=== PATIENT | male | born 1965 | race Two or more races ===

== ENCOUNTER 2016-04-28 15:52 | Emergency (ER) | payer MEDICARE, MEDICAID ==
[~2016-04-28 15:52] MED LIST: BUTA1CAP29 PO; CRESTOR40 MG PO; DOCU-27 PO; HYDR12.53 PO; HYDR12.58 PO; MORP4SYR IV; OMEP20CA9 PO; OMEP20TA PO; OXYC-250 PO
[2016-04-28] MEDS ORDERED: ACETAMINOPHEN 500 MG TABLET PO ONE (18:00)
[2016-04-28] MEDS ORDERED: IV NORMAL SALINE 1000ML BAG 1,000 ML IV ONE (18:00)
[2016-04-28] MEDS ORDERED: IV NORMAL SALINE 1000ML BAG 1,000 ML IV SCH (18:10)
[2016-04-28] MEDS ORDERED: ACETAMINOPHEN 325 MG TABLET. PO ONE (18:15)
[2016-04-28 18:36] LABS: OBC FLU VALID
[2016-04-28 19:07] LABS: BASO # 0.1 x10^3/uL (0.0-0.2); BASO % 1 % (0-3); EOS % 5 % (0-3); HEMOGLOBIN 14.9 g/dL (13.0-17.5); LYMPH # 1.3 x10^3/uL (1.0-4.8); LYMPH % 9 % (24-48); MEAN CORPUSCULAR HEMOGLOBIN 29 pg (25-35); MEAN CORPUSCULAR HGB CONC 32 g/dL (31-37); MEAN CORPUSCULAR VOLUME 91 fL (79-100); MONO % 13 % (0-9); NEUT % 72 % (31-73); PLATELET COUNT 355 x10^3/uL (140-400); RED BLOOD COUNT 5.08 x10^6/uL (4.30-5.70); RED CELL DISTRIBUTION WIDTH 15.7 % (11.5-14.5); WHITE BLOOD COUNT 14.1 x10^3/uL (4.0-11.0)
[2016-04-28 19:16] LABS: GFR 79.1; POTASSIUM 3.8 mmol/L (3.5-5.1)
[2016-04-28 19:22] LABS: ALBUMIN 3.5 g/dL (3.4-5.0); ALBUMIN/GLOBULIN RATIO 0.9 (1.0-1.7); TOTAL BILIRUBIN 0.3 mg/dL (0.2-1.0); TOTAL PROTEIN 7.6 g/dL (6.4-8.2)
[2016-04-28] MEDS ORDERED: MORPHINE SULFATE 4 MG/ML DISP.SYRIN. IV ONE (19:45)
[2016-04-28] MEDS ORDERED: CEFTRIAXONE 1GM IVPB FOR OMNI 50 ML IV ONE (22:00)
[2016-04-28] MEDS ORDERED: HYDR-971 PO (22:01)
[2016-04-28] MEDS ORDERED: AMOX1TAB61 PO (22:01)
--- NOTE | 2016-04-28 22:01 | PHYS DOC ---
Past Medical History Past Medical History: Asthma, High Cholesterol, Hypertension Additional Past Medical Histor: head injury at work 2003, CARPEL TUNNEL Past Surgical History: Cholecystectomy, Splenectomy Additional Past Surgical Histo: spleenectomy, C 4-5 sX 2008 Alcohol Use: Occasionally Drug Use: None Adult General Chief Complaint Chief Complaint: FLU SYMPTOM HPI HPI Patient is a 50 year old male who has been sick since about Friday or Friday, April 23 or . He has had a fever to 102. He's had a cough and chest pain. He's had some nausea, vomited once or twice. He's had a sore throat and headache. He has body aches. Patient is in good general health. 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 PCP Dr. Parker Review of Systems Review of Systems Constitutional: As in history of present illness Eyes: Denies change in visual acuity, redness, or eye pain [] HENT: Positive sore throat Respiratory: As in history of present illness Cardiovascular: He does have chest tightness and pain with the cough GI: Denies abdominal pain, positive for nausea, a couple episodes of vomiting but not a major amount : Denies dysuria or hematuria [] Musculoskeletal: Generalized aches and pains Integument: Denies rash or skin lesions [] Neurologic: Denies focal weakness or sensory changes [] Current Medications Current Medications Current Medications Medications (Trade) Dose Ordered Sig/Santino Start Time Stop Time Status Last Admin Dose Admin Acetaminophen (Tylenol) 1,000 mg 1X ONCE 04/28/16 18:00 04/28/16 18:01 DC Acetaminophen 1000 mg 1,000 mg 1X ONCE 04/28/16 18:15 04/28/16 18:20 DC Ceftriaxone Sodium (Rocephin 1gm Ivpb For Omni) 50 ml @ 100 mls/hr 1X ONCE 04/28/16 22:00 04/28/16 22:29 Morphine Sulfate 4 mg 4 mg 1X ONCE 04/28/16 19:45 04/28/16 19:46 DC 04/28/16 19:56 4 MG Sodium Chloride (Iv Sodium Chloride 0.9% 1000ml Bag) 1,000 ml @ 1,000 mls/hr Q1H 04/28/16 18:10 04/28/16 18:20 DC Allergies Allergies Allergies Coded Allergies Type Severity Reaction Last Updated Verified cyclobenzaprine Allergy Intermediate incontinence 03/25/14 No naproxen Allergy Intermediate itching 03/25/14 No nortriptyline Allergy Intermediate itching 03/25/14 No Physical Exam Physical Exam Constitutional: Well developed, well nourished, febrile, flushed, appears to not feel well, alert and mentating normally. Swallowing without difficulty and handling his secretions well. HENT: Normocephalic, atraumatic, bilateral external ears normal, oropharynx moist, no oral exudates, nose normal. Posterior pharynx is generally red with some swelling of tonsils and of posterior pharynx, no exudates. Eyes: conjunctiva normal, no discharge. [] Neck: Normal range of motion, no stridor. [] Cardiovascular:Heart rate regular rhythm, no murmur , tachycardic in the 130s Lungs & Thorax: Bilateral breath sounds clear to auscultation [] Abdomen: Bowel sounds normal, soft, no tenderness, no masses, no pulsatile masses. [] Skin: Warm, dry, no erythema, no rash. [] Extremities: No tenderness, no cyanosis, no clubbing, ROM intact, no edema. [] Neurologic: Alert and oriented X 3, normal motor function, normal sensory function, no focal deficits noted. [] Current Patient Data Vital Signs Vital Signs Date Time Temp Pulse Resp B/P Pulse Ox O2 Delivery O2 Flow Rate FiO2 04/28/16 19:56 16 Room Air 04/28/16 18:20 134 143/85 96 04/28/16 17:20 100.8 100.8 Lab Values Laboratory Tests Test 04/28/16 17:31 04/28/16 18:30 04/28/16 18:50 Influenza Type A Antigen Negative (NEGATIVE) Influenza Type B Antigen Negative (NEGATIVE) Lactic Acid Level 1.3mmol/L (0.4-2.0) White Blood Count 14.1x10^3/uL (4.0-11.0) H Red Blood Count 5.08x10^6/uL (4.30-5.70) Hemoglobin 14.9g/dL (13.0-17.5) Hematocrit 46.0% (39.0-53.0) Mean Corpuscular Volume 91fL (79-100) Mean Corpuscular Hemoglobin 29pg (25-35) Mean Corpuscular Hemoglobin Concent 32g/dL (31-37) Red Cell Distribution Width 15.7% (11.5-14.5) H Platelet Count 355x10^3/uL (140-400) Neutrophils (%) (Auto) 72% (31-73) Lymphocytes (%) (Auto) 9% (24-48) L Monocytes (%) (Auto) 13% (0-9) H Eosinophils (%) (Auto) 5% (0-3) H Basophils (%) (Auto) 1% (0-3) Neutrophils # (Auto) 10.2x10^3uL (1.8-7.7) H Lymphocytes # (Auto) 1.3x10^3/uL (1.0-4.8) Monocytes # (Auto) 1.8x10^3/uL (0.0-1.1) H Eosinophils # (Auto) 0.8x10^3/uL (0.0-0.7) H Basophils # (Auto) 0.1x10^3/uL (0.0-0.2) Sodium Level 137mmol/L (136-145) Potassium Level 3.8mmol/L (3.5-5.1) Chloride Level 101mmol/L (98-107) Carbon Dioxide Level 26mmol/L (21-32) Anion Gap 10 (6-14) Blood Urea Nitrogen 11mg/dL (8-26) Creatinine 1.0mg/dL (0.7-1.3) Estimated GFR (Cockcroft-Gault) 79.1 BUN/Creatinine Ratio 11 (6-20) Glucose Level 100mg/dL (70-99) H Calcium Level 9.0mg/dL (8.5-10.1) Total Bilirubin 0.3mg/dL (0.2-1.0) Aspartate Amino Transferase (AST) 33U/L (15-37) Alanine Aminotransferase (ALT) 50U/L (16-63) Alkaline Phosphatase 65U/L (46-116) Total Protein 7.6g/dL (6.4-8.2) Albumin 3.5g/dL (3.4-5.0) Albumin/Globulin Ratio 0.9 (1.0-1.7) L Laboratory Tests 04/28/16 18:50 Laboratory Tests 2/12/17 18:50 EKG EKG [] Radiology/Procedures Radiology/Procedures One view portable chest x-ray read by me. No acute cardiopulmonary findings. [] Course & Med Decision Making Course & Med Decision Making Pertinent Labs and Imaging studies reviewed. (See chart for details) 50-year-old male in good general health presents with several days of a febrile illness with a cough and sore throat. The patient is status post splenectomy. Influenza negative. White blood cell count elevated consistent with infection. He is tachycardic which I attribute to fever and dehydration. He was given acetaminophen for fever and 1 L IV fluids for hydration. He remained tachycardic in the 120s so a second liter of IV fluids was given. Apparently at some point his IV blew and he had to have a second IV started but he did get his second liter. Patient's rapid strep was negative. I considered treating the patient just for a viral syndrome with negative influenza but the patient is asplenic and has had a fever for several days, tachycardic, although nontoxic he does appear ill, and I believe with this situation I feel more comfortable starting him on an antibiotic. He was given a dose of IV Rocephin in the ED and discharged on Augmentin. A prescription for [place] for aches and pains, he states he is allergic to naproxen so NSAID is not an option. [] Dragon Disclaimer Dragon Disclaimer This electronic medical record was generated, in whole or in part, using a voice recognition dictation system. Departure Departure Impression: Primary Impression: Febrile illness, acute Additional Impression: Dehydration Disposition: 01 HOME, SELF-CARE Condition: IMPROVED Referrals: ANA PARKER MD (PCP) Patient Instructions: Dehydration, Adult, [id number] Additional Instructions: Your influenza test and strep test was negative in the emergency department. I don't know what is causing your fever and illness. It may just be a virus, but because you have been sick for several days, and your spleen has been removed, we will treat with an antibiotic. Rest at home until better, drink plenty of fluids. If not better in 2-3 days, see your doctor or return for recheck. If worse, if weak, short of breath, or other new symptoms, return to ED. Scripts Hydrocodone/Apap 5-325 ([place] 5-325 Tablet)1 Each Tablet1-2 Tab PO Q4-6HRS #20 TAB As needed for pain Prov:CINTHIA WATSON MD 04/28/16 Amoxicillin/Potassium Clav (Augmentin 875-125 Tablet)1 Each Tablet1 Tab PO BID # 20 TAB Prov:CINTHIA WATSON MD 04/28/16 Problem Qualifiers CINTHIA WATSON MD Apr 28, 2016 22:02
[2016-04-28 22:20] VITALS: BP 127/69
[2016-04-29 08:00] LABS: NEGATIVE OBC STREP NEG; POSITIVE OBC STREP POS
--- NOTE | 2016-04-29 09:05 | RAD ---
Portable chest, 04/28/2016: History: Fever and cough Comparison is made to a study from 05/10/2015. The heart size and pulmonary vascularity are normal. No pulmonary infiltrates are seen. There is no evidence of pleural fluid. Moderate spurring is present in the spine. A surgical plate and screws is evident in the lower cervical region. IMPRESSION: No acute cardiopulmonary abnormality is detected.
== END 2016-04-28 22:40 | disposition home or self-care (01) ==
LOC: ER 15:52
DX: R50.9 Fever, unspecified (principal); E86.0 Dehydration; J45.909 Unspecified asthma, uncomplicated; I10 Essential (primary) hypertension; E78.00 Pure hypercholesterolemia, unspecified; Z88.6 Allergy status to analgesic agent; Z88.8 Allergy status to other drugs, medicaments and biological substances
CPT/HCPCS: 36415; 71010; 80053; 83605; 85027; 87070; 87804; 87880; 96361; 96365; 96374; 99285; J0690; J2270; J7030; 96375

== ENCOUNTER 2016-06-25 23:09 | Emergency (ER) | payer MEDICARE, MEDICAID ==
[~2016-06-25] VITALS: Ht 167.6 cm; Wt 81.6 kg
[~2016-06-25 23:09] MED LIST changes: +AMOX1TAB61 PO; +HYDR-971 PO
[2016-06-25 23:12] VITALS: BP 171/85
--- NOTE | 2016-06-25 23:24 | PHYS DOC ---
Past Medical History Past Medical History: Asthma, High Cholesterol, Hypertension Additional Past Medical Histor: head injury at work 2003, CARPEL TUNNEL Past Surgical History: Cholecystectomy, Splenectomy Additional Past Surgical Histo: spleenectomy Alcohol Use: Occasionally Drug Use: None Adult General Chief Complaint Chief Complaint: ANKLE PROBLEM [facility] HPI Patient is a 50 year old male presents emergency Department today with complaint of right ankle pain after falling yesterday as as well as today. Patient denies any previous broken bones to his ankle. He states he also has a scratch and bruising to the inside of his left thigh. However, he states his primary concern is his right ankle here today. Review of Systems Review of Systems Constitutional: Denies fever or chills [] Eyes: Denies change in visual acuity, redness, or eye pain [] HENT: Denies nasal congestion or sore throat [] Respiratory: Denies cough or shortness of breath [] Cardiovascular: No additional information not addressed in HPI [] GI: Denies abdominal pain, nausea, vomiting, bloody stools or diarrhea [] : Denies dysuria or hematuria [] Musculoskeletal: Denies back pain or joint pain [] Integument: Denies rash or skin lesions [] Neurologic: Denies headache, focal weakness or sensory changes [] Endocrine: Denies polyuria or polydipsia [] Allergies Allergies Allergies Coded Allergies Type Severity Reaction Last Updated Verified cyclobenzaprine Allergy Intermediate incontinence 03/25/14 No naproxen Allergy Intermediate itching 03/25/14 No nortriptyline Allergy Intermediate itching 03/25/14 No Physical Exam Physical Exam Constitutional: Well developed, well nourished, no acute distress, non-toxic appearance. [] HENT: Normocephalic, atraumatic, bilateral external ears normal, oropharynx moist, no oral exudates, nose normal. [] Eyes: PERRLA, EOMI, conjunctiva normal, no discharge. [] Neck: Normal range of motion, no tenderness, supple, no stridor. [] Cardiovascular:Heart rate regular rhythm, no murmur [] Lungs & Thorax: Bilateral breath sounds clear to auscultation [] Abdomen: Bowel sounds normal, soft, no tenderness, no masses, no pulsatile masses. [] Skin: Warm, dry, no erythema, no rash. [] Back: No tenderness, no CVA tenderness. [] Extremities: Right knee is normal in appearance and nontender palpation. Patient has no complaints of pain over the fibular head and neck. Right ankle with bruising and tenderness to palpation around the lateral malleolus. There is no palpable instability or crepitus. Right foot is normal in appearance. Patient has no complaints of pain to his foot. He is able to plantar and dorsiflex. Foot is warm and dry with strong dorsalis pedis pulse. Neurologic: Alert and oriented X 3, normal motor function, normal sensory function, no focal deficits noted. [] Psychologic: Affect normal, judgement normal, mood normal. [] Current Patient Data Vital Signs Vital Signs Date Time Temp Pulse Resp B/P Pulse Ox O2 Delivery O2 Flow Rate FiO2 06/25/16 23:12 97.5 107 20 97 Room Air 97.5 EKG EKG [] Radiology/Procedures Radiology/Procedures 3 views of patient's right ankle were performed with adequate technique. There is several loose bodies/exostoses. There is no evidence of any acute process. Course & Med Decision Making Course & Med Decision Making Patient's right ankle was wrapped with an Russ wrap and he was placed in an ankle air splint. There is no evidence of neurovascular compromise post- application. Dragon Disclaimer Dragon Disclaimer This electronic medical record was generated, in whole or in part, using a voice recognition dictation system. Departure Departure Impression: Primary Impression: Ankle sprain Disposition: 01 HOME, SELF-CARE Condition: GOOD Referrals: ANA PARKER MD (PCP) Patient Instructions: Ankle Sprain, [id number] Additional Instructions: 1. The x-rays today show no evidence of broken bone following your two injuries. 2. Wear the Russ wrap and splint during periods of activity. Keep your foot up and elevated as much as possible to help minimize swelling. Apply ice packs every 2 hours for 20-30 minutes at a time. 3. Take the medication as prescribed. 4. Follow-up with your primary care doctor within the next 5-7 days for reexamination. Scripts Ibuprofen 600 Mg [id number] Mg PO PRN Q6HRS PRN INFLAMMATION #30 TAB Prov:DELROY SHORT 06/25/16 Hydrocodone/Apap 5-325 ([place] 5-325 Tablet)1 Each Tablet1 Tab PO PRN Q6HRS PRN PAIN #10 TAB Prov:DELROY SHORT 06/25/16 Problem Qualifiers Primary Impression: Ankle sprain Encounter type: initial encounter Involved ligament of ankle: unspecified ligament Laterality: right Qualified Code: S93.401A - Sprain of unspecified ligament of right ankle, initial encounter DELROY SHORT Jun 25, 2016 23:24
[2016-06-25] MEDS ORDERED: IBUP-1007 PO (23:52)
[2016-06-25] MEDS ORDERED: HYDR-971 PO (23:52)
--- NOTE | 2016-06-26 08:09 | RAD ---
Portable right ankle, 3 views, 06/25/2016: History: Fall, pain There is a well-defined calcific density at the tip of the medial malleolus compatible with old trauma. There is mild spurring at the tip of the lateral malleolus. No acute fracture or dislocation is identified. There are tendinous calcifications at the Achilles tendon insertion site on the posterior aspect of the calcaneus. Mild subcutaneous edema is present about the ankle. IMPRESSION: No acute bony abnormality is detected.
== END 2016-06-26 00:02 | disposition home or self-care (01) ==
LOC: ER 23:09
DX: S93.401A Sprain of unspecified ligament of right ankle, initial encounter (principal); J45.909 Unspecified asthma, uncomplicated; E78.00 Pure hypercholesterolemia, unspecified; I10 Essential (primary) hypertension; Z88.6 Allergy status to analgesic agent; Z88.8 Allergy status to other drugs, medicaments and biological substances; W19.XXXA Unspecified fall, initial encounter; Y93.89 Activity, other specified; Y92.89 Other specified places as the place of occurrence of the external cause; Y99.8 Other external cause status
CPT/HCPCS: 73610; 99284

== ENCOUNTER 2017-02-17 22:10 | Emergency (ER) | payer MEDICARE, MEDICAID ==
[~2017-02-17 22:10] MED LIST changes: +AMIT25TA PO; +CITA20TA5 PO; +DICY10CA3 PO; +DOCU-109 PO; -DOCU-27 PO; +GABA-586 PO; +IBUP-1007 PO; +LIPITOR80 MG PO; +LORA10TA3 PO; +LOSA1TAB19 PO; +METO50TA6 PO; +METR500T PO; -OMEP20TA PO; +OMEP20TA8 PO; -OXYC-250 PO; +OXYC-328 PO
--- NOTE | 2017-02-17 22:53 | PHYS DOC ---
Past Medical History Past Medical History: Asthma, High Cholesterol, Hypertension Additional Past Medical Histor: head injury at work 2003, CARPEL TUNNEL Past Surgical History: Cholecystectomy, Splenectomy Additional Past Surgical Histo: spleenectomy, c4-5 sx Alcohol Use: Occasionally Drug Use: None Adult General Chief Complaint Chief Complaint: MULTIPLE COMPLAINTS HPI HPI Patient is a 51 year old male who presents with. He states that he has chronic neck pain and a little worse today. He also complains of right upper quadrant pain of which she's been seen and evaluated before he states his been flaring up again over the last month. He states he's felt nausea and vomiting and his last time he vomited was a week ago. He denies any blood in it. He states he's having normal bowel movements. He denies any fevers or chills. He follows with Dr. Waldrop and has an appointment later in the month with her. Review of Systems Review of Systems Constitutional: Denies fever or chills [] Eyes: Denies change in visual acuity, redness, or eye pain [] HENT: Denies nasal congestion or sore throat [] Respiratory: Denies cough or shortness of breath [] Cardiovascular: No additional information not addressed in HPI [] GI: Positive for abdominal pain, nausea, vomiting, Denies bloody stools or diarrhea [] : Denies dysuria or hematuria [] Musculoskeletal: Denies back pain or joint pain [] Integument: Denies rash or skin lesions [] Neurologic: Denies headache, focal weakness or sensory changes [] Endocrine: Denies polyuria or polydipsia [] All other systems were reviewed and found to be within normal limits, except as documented in this note. Current Medications Current Medications Current Medications Medications (Trade) Dose Ordered Sig/Santino Start Time Stop Time Status Last Admin Dose Admin Info (Do NOT chart on this entry -- for MONITORING) 1 each PRN DAILY PRN 02/18/17 00:45 02/20/17 00:44 Iohexol (Omnipaque 300 Mg/ml) 75 ml 1X ONCE 02/18/17 00:45 02/18/17 00:46 DC 02/18/17 00:54 75 ML Morphine Sulfate 2 mg PRN Q15MIN PRN 02/17/17 23:00 02/18/17 22:59 02/17/17 23:34 2 MG Ondansetron HCl (Zofran) 4 mg 1X ONCE 02/17/17 23:15 02/17/17 23:19 DC 02/17/17 23:34 4 MG Sodium Chloride 1,000 ml @ 1,000 mls/hr Q1H 02/17/17 22:54 02/17/17 23:53 DC 02/17/17 23:33 1,000 MLS/HR Allergies Allergies Allergies Coded Allergies Type Severity Reaction Last Updated Verified cyclobenzaprine Allergy Intermediate incontinence 11/08/16 Yes naproxen Allergy Intermediate itching 11/08/16 Yes nortriptyline Allergy Intermediate itching 11/08/16 Yes Physical Exam Physical Exam Constitutional: Well developed, well nourished, no acute distress, non-toxic appearance. [] HENT: Normocephalic, atraumatic, bilateral external ears normal, oropharynx moist, no oral exudates, nose normal. [] Eyes: PERRLA, EOMI, conjunctiva normal, no discharge. [] Neck: Normal range of motion, no tenderness, supple, no stridor. [] Cardiovascular:Heart rate regular rhythm, no murmur [] Lungs & Thorax: Bilateral breath sounds clear to auscultation [] Abdomen: Bowel sounds normal, soft, mild right upper quadrant tender to palpation, no rebound or guarding, no masses, no pulsatile masses. [] Skin: Warm, dry, no erythema, no rash. [] Back: No tenderness, no CVA tenderness. [] Extremities: No tenderness, no cyanosis, no clubbing, ROM intact, no edema. [] Neurologic: Alert and oriented X 3, normal motor function, normal sensory function, no focal deficits noted. [] Psychologic: Affect normal, judgement normal, mood normal. [] Current Patient Data Vital Signs Vital Signs Date Time Temp Pulse Resp B/P (MAP) Pulse Ox O2 Delivery O2 Flow Rate FiO2 02/17/17 23:41 98.1 1 140/92 (108) 98 98.1 02/17/17 23:34 20 Room Air Lab Values Laboratory Tests Test 02/17/17 22:54 02/17/17 23:29 02/18/17 01:09 Troponin I Quantitative < 0.017 ng/mL (0.000-0.055) White Blood Count 9.6 x10^3/uL (4.0-11.0) Red Blood Count 5.20 x10^6/uL (4.30-5.70) Hemoglobin 15.2 g/dL (13.0-17.5) Hematocrit 46.1 % (39.0-53.0) Mean Corpuscular Volume 89 fL (79-100) Mean Corpuscular Hemoglobin 29 pg (25-35) Mean Corpuscular Hemoglobin Concent 33 g/dL (31-37) Red Cell Distribution Width 14.2 % (11.5-14.5) Platelet Count 419 x10^3/uL (140-400) H Neutrophils (%) (Auto) 54 % (31-73) Lymphocytes (%) (Auto) 29 % (24-48) Monocytes (%) (Auto) 15 % (0-9) H Eosinophils (%) (Auto) 2 % (0-3) Basophils (%) (Auto) 0 % (0-3) Neutrophils # (Auto) 5.2 x10^3uL (1.8-7.7) Lymphocytes # (Auto) 2.8 x10^3/uL (1.0-4.8) Monocytes # (Auto) 1.4 x10^3/uL (0.0-1.1) H Eosinophils # (Auto) 0.2 x10^3/uL (0.0-0.7) Basophils # (Auto) 0.0 x10^3/uL (0.0-0.2) Prothrombin Time 12.0 SEC (11.7-14.0) Prothrombin Time INR 0.9 (0.8-1.1) PTT 27 SEC (24-38) Sodium Level 142 mmol/L (136-145) Potassium Level 4.3 mmol/L (3.5-5.1) Chloride Level 105 mmol/L (98-107) Carbon Dioxide Level 28 mmol/L (21-32) Anion Gap 9 (6-14) Blood Urea Nitrogen 12 mg/dL (8-26) Creatinine 0.8 mg/dL (0.7-1.3) Estimated GFR (Cockcroft-Gault) 101.9 Glucose Level 99 mg/dL (70-99) Calcium Level 9.2 mg/dL (8.5-10.1) Total Bilirubin 0.3 mg/dL (0.2-1.0) Direct Bilirubin 0.1 mg/dL (0.0-0.2) Aspartate Amino Transferase (AST) 20 U/L (15-37) Alanine Aminotransferase (ALT) 34 U/L (16-63) Alkaline Phosphatase 77 U/L (46-116) Creatine Kinase 68 U/L (39-308) Creatine Kinase MB (Mass) < 0.5 ng/mL (0.0-3.6) Creatine Kinase MB Relative Index 0.7 % (0-4) Total Protein 7.3 g/dL (6.4-8.2) Albumin 3.7 g/dL (3.4-5.0) Lipase 97 U/L (73-393) Urine Collection Type Unknown Urine Color Yellow Urine Clarity Clear Urine pH 7.0 Urine Specific [place] 1.015 Urine Protein Negative mg/dL (NEG-TRACE) Urine Glucose (UA) Negative mg/dL (NEG) Urine Ketones (Stick) Negative mg/dL (NEG) Urine Blood Negative (NEG) Urine Nitrite Negative (NEG) Urine Bilirubin Negative (NEG) Urine Urobilinogen Dipstick 0.2 mg/dL (0.2 mg/dL) Urine Leukocyte Esterase Negative (NEG) Urine RBC 0 /HPF (0-2) Urine WBC 0 /HPF (0-4) Urine Squamous Epithelial Cells None /LPF Urine Bacteria 0 /HPF (0-FEW) Urine Opiates Screen Pos (NEG) Urine Methadone Screen Neg (NEG) Urine Barbiturates Neg (NEG) Urine Phencyclidine Screen Neg (NEG) Urine Amphetamine/Methamphetamine Neg (NEG) Urine Benzodiazepines Screen Neg (NEG) Urine Cocaine Screen Neg (NEG) Urine Cannabinoids Screen Neg (NEG) Urine Ethyl Alcohol Neg (NEG) Laboratory Tests 02/17/17 23:29 Laboratory Tests 02/17/17 23:29 EKG EKG [] Radiology/Procedures Radiology/Procedures [facility] [address] [place], [place] [id number] IMAGING REPORT Signed PATIENT: SELINA LAW V ACCOUNT: [id number] : 1965 LOCATION: ER AGE: 51 SEX: M EXAM STATUS: REG ER ORD. PHYSICIAN: MOHAN BEJARANO MD REASON: ruq pain PROCEDURE: CT ABD PELV W/ IV CONTRST ONLY INDICATION: RUQ PAIN; OMNI 300, 75ML COMPARISON: November 06, 2016 TECHNIQUE: Axial CT images were obtained through the abdomen and pelvis with intravenous contrast. One or more of the following individualized dose reduction techniques were utilized for this examination: 1. Automated exposure control; 2. Adjustment of the mA and/or kV according to patient size; 3. Use of iterative reconstruction technique. FINDINGS: Suspected partially visualized 4 mm nodule again seen right lung base. Mild/moderate calcific atherosclerosis. Cholecystectomy changes. Suspected cystic lesion of liver measuring approximately 2 cm. There is some edema within the mesenteric fat with mild nodularity. No definite pancreatic edema. There are some splenule is in the left upper quadrant suspected. Exophytic cystic lesion of the left kidney. No left-sided hydronephrosis. No right-sided hydronephrosis. Urinary bladder is partially distended at time of exam. Colonic diverticulosis. No definite periappendiceal inflammation. Small fat-containing umbilical hernia. Degenerative changes of spine. At the L1 vertebral body there is a lucent lesion measuring approximately 18 mm. Could be from causes such as vertebral body hemangioma IMPRESSION: No evidence of bowel obstruction or appendicitis. There is some mild edema seen in a portion of the mesentery with some scattered small lymph nodes in the area. This was also present on prior examination. Nonspecific appearance but can be seen with causes such as mesenteric adenitis or infarct of fat. Given proximity to the duodenum some degree of duodenal inflammation is not excluded on this exam. Electronically signed by: Christiano Valdes MD (02/18/2017 1:15 AM) [facility] DICTATED and SIGNED BY: CHRISTIANO VALDES MD DATE: 02/18/1799 CC: MOHAN BEJARANO MD; OKSANA WALDROP MD ~ Impressions: Adenitis Course & Med Decision Making Course & Med Decision Making Pertinent Labs and Imaging studies reviewed. (See chart for details) He scan shows likely adenitis. He is to use 4 mg Advil every 8 hours for next few days. He is to follow-up with GI and surgery. Return precautions given. He is agreeable to the plan and being discharged in stable condition. Dragon Disclaimer Dragon Disclaimer This electronic medical record was generated, in whole or in part, using a voice recognition dictation system. Departure Departure Impression: Primary Impression: Abdominal pain Disposition: HOME, SELF-CARE Condition: STABLE Referrals: OKSANA WALDROP MD (PCP) RAJ TEJADA MD, SCOTT S MD Patient Instructions: Abdominal Pain (Nonspecific) Additional Instructions: The CAT scan of your abdomen pelvis showed that you had adenitis which is an inflammation of some lymph nodes in your stomach and abdominal area. Your labs do not show any acute abnormalities in your vitals do not indicate a you have fever or other concerns. You should follow-up with Dr. Tejada with surgery. You 'll also follow-up with Dr. Steiner with GI. He can take 400 mg of Advil every 8 hours for the next few days to help control your pain. If you develop high fevers, worsening abdominal pain other concerns please return back to emergency department. MOHAN BEJARANO MD Feb 17, 2017 22:53
[2017-02-17] MEDS ORDERED: IV NORMAL SALINE 1000ML BAG 1,000 ML IV SCH (22:54)
[2017-02-17] MEDS ORDERED: MORPHINE SULFATE 2 MG/ML DISP.SYRIN. IV/SQ PRN (23:00)
[2017-02-17] MEDS ORDERED: ONDANSETRON PF 4 MG/2 ML VIAL. IV ONE (23:15)
[2017-02-17 23:49] LABS: BASO % 0 % (0-3); EOS % 2 % (0-3); HEMATOCRIT 46.1 % (39.0-53.0); HEMOGLOBIN 15.2 g/dL (13.0-17.5); LYMPH # 2.8 x10^3/uL (1.0-4.8); LYMPH % 29 % (24-48); MEAN CORPUSCULAR HEMOGLOBIN 29 pg (25-35); MEAN CORPUSCULAR HGB CONC 33 g/dL (31-37); MEAN CORPUSCULAR VOLUME 89 fL (79-100); MONO % 15 % (0-9); NEUT % 54 % (31-73); PLATELET COUNT 419 x10^3/uL (140-400); RED CELL DISTRIBUTION WIDTH 14.2 % (11.5-14.5); WHITE BLOOD COUNT 9.6 x10^3/uL (4.0-11.0)
[2017-02-17 23:55] LABS: INR 0.9 (0.8-1.1)
[2017-02-18] LABS: CALCIUM 9.2 mg/dL (8.5-10.1); CREATININE 0.8 mg/dL (0.7-1.3); GFR 101.9; POTASSIUM 4.3 mmol/L (3.5-5.1)
[2017-02-18 00:10] LABS: ALBUMIN 3.7 g/dL (3.4-5.0); DIRECT BILIRUBIN 0.1 mg/dL (0.0-0.2); TOTAL BILIRUBIN 0.3 mg/dL (0.2-1.0); TOTAL PROTEIN 7.3 g/dL (6.4-8.2)
[2017-02-18 00:13] LABS: CREATINE KINASE 68 U/L (39-308)
[2017-02-18 00:15] LABS: CKMB MASS < 0.5 ng/mL (0.0-3.6)
[2017-02-18] MEDS ORDERED: CONTRAST GIVEN MC PRN (00:45)
[2017-02-18] MEDS ORDERED: IOHEXOL 300 MG/ML 100ML VIAL. IV ONE (00:45)
--- NOTE | 2017-02-18 01:18 | RAD ---
INDICATION: RUQ PAIN; OMNI 300, 75ML COMPARISON: November 06, 2016 TECHNIQUE: Axial CT images were obtained through the abdomen and pelvis with intravenous contrast. One or more of the following individualized dose reduction techniques were utilized for this examination: 1. Automated exposure control; 2. Adjustment of the mA and/or kV according to patient size; 3. Use of iterative reconstruction technique. FINDINGS: Suspected partially visualized 4 mm nodule again seen right lung base. Mild/moderate calcific atherosclerosis. Cholecystectomy changes. Suspected cystic lesion of liver measuring approximately 2 cm. There is some edema within the mesenteric fat with mild nodularity. No definite pancreatic edema. There are some splenule is in the left upper quadrant suspected. Exophytic cystic lesion of the left kidney. No left-sided hydronephrosis. No right-sided hydronephrosis. Urinary bladder is partially distended at time of exam. Colonic diverticulosis. No definite periappendiceal inflammation. Small fat-containing umbilical hernia. Degenerative changes of spine. At the L1 vertebral body there is a lucent lesion measuring approximately 18 mm. Could be from causes such as vertebral body hemangioma IMPRESSION: No evidence of bowel obstruction or appendicitis. There is some mild edema seen in a portion of the mesentery with some scattered small lymph nodes in the area. This was also present on prior examination. Nonspecific appearance but can be seen with causes such as mesenteric adenitis or infarct of fat. Given proximity to the duodenum some degree of duodenal inflammation is not excluded on this exam. Electronically signed by: Murali Garcia MD (02/18/2017 1:15 AM) [facility]
[2017-02-18 01:19] LABS: BILIRUBIN,URINE NEGATIVE (NEG); GLUCOSE,URINE NEGATIVE (NEG); NITRITE,URINE NEGATIVE (NEG); PROTEIN,URINE NEGATIVE (NEG-TRACE); UROBILINOGEN,URINE 0.2 mg/dL (0.2 mg/dL)
[2017-02-18 01:24] LABS: BARBITURATES NEG (NEG); BENZODIAZEPINES NEG (NEG); CANNABINOIDS NEG (NEG); COCAINE NEG (NEG); METHADONE NEG (NEG); OPIATES POS (NEG); PHENCYCLIDINE NEG (NEG)
[2017-02-18 01:26] LABS: BACTERIA,URINE 0 /HPF (0-FEW); RBC,URINE 0 /HPF (0-2); WBC,URINE 0 /HPF (0-4)
[2017-02-18 02:33] VITALS: BP 125/82
--- NOTE | 2017-02-18 06:31 | EKG ---
[facility] [address] [place] [address] Test Date: 2017-02-17 Test Time: 23:27:49 Pat Name: SELINA LAW Department: Room: Gender: M Admission Discharge Rn: : 1965 Requested By: MOHAN BEJARANO Order Number: [id number] Reading MD: Measurements Intervals [place] Rate: 73 P: 56 SD: 166 QRS: -13 QRSD: 102 T: 22 QT: 358 QTc: 398 Interpretive Statements SINUS RHYTHM LEFTWARD AXIS OTHERWISE NORMAL ECG RI6.01 No previous ECG available for comparison
[2017-02-18 07:44] LABS: NEGATIVE OBC STREP NEG; POSITIVE OBC STREP POS
[2017-02-23] MEDS ORDERED: HYDR-971 PO (13:08)
== END 2017-02-18 02:42 | disposition home or self-care (01) ==
LOC: ER 22:10
DX: R10.11 Right upper quadrant pain (principal); R11.2 Nausea with vomiting, unspecified; M54.2 Cervicalgia; G89.29 Other chronic pain; J45.909 Unspecified asthma, uncomplicated; E78.00 Pure hypercholesterolemia, unspecified; I10 Essential (primary) hypertension; Z90.81 Acquired absence of spleen; Z90.49 Acquired absence of other specified parts of digestive tract; Z88.8 Allergy status to other drugs, medicaments and biological substances; Z88.6 Allergy status to analgesic agent
CPT/HCPCS: 99285; J2270; J2405; J7030; Q9967; 36415; 74177; 80048; 80076; 80307; 81001; 82553; 83690; 84484; 85025; 85610; 85730; 87070; 87880; 93005; 96361; 96374; 96375; G0479

== ENCOUNTER 2017-04-14 12:47 | Inpatient (IN) | payer MEDICARE, MEDICAID ==
[2017-04-14 14:11] LABS: INFLUENZA A PATIENT NEGATIVE (NEGATIVE)
[2017-04-14 14:12] LABS: INFLUENZA B PATIENT POSITIVE (NEGATIVE); OBC FLU VALID
[2017-04-14] MEDS: OSELTAMIVIR 75 MG CAPSULE PO ×2 (15:02)
[2017-04-14 15:11] LABS: BASO # 0.1 x10^3/uL (0.0-0.2); BASO % 1 % (0-3); EOS # 0.2 x10^3/uL (0.0-0.7); EOS % 2 % (0-3); HEMATOCRIT 43.4 % (39.0-53.0); HEMOGLOBIN 14.5 g/dL (13.0-17.5); LYMPH % 11 % (24-48); MEAN CORPUSCULAR HEMOGLOBIN 29 pg (25-35); MEAN CORPUSCULAR HGB CONC 33 g/dL (31-37); MEAN CORPUSCULAR VOLUME 87 fL (79-100); MONO # 1.7 x10^3/uL (0.0-1.1); MONO % 18 % (0-9); NEUT # 6.3 x10^3uL (1.8-7.7); NEUT % 67 % (31-73); PLATELET COUNT 418 x10^3/uL (140-400); RED BLOOD COUNT 4.98 x10^6/uL (4.30-5.70); RED CELL DISTRIBUTION WIDTH 14.6 % (11.5-14.5); WHITE BLOOD COUNT 9.4 x10^3/uL (4.0-11.0)
[2017-04-14 15:14] LABS: ADD MAN DIFF? YES
[2017-04-14 15:19] LABS: ANION GAP 6 (6-14); BLOOD UREA NITROGEN 8 mg/dL (8-26); BUN/CREATININE RATIO 10 (6-20); CALCIUM 8.5 mg/dL (8.5-10.1); CARBON DIOXIDE 27 mmol/L (21-32); CHLORIDE 98 mmol/L (98-107); CREATININE 0.8 mg/dL (0.7-1.3); GFR 101.9; GLUCOSE 112 mg/dL (70-99); POTASSIUM 4.3 mmol/L (3.5-5.1); SODIUM 131 mmol/L (136-145)
[2017-04-14 15:25] LABS: ALBUMIN 3.5 g/dL (3.4-5.0); ALBUMIN/GLOBULIN RATIO 0.9 (1.0-1.7); ALK PHOS 82 U/L (46-116); ALT (SGPT) 37 U/L (16-63); AST (SGOT) 24 U/L (15-37); LIPASE 85 U/L (73-393); TOTAL BILIRUBIN 0.1 mg/dL (0.2-1.0); TOTAL PROTEIN 7.6 g/dL (6.4-8.2)
[2017-04-14 15:36] LABS: LACTIC ACID 1.9 mmol/L (0.4-2.0)
[2017-04-14] MEDS: MORPHINE SULFATE 4 MG/ML DISP.SYRIN. IV ×4 (15:39→18:42)
[2017-04-14] MEDS ORDERED: ONDANSETRON PF 4 MG/2 ML VIAL. IV ×2 (15:45)
[2017-04-14] MEDS: IV NORMAL SALINE 1000ML BAG 1,000 ML IV ×2 (16:14)
[2017-04-14] MEDS: ACETAMINOPHEN 500 MG TABLET PO ×2 (16:14)
[2017-04-14 18:26] LABS: % BANDS 1 % (0-9); % EOS 1 % (0-5); % LYMPHS 12 % (24-48); % MONOS 18 % (0-10); % SEGS 68 % (35-66); ANISOCYTOSIS SLIGHT; NUCLEATED RBC 1; PLT ESTIMATE ADEQUATE (ADEQUATE); POLYCHROMASIA SLIGHT
[2017-04-14 18:39] LABS: LACTIC ACID 1.6 mmol/L (0.4-2.0)
[2017-04-14] MEDS ORDERED: INFLUENZA VAX SCREEN BY RX. MC ×2 (20:00)
[2017-04-14] MEDS ORDERED: PNEUMOCOCCAL VAX SCREEN BY RX. MC ×2 (20:00)
[2017-04-14] MEDS: AMITRIPTYLINE HCL 25 MG TABLET. PO ×2 (22:00)
[2017-04-14] MEDS: METOPROLOL TART IMMED RELEASE 50 MG TABLET. PO ×2 (22:00)
[2017-04-15] MEDS: ACETAMINOPHEN 325 MG TABLET. PO ×4 (03:59→08:27)
[2017-04-15] MEDS: MORPHINE SULFATE 4 MG/ML DISP.SYRIN. IV ×6 (04:04→09:36)
[2017-04-15] MEDS: LOSARTAN POTASSIUM 50 MG TABLET. PO ×2 (08:27)
[2017-04-15] MEDS: FLU VACC QS2017-18 (36MOS+)/PF 0.5 ML SYRINGE. VAX IM ×2 (09:43)
[2017-04-15] MEDS ORDERED: DICYCLOMINE HCL 10 MG CAPSULE PO ×2 (09:45)
[2017-04-15] MEDS: PNEUMOC CONJ VACC 23-VALENT 0.5 ML VIAL. VAX IM ×2 (09:47)
[2017-04-15] MEDS ORDERED: IBUPROFEN 200 MG TABLET. PO ×2 (10:45)
[2017-04-15] MEDS: CITALOPRAM 20 MG TABLET. PO ×2 (11:12)
[2017-04-15] MEDS: PANTOPRAZOLE 40 MG TABLET.DR. PO ×2 (11:13)
[2017-04-15] MEDS: GABAPENTIN 300 MG CAPSULE. PO ×6 (11:13→20:25)
[2017-04-15] MEDS: AZITHROMYCIN 250 MG TABLET. PO ×2 (11:14)
[2017-04-15] MEDS: OSELTAMIVIR 75 MG CAPSULE PO ×4 (11:14→20:26)
[2017-04-15] MEDS: HYDROcodone/APAP 5/325MG 1 TAB TABLET PO ×4 (11:16→16:32)
[2017-04-15] MEDS: METOPROLOL TART IMMED RELEASE 50 MG TABLET. PO ×2 (11:16)
[2017-04-15] MEDS: LACTOBACILLUS RHAMNOSUS GG 1 CAPSULE. PO ×2 (20:25)
[2017-04-15] MEDS: ATORVASTATIN CALCIUM 40 MG TABLET. PO ×2 (20:26)
[2017-04-15] MEDS: IBUPROFEN 200 MG TABLET. PO ×4 (20:27→23:20)
[2017-04-15] MEDS: AMITRIPTYLINE HCL 25 MG TABLET. PO ×2 (20:27)
[2017-04-16] MEDS: IBUPROFEN 200 MG TABLET. PO ×10 (03:52→21:23)
[2017-04-16] MEDS: HYDROcodone/APAP 5/325MG 1 TAB TABLET PO ×4 (03:56→08:42)
[2017-04-16] MEDS: GABAPENTIN 300 MG CAPSULE. PO ×6 (08:41→21:22)
[2017-04-16] MEDS: LACTOBACILLUS RHAMNOSUS GG 1 CAPSULE. PO ×4 (08:41→21:22)
[2017-04-16] MEDS: LOSARTAN POTASSIUM 50 MG TABLET. PO ×2 (08:42)
[2017-04-16] MEDS: OSELTAMIVIR 75 MG CAPSULE PO ×4 (08:42→21:23)
[2017-04-16] MEDS: AZITHROMYCIN 250 MG TABLET. PO ×2 (08:42)
[2017-04-16] MEDS: CITALOPRAM 20 MG TABLET. PO ×2 (08:42)
[2017-04-16] MEDS: PANTOPRAZOLE 40 MG TABLET.DR. PO ×2 (08:42)
[2017-04-16] MEDS ORDERED: CETIRIZINE HCL 10 MG TABLET. PO ×2 (09:00)
[2017-04-16] MEDS: ACETAMINOPHEN 325 MG TABLET. PO ×2 (11:12)
[2017-04-16] MEDS: METOPROLOL TART IMMED RELEASE 50 MG TABLET. PO ×2 (12:09)
[2017-04-16] MEDS: ATORVASTATIN CALCIUM 40 MG TABLET. PO ×2 (21:22)
[2017-04-16] MEDS: AMITRIPTYLINE HCL 25 MG TABLET. PO ×2 (21:22)
[2017-04-17] MEDS: IBUPROFEN 200 MG TABLET. PO ×6 (00:20→08:57)
[2017-04-17] MEDS: HYDROcodone/APAP 5/325MG 1 TAB TABLET PO ×2 (04:14)
[2017-04-17] MEDS: PANTOPRAZOLE 40 MG TABLET.DR. PO ×2 (06:37)
[2017-04-17] MEDS: OSELTAMIVIR 75 MG CAPSULE PO ×2 (08:57)
[2017-04-17] MEDS: LACTOBACILLUS RHAMNOSUS GG 1 CAPSULE. PO ×2 (08:57)
[2017-04-17] MEDS: CITALOPRAM 20 MG TABLET. PO ×2 (08:57)
[2017-04-17] MEDS: LOSARTAN POTASSIUM 50 MG TABLET. PO ×2 (08:57)
[2017-04-17] MEDS: GABAPENTIN 300 MG CAPSULE. PO ×2 (08:58)
[2017-04-17] MEDS: AZITHROMYCIN 250 MG TABLET. PO ×2 (08:58)
== END 2017-04-17 10:46 | disposition home or self-care (01) | DRG 153 ==
LOC: ER 12:47 → 5 NORTH 15:38
DX: J11.1 Influenza due to unidentified influenza virus with other respiratory manifestations (principal); R65.10 Systemic inflammatory response syndrome (SIRS) of non-infectious origin without acute organ dysfunction; E78.5 Hyperlipidemia, unspecified; I10 Essential (primary) hypertension; J45.909 Unspecified asthma, uncomplicated; K21.9 Gastro-esophageal reflux disease without esophagitis; F32.9 Major depressive disorder, single episode, unspecified; Z82.49 Family history of ischemic heart disease and other diseases of the circulatory system; Z87.11 Personal history of peptic ulcer disease; Z90.81 Acquired absence of spleen; Z90.49 Acquired absence of other specified parts of digestive tract
CPT/HCPCS: 36415; 71046; 80053; 83605; 83690; 85007; 85025; 87040; 87804; 87804-59; 90686; 90732; 93005; 96361; 96365; 96375; 99285; 99285-25; J1956; J2270; J7030; Q0144

== ENCOUNTER 2017-07-07 00:46 | Emergency (ER) | payer MEDICARE, MEDICAID ==
[2017-07-07 01:19] LABS: ADD MAN DIFF? NO; BASO % 0 % (0-3); EOS # 0.3 x10^3/uL (0.0-0.7); EOS % 4 % (0-3); HEMATOCRIT 43.5 % (39.0-53.0); HEMOGLOBIN 14.8 g/dL (13.0-17.5); LYMPH # 3.1 x10^3/uL (1.0-4.8); LYMPH % 42 % (24-48); MEAN CORPUSCULAR HEMOGLOBIN 30 pg (25-35); MEAN CORPUSCULAR HGB CONC 34 g/dL (31-37); MEAN CORPUSCULAR VOLUME 87 fL (79-100); MONO # 1.2 x10^3/uL (0.0-1.1); MONO % 17 % (0-9); NEUT # 2.7 x10^3uL (1.8-7.7); NEUT % 37 % (31-73); PLATELET COUNT 437 x10^3/uL (140-400); RED BLOOD COUNT 4.99 x10^6/uL (4.30-5.70); RED CELL DISTRIBUTION WIDTH 14.7 % (11.5-14.5); WHITE BLOOD COUNT 7.3 x10^3/uL (4.0-11.0)
[2017-07-07] MEDS: IV NORMAL SALINE 1000ML BAG 1,000 ML IV (01:22)
[2017-07-07 01:33] LABS: ANION GAP 9 (6-14); BLOOD UREA NITROGEN 14 mg/dL (8-26); BUN/CREATININE RATIO 16 (6-20); CALCIUM 8.7 mg/dL (8.5-10.1); CARBON DIOXIDE 27 mmol/L (21-32); CHLORIDE 104 mmol/L (98-107); CREATININE 0.9 mg/dL (0.7-1.3); GLUCOSE 113 mg/dL (70-99); POTASSIUM 3.9 mmol/L (3.5-5.1); SODIUM 140 mmol/L (136-145)
[2017-07-07 01:38] LABS: ALBUMIN 3.5 g/dL (3.4-5.0); ALBUMIN/GLOBULIN RATIO 0.8 (1.0-1.7); ALK PHOS 89 U/L (46-116); ALT (SGPT) 37 U/L (16-63); AST (SGOT) 22 U/L (15-37); TOTAL BILIRUBIN 0.3 mg/dL (0.2-1.0)
[2017-07-07 01:41] LABS: TROPONINI < 0.017 ng/mL (0.000-0.055)
[2017-07-07] MEDS ORDERED: CONTRAST GIVEN MC (02:00)
[2017-07-07] MEDS: IOHEXOL 300 MG/ML 100ML VIAL. IV (02:17)
[2017-07-07 05:00] LABS: TROPONINI < 0.017 ng/mL (0.000-0.055)
== END 2017-07-07 05:40 | disposition home or self-care (01) ==
LOC: ER 00:46
DX: R07.9 Chest pain, unspecified (principal); E78.00 Pure hypercholesterolemia, unspecified; I10 Essential (primary) hypertension; Z88.6 Allergy status to analgesic agent; Z88.8 Allergy status to other drugs, medicaments and biological substances
CPT/HCPCS: 36415; 71045; 71275; 80053; 84484; 85025; 93005; 96360; 99285-25; J7030; Q9967

== ENCOUNTER 2017-09-11 00:11 | Emergency (ER) | payer MEDICARE, MEDICAID ==
[2017-09-11 00:56] LABS: ADD MAN DIFF? NO
[2017-09-11 01:00] LABS: BASO # 0.1 x10^3/uL (0.0-0.2); BASO % 1 % (0-3); EOS # 0.3 x10^3/uL (0.0-0.7); EOS % 3 % (0-3); HEMATOCRIT 47.2 % (39.0-53.0); HEMOGLOBIN 15.8 g/dL (13.0-17.5); LYMPH # 2.6 x10^3/uL (1.0-4.8); LYMPH % 25 % (24-48); MEAN CORPUSCULAR HEMOGLOBIN 29 pg (25-35); MEAN CORPUSCULAR HGB CONC 34 g/dL (31-37); MEAN CORPUSCULAR VOLUME 87 fL (79-100); MONO # 1.1 x10^3/uL (0.0-1.1); MONO % 10 % (0-9); NEUT # 6.6 x10^3uL (1.8-7.7); NEUT % 62 % (31-73); PLATELET COUNT 452 x10^3/uL (140-400); RED BLOOD COUNT 5.43 x10^6/uL (4.30-5.70); RED CELL DISTRIBUTION WIDTH 15.1 % (11.5-14.5); WHITE BLOOD COUNT 10.7 x10^3/uL (4.0-11.0)
[2017-09-11] MEDS ORDERED: CONTRAST GIVEN. MC (01:00)
[2017-09-11] MEDS: IV NORMAL SALINE 1000ML BAG 1,000 ML IV (01:03)
[2017-09-11] MEDS: fentaNYL PF VIAL 100 MCG/2 ML VIAL IV (01:03)
[2017-09-11 01:28] LABS: ANION GAP 6 (6-14); BLOOD UREA NITROGEN 11 mg/dL (8-26); BUN/CREATININE RATIO 8 (6-20); CALCIUM 8.6 mg/dL (8.5-10.1); CARBON DIOXIDE 29 mmol/L (21-32); CHLORIDE 107 mmol/L (98-107); CREATININE 1.3 mg/dL (0.7-1.3); GFR 58.2; GLUCOSE 181 mg/dL (70-99); POTASSIUM 3.9 mmol/L (3.5-5.1); SODIUM 142 mmol/L (136-145)
[2017-09-11 01:35] LABS: ALBUMIN 3.2 g/dL (3.4-5.0); ALBUMIN/GLOBULIN RATIO 0.7 (1.0-1.7); ALK PHOS 92 U/L (46-116); ALT (SGPT) 41 U/L (16-63); AST (SGOT) 25 U/L (15-37); LIPASE 113 U/L (73-393); TOTAL BILIRUBIN 0.2 mg/dL (0.2-1.0); TOTAL PROTEIN 7.5 g/dL (6.4-8.2)
[2017-09-11 01:36] LABS: TROPONINI < 0.017 ng/mL (0.000-0.055)
[2017-09-11] MEDS: IOHEXOL 300 MG/ML 100ML VIAL. IV (02:00)
[2017-09-11] MEDS: IOHEXOL 240 MG/ML 50ML VIAL. PO (02:00)
[2017-09-11 03:00] LABS: BILIRUBIN,URINE NEGATIVE (NEG); CLARITY,URINE CLEAR; COLOR,URINE YELLOW; GLUCOSE,URINE NEGATIVE (NEG); NITRITE,URINE NEGATIVE (NEG); PH,URINE 6.5; PROTEIN,URINE NEGATIVE (NEG-TRACE); UROBILINOGEN,URINE 0.2 mg/dL (0.2 mg/dL)
[2017-09-11 03:07] LABS: BACTERIA,URINE 0 /HPF (0-FEW); RBC,URINE 0 /HPF (0-2); SQUAMOUS EPITHELIAL CELL,UR OCC /LPF; WBC,URINE 0 /HPF (0-4)
== END 2017-09-11 04:13 | disposition home or self-care (01) ==
LOC: ER 00:11
DX: R10.11 Right upper quadrant pain (principal); R10.31 Right lower quadrant pain; R11.0 Nausea; E78.00 Pure hypercholesterolemia, unspecified; I10 Essential (primary) hypertension; Z88.8 Allergy status to other drugs, medicaments and biological substances; Z90.49 Acquired absence of other specified parts of digestive tract
CPT/HCPCS: 36415; 74177; 80053; 81001; 83690; 84484; 85025; 93005; 96374; 99285-25; J3010; J7030; Q9966; Q9967

== ENCOUNTER 2018-06-06 16:52 | Emergency (ER) | payer MEDICARE, MEDICAID ==
[~2018-06-06] VITALS: Ht 167.6 cm; Wt 86.2 kg
[~2018-06-06 16:52] MED LIST changes: -CITA20TA5 PO; +CITA20TA6 PO; -GABA-586 PO; +GABA300C18 PO; +HYDR-3164 PO; -HYDR-971 PO; -HYDR12.53 PO; +HYDR12.575 PO; +OMEP20CA10 PO; -OMEP20CA9 PO; +OSEL75CA PO; -OXYC-328 PO; +OXYC1TAB22 PO; +RANI300T3 PO; +SUCR1TAB35 PO
[2018-06-06 18:24] VITALS: BP 158/98
[2018-06-06] MEDS ORDERED: FAMOTIDINE 20 MG/2 ML VIAL IVP ONE (18:30)
[2018-06-06] MEDS ORDERED: LIDO:MAALOX 1:1 20 ML SINGLE DOSE. SWSW ONE (18:30)
[2018-06-06 18:37] LABS: BASO # 0.1 x10^3/uL (0.0-0.2); BASO % 1 % (0-3); BILIRUBIN,URINE NEGATIVE (NEG); CLARITY,URINE CLEAR; COLOR,URINE YELLOW; EOS # 0.5 x10^3/uL (0.0-0.7); EOS % 4 % (0-3); HEMATOCRIT 51.8 % (39.0-53.0); HEMOGLOBIN 16.9 g/dL (13.0-17.5); LYMPH # 3.5 x10^3/uL (1.0-4.8); LYMPH % 27 % (24-48); MEAN CORPUSCULAR HEMOGLOBIN 28 pg (25-35); MEAN CORPUSCULAR HGB CONC 33 g/dL (31-37); MEAN CORPUSCULAR VOLUME 87 fL (79-100); MONO # 1.2 x10^3/uL (0.0-1.1); MONO % 9 % (0-9); NEUT # 7.6 x10^3uL (1.8-7.7); NEUT % 59 % (31-73); NITRITE,URINE NEGATIVE (NEG); PH,URINE 6.5; PLATELET COUNT 449 x10^3/uL (140-400); PROTEIN,URINE NEGATIVE (NEG-TRACE); RED BLOOD COUNT 5.96 x10^6/uL (4.30-5.70); UROBILINOGEN,URINE 0.2 mg/dL (0.2 mg/dL); WHITE BLOOD COUNT 12.9 x10^3/uL (4.0-11.0)
--- NOTE | 2018-06-06 18:39 | PHYS DOC ---
Past Medical History Past Medical History: High Cholesterol, Hypertension Additional Past Medical Histor: head injury at work 2004, CARPEL TUNNEL; colon ulcer Past Surgical History: Cholecystectomy, Splenectomy, Other Additional Past Surgical Histo: c4-5 sx Alcohol Use: Occasionally Drug Use: None Adult General Chief Complaint Chief Complaint: ABDOMINAL PAIN HPI HPI Patient is a 52 year old m with abdo pain, underneath right rib area. has had presentations for this sevearl times before with negative workup sto includ stress test, ct chest and abdomen adn ultrasound. pt has sharp pain also feelsl oni pressure, worse with eating but not really worse wtih exertion. it is pretty constant in nature throughout the day. feels simlar to when he was diagnosed with an ulcer. symptoms modeerate nonradiating worsening with time. mild nausea, no vomiting, mild sob. Review of Systems Review of Systems Constitutional: Denies fever or chills [] Eyes: Denies change in visual acuity, redness, or eye pain [] HENT: Denies nasal congestion or sore throat [] Respiratory: Denies cough Cardiovascular: No additional information not addressed in HPI [] GI: Neurologic: Denies headache, focal weakness or sensory changes [] Endocrine: Denies polyuria or polydipsia [] All other systems were reviewed and found to be within normal limits, except as documented in this note. Current Medications Current Medications Current Medications Medications (Trade) Dose Ordered Sig/Santino Start Time Stop Time Status Last Admin Dose Admin Famotidine (Pepcid Vial) 20 mg 1X ONCE 06/06/18 18:30 06/06/18 18:31 DC 06/06/18 18:30 20 MG Info (CONTRAST GIVEN -- Rx MONITORING) 1 each PRN DAILY PRN 06/06/18 20:45 06/06/18 21:39 DC Iohexol (Omnipaque 300 Mg/ml) 75 ml 1X ONCE 06/06/18 20:45 06/06/18 20:46 DC 06/06/18 20:54 75 ML Multi-Ingredient Mouthwash/Gargle (Gi Cocktail) 20 ml 1X ONCE 06/06/18 18:30 06/06/18 18:31 DC 06/06/18 18:30 20 ML Allergies Allergies Allergies Coded Allergies Type Severity Reaction Last Updated Verified cyclobenzaprine Allergy Intermediate incontinence 02/20/17 Yes naproxen Allergy Intermediate itching 02/20/17 Yes nortriptyline Allergy Intermediate itching 02/20/17 Yes Physical Exam Physical Exam Constitutional: Well developed, well nourished, no acute distress, non-toxic appearance. [] HENT: Normocephalic, atraumatic, bilateral external ears normal, oropharynx moist, no oral exudates, nose normal. [] Eyes: PERRLA, EOMI, conjunctiva normal, no discharge. [] Neck: Normal range of motion, no tenderness, supple, no stridor. [] Cardiovascular:Heart rate regular rhythm, no murmur [] Lungs & Thorax: Bilateral breath sounds clear to auscultation [] Abdomen: Bowel sounds normal, soft, MIL RUQ tenderness WITH DEEP PALPATION, no masses, no pulsatile masses. [] Skin: Warm, dry, no erythema, no rash. [] Back: No tenderness, no CVA tenderness. [] Extremities: No tenderness, no cyanosis, no clubbing, ROM intact, no edema. [] Neurologic: Alert and oriented X 3, normal motor function, normal sensory function, no focal deficits noted. [] Psychologic: Affect normal, judgement normal, mood normal. [] Current Patient Data Vital Signs Vital Signs Date Time Temp Pulse Resp B/P (MAP) Pulse Ox O2 Delivery O2 Flow Rate FiO2 06/06/18 18:24 97.6 101 16 158/98 (118) 97 Room Air 97.6 Lab Values Laboratory Tests Test 06/06/18 18:20 06/06/18 19:42 White Blood Count 12.9 x10^3/uL (4.0-11.0) H Red Blood Count 5.96 x10^6/uL (4.30-5.70) H Hemoglobin 16.9 g/dL (13.0-17.5) Hematocrit 51.8 % (39.0-53.0) Mean Corpuscular Volume 87 fL (79-100) Mean Corpuscular Hemoglobin 28 pg (25-35) Mean Corpuscular Hemoglobin Concent 33 g/dL (31-37) Red Cell Distribution Width 15.0 % (11.5-14.5) H Platelet Count 449 x10^3/uL (140-400) H Neutrophils (%) (Auto) 59 % (31-73) Lymphocytes (%) (Auto) 27 % (24-48) Monocytes (%) (Auto) 9 % (0-9) Eosinophils (%) (Auto) 4 % (0-3) H Basophils (%) (Auto) 1 % (0-3) Neutrophils # (Auto) 7.6 x10^3uL (1.8-7.7) Lymphocytes # (Auto) 3.5 x10^3/uL (1.0-4.8) Monocytes # (Auto) 1.2 x10^3/uL (0.0-1.1) H Eosinophils # (Auto) 0.5 x10^3/uL (0.0-0.7) Basophils # (Auto) 0.1 x10^3/uL (0.0-0.2) Urine Collection Type Unknown Urine Color Yellow Urine Clarity Clear Urine pH 6.5 Urine Specific [place] 1.010 Urine Protein Negative mg/dL (NEG-TRACE) Urine Glucose (UA) Negative mg/dL (NEG) Urine Ketones (Stick) Negative mg/dL (NEG) Urine Blood Negative (NEG) Urine Nitrite Negative (NEG) Urine Bilirubin Negative (NEG) Urine Urobilinogen Dipstick 0.2 mg/dL (0.2 mg/dL) Urine Leukocyte Esterase Negative (NEG) Urine RBC Occ /HPF (0-2) Urine WBC 0 /HPF (0-4) Urine Bacteria 0 /HPF (0-FEW) Sodium Level 141 mmol/L (136-145) Potassium Level 4.0 mmol/L (3.5-5.1) Chloride Level 102 mmol/L (98-107) Carbon Dioxide Level 31 mmol/L (21-32) Anion Gap 8 (6-14) Blood Urea Nitrogen 11 mg/dL (8-26) Creatinine 0.8 mg/dL (0.7-1.3) Estimated GFR (Cockcroft-Gault) 101.5 BUN/Creatinine Ratio 14 (6-20) Glucose Level 103 mg/dL (70-99) H Calcium Level 9.6 mg/dL (8.5-10.1) Total Bilirubin 0.2 mg/dL (0.2-1.0) Aspartate Amino Transferase (AST) 21 U/L (15-37) Alanine Aminotransferase (ALT) 48 U/L (16-63) Alkaline Phosphatase 88 U/L (46-116) Troponin I Quantitative < 0.017 ng/mL (0.000-0.055) Total Protein 8.4 g/dL (6.4-8.2) H Albumin 3.7 g/dL (3.4-5.0) Albumin/Globulin Ratio 0.8 (1.0-1.7) L Lipase 69 U/L (73-393) L Prothrombin Time 12.3 SEC (11.7-14.0) Prothrombin Time INR 0.9 (0.8-1.1) D-Dimer (Sally) < 0.27 ug/mlFEU Laboratory Tests 06/06/18 18:20 Laboratory Tests 06/06/18 18:20 EKG EKG [] Interpretation Time: nsr rate 92 no ischemic changes no stemi. Radiology/Procedures Radiology/Procedures [] Impressions: cxr negative acute, no ptx no pna. IMPRESSION: 1. No significant acute abnormality is identified. There is no evidence of acute appendicitis. There is similar nonspecific mild hazy density of the mesenteric fat. 3. There is some coronary calcification. Electronically signed by: Vidya Hernandez MD (06/06/2018 9:16 PM) [facility] Findings: AP portable view of the chest is submitted. There is no new infiltrate, pleural fluid, pneumothorax. There is cervical fusion hardware. Cardiac silhouette is stable. There is likely left epicardial fat. Impression: 1. No acute radiographic abnormality is identified. Electronically signed by: Vidya Hernandez MD (06/06/2018 7:00 PM) [facility] DICTATED and SIGNED BY: VIDYA HERNANDEZ MD DATE: 06/06/181899 Course & Med Decision Making Course & Med Decision Making Pertinent Labs and Imaging studies reviewed. (See chart for details) []52 YO M WITH THE ABOVE MEDICAL PROBLEMS P/W UPPER ABDOMINAL PAIN. THIS IS a frequent complaint for him. He has had an issue with hepatic flexure ulcer on colonoscopy he has had some mild mesenteric adenitis in the past. He had right lower rib right upper quadrant area pain for the last few days we did a d-dimer that was negative we did basic cardiac workup in the emergency room that was negative white count was mildly elevated so given his previous GI history we did do a CT scan that also looked good patient was given prescription for antacids and was discharged to follow up with his primary care doctor. [place] Disclaimer [place] Disclaimer This electronic medical record was generated, in whole or in part, using a voice recognition dictation system. Departure Departure Impression: Primary Impression: Abdominal pain Disposition: HOME, SELF-CARE Condition: STABLE Referrals: NO PCP (PCP) Scripts Omeprazole (OMEPRAZOLE) 40 Mg Capsule.dr 1 CAP PO DAILY, #30 CAP 0 Refills Prov: JAMEEL MACEDO MD 06/06/18 JAMEEL MACEDO MD Jun 06, 2018 18:39
[2018-06-06] MEDS ORDERED: OMEP40CA5 PO (18:42)
[2018-06-06 18:46] LABS: BACTERIA,URINE 0 /HPF (0-FEW); RBC,URINE OCC /HPF (0-2); WBC,URINE 0 /HPF (0-4)
[2018-06-06 18:47] LABS: CALCIUM 9.6 mg/dL (8.5-10.1); CREATININE 0.8 mg/dL (0.7-1.3); GFR 101.5
[2018-06-06 18:52] LABS: ALBUMIN 3.7 g/dL (3.4-5.0); ALBUMIN/GLOBULIN RATIO 0.8 (1.0-1.7); TOTAL BILIRUBIN 0.2 mg/dL (0.2-1.0); TOTAL PROTEIN 8.4 g/dL (6.4-8.2)
--- NOTE | 2018-06-06 19:03 | RAD ---
PORTABLE CHEST 1V History: CHEST PAIN Comparison: July 07, 2017 Findings: AP portable view of the chest is submitted. There is no new infiltrate, pleural fluid, pneumothorax. There is cervical fusion hardware. Cardiac silhouette is stable. There is likely left epicardial fat. Impression: 1. No acute radiographic abnormality is identified. Electronically signed by: Donta Julien MD (06/06/2018 7:00 PM) [facility]
[2018-06-06 19:59] LABS: PROTHROMBIN TIME PATIENT 12.3 SEC (11.7-14.0)
[2018-06-06 20:03] LABS: D-DIMER < 0.27 ug/mlFEU (0.00-0.50)
[2018-06-06] MEDS ORDERED: IOHEXOL 300 MG/ML 100ML VIAL. IV ONE (20:45)
[2018-06-06] MEDS ORDERED: CONTRAST GIVEN. MC PRN (20:45)
--- NOTE | 2018-06-06 21:19 | RAD ---
CT ABD PELV W/ IV CONTRST ONLY Indication: Right upper quadrant pain, known hepatic flexure ulcer on colonoscopy Technique: Postcontrast CT imaging was performed of the abdomen and pelvis, multiplanar reconstruction images submitted. One or more of the following individualized dose reduction techniques were utilized for this examination: 1. Automated exposure control 2. Adjustment of the mA and/or kV according to patient size 3. Use of iterative reconstruction technique. Comparison: September 11, 2017 Findings: There is coronary calcification. Spleen is absent, splenule is present as seen previously. There is a 2 cm hepatic cyst as previously. There has been cholecystectomy. There is no adrenal nodularity. Both kidneys enhance, no hydronephrosis. There is 1 cm mid left renal cyst. Nonspecific mild hazy density of the more central and left mesenteric fat is unchanged. Evaluation of bowel is limited without oral contrast. There is no significant bowel dilatation, free fluid, free air. Normal appendix is visualized. IMPRESSION: 1. No significant acute abnormality is identified. There is no evidence of acute appendicitis. There is similar nonspecific mild hazy density of the mesenteric fat. 3. There is some coronary calcification. Electronically signed by: Donta Julien MD (06/06/2018 9:16 PM) [facility]
--- NOTE | 2018-06-08 08:58 | EKG ---
[facility] [address] [place] [address] Test Date: 2018-06-06 Test Time: 18:20:53 Pat Name: SELINA LAW Department: Room: Gender: M [employer]: : 1965 Requested By: JAMEEL MACEDO Order Number: [id number] Reading MD: Roger Bowers MD Measurements Intervals [place] Rate: 92 P: 41 CA: 148 QRS: -13 QRSD: 96 T: 36 QT: 338 QTc: 423 Interpretive Statements SINUS RHYTHM Electronically Signed On 06-08-2018 10:23:47 CDT by Roger Bowers MD
== END 2018-06-06 21:39 | disposition home or self-care (01) ==
LOC: ER 16:52
DX: R10.11 Right upper quadrant pain (principal); E78.00 Pure hypercholesterolemia, unspecified; I10 Essential (primary) hypertension; Z90.49 Acquired absence of other specified parts of digestive tract; Z90.81 Acquired absence of spleen; Z88.5 Allergy status to narcotic agent; Z88.8 Allergy status to other drugs, medicaments and biological substances
CPT/HCPCS: 36415; 71045; 74177; 80053; 81001; 83690; 84484; 85025; 85379; 85610; 93005; 96374; 99284; J3490; Q9967

== ENCOUNTER 2018-06-12 21:57 | Emergency (ER) | payer MEDICAID, MEDICARE, OTHER ==
[~2018-06-12] VITALS: Ht 167.6 cm; Wt 86.2 kg
[~2018-06-12 21:57] MED LIST changes: +OMEP40CA5 PO
[2018-06-12] MEDS ORDERED: DEXAMETHASONE SOD PHOS 20 MG/5 ML VIAL. IV ONE (23:00)
[2018-06-12] MEDS ORDERED: KETOROLAC 15 MG/ML VIAL. IV ONE (23:00)
[2018-06-12] MEDS ORDERED: METOCLOPRAMIDE HCL 10 MG/2 ML VIAL. IV ONE (23:00)
[2018-06-12] MEDS ORDERED: IV NORMAL SALINE 1000ML BAG 1,000 ML IV ONE (23:00)
[2018-06-12] MEDS ORDERED: diphenhydrAMINE 50 MG/ML VIAL IVP ONE (23:00)
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
[2018-06-13] MEDS ORDERED: ONDA4TAB12 PO (00:11)
[2018-06-13] MEDS ORDERED: BUTA1TAB23 PO (00:11)
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
[2018-06-13 00:26] VITALS: BP 162/84
== END 2018-06-13 00:30 | disposition home or self-care (01) ==
LOC: ER 21:57
DX: F07.81 Postconcussional syndrome (principal); R42 Dizziness and giddiness; E78.00 Pure hypercholesterolemia, unspecified; I10 Essential (primary) hypertension; Z90.49 Acquired absence of other specified parts of digestive tract; Z90.81 Acquired absence of spleen; Z88.8 Allergy status to other drugs, medicaments and biological substances
CPT/HCPCS: 70450; 96361; 96374; 96375; 99284; J1100; J1200; J1885; J2765; J7030

== ENCOUNTER 2018-09-22 18:24 | Emergency (ER) | payer MEDICARE, MEDICAID ==
[~2018-09-22] VITALS: Ht 167.6 cm; Wt 96.2 kg
[~2018-09-22 18:24] MED LIST changes: +BUTA1TAB23 PO; +ONDA4TAB12 PO
[2018-09-22] MEDS ORDERED: IV NORMAL SALINE 1000ML BAG 1,000 ML IV ONE (20:00)
[2018-09-22 20:06] LABS: BASO # 0.1 x10^3/uL (0.0-0.2); BASO % 1 % (0-3); EOS # 0.2 x10^3/uL (0.0-0.7); EOS % 2 % (0-3); HEMATOCRIT 48.4 % (39.0-53.0); HEMOGLOBIN 16.6 g/dL (13.0-17.5); LYMPH # 2.8 x10^3/uL (1.0-4.8); LYMPH % 25 % (24-48); MEAN CORPUSCULAR HEMOGLOBIN 30 pg (25-35); MEAN CORPUSCULAR HGB CONC 34 g/dL (31-37); MEAN CORPUSCULAR VOLUME 88 fL (79-100); MONO # 1.6 x10^3/uL (0.0-1.1); MONO % 14 % (0-9); NEUT # 6.6 x10^3uL (1.8-7.7); NEUT % 59 % (31-73); PLATELET COUNT 418 x10^3/uL (140-400); RED BLOOD COUNT 5.52 x10^6/uL (4.30-5.70); RED CELL DISTRIBUTION WIDTH 14.5 % (11.5-14.5); WHITE BLOOD COUNT 11.3 x10^3/uL (4.0-11.0)
[2018-09-22] MEDS ORDERED: CONTRAST GIVEN. MC PRN (20:15)
[2018-09-22] MEDS ORDERED: ONDANSETRON PF 4 MG/2 ML VIAL. IV ONE (20:15)
[2018-09-22] MEDS ORDERED: KETOROLAC 30 MG/ML VIAL. IV ONE (20:15)
[2018-09-22 20:16] LABS: CALCIUM 9.3 mg/dL (8.5-10.1); CREATININE 0.9 mg/dL (0.7-1.3); GFR 88.3; POTASSIUM 3.4 mmol/L (3.5-5.1)
[2018-09-22 20:22] LABS: ALBUMIN 3.9 g/dL (3.4-5.0); ALBUMIN/GLOBULIN RATIO 0.8 (1.0-1.7); TOTAL BILIRUBIN 0.3 mg/dL (0.2-1.0); TOTAL PROTEIN 8.7 g/dL (6.4-8.2)
[2018-09-22] MEDS ORDERED: IOHEXOL 300 MG/ML 100ML VIAL. IV ONE (20:30)
--- NOTE | 2018-09-22 21:53 | RAD ---
PQRS Compliance Statement: One or more of the following individualized dose reduction techniques were utilized for this examination: 1. Automated exposure control 2. Adjustment of the mA and/or kV according to patient size 3. Use of iterative reconstruction technique CT ABD PELV W/ IV CONTRST ONLY Clinical Indication: Right lower quadrant abdominal pain. Comparison: CT abdomen and pelvis with contrast June 06, 2018. Technique: Helical CT imaging of the abdomen and pelvis is performed after 75 cc of Omnipaque 300 IV contrast. Oral contrast not given. Findings: There is minimal atelectasis in the inferior lingula. Stable 3 mm nodule in the right middle lobe. The cardiac size is normal. Cholecystectomy. Stable small hepatic cyst. Soft tissue nodule posterior to the gastric fundus may be splenic remnant. 2 additional nodules are seen near the pancreas tail that also may be splenic remnants. These findings are stable. The pancreas, adrenal glands, and abdominal aorta caliber are normal. Small left renal cyst. Kidneys enhance symmetrically, no hydronephrosis. Redemonstrated haziness of the central mesentery with suggestion of a pseudocapsule. Stomach unremarkable. No dilated small bowel. No colon wall thickening. The appendix is normal. Urinary bladder is decompressed, limiting evaluation. Prostate and seminal vesicles are normal. No pelvic free fluid. No acute bone abnormality. IMPRESSION: 1. Unchanged haziness of the central mesentery with suggestion of a pseudocapsule. Mesenteric panniculitis a consideration. Finding can also be incidental. 2. Otherwise no acute abdominal or pelvic abnormality. The appendix is normal. Electronically signed by: Vincent Asher MD (09/22/2018 9:50 PM) [facility]
--- NOTE | 2018-09-22 22:12 | PHYS DOC ---
Past Medical History Past Medical History: High Cholesterol, Hypertension Additional Past Medical Histor: head injury at work 2004, CARPEL TUNNEL; colon ulcer Past Surgical History: Cholecystectomy, Splenectomy, Other Additional Past Surgical Histo: c4-5 sx Alcohol Use: Occasionally Drug Use: None Adult General Chief Complaint Chief Complaint: ABDOMINAL PAIN [facility] HPI 53-year-old male presents with a 3 day history of abdominal discomfort. He states the pain is primarily in the lower quadrant. He denies a fever chills or sweats. He has had some nausea but no vomiting. He denies any melena or hematochezia. He states he's never had this problem before. He denies any dysuria or gross hematuria. He states the pain does not radiate to his back.[] Review of Systems Review of Systems Constitutional: Denies fever or chills [] Eyes: Denies change in visual acuity, redness, or eye pain [] HENT: Denies nasal congestion or sore throat [] Respiratory: Denies cough or shortness of breath [] Cardiovascular: No additional information not addressed in HPI [] GI: Denies abdominal pain, nausea, vomiting, bloody stools or diarrhea [] : Denies dysuria or hematuria [] Musculoskeletal: Denies back pain or joint pain [] Integument: Denies rash or skin lesions [] Neurologic: Denies headache, focal weakness or sensory changes [] Endocrine: Denies polyuria or polydipsia [] All other systems were reviewed and found to be within normal limits, except as documented in this note. Current Medications Current Medications Current Medications Medications (Trade) Dose Ordered Sig/Santino Start Time Stop Time Status Last Admin Dose Admin Info (CONTRAST GIVEN -- Rx MONITORING) 1 each PRN DAILY PRN 09/22/18 20:15 09/24/18 20:14 Iohexol (Omnipaque 300 Mg/ml) 75 ml 1X ONCE 09/22/18 20:30 09/22/18 20:31 DC 09/22/18 20:30 75 ML Ketorolac Tromethamine (Toradol 30mg Vial) 30 mg 1X ONCE 09/22/18 20:15 09/22/18 20:16 DC 09/22/18 20:15 30 MG Ondansetron HCl (Zofran) 4 mg 1X ONCE 09/22/18 20:15 09/22/18 20:16 DC 09/22/18 20:14 4 MG Sodium Chloride 1,000 ml @ 1,000 mls/hr 1X ONCE 09/22/18 20:00 09/22/18 20:59 DC 09/22/18 20:14 1,000 MLS/HR Allergies Allergies Allergies Coded Allergies Type Severity Reaction Last Updated Verified cyclobenzaprine Allergy Intermediate incontinence 02/20/17 Yes naproxen Allergy Intermediate itching 02/20/17 Yes nortriptyline Allergy Intermediate itching 02/20/17 Yes Physical Exam Physical Exam Constitutional: Well developed, well nourished, no acute distress, non-toxic appearance. [] HENT: Normocephalic, atraumatic, bilateral external ears normal, oropharynx moist, no oral exudates, nose normal. [] Eyes: PERRLA, EOMI, conjunctiva normal, no discharge. [] Neck: Normal range of motion, no tenderness, supple, no stridor. [] Cardiovascular:Heart rate regular rhythm, no murmur [] Lungs & Thorax: Bilateral breath sounds clear to auscultation [] Abdomen: Bowel sounds normal, soft, very mild lower abdominal tenderness no rebound or guarding. [] Skin: Warm, dry, no erythema, no rash. [] Back: No tenderness, no CVA tenderness. [] Extremities: No tenderness, no cyanosis, no clubbing, ROM intact, no edema. [] Neurologic: Alert and oriented X 3, normal motor function, normal sensory function, no focal deficits noted. [] Psychologic: Affect normal, judgement normal, mood normal. [] Current Patient Data Vital Signs Vital Signs Date Time Temp Pulse Resp B/P (MAP) Pulse Ox O2 Delivery O2 Flow Rate FiO2 09/22/18 19:42 98.2 82 20 153/84 (107) 95 Room Air 98.2 Lab Values Laboratory Tests Test 09/22/18 19:52 White Blood Count 11.3 x10^3/uL (4.0-11.0) H Red Blood Count 5.52 x10^6/uL (4.30-5.70) Hemoglobin 16.6 g/dL (13.0-17.5) Hematocrit 48.4 % (39.0-53.0) Mean Corpuscular Volume 88 fL (79-100) Mean Corpuscular Hemoglobin 30 pg (25-35) Mean Corpuscular Hemoglobin Concent 34 g/dL (31-37) Red Cell Distribution Width 14.5 % (11.5-14.5) Platelet Count 418 x10^3/uL (140-400) H Neutrophils (%) (Auto) 59 % (31-73) Lymphocytes (%) (Auto) 25 % (24-48) Monocytes (%) (Auto) 14 % (0-9) H Eosinophils (%) (Auto) 2 % (0-3) Basophils (%) (Auto) 1 % (0-3) Neutrophils # (Auto) 6.6 x10^3uL (1.8-7.7) Lymphocytes # (Auto) 2.8 x10^3/uL (1.0-4.8) Monocytes # (Auto) 1.6 x10^3/uL (0.0-1.1) H Eosinophils # (Auto) 0.2 x10^3/uL (0.0-0.7) Basophils # (Auto) 0.1 x10^3/uL (0.0-0.2) Sodium Level 137 mmol/L (136-145) Potassium Level 3.4 mmol/L (3.5-5.1) L Chloride Level 100 mmol/L (98-107) Carbon Dioxide Level 27 mmol/L (21-32) Anion Gap 10 (6-14) Blood Urea Nitrogen 15 mg/dL (8-26) Creatinine 0.9 mg/dL (0.7-1.3) Estimated GFR (Cockcroft-Gault) 88.3 BUN/Creatinine Ratio 17 (6-20) Glucose Level 103 mg/dL (70-99) H Calcium Level 9.3 mg/dL (8.5-10.1) Total Bilirubin 0.3 mg/dL (0.2-1.0) Aspartate Amino Transferase (AST) 19 U/L (15-37) Alanine Aminotransferase (ALT) 43 U/L (16-63) Alkaline Phosphatase 82 U/L (46-116) Total Protein 8.7 g/dL (6.4-8.2) H Albumin 3.9 g/dL (3.4-5.0) Albumin/Globulin Ratio 0.8 (1.0-1.7) L Lipase 81 U/L (73-393) Laboratory Tests 7/9/19 19:52 Laboratory Tests 09/22/18 19:52 EKG EKG [] Radiology/Procedures Radiology/Procedures [] Impressions: PROCEDURE: CT ABD PELV W/ IV CONTRST ONLY PQRS Compliance Statement: One or more of the following individualized dose reduction techniques were utilized for this examination: 1. Automated exposure control 2. Adjustment of the mA and/or kV according to patient size 3. Use of iterative reconstruction technique CT ABD PELV W/ IV CONTRST ONLY Clinical Indication: Right lower quadrant abdominal pain. Comparison: CT abdomen and pelvis with contrast June 06, 2018. Technique: Helical CT imaging of the abdomen and pelvis is performed after 75 cc of Omnipaque 300 IV contrast. Oral contrast not given. Findings: There is minimal atelectasis in the inferior lingula. Stable 3 mm nodule in the right middle lobe. The cardiac size is normal. Cholecystectomy. Stable small hepatic cyst. Soft tissue nodule posterior to the gastric fundus may be splenic remnant. 2 additional nodules are seen near the pancreas tail that also may be splenic remnants. These findings are stable. The pancreas, adrenal glands, and abdominal aorta caliber are normal. Small left renal cyst. Kidneys enhance symmetrically, no hydronephrosis. Redemonstrated haziness of the central mesentery with suggestion of a pseudocapsule. Stomach unremarkable. No dilated small bowel. No colon wall thickening. The appendix is normal. Urinary bladder is decompressed, limiting evaluation. Prostate and seminal vesicles are normal. No pelvic free fluid. No acute bone abnormality. IMPRESSION: 1. Unchanged haziness of the central mesentery with suggestion of a pseudocapsule. Mesenteric panniculitis a consideration. Finding can also be incidental. 2. Otherwise no acute abdominal or pelvic abnormality. Course & Med Decision Making Course & Med Decision Making Pertinent Labs and Imaging studies reviewed. (See chart for details) ED course: A very which reveals a 53-year-old male with abdominal discomfort. His laboratory studies were unrevealing. His urinalysis was negative. A CT scan showed some incidental findings but nothing I can really pinpoint causes abdominal discomfort. Dragon Disclaimer Dragon Disclaimer This electronic medical record was generated, in whole or in part, using a voice recognition dictation system. Departure Departure Impression: Primary Impression: Abdominal pain Disposition: HOME, SELF-CARE Condition: STABLE Referrals: MORA ARAGON MD (PCP) Patient Instructions: Abdominal Pain Additional Instructions: Return to emergency department with any new or concerning symptoms Scripts Naproxen (NAPROXEN) 500 Mg Tablet 1 TAB PO BID PRN for PAIN, #30 TAB 1 Refill Prov: RENEE JOHNSON DO 09/22/18 Problem Qualifiers Primary Impression: Abdominal pain Abdominal location: lower abdomen, unspecified Qualified Codes: R10.30 - Lower abdominal pain, unspecified RENEE JOHNSON DO Sep 22, 2018 22:11
[2018-09-22] MEDS ORDERED: NAPR-514 PO (22:36)
[2018-09-22 22:46] VITALS: BP 125/80
== END 2018-09-22 22:44 | disposition home or self-care (01) ==
LOC: ER 18:24
DX: R10.31 Right lower quadrant pain (principal); I10 Essential (primary) hypertension; E78.00 Pure hypercholesterolemia, unspecified; Z90.49 Acquired absence of other specified parts of digestive tract; Z90.81 Acquired absence of spleen; Z88.5 Allergy status to narcotic agent; Z88.8 Allergy status to other drugs, medicaments and biological substances
CPT/HCPCS: 36415; 74177; 80053; 83690; 85025; 96374; 96375; 99285; J1885; J2405; J7030; Q9967

== ENCOUNTER → 2018-09-25 | Outpatient (CLI) | payer MEDICARE, MEDICAID ==
[2018-09-22 22:46] VITALS: BP 125/80
[~2018-09-25] MED LIST changes: +NAPR-514 PO
--- NOTE | 2018-09-25 16:36 | KCIC ---
6 view cervical spine HISTORY: Cervicalgia COMPARISON: None available: Anterior cervical fusion of C4-5 is present. Hardware appears intact without disruption. There is near complete fusion of the disc space present. No acute fracture or dislocation. Lateral masses are aligned. The odontoid is intact. Neural foramen are patent. Bridging osteophytosis of C3-4 and C5-6 are present. IMPRESSION: No acute findings Anterior cervical fusion C4-5 Bridging osteophytosis of C3-4 and C5-6. No suggestion of central or foraminal stenosis. Electronically signed by: Saturnino Shaver MD (09/25/2018 4:33 PM) [place]
== END | disposition home or self-care (01) ==
LOC: KCIC 11:15
PROVIDERS: ATTEND Family Medicine
DX: M25.78 Osteophyte, vertebrae (principal); M48.8X2 Other specified spondylopathies, cervical region; Z98.1 Arthrodesis status
CPT/HCPCS: 72050

== ENCOUNTER 2018-11-02 12:55 | Emergency (ER) | payer MEDICARE, MEDICAID ==
[~2018-11-02] VITALS: Ht 167.6 cm; Wt 100.7 kg
[2018-11-02 13:30] VITALS: BP 142/77
[2018-11-02] MEDS ORDERED: PROPARACAINE 0.5% OPHTH SOLUTION 15ML BOTTLE. OS ONE (13:45)
[2018-11-02] MEDS ORDERED: FLUORESCEIN OPHTH TEST STRIP. OS ONE (13:45)
--- NOTE | 2018-11-02 13:50 | PHYS DOC ---
Past Medical History Past Medical History: High Cholesterol, Hypertension Additional Past Medical Histor: head injury at work 2004, CARPEL TUNNEL; colon ulcer Past Surgical History: Cholecystectomy, Splenectomy, Other Additional Past Surgical Histo: c4-5 sx Alcohol Use: Occasionally Drug Use: None Adult General Chief Complaint Chief Complaint: EYE PROBLEMS HPI HPI Patient is a 53 year old male presents to the ED complaining of left eye foreign body sensation since waking up this morning. Patient states that he wears reading glasses but does not wear glasses all the time and does not wear contacts. States he woke up and felt like there is something in his left eye. Describes the pain as uncomfortable. Rates the pain as 3 out of 10. States he can still see fine. No injury. Denies vision changes, diplopia, headache, nausea/vomiting, fever, dizziness, weakness. Review of Systems Review of Systems Constitutional: Denies fever or chills [] Eyes: Complains of left eye FB sensation. Denies change in visual acuity, redness, or eye pain [] HENT: Denies nasal congestion or sore throat [] Respiratory: Denies cough or shortness of breath [] Cardiovascular: No additional information not addressed in HPI [] GI: Denies abdominal pain, nausea, vomiting, bloody stools or diarrhea [] : Denies dysuria or hematuria [] Musculoskeletal: Denies back pain or joint pain [] Integument: Denies rash or skin lesions [] Neurologic: Denies headache, focal weakness or sensory changes [] All other systems were reviewed and found to be within normal limits, except as documented in this note. Current Medications Current Medications Current Medications Medications (Trade) Dose Ordered Sig/Santino Start Time Stop Time Status Last Admin Dose Admin Fluorescein Sodium (Ful-Ailin) 1 strip 1X ONCE 11/02/18 13:45 11/02/18 13:46 DC 11/02/18 14:04 1 STRIP Proparacaine HCl (Alcaine) 1 drop 1X ONCE 11/02/18 13:45 11/02/18 13:46 DC 11/02/18 14:04 1 DROP Allergies Allergies Allergies Coded Allergies Type Severity Reaction Last Updated Verified cyclobenzaprine Allergy Intermediate incontinence 02/20/17 Yes naproxen Allergy Intermediate itching 02/20/17 Yes nortriptyline Allergy Intermediate itching 02/20/17 Yes Physical Exam Physical Exam Constitutional: Well developed, well nourished, no acute distress, non-toxic appearance. [] HENT: Normocephalic, atraumatic, bilateral external ears normal, oropharynx moist, no oral exudates, nose normal. [] Eyes: PERRLA, EOMI, conjunctiva normal, no discharge. Left corneal abrasion. No FB. No hyphema. Visual acuity: WNL (see nurse report) Normal IOP. Neck: Normal range of motion, no tenderness, supple, no stridor. [] Cardiovascular:Heart rate regular rhythm, no murmur [] Lungs & Thorax: Bilateral breath sounds clear to auscultation [] Abdomen: Bowel sounds normal, soft, no tenderness, no masses, no pulsatile masses. [] Skin: Warm, dry, no erythema, no rash. [] Back: No tenderness, no CVA tenderness. [] Extremities: No tenderness, no cyanosis, no clubbing, ROM intact, no edema. [] Neurologic: Alert and oriented X 3, normal motor function, normal sensory function, no focal deficits noted. [] Psychologic: Affect normal, judgement normal, mood normal. [] Current Patient Data Vital Signs Vital Signs Date Time Temp Pulse Resp B/P (MAP) Pulse Ox O2 Delivery O2 Flow Rate FiO2 11/02/18 13:30 97.7 85 18 142/77 (98) 98 Room Air 97.7 EKG EKG [] Radiology/Procedures Radiology/Procedures [] Course & Med Decision Making Course & Med Decision Making Pertinent Labs and Imaging studies reviewed. (See chart for details) []Patient's pain resolved with Alcaine drops used for fluorescein dye stain exam. Corneal abrasion seen. Normal IOP. Visual acuity WNL. No FB seen. Tetanus to update. Discussed symptomatic treatment and follow-up for reevaluation with self pay collector this week. Provided contact information/education. Discussed reasons to return to the ED. Patient understands and agrees with plan. Dragon Disclaimer Dragon Disclaimer This electronic medical record was generated, in whole or in part, using a voice recognition dictation system. Departure Departure Impression: Primary Impression: Corneal abrasion Disposition: 01 HOME, SELF-CARE Condition: IMPROVED Referrals: MORA ARAGON MD (PCP) Patient Instructions: Eye - Corneal Abrasion Scripts Sulfacetamide Sodium (BLEPH-10) 5 Ml Drops 2 DROP OS QID for 7 Days, #5 ML Prov: JERARDO JOHNSON 11/02/18 JERARDO JOHNSON Nov 02, 2018 13:50
[2018-11-02] MEDS ORDERED: SULF5DRO OS (14:16)
== END 2018-11-02 14:18 | disposition home or self-care (01) ==
LOC: ER 12:55
DX: S05.02XA Injury of conjunctiva and corneal abrasion without foreign body, left eye, initial encounter (principal); E78.00 Pure hypercholesterolemia, unspecified; I10 Essential (primary) hypertension; Z90.49 Acquired absence of other specified parts of digestive tract; Z90.81 Acquired absence of spleen; Z88.8 Allergy status to other drugs, medicaments and biological substances; X58.XXXA Exposure to other specified factors, initial encounter; Y93.89 Activity, other specified; Y92.89 Other specified places as the place of occurrence of the external cause; Y99.8 Other external cause status
CPT/HCPCS: 99283

== ENCOUNTER 2018-11-02 23:18 | Emergency (ER) | payer MEDICARE, MEDICAID ==
[~2018-11-02] VITALS: Ht 167.6 cm; Wt 100.7 kg
[~2018-11-02 23:18] MED LIST changes: +SULF5DRO OS
[2018-11-02 23:30] VITALS: BP 181/90
[2018-11-03] MEDS ORDERED: TETRACAINE 0.5% OPHTH SOLUTION 4ML BOTTLE. OS ONE (00:30)
[2018-11-03] MEDS ORDERED: FLUORESCEIN OPHTH TEST STRIP. OS ONE (00:30)
--- NOTE | 2018-11-03 00:40 | PHYS DOC ---
Past Medical History Past Medical History: Hypertension Additional Past Medical Histor: head injury at work 2003, CARPEL TUNNEL; colon ulcer (LAKEISHA VILLANUEVA APRN) Past Surgical History: No Surgical History Additional Past Surgical Histo: c4-5 sx (LAKEISHA VILLANUEVA APRN) Alcohol Use: Rarely Drug Use: None (LAKEISHA VILLANUEVA APRN) Adult General Chief Complaint Chief Complaint: EYE PROBLEMS HPI HPI Patient is a 53 year old male with history of hypertension who presents to the ED today complaining of a foreign object sensation to the left eye that began this morning when he woke up. Patient was seen in the ED this afternoon was noted for coronary abrasion and discharged with antibiotic eyedrops. He has an appointment with his own PCP on this week. He states he continues to feel the sensation of a foreign object to the left eye. Denies any vision loss. Denies any headache, nausea, vomiting, double vision. Does not use glasses. (LAKEISHA VILLANUEVA APRN) Review of Systems Review of Systems Constitutional: Denies fever or chills [] Eyes: Reports sensation of a foreign object to the left eye. Denies change in visual acuity, redness, or eye pain [] Musculoskeletal: Denies back pain or joint pain [] Integument: Denies rash or skin lesions [] Neurologic: Denies headache, focal weakness or sensory changes [] Endocrine: Denies polyuria or polydipsia [] All other systems were reviewed and found to be within normal limits, except as documented in this note. (LAKEISHA VILLANUEVA APRN) Current Medications Current Medications Current Medications Medications (Trade) Dose Ordered Sig/Santino Start Time Stop Time Status Last Admin Dose Admin Fluorescein Sodium (Ful-Ailin) 1 strip 1X ONCE 11/03/18 00:30 11/03/18 00:31 DC 11/03/18 00:52 1 STRIP Tetracaine HCl (Tetracaine) 1 drop 1X ONCE 11/03/18 00:30 11/03/18 00:31 DC 11/03/18 00:52 1 DROP (JAMEEL MACEDO MD) Allergies Allergies Allergies Coded Allergies Type Severity Reaction Last Updated Verified cyclobenzaprine Allergy Intermediate incontinence 02/20/17 Yes naproxen Allergy Intermediate itching 02/20/17 Yes nortriptyline Allergy Intermediate itching 02/20/17 Yes (JAMEEL MACEDO MD) Physical Exam Physical Exam Constitutional: Well developed, well nourished, no acute distress, non-toxic appearance. [] Eyes: PERRLA, EOMI, left conjunctiva is mildly injected and has clear drainage Eye exam under winston lamp Numbing urgent was tetracaine, eye was stained with fluorescein noted for large corneal abrasion right in the middle of the cornea Skin: Warm, dry, no erythema, no rash. [] Back: No tenderness, no CVA tenderness. [] Extremities: No tenderness, no cyanosis, no clubbing, ROM intact, no edema. [] Neurologic: Alert and oriented X 3, normal motor function, normal sensory function, no focal deficits noted. [] Psychologic: Affect normal, judgement normal, mood normal. [] (LAKEISHA VILLANUEVA APRN) Current Patient Data Vital Signs Vital Signs Date Time Temp Pulse Resp B/P (MAP) Pulse Ox O2 Delivery O2 Flow Rate FiO2 11/02/18 23:30 98.2 75 18 181/90 (120) 97 Room Air 98.2 (JAMEEL MACEDO MD) EKG EKG [] (LAKEISHA VILLANUEVA APRN) Radiology/Procedures Radiology/Procedures [] (LAKEISHA VILLANUEVA APRN) Course & Med Decision Making Course & Med Decision Making Pertinent Labs and Imaging studies reviewed. (See chart for details) This is a 53-year-old male patient who presents to the ED today complaining of a sensation of foreign object to the left eye that began this morning, patient was seen this afternoon in the ED, diagnosed with a corneal abrasion and d/c with antibiotics eye drops, returns this evening complaining of the same. Eye exam was done again, corneal abrasion noted. Instructed to continue using the eyedrops he received from the ED prescription earlier today. He has an appointment with his own primary care doctor on this week. Also provided bar helper for follow-up. (LAKEISHA VILLANUEVA APRN) Course & Med Decision Making Staff Physician Addendum: I was working in the ER during the course of this patient's visit. I was available for consultation as needed, but I was not directly involved in the care of this patient. (JAMEEL MACEDO MD) Dragon Disclaimer Dragon Disclaimer This electronic medical record was generated, in whole or in part, using a voice recognition dictation system. (LAKEISHA VILLANUEVA APRN) Departure Departure Impression: Primary Impression: Corneal abrasion, left Disposition: 01 HOME, SELF-CARE Condition: STABLE Referrals: MORA ARAGON MD (PCP) follow up on RUTHIE LEACH MD follow up this week Patient Instructions: Eye - Corneal Abrasion, [id number] Additional Instructions: You were evaluated in the emergency room and noted to have a corneal abrasion. You can patch your left eye for comfort. Please use the antibiotics from the prescription you got this afternoon. Follow-up with your doctor on this week or the eye doctor provided. Problem Qualifiers Primary Impression: Corneal abrasion, left Encounter type: initial encounter Qualified Codes: S05.02XA - Injury of conjunctiva and corneal abrasion without foreign body, left eye, initial encounter LAKEISHA VILLANUEVA APRN Nov 03, 2018 00:40 JAMEEL MACEDO MD Nov 03, 2018 05:55
== END 2018-11-03 00:47 | disposition home or self-care (01) ==
LOC: ER 23:18
DX: S05.02XA Injury of conjunctiva and corneal abrasion without foreign body, left eye, initial encounter (principal); I10 Essential (primary) hypertension; Z88.5 Allergy status to narcotic agent; Z88.8 Allergy status to other drugs, medicaments and biological substances; X58.XXXA Exposure to other specified factors, initial encounter; Y93.89 Activity, other specified; Y92.89 Other specified places as the place of occurrence of the external cause; Y99.8 Other external cause status
CPT/HCPCS: 99283

== ENCOUNTER 2018-11-21 23:44 | Observation (INO) | payer MEDICARE, MEDICAID ==
[~2018-11-21] VITALS: Ht 167.6 cm; Wt 101.3 kg
[2018-11-22] MEDS ORDERED: ASPIRIN CHEWABLE 81 MG TABLET. PO ONE
[2018-11-22 00:24] LABS: BASO # 0.1 x10^3/uL (0.0-0.2); BASO % 1 % (0-3); EOS # 0.3 x10^3/uL (0.0-0.7); EOS % 2 % (0-3); HEMATOCRIT 43.5 % (39.0-53.0); HEMOGLOBIN 14.4 g/dL (13.0-17.5); LYMPH # 3.3 x10^3/uL (1.0-4.8); LYMPH % 26 % (24-48); MEAN CORPUSCULAR HEMOGLOBIN 29 pg (25-35); MEAN CORPUSCULAR HGB CONC 33 g/dL (31-37); MEAN CORPUSCULAR VOLUME 87 fL (79-100); MONO # 1.9 x10^3/uL (0.0-1.1); MONO % 15 % (0-9); NEUT % 55 % (31-73); PLATELET COUNT 430 x10^3/uL (140-400); RED BLOOD COUNT 5.03 x10^6/uL (4.30-5.70); RED CELL DISTRIBUTION WIDTH 14.3 % (11.5-14.5); WHITE BLOOD COUNT 12.7 x10^3/uL (4.0-11.0)
[2018-11-22] MEDS ORDERED: ONDANSETRON PF 4 MG/2 ML VIAL. IV ONE (00:30)
[2018-11-22] MEDS ORDERED: fentaNYL PF VIAL 100 MCG/2 ML VIAL IV ONE (00:30)
[2018-11-22 00:37] LABS: CALCIUM 8.7 mg/dL (8.5-10.1); CREATININE 0.8 mg/dL (0.7-1.3); GFR 101.1; POTASSIUM 4.4 mmol/L (3.5-5.1)
[2018-11-22 00:42] LABS: ALBUMIN 3.8 g/dL (3.4-5.0); ALBUMIN/GLOBULIN RATIO 1.1 (1.0-1.7); TOTAL BILIRUBIN 0.3 mg/dL (0.2-1.0); TOTAL PROTEIN 7.3 g/dL (6.4-8.2)
[2018-11-22 01:08] LABS: % BANDS 3 % (0-9); % EOS 4 % (0-5); % SEGS 64 % (35-66)
[2018-11-22 01:09] LABS: % LYMPHS 15 % (24-48); % MONOS 14 % (0-10)
[2018-11-22 01:10] LABS: PLT ESTIMATE INCREASED (ADEQUATE)
--- NOTE | 2018-11-22 01:13 | PHYS DOC ---
Past Medical History Past Medical History: Hypertension Additional Past Medical Histor: head injury at work 2004, CARPEL TUNNEL; colon ulcer Past Surgical History: No Surgical History Additional Past Surgical Histo: c4-5 sx Alcohol Use: Rarely Drug Use: None Adult General Chief Complaint Chief Complaint: CHEST PAIN [facility] HPI Patient is a 53-year-old male who presents with chest pain. Patient states he's had chest pain off and on since Friday. He states it's worse and unrelenting tonight. He describes the pain as a tightness. He denies any shortness of breath. He's not had any nausea or vomiting. He denies any diaphoresis. He is unable to articulate whether the pain is worse with exertion. The cough congestion or hemoptysis.[] Review of Systems Review of Systems Constitutional: Denies fever or chills [] Eyes: Denies change in visual acuity, redness, or eye pain [] HENT: Denies nasal congestion or sore throat [] Respiratory: Denies cough or shortness of breath [] Cardiovascular: No additional information not addressed in HPI [] GI: Denies abdominal pain, nausea, vomiting, bloody stools or diarrhea [] : Denies dysuria or hematuria [] Musculoskeletal: Denies back pain or joint pain [] Integument: Denies rash or skin lesions [] Neurologic: Denies headache, focal weakness or sensory changes [] Endocrine: Denies polyuria or polydipsia [] All other systems were reviewed and found to be within normal limits, except as documented in this note. Current Medications Current Medications Current Medications Medications (Trade) Dose Ordered Sig/[facility] Start Time Stop Time Status Last Admin Dose Admin Aspirin (Children'S Aspirin) 324 mg 1X ONCE 11/22/18 00:00 11/22/18 00:01 DC Fentanyl Citrate (Fentanyl 2ml Vial) 50 mcg 1X ONCE 11/22/18 00:30 11/22/18 00:31 DC 11/22/18 01:04 50 MCG Ondansetron HCl (Zofran) 4 mg 1X ONCE 11/22/18 00:30 11/22/18 00:31 DC 11/22/18 01:04 4 MG Allergies Allergies Allergies Coded Allergies Type Severity Reaction Last Updated Verified cyclobenzaprine Allergy Intermediate incontinence 02/20/17 Yes naproxen Allergy Intermediate itching 02/20/17 Yes nortriptyline Allergy Intermediate itching 02/20/17 Yes Physical Exam Physical Exam Constitutional: Well developed, well nourished, no acute distress, non-toxic appearance. [] HENT: Normocephalic, atraumatic, bilateral external ears normal, oropharynx moist, no oral exudates, nose normal. [] Eyes: PERRLA, EOMI, conjunctiva normal, no discharge. [] Neck: Normal range of motion, no tenderness, supple, no stridor. [] Cardiovascular:Heart rate regular rhythm, no murmur [] Lungs & Thorax: Bilateral breath sounds clear to auscultation [] Abdomen: Bowel sounds normal, soft, no tenderness, no masses, no pulsatile masses. [] Skin: Warm, dry, no erythema, no rash. [] Back: No tenderness, no CVA tenderness. [] Extremities: No tenderness, no cyanosis, no clubbing, ROM intact, no edema. [] Neurologic: Alert and oriented X 3, normal motor function, normal sensory function, no focal deficits noted. [] Psychologic: Affect normal, judgement normal, mood normal. [] Current Patient Data Vital Signs Vital Signs Date Time Temp Pulse Resp B/P (MAP) Pulse Ox O2 Delivery O2 Flow Rate FiO2 11/22/18 01:04 25 97 Room Air 11/22/18 00:00 98.1 89 151/78 (102) 98.1 Lab Values Laboratory Tests Test 11/22/18 00:10 White Blood Count 12.7 x10^3/uL (4.0-11.0) H Red Blood Count 5.03 x10^6/uL (4.30-5.70) Hemoglobin 14.4 g/dL (13.0-17.5) Hematocrit 43.5 % (39.0-53.0) Mean Corpuscular Volume 87 fL (79-100) Mean Corpuscular Hemoglobin 29 pg (25-35) Mean Corpuscular Hemoglobin Concent 33 g/dL (31-37) Red Cell Distribution Width 14.3 % (11.5-14.5) Platelet Count 430 x10^3/uL (140-400) H Neutrophils (%) (Auto) 55 % (31-73) Lymphocytes (%) (Auto) 26 % (24-48) Monocytes (%) (Auto) 15 % (0-9) H Eosinophils (%) (Auto) 2 % (0-3) Basophils (%) (Auto) 1 % (0-3) Neutrophils # (Auto) 7.0 x10^3/uL (1.8-7.7) Lymphocytes # (Auto) 3.3 x10^3/uL (1.0-4.8) Monocytes # (Auto) 1.9 x10^3/uL (0.0-1.1) H Eosinophils # (Auto) 0.3 x10^3/uL (0.0-0.7) Basophils # (Auto) 0.1 x10^3/uL (0.0-0.2) Platelet Estimate Pending Sodium Level 141 mmol/L (136-145) Potassium Level 4.4 mmol/L (3.5-5.1) Chloride Level 104 mmol/L (98-107) Carbon Dioxide Level 27 mmol/L (21-32) Anion Gap 10 (6-14) Blood Urea Nitrogen 15 mg/dL (8-26) Creatinine 0.8 mg/dL (0.7-1.3) Estimated GFR (Cockcroft-Gault) 101.1 BUN/Creatinine Ratio 19 (6-20) Glucose Level 84 mg/dL (70-99) Calcium Level 8.7 mg/dL (8.5-10.1) Total Bilirubin 0.3 mg/dL (0.2-1.0) Aspartate Amino Transferase (AST) 23 U/L (15-37) Alanine Aminotransferase (ALT) 29 U/L (16-63) Alkaline Phosphatase 67 U/L (46-116) Troponin I Quantitative < 0.017 ng/mL (0.000-0.055) Total Protein 7.3 g/dL (6.4-8.2) Albumin 3.8 g/dL (3.4-5.0) Albumin/Globulin Ratio 1.1 (1.0-1.7) Laboratory Tests 11/22/18 00:10 Laboratory Tests 11/22/18 00:10 EKG EKG [EKG: Normal sinus rhythm rate of [address]-T changes] Radiology/Procedures Radiology/Procedures [] Impressions: Chest x-ray: Negative exam as interpreted by me Course & Med Decision Making Course & Med Decision Making Pertinent Labs and Imaging studies reviewed. (See chart for details) [ED course: Evaluation reveals a 53-year-old male with a heart score of 5 who presents with chest discomfort for a few days. While his workup so far is negative I believe that he needs] Dragon Disclaimer Dragon Disclaimer This electronic medical record was generated, in whole or in part, using a voice recognition dictation system. Departure Departure Referrals: MROA ARAGON MD (PCP) The HEART Score for CP Pts HEART Score for Chest Pain: HEART Score for Chest Pain Response (Comments) Value History Highly Suspicious 2 ECG Nonspecific Repolarizatio 1 Age >45 - < 65 1 Risk Factors 1 or 2 Risk Factors 1 Troponin < Normal Limit 0 Total 5 Risk Factors: Risk Factors: DM, Current or recent (<one month) smoker, HTN, HLP, family history of CAD, obesity. Risk Scores: Score 0 - 3: 2.5% MACE over next 6 weeks - Discharge Home Score 4 - 6: 20.3% MACE over next 6 weeks - Admit for Clinical Observation Score 7 - 10: 72.7% MACE over next 6 weeks - Early Invasive Strategies RENEE JOHNSON DO Nov 22, 2018 01:13
[2018-11-22] MEDS ORDERED: ONDANSETRON PF 4 MG/2 ML VIAL. IV PRN (01:15)
[2018-11-22] MEDS ORDERED: NITROGLYCERIN SUBLINGUAL 0.4 MG BOTTLE OF 25. SL PRN (01:15)
[2018-11-22 02:10] VITALS: BP 132/76
[2018-11-22] MEDS ORDERED: OMEP20CA10 PO (03:37)
--- NOTE | 2018-11-22 03:38 | RAD ---
CHEST AP ONLY INDICATION: Chest pain. COMPARISON STUDY: 08/06/2018. FINDINGS: Lungs: Normal lung volume. No pulmonary mass or consolidation. The tracheobronchial tree and hilar structures are normal. Pleura: No pleural effusion or pneumothorax. Heart and Mediastinum: The cardiomediastinal silhouette is normal. The great vessels of the thorax are normal. Bones and Soft Tissues: The bones and soft tissues are within normal limits. IMPRESSION: No acute cardiopulmonary process. Electronically signed by: Donta Santos MD (11/22/2018 3:36 AM) [id number]
[2018-11-22 07:00] VITALS: BP 112/69
[2018-11-22] MEDS: fentaNYL PF VIAL 100 MCG/2 ML VIAL IV PRN ×2 (08:36→14:12)
--- NOTE | 2018-11-22 09:23 | PDOC1 ---
History and Physical Date of Admission Date of Admission DATE: 11/22/18 TIME: 09:23 Identification/Chief Complaint Chief Complaint seen in er , 53-year-old male who presents with chest pain.he's had chest pain off and on since Friday. He states it's worse and unrelenting . He describes the pain as a tightness. He denies any shortness of breath. He's not had any nausea or vomiting. He denies any diaphoresis. Past Medical History Past Medical History Past Medical History Past Medical History: Hypertension Additional Past Medical Histor: head injury at work 2003, CARPEL TUNNEL; colon ulcer Past Surgical History: Laparoscopic converted open splenectomy. 2013 Additional Past Surgical Histo: c4-5 sx Alcohol Use: Rarely Drug Use: None fhx obesity Cardiovascular: HTN, Hyperlipidemia Pulmonary: Asthma CENTRAL NERVOUS SYSTEM: Other GI: GERD Heme/Onc: No pertinent hx Hepatobiliary: No pertinent hx Psych: No pertinent hx Musculoskeletal: Osteoarthritis Rheumatologic: No pertinent hx Infectious disease: No pertinent hx Renal/: No pertinent hx Endocrine: No pertinent hx Past Surgical History Past Surgical History: Cholecystectomy, Other Family History Family History: High Cholestrol, Family History Unknown Social History Smoke: No ALCOHOL: none Drugs: None Current Medications Current Medications Current Medications Aspirin (Children'S Aspirin) 324 mg 1X ONCE PO Last administered on 11/22/18at 01:05; Start 11/22/18 at 00:00; Stop 11/22/18 at 00:01; Status DC Fentanyl Citrate (Fentanyl 2ml Vial) 50 mcg 1X ONCE IV Last administered on 11/22/18at 01:04; Start 11/22/18 at 00:30; Stop 11/22/18 at 00:31; Status DC Ondansetron HCl (Zofran) 4 mg 1X ONCE IV Last administered on 11/22/18at 01:04; Start 11/22/18 at 00:30; Stop 11/22/18 at 00:31; Status DC Ondansetron HCl (Zofran) 4 mg PRN Q8HRS PRN IV NAUSEA/VOMITING; Start 11/22/18 at 01:15; Stop 11/23/18 at 01:14 Fentanyl Citrate (Fentanyl 2ml Vial) 50 mcg PRN Q1HR PRN IV PAIN Last administered on 11/22/18at 08:36; Start 11/22/18 at 01:15; Stop 11/23/18 at 01:14 Nitroglycerin (Nitrostat) 0.4 mg PRN Q5MIN PRN SL CHEST PAIN; Start 11/22/18 at 01:15; Stop 11/23/18 at 01:14 Active Scripts Active Naproxen 500 Mg Tablet 1 Tab PO BID PRN Rmchar-Mlhsnrpo-Wujg 50-325-40 (Butalb/Acetaminophen/Caffeine) 1 Each Tablet 1 Each PO Q6HRS PRN Ondansetron Odt (Ondansetron) 4 Mg Tab.rapdis 1 Tab PO PRN Q6-8HRS PRN Omeprazole 40 Mg Capsule.dr 1 Cap PO DAILY Zantac (Ranitidine Hcl) 300 Mg Tablet 1 Tab PO QHS Reported Omeprazole 20 Mg Capsule.dr 20 Mg PO BID Citalopram Hbr (Citalopram Hydrobromide) 20 Mg Tablet 20 Mg PO DAILY for headache prevention Metoprolol Tartrate 50 Mg Tablet 50 Mg PO NOON Loratadine 10 Mg Tablet 10 Mg PO PRN DAILY PRN Amitriptyline Hcl 25 Mg Tablet 25 Mg PO QHS Gabapentin (Gabapentin) 300 Mg Capsule 300 Mg PO TID Lipitor (Atorvastatin Calcium) 80 Mg Tablet 80 Mg PO HS Losartan-Hctz 50-12.5 Mg Tab (Losartan/Hydrochlorothiazide) 1 Each Tablet 1 Tab PO DAILY Allergies Allergies: Coded Allergies: cyclobenzaprine (Verified Allergy, Intermediate, incontinence, 02/20/17) naproxen (Verified Allergy, Intermediate, itching, 02/20/17) nortriptyline (Verified Allergy, Intermediate, itching, 02/20/17) ROS Review of System Review of Systems Review of Systems Constitutional: Denies fever or chills [] Eyes: Denies change in visual acuity, redness, or eye pain [] HENT: Denies nasal congestion or sore throat [] Respiratory: Denies cough or shortness of breath [] Cardiovascular: No additional information not addressed in HPI [] GI: Denies abdominal pain, nausea, vomiting, bloody stools or diarrhea [] : Denies dysuria or hematuria [] Musculoskeletal: Denies back pain or joint pain [] Integument: Denies rash or skin lesions [] Neurologic: Denies headache, focal weakness or sensory changes [] Endocrine: Denies polyuria or polydipsia [] 14 PT systems were reviewed and found to be within normal limits, except as documented ALLERGY AND IMMUNOLOGY: No: Hives, Insect Bite Sensitivity, Itchy/Watery Eyes, Nasal Congestion, Post Nasal Drip, Seasonal Allergies, Other Gastrointestinal: No Nausea, No Vomiting, No Abdominal Pain, No Diarrhea, No Constipation, No Melena, No Hematochezia, No Other Skin: No Dry Skin, No Eczema, No Hair Changes, No Lumps, No Mole Changes, No Mottling, No Nail Changes, No Pruritus, No Rash, No Skin Lesion Changes, No Other, No Acne Physical Exam Physical Exam Physical Exam Physical Exam Constitutional: Well developed, well nourished, no acute distress, non-toxic mirlande earance. [] HENT: Normocephalic, atraumatic, bilateral external ears normal, oropharynx moist, no oral exudates, nose normal. [] Eyes: PERRLA, EOMI, conjunctiva normal, no discharge. [] Neck: Normal range of motion, no tenderness, supple, no stridor. [] Cardiovascular:Heart rate regular rhythm, no murmur [] Lungs & Thorax: Bilateral breath sounds clear to auscultation [] Abdomen: Bowel sounds normal, soft, no tenderness, no masses, no pulsatile masses. [] Skin: Warm, dry, no erythema, no rash. [] Back: No tenderness, no CVA tenderness. [] Extremities: No tenderness, no cyanosis, no clubbing, ROM intact, no edema. [] Neurologic: Alert and oriented X 3, normal motor function, normal sensory function, no focal deficits noted. [] Psychologic: Affect normal, judgement normal, mood normal. [] General: Alert, Oriented X3, Cooperative, No acute distress HEENT: Atraumatic, Mucous membr. moist/pink Lungs: Clear to auscultation Heart: RRR Breasts: Not examined Abdomen: Normal bowel sounds, Soft, No tenderness Rectal Exam: not examined PELVIC: Examination not indicated Extremities: No cyanosis, No edema Skin: No rashes Neuro: Normal speech, Cranial nerves 3-12 NL Psych/Mental Status: Mental status NL, Mood NL Vitals Vitals Vital Signs Date Time Temp Pulse Resp B/P (MAP) Pulse Ox O2 Delivery O2 Flow Rate FiO2 11/22/18 08:36 18 97 Room Air 11/22/18 07:00 98.3 77 112/69 (83) 98.3 Labs Labs Laboratory Tests Test 11/22/18 00:10 11/22/18 03:45 11/22/18 06:45 White Blood Count 12.7 x10^3/uL (4.0-11.0) Red Blood Count 5.03 x10^6/uL (4.30-5.70) Hemoglobin 14.4 g/dL (13.0-17.5) Hematocrit 43.5 % (39.0-53.0) Mean Corpuscular Volume 87 fL (79-100) Mean Corpuscular Hemoglobin 29 pg (25-35) Mean Corpuscular Hemoglobin Concent 33 g/dL (31-37) Red Cell Distribution Width 14.3 % (11.5-14.5) Platelet Count 430 x10^3/uL (140-400) Neutrophils (%) (Auto) 55 % (31-73) Lymphocytes (%) (Auto) 26 % (24-48) Monocytes (%) (Auto) 15 % (0-9) Eosinophils (%) (Auto) 2 % (0-3) Basophils (%) (Auto) 1 % (0-3) Neutrophils # (Auto) 7.0 x10^3/uL (1.8-7.7) Lymphocytes # (Auto) 3.3 x10^3/uL (1.0-4.8) Monocytes # (Auto) 1.9 x10^3/uL (0.0-1.1) Eosinophils # (Auto) 0.3 x10^3/uL (0.0-0.7) Basophils # (Auto) 0.1 x10^3/uL (0.0-0.2) Segmented Neutrophils % 64 % (35-66) Band Neutrophils % 3 % (0-9) Lymphocytes % 15 % (24-48) Monocytes % 14 % (0-10) Eosinophils % 4 % (0-5) Platelet Estimate Increased (ADEQUATE) Sodium Level 141 mmol/L (136-145) Potassium Level 4.4 mmol/L (3.5-5.1) Chloride Level 104 mmol/L (98-107) Carbon Dioxide Level 27 mmol/L (21-32) Anion Gap 10 (6-14) Blood Urea Nitrogen 15 mg/dL (8-26) Creatinine 0.8 mg/dL (0.7-1.3) Estimated GFR (Cockcroft-Gault) 101.1 BUN/Creatinine Ratio 19 (6-20) Glucose Level 84 mg/dL (70-99) Calcium Level 8.7 mg/dL (8.5-10.1) Total Bilirubin 0.3 mg/dL (0.2-1.0) Aspartate Amino Transf (AST/SGOT) 23 U/L (15-37) Alanine Aminotransferase (ALT/SGPT) 29 U/L (16-63) Alkaline Phosphatase 67 U/L (46-116) Troponin I Quantitative < 0.017 ng/mL (0.000-0.055) < 0.017 ng/mL (0.000-0.055) < 0.017 ng/mL (0.000-0.055) Total Protein 7.3 g/dL (6.4-8.2) Albumin 3.8 g/dL (3.4-5.0) Albumin/Globulin Ratio 1.1 (1.0-1.7) Laboratory Tests Test 11/22/18 00:10 11/22/18 03:45 11/22/18 06:45 White Blood Count 12.7 x10^3/uL (4.0-11.0) Red Blood Count 5.03 x10^6/uL (4.30-5.70) Hemoglobin 14.4 g/dL (13.0-17.5) Hematocrit 43.5 % (39.0-53.0) Mean Corpuscular Volume 87 fL (79-100) Mean Corpuscular Hemoglobin 29 pg (25-35) Mean Corpuscular Hemoglobin Concent 33 g/dL (31-37) Red Cell Distribution Width 14.3 % (11.5-14.5) Platelet Count 430 x10^3/uL (140-400) Neutrophils (%) (Auto) 55 % (31-73) Lymphocytes (%) (Auto) 26 % (24-48) Monocytes (%) (Auto) 15 % (0-9) Eosinophils (%) (Auto) 2 % (0-3) Basophils (%) (Auto) 1 % (0-3) Neutrophils # (Auto) 7.0 x10^3/uL (1.8-7.7) Lymphocytes # (Auto) 3.3 x10^3/uL (1.0-4.8) Monocytes # (Auto) 1.9 x10^3/uL (0.0-1.1) Eosinophils # (Auto) 0.3 x10^3/uL (0.0-0.7) Basophils # (Auto) 0.1 x10^3/uL (0.0-0.2) Segmented Neutrophils % 64 % (35-66) Band Neutrophils % 3 % (0-9) Lymphocytes % 15 % (24-48) Monocytes % 14 % (0-10) Eosinophils % 4 % (0-5) Platelet Estimate Increased (ADEQUATE) Sodium Level 141 mmol/L (136-145) Potassium Level 4.4 mmol/L (3.5-5.1) Chloride Level 104 mmol/L (98-107) Carbon Dioxide Level 27 mmol/L (21-32) Anion Gap 10 (6-14) Blood Urea Nitrogen 15 mg/dL (8-26) Creatinine 0.8 mg/dL (0.7-1.3) Estimated GFR (Cockcroft-Gault) 101.1 BUN/Creatinine Ratio 19 (6-20) Glucose Level 84 mg/dL (70-99) Calcium Level 8.7 mg/dL (8.5-10.1) Total Bilirubin 0.3 mg/dL (0.2-1.0) Aspartate Amino Transf (AST/SGOT) 23 U/L (15-37) Alanine Aminotransferase (ALT/SGPT) 29 U/L (16-63) Alkaline Phosphatase 67 U/L (46-116) Troponin I Quantitative < 0.017 ng/mL (0.000-0.055) < 0.017 ng/mL (0.000-0.055) < 0.017 ng/mL (0.000-0.055) Total Protein 7.3 g/dL (6.4-8.2) Albumin 3.8 g/dL (3.4-5.0) Albumin/Globulin Ratio 1.1 (1.0-1.7) Images Images CHEST AP ONLY INDICATION: Chest pain. COMPARISON STUDY: 08/06/2018. FINDINGS: Lungs: Normal lung volume. No pulmonary mass or consolidation. The tracheobronchial tree and hilar structures are normal. Pleura: No pleural effusion or pneumothorax. Heart and Mediastinum: The cardiomediastinal silhouette is normal. The great vessels of the thorax are normal. Bones and Soft Tissues: The bones and soft tissues are within normal limits. IMPRESSION: No acute cardiopulmonary process. Electronically signed by: Donta Santos MD (11/22/2018 3:36 AM) [facility] VTE Prophylaxis Ordered VTE Prophylaxis Devices: No VTE Pharmacological Prophylaxi: Yes Assessment/Plan Assessment/Plan IMPRESSION Chest pain with atypical features and most probably GI etiology./// Myocardial infarction has been ruled out. Plan for 2-D echo and stress test as an outpatient. Hypertension: //controlled MORBID OBESITY PLAN PROTONIX SEE PCP KRISSY URBAN MD Nov 22, 2018 09:23
--- NOTE | 2018-11-22 10:41 | PDOC2 ---
CONSULT Date of Consult Date of Consult DATE: 11/22/18 TIME: 10:41 Reason for Consult Reason for Consult: Chest pain Referring Physician Referring Physician: Dr. Cárdenas Identification/Chief Complaint Chief Complaint Chest pain Source Source: Chart review, Patient History of Present Illness Reason for Visit: 53-year-old male presented complaining of intermittent episodes of right-sided chest pain not related to exertion or food intake and occasionally associated with nausea and vomiting. He denied any orthopnea/PND, palpitations or syncope. He is a nonsmoker and denied any family history of premature coronary artery disease. Past Medical History Cardiovascular: HTN, Hyperlipidemia Pulmonary: Asthma CENTRAL NERVOUS SYSTEM: Other GI: GERD Heme/Onc: No pertinent hx Hepatobiliary: No pertinent hx Psych: No pertinent hx Musculoskeletal: Osteoarthritis Rheumatologic: No pertinent hx Infectious disease: No pertinent hx Renal/: No pertinent hx Endocrine: No pertinent hx Past Surgical History Past Surgical History: Cholecystectomy, Other Family History Family History: Family History Unknown Social History ALCOHOL: occassional Drugs: None Lives: with Family Current Medications Current Medications Current Medications Aspirin (Children'S Aspirin) 324 mg 1X ONCE PO Last administered on 11/22/18at 01:05; Start 11/22/18 at 00:00; Stop 11/22/18 at 00:01; Status DC Fentanyl Citrate (Fentanyl 2ml Vial) 50 mcg 1X ONCE IV Last administered on 11/22/18at 01:04; Start 11/22/18 at 00:30; Stop 11/22/18 at 00:31; Status DC Ondansetron HCl (Zofran) 4 mg 1X ONCE IV Last administered on 11/22/18at 01:04; Start 11/22/18 at 00:30; Stop 11/22/18 at 00:31; Status DC Ondansetron HCl (Zofran) 4 mg PRN Q8HRS PRN IV NAUSEA/VOMITING; Start 11/22/18 a t 01:15; Stop 11/23/18 at 01:14 Fentanyl Citrate (Fentanyl 2ml Vial) 50 mcg PRN Q1HR PRN IV PAIN Last administered on 11/22/18at 08:36; Start 11/22/18 at 01:15; Stop 11/23/18 at 01:14 Nitroglycerin (Nitrostat) 0.4 mg PRN Q5MIN PRN SL CHEST PAIN; Start 11/22/18 at 01:15; Stop 11/23/18 at 01:14 Active Scripts Active Naproxen 500 Mg Tablet 1 Tab PO BID PRN Eltpdg-Hpemijqs-Njth 50-325-40 (Butalb/Acetaminophen/Caffeine) 1 Each Tablet 1 Each PO Q6HRS PRN Ondansetron Odt (Ondansetron) 4 Mg Tab.rapdis 1 Tab PO PRN Q6-8HRS PRN Omeprazole 40 Mg Capsule.dr 1 Cap PO DAILY Zantac (Ranitidine Hcl) 300 Mg Tablet 1 Tab PO QHS Reported Omeprazole 20 Mg Capsule.dr 20 Mg PO BID Citalopram Hbr (Citalopram Hydrobromide) 20 Mg Tablet 20 Mg PO DAILY for headache prevention Metoprolol Tartrate 50 Mg Tablet 50 Mg PO NOON Loratadine 10 Mg Tablet 10 Mg PO PRN DAILY PRN Amitriptyline Hcl 25 Mg Tablet 25 Mg PO QHS Gabapentin (Gabapentin) 300 Mg Capsule 300 Mg PO TID Lipitor (Atorvastatin Calcium) 80 Mg Tablet 80 Mg PO HS Losartan-Hctz 50-12.5 Mg Tab (Losartan/Hydrochlorothiazide) 1 Each Tablet 1 Tab PO DAILY Allergies Allergies: Coded Allergies: cyclobenzaprine (Verified Allergy, Intermediate, incontinence, 02/20/17) naproxen (Verified Allergy, Intermediate, itching, 02/20/17) nortriptyline (Verified Allergy, Intermediate, itching, 02/20/17) ROS PSYCHOLOGICAL ROS: No: Hallucinations Eyes: No Loss of vision HEENT: No: Epistaxis Respiratory: No: Hemoptysis Cardiovascular: yes Chest Pain Gastrointestinal: Yes Nausea, Yes Vomiting; No Diarrhea Genitourinary: No Hematuria Neurological: No Seizures Skin: No Rash Physical Exam General: Alert, Oriented X3 HEENT: Atraumatic Lungs: Clear to auscultation Heart: Regular rate Abdomen: Soft Extremities: No edema Neuro: Normal speech Psych/Mental Status: Mood NL Vitals VITALS Vital Signs Date Time Temp Pulse Resp B/P (MAP) Pulse Ox O2 Delivery O2 Flow Rate FiO2 11/22/18 08:36 18 97 Room Air 11/22/18 07:00 98.3 77 112/69 (83) 98.3 Labs Labs Laboratory Tests Test 11/22/18 00:10 11/22/18 03:45 11/22/18 06:45 White Blood Count 12.7 x10^3/uL (4.0-11.0) Red Blood Count 5.03 x10^6/uL (4.30-5.70) Hemoglobin 14.4 g/dL (13.0-17.5) Hematocrit 43.5 % (39.0-53.0) Mean Corpuscular Volume 87 fL (79-100) Mean Corpuscular Hemoglobin 29 pg (25-35) Mean Corpuscular Hemoglobin Concent 33 g/dL (31-37) Red Cell Distribution Width 14.3 % (11.5-14.5) Platelet Count 430 x10^3/uL (140-400) Neutrophils (%) (Auto) 55 % (31-73) Lymphocytes (%) (Auto) 26 % (24-48) Monocytes (%) (Auto) 15 % (0-9) Eosinophils (%) (Auto) 2 % (0-3) Basophils (%) (Auto) 1 % (0-3) Neutrophils # (Auto) 7.0 x10^3/uL (1.8-7.7) Lymphocytes # (Auto) 3.3 x10^3/uL (1.0-4.8) Monocytes # (Auto) 1.9 x10^3/uL (0.0-1.1) Eosinophils # (Auto) 0.3 x10^3/uL (0.0-0.7) Basophils # (Auto) 0.1 x10^3/uL (0.0-0.2) Segmented Neutrophils % 64 % (35-66) Band Neutrophils % 3 % (0-9) Lymphocytes % 15 % (24-48) Monocytes % 14 % (0-10) Eosinophils % 4 % (0-5) Platelet Estimate Increased (ADEQUATE) Sodium Level 141 mmol/L (136-145) Potassium Level 4.4 mmol/L (3.5-5.1) Chloride Level 104 mmol/L (98-107) Carbon Dioxide Level 27 mmol/L (21-32) Anion Gap 10 (6-14) Blood Urea Nitrogen 15 mg/dL (8-26) Creatinine 0.8 mg/dL (0.7-1.3) Estimated GFR (Cockcroft-Gault) 101.1 BUN/Creatinine Ratio 19 (6-20) Glucose Level 84 mg/dL (70-99) Calcium Level 8.7 mg/dL (8.5-10.1) Total Bilirubin 0.3 mg/dL (0.2-1.0) Aspartate Amino Transf (AST/SGOT) 23 U/L (15-37) Alanine Aminotransferase (ALT/SGPT) 29 U/L (16-63) Alkaline Phosphatase 67 U/L (46-116) Troponin I Quantitative < 0.017 ng/mL (0.000-0.055) < 0.017 ng/mL (0.000-0.055) < 0.017 ng/mL (0.000-0.055) Total Protein 7.3 g/dL (6.4-8.2) Albumin 3.8 g/dL (3.4-5.0) Albumin/Globulin Ratio 1.1 (1.0-1.7) Laboratory Tests Test 11/22/18 00:10 11/22/18 03:45 11/22/18 06:45 White Blood Count 12.7 x10^3/uL (4.0-11.0) Red Blood Count 5.03 x10^6/uL (4.30-5.70) Hemoglobin 14.4 g/dL (13.0-17.5) Hematocrit 43.5 % (39.0-53.0) Mean Corpuscular Volume 87 fL (79-100) Mean Corpuscular Hemoglobin 29 pg (25-35) Mean Corpuscular Hemoglobin Concent 33 g/dL (31-37) Red Cell Distribution Width 14.3 % (11.5-14.5) Platelet Count 430 x10^3/uL (140-400) Neutrophils (%) (Auto) 55 % (31-73) Lymphocytes (%) (Auto) 26 % (24-48) Monocytes (%) (Auto) 15 % (0-9) Eosinophils (%) (Auto) 2 % (0-3) Basophils (%) (Auto) 1 % (0-3) Neutrophils # (Auto) 7.0 x10^3/uL (1.8-7.7) Lymphocytes # (Auto) 3.3 x10^3/uL (1.0-4.8) Monocytes # (Auto) 1.9 x10^3/uL (0.0-1.1) Eosinophils # (Auto) 0.3 x10^3/uL (0.0-0.7) Basophils # (Auto) 0.1 x10^3/uL (0.0-0.2) Segmented Neutrophils % 64 % (35-66) Band Neutrophils % 3 % (0-9) Lymphocytes % 15 % (24-48) Monocytes % 14 % (0-10) Eosinophils % 4 % (0-5) Platelet Estimate Increased (ADEQUATE) Sodium Level 141 mmol/L (136-145) Potassium Level 4.4 mmol/L (3.5-5.1) Chloride Level 104 mmol/L (98-107) Carbon Dioxide Level 27 mmol/L (21-32) Anion Gap 10 (6-14) Blood Urea Nitrogen 15 mg/dL (8-26) Creatinine 0.8 mg/dL (0.7-1.3) Estimated GFR (Cockcroft-Gault) 101.1 BUN/Creatinine Ratio 19 (6-20) Glucose Level 84 mg/dL (70-99) Calcium Level 8.7 mg/dL (8.5-10.1) Total Bilirubin 0.3 mg/dL (0.2-1.0) Aspartate Amino Transf (AST/SGOT) 23 U/L (15-37) Alanine Aminotransferase (ALT/SGPT) 29 U/L (16-63) Alkaline Phosphatase 67 U/L (46-116) Troponin I Quantitative < 0.017 ng/mL (0.000-0.055) < 0.017 ng/mL (0.000-0.055) < 0.017 ng/mL (0.000-0.055) Total Protein 7.3 g/dL (6.4-8.2) Albumin 3.8 g/dL (3.4-5.0) Albumin/Globulin Ratio 1.1 (1.0-1.7) Assessment/Plan Assessment/Plan 1. Chest pain with atypical features and most probably GI etiology. Myocardial infarction has been ruled out. Plan for 2-D echo and stress test as an outpatient. 2. Hypertension: Well-controlled Thank you for your consultation LINCOLN JEFFERS MD Nov 22, 2018 10:41
[2018-11-22 11:00] VITALS: BP 120/60
[2018-11-22] MEDS ORDERED: HYDROcodone/APAP 5/325MG 1 TAB TABLET PO PRN (12:00)
[2018-11-22 15:00] VITALS: BP 114/64
--- NOTE | 2018-11-22 16:21 | PDOC3 ---
Discharge Summary Date of Admission: Nov 22, 2018 Date of Discharge: Nov 22, 2018 Follow-Up: 3-5 days Admitting Diagnosis comment: VTE Prophylaxis Ordered VTE Prophylaxis Devices: No VTE Pharmacological Prophylaxi: Yes DISCHARGE DX Assessment/Plan IMPRESSION Chest pain with atypical features and most probably GI etiology./// Myocardial infarction has been ruled out. Plan for 2-D echo and stress test as an outpatient. Hypertension: //controlled MORBID OBESITY PLAN PROTONIX SEE PCP SOON Brief Hospital Course Mr. Smith is a 53 old [sex] who presented with [CHEST PAIN ] CONDITION AT DISCHARGE: Improved Discharge Medications Current Medications Aspirin (Children'S Aspirin) 324 mg 1X ONCE PO Last administered on 11/22/18at 01:05; Start 11/22/18 at 00:00; Stop 11/22/18 at 00:01; Status DC Fentanyl Citrate (Fentanyl 2ml Vial) 50 mcg 1X ONCE IV Last administered on 11/22/18at 01:04; Start 11/22/18 at 00:30; Stop 11/22/18 at 00:31; Status DC Ondansetron HCl (Zofran) 4 mg 1X ONCE IV Last administered on 11/22/18at 01:04; Start 11/22/18 at 00:30; Stop 11/22/18 at 00:31; Status DC Ondansetron HCl (Zofran) 4 mg PRN Q8HRS PRN IV NAUSEA/VOMITING; Start 11/22/18 at 01:15; Stop 11/23/18 at 01:14 Fentanyl Citrate (Fentanyl 2ml Vial) 50 mcg PRN Q1HR PRN IV PAIN Last administered on 11/22/18at 14:12; Start 11/22/18 at 01:15; Stop 11/23/18 at 01:14 Nitroglycerin (Nitrostat) 0.4 mg PRN Q5MIN PRN SL CHEST PAIN; Start 11/22/18 at 01:15; Stop 11/23/18 at 01:14 Acetaminophen/ Hydrocodone Bitart (Lortab 5/325) 1 tab PRN Q4HRS PRN PO MODERATE PAIN 4-6 Last administered on 11/22/18at 12:52; Start 11/22/18 at 12:00 Active Scripts Active Naproxen 500 Mg Tablet 1 Tab PO BID PRN Oyidqn-Fwhdxmve-Ywrn 50-325-40 (Butalb/Acetaminophen/Caffeine) 1 Each Tablet 1 Each PO Q6HRS PRN Ondansetron Odt (Ondansetron) 4 Mg Tab.rapdis 1 Tab PO PRN Q6-8HRS PRN Omeprazole 40 Mg Capsule. 1 Cap PO DAILY Zantac (Ranitidine Hcl) 300 Mg Tablet 1 Tab PO QHS Reported Omeprazole 20 Mg Capsule.dr 20 Mg PO BID Citalopram Hbr (Citalopram Hydrobromide) 20 Mg Tablet 20 Mg PO DAILY for headache prevention Metoprolol Tartrate 50 Mg Tablet 50 Mg PO NOON Loratadine 10 Mg Tablet 10 Mg PO PRN DAILY PRN Amitriptyline Hcl 25 Mg Tablet 25 Mg PO QHS Gabapentin (Gabapentin) 300 Mg Capsule 300 Mg PO TID Lipitor (Atorvastatin Calcium) 80 Mg Tablet 80 Mg PO HS Losartan-Hctz 50-12.5 Mg Tab (Losartan/Hydrochlorothiazide) 1 Each Tablet 1 Tab PO DAILY Vital Signs Vital Signs Date Time Temp Pulse Resp B/P (MAP) Pulse Ox O2 Delivery O2 Flow Rate FiO2 11/22/18 15:35 18 94 Room Air 11/22/18 15:00 97.9 74 114/64 (81) 97.9 Labs Laboratory Tests Test 11/22/18 00:10 11/22/18 03:45 11/22/18 06:45 White Blood Count 12.7 x10^3/uL (4.0-11.0) Red Blood Count 5.03 x10^6/uL (4.30-5.70) Hemoglobin 14.4 g/dL (13.0-17.5) Hematocrit 43.5 % (39.0-53.0) Mean Corpuscular Volume 87 fL (79-100) Mean Corpuscular Hemoglobin 29 pg (25-35) Mean Corpuscular Hemoglobin Concent 33 g/dL (31-37) Red Cell Distribution Width 14.3 % (11.5-14.5) Platelet Count 430 x10^3/uL (140-400) Neutrophils (%) (Auto) 55 % (31-73) Lymphocytes (%) (Auto) 26 % (24-48) Monocytes (%) (Auto) 15 % (0-9) Eosinophils (%) (Auto) 2 % (0-3) Basophils (%) (Auto) 1 % (0-3) Neutrophils # (Auto) 7.0 x10^3/uL (1.8-7.7) Lymphocytes # (Auto) 3.3 x10^3/uL (1.0-4.8) Monocytes # (Auto) 1.9 x10^3/uL (0.0-1.1) Eosinophils # (Auto) 0.3 x10^3/uL (0.0-0.7) Basophils # (Auto) 0.1 x10^3/uL (0.0-0.2) Segmented Neutrophils % 64 % (35-66) Band Neutrophils % 3 % (0-9) Lymphocytes % 15 % (24-48) Monocytes % 14 % (0-10) Eosinophils % 4 % (0-5) Platelet Estimate Increased (ADEQUATE) Sodium Level 141 mmol/L (136-145) Potassium Level 4.4 mmol/L (3.5-5.1) Chloride Level 104 mmol/L (98-107) Carbon Dioxide Level 27 mmol/L (21-32) Anion Gap 10 (6-14) Blood Urea Nitrogen 15 mg/dL (8-26) Creatinine 0.8 mg/dL (0.7-1.3) Estimated GFR (Cockcroft-Gault) 101.1 BUN/Creatinine Ratio 19 (6-20) Glucose Level 84 mg/dL (70-99) Calcium Level 8.7 mg/dL (8.5-10.1) Total Bilirubin 0.3 mg/dL (0.2-1.0) Aspartate Amino Transf (AST/SGOT) 23 U/L (15-37) Alanine Aminotransferase (ALT/SGPT) 29 U/L (16-63) Alkaline Phosphatase 67 U/L (46-116) Troponin I Quantitative < 0.017 ng/mL (0.000-0.055) < 0.017 ng/mL (0.000-0.055) < 0.017 ng/mL (0.000-0.055) Total Protein 7.3 g/dL (6.4-8.2) Albumin 3.8 g/dL (3.4-5.0) Albumin/Globulin Ratio 1.1 (1.0-1.7) Laboratory Tests Test 11/22/18 00:10 11/22/18 03:45 11/22/18 06:45 White Blood Count 12.7 x10^3/uL (4.0-11.0) Red Blood Count 5.03 x10^6/uL (4.30-5.70) Hemoglobin 14.4 g/dL (13.0-17.5) Hematocrit 43.5 % (39.0-53.0) Mean Corpuscular Volume 87 fL (79-100) Mean Corpuscular Hemoglobin 29 pg (25-35) Mean Corpuscular Hemoglobin Concent 33 g/dL (31-37) Red Cell Distribution Width 14.3 % (11.5-14.5) Platelet Count 430 x10^3/uL (140-400) Neutrophils (%) (Auto) 55 % (31-73) Lymphocytes (%) (Auto) 26 % (24-48) Monocytes (%) (Auto) 15 % (0-9) Eosinophils (%) (Auto) 2 % (0-3) Basophils (%) (Auto) 1 % (0-3) Neutrophils # (Auto) 7.0 x10^3/uL (1.8-7.7) Lymphocytes # (Auto) 3.3 x10^3/uL (1.0-4.8) Monocytes # (Auto) 1.9 x10^3/uL (0.0-1.1) Eosinophils # (Auto) 0.3 x10^3/uL (0.0-0.7) Basophils # (Auto) 0.1 x10^3/uL (0.0-0.2) Segmented Neutrophils % 64 % (35-66) Band Neutrophils % 3 % (0-9) Lymphocytes % 15 % (24-48) Monocytes % 14 % (0-10) Eosinophils % 4 % (0-5) Platelet Estimate Increased (ADEQUATE) Sodium Level 141 mmol/L (136-145) Potassium Level 4.4 mmol/L (3.5-5.1) Chloride Level 104 mmol/L (98-107) Carbon Dioxide Level 27 mmol/L (21-32) Anion Gap 10 (6-14) Blood Urea Nitrogen 15 mg/dL (8-26) Creatinine 0.8 mg/dL (0.7-1.3) Estimated GFR (Cockcroft-Gault) 101.1 BUN/Creatinine Ratio 19 (6-20) Glucose Level 84 mg/dL (70-99) Calcium Level 8.7 mg/dL (8.5-10.1) Total Bilirubin 0.3 mg/dL (0.2-1.0) Aspartate Amino Transf (AST/SGOT) 23 U/L (15-37) Alanine Aminotransferase (ALT/SGPT) 29 U/L (16-63) Alkaline Phosphatase 67 U/L (46-116) Troponin I Quantitative < 0.017 ng/mL (0.000-0.055) < 0.017 ng/mL (0.000-0.055) < 0.017 ng/mL (0.000-0.055) Total Protein 7.3 g/dL (6.4-8.2) Albumin 3.8 g/dL (3.4-5.0) Albumin/Globulin Ratio 1.1 (1.0-1.7) Allergies Allergies Coded Allergies Type Severity Reaction Last Updated Verified cyclobenzaprine Allergy Intermediate incontinence 02/20/17 Yes naproxen Allergy Intermediate itching 02/20/17 Yes nortriptyline Allergy Intermediate itching 02/20/17 Yes Disposition/Orders: D/C to Home Patient Instructions D/C PLANNING 58 MIN KRISSY REID MD Nov 22, 2018 16:21
--- NOTE | 2018-11-22 16:23 | DISCH ---
DISCHARGE INSTRUCTIONS Condition on Discharge Condition on Discharge: Stable Activity After Discharge Activity Instructions for Disc: Activity as tolerated Lifting Instructions after Dis: No heavy lifting Exercise Instruction after Dis: Walk 10 min, 3 x per day Weight Bearing Status after Di: No restrictions Diet after Discharge Diet after Discharge: Cardiac, Regular Diet Texture: Regular Liquid Texture: Thin Liquid Swallowing Supervision: None needed Wound Incision Care Wound Care Equipment: Dressings Checks after Discharge Checks after discharge: Check blood press - daily Contacting the DR. after DC Call your doctor for: Concerns you may have Treatment/Equipment after DC Adaptive Equipment Issued: None Warfarin Follow-Up Warfarin Follow UP: ECHO AND STRESS TEST THIS WEEK OUTPT KRISSY REID MD Nov 22, 2018 16:23
--- NOTE | 2018-11-22 17:42 | NUR ---
Discharge Note: SELINA LAW [address] Discharge instructions and discharge home medications reviewed with Patient and a copy given. All questions have been answered and understanding verbalized. Instructions and handouts were given. Discontinued lines and drains. Patient discharged to home self care.
--- NOTE | 2018-11-23 07:30 | CARD ---
MR#: [id number] Date of Study: 11/22/2018 Ordering Physician: LINCOLN AYALA, Referring Physician: LINCOLN AYALA, Tech: Myra Fonseca APPROVED REPORT EXAM: Two-dimensional and M-mode echocardiogram with Doppler and color Doppler. Other Information Quality : AverageHR: 80bpm Technically limited study due to body habitus. INDICATION Chest Pain RISK FACTORS Hypertension Hyperlipidemia 2D DIMENSIONS RVDd3.3 (2.9-3.5cm)Left Atrium(2D)3.5 (1.6-4.0cm) IVSd1.0 (0.7-1.1cm)Aortic Root(2D)3.3 (2.0-3.7cm) LVDd5.4 (3.9-5.9cm)LVOT Diameter2.1 (1.8-2.4cm) PWd1.2 (0.7-1.1cm)LVDs3.8 (2.5-4.0cm) FS (%) 30.4 %SV80.8 ml LVEF(%)57.4 (>50%) Aortic Valve AoV Peak Desmond.112.6cm/sAoV VTI23.8cm AO Peak GR.5.1mmHgLVOT VTI 18.68cm AO Mean GR.3mmHg Mitral Valve MV E Ubolwfmy88.1cm/sMV DECEL [id number] MV A Zqaknrcc71.0cm/sE/A Ratio1.0 TDI Lateral E' P. V9.27cm/sMedial E' P. V8.82cm/s E/Lateral E'7.2E/Medial E'7.6 Tricuspid Valve TR P. Aweszbtf908kx/sRAP HMEPSDPI3rqZh TR Peak Gr.41yqGePTDF74ijTg Pulmonary Vein S1 Fziayewz26.1cm/sS2 Bmdetsub27.75cm/s D2 Iexjvalx74.7cm/sPVa [id number] LEFT VENTRICLE The left ventricle is normal size. There is borderline concentric left ventricular hypertrophy. The l eft ventricular systolic function is normal. The Ejection Fraction is 55-60%. There is normal LV segm ental wall motion. RIGHT VENTRICLE The right ventricle is normal size. There is normal right ventricular wall thickness. The right ventr icular systolic function is normal. ATRIA The left atrium size is normal. The right atrium size is normal. The interatrial septum is intact wit h no evidence for an atrial septal defect or patent foramen ovale as noted on 2-D or Doppler imaging. AORTIC VALVE The aortic valve is normal in structure and function. Doppler and Color Flow revealed no significant aortic regurgitation. There is no significant aortic valvular stenosis. MITRAL VALVE The mitral valve is normal in structure and function. There is no evidence of mitral valve prolapse. There is no mitral valve stenosis. Doppler and Color Flow revealed no mitral valve regurgitation note d. TRICUSPID VALVE The tricuspid valve is normal in structure and function. Doppler and Color Flow revealed trace tricus pid regurgitation with an estimated PAP of 30 mmHg. There is no tricuspid valve stenosis. PULMONIC VALVE The pulmonary valve is normal in structure and function. Doppler and Color Flow revealed no pulmonic valvular regurgitation. GREAT VESSELS The aortic root is normal in size. The IVC was not visualized. PERICARDIAL EFFUSION There is no evidence of significant pericardial effusion. Critical Notification Critical Value: No <Conclusion> The left ventricular systolic function is normal. The Ejection Fraction is 55-60%. There is normal LV segmental wall motion. Trace tricuspid regurgitation with an estimated PAP of 30 mmHg. There is no evidence of significant pericardial effusion. Signed by : Lincoln Ayala, Electronically Approved : 11/23/2018 07:29:36
--- NOTE | 2018-11-23 07:32 | EKG ---
[facility] [address] [place] [address] Test Date: 2018-11-21 Test Time: 23:52:05 Pat Name: SELINA LAW Department: Room: Gender: M Quality Systems Engineer: : 1965 Requested By: RENEE JOHSNON Order Number: [id number] Reading MD: Measurements Intervals [place] Rate: 81 P: 50 PA: 156 QRS: -9 QRSD: 102 T: 36 QT: 356 QTc: 419 Interpretive Statements SINUS RHYTHM LEFTWARD AXIS INCOMPLETE RIGHT BUNDLE BRANCH BLOCK QRS(T) CONTOUR ABNORMALITY CONSIDER ANTEROSEPTAL MYOCARDIAL DAMAGE POSSIBLY ABNORMAL ECG RI6.01 Unconfirmed report No previous ECG available for comparison
== END 2018-11-22 17:46 | disposition home or self-care (01) ==
LOC: ER 23:44 → 2 NORTH 11-22 01:00
PROVIDERS: ADMIT Family Medicine; ATTEND Family Medicine
DX: R07.89 Other chest pain (principal); I10 Essential (primary) hypertension; E78.5 Hyperlipidemia, unspecified; J45.909 Unspecified asthma, uncomplicated; K21.9 Gastro-esophageal reflux disease without esophagitis; M19.90 Unspecified osteoarthritis, unspecified site; E66.01 Morbid (severe) obesity due to excess calories; Z90.81 Acquired absence of spleen; Z85.038 Personal history of other malignant neoplasm of large intestine
CPT/HCPCS: 36415; 71045; 80053; 84484; 85007; 85025; 93005; 93306; 96374; 96375; 96376; 99284; G0378; J2405; J3010; G0379

== ENCOUNTER 2019-01-19 23:13 | Emergency (ER) | payer MEDICARE, MEDICAID ==
[~2019-01-19] VITALS: Ht 167.6 cm; Wt 103.0 kg
[~2019-01-19 23:13] MED LIST changes: +OMEP40CA45 PO; -OMEP40CA5 PO
[2019-01-19 23:35] VITALS: BP 146/80
[2019-01-19] MEDS ORDERED: TETRACAINE 0.5% OPHTH SOLUTION 4ML BOTTLE. ONE (23:37)
[2019-01-19] MEDS ORDERED: FLUORESCEIN OPHTH TEST STRIP. ONE (23:37)
[2019-01-20] MEDS ORDERED: FLUORESCEIN OPHTH TEST STRIP. OS ONE
[2019-01-20] MEDS ORDERED: TETRACAINE 0.5% OPHTH SOLUTION 4ML BOTTLE. OS ONE
--- NOTE | 2019-01-20 00:09 | PHYS DOC ---
Past Medical History Past Medical History: Hypertension Additional Past Medical Histor: head injury at work 2003, CARPEL TUNNEL; colon ulcer (LAKEISHA VILLANUEVA APRN) Past Surgical History: No Surgical History Additional Past Surgical Histo: c4-5 sx (LAKEISHA VILLANUEVA APRN) Alcohol Use: Rarely Drug Use: None (LAKEISHA VILLANUEVA APRN) Attending Signature I have participated in the care of this patient and I have reviewed and agree with all pertinent clinical information above including history, exam, and recommendations. (YARI ROWE MD) Adult General Chief Complaint Chief Complaint: EYE PROBLEMS HPI HPI Patient is a 53 year old male who presents to the ED today complaining of chronic pain to the left eye from a corneal abrasion he sustained around October 2018. Patient states he has an appointment with an logging equipment operator on February 16, 2019 but today he could not sleep so his decided to bring him to the emergency room to get "pain pill". Patient denies any vision loss. Patient den ies any exacerbating or relieving factors to his pain. (LAKEISHA VILLANUEVA APRN) Review of Systems Review of Systems Constitutional: Denies fever or chills [] Eyes: Reports left eye corneal abrasion and chronic pain, denies any vision loss Musculoskeletal: Denies back pain or joint pain [] Integument: Denies rash or skin lesions [] Neurologic: Denies headache, focal weakness or sensory changes [] All other systems were reviewed and found to be within normal limits, except as documented in this note. (LAKEISHA VILLANUEVA APRN) Current Medications Current Medications Current Medications Medications (Trade) Dose Ordered Sig/Santino Start Time Stop Time Status Last Admin Dose Admin Acetaminophen/ Hydrocodone Bitart (Lortab 5/325) 1 tab 1X ONCE 01/20/19 00:15 01/20/19 00:16 DC 01/20/19 00:10 1 TAB Fluorescein Sodium (Ful-Ailin) 1 strip 1X ONCE 01/20/19 00:00 01/20/19 00:01 DC 01/20/19 00:10 1 STRIP Tetracaine HCl (Tetracaine) 1 drop 1X ONCE 01/20/19 00:00 01/20/19 00:01 DC 01/20/19 00:10 1 DROP (YARI ROEW MD) Allergies Allergies Allergies Coded Allergies Type Severity Reaction Last Updated Verified cyclobenzaprine Allergy Intermediate incontinence 02/20/17 Yes naproxen Allergy Intermediate itching 02/20/17 Yes nortriptyline Allergy Intermediate itching 02/20/17 Yes (YARI ROWE MD) Physical Exam Physical Exam Constitutional: Well developed, well nourished, no acute distress, non-toxic appearance. [] HENT: Normocephalic, atraumatic, bilateral external ears normal, oropharynx moist, no oral exudates, nose normal. [] Eyes: PERRLA, EOMI, left conjunctiva is slightly injected, there is an obvious corneal abrasion on the left cornea Tetracaine was used to the left eye, fluorescein was used, again cornea abrasion noted Back: No tenderness, no CVA tenderness. [] Extremities: No tenderness, no cyanosis, no clubbing, ROM intact, no edema. [] Neurologic: Alert and oriented X 3, normal motor function, normal sensory function, no focal deficits noted. [] Psychologic: Affect normal, judgement normal, mood normal. [] (LAKEISHA VILLANUEVA APRN) Current Patient Data Vital Signs Vital Signs Date Time Temp Pulse Resp B/P (MAP) Pulse Ox O2 Delivery O2 Flow Rate FiO2 01/19/19 23:35 97.7 87 18 146/80 (102) 98 Room Air 97.7 (YARI ROWE MD) EKG EKG [] (LAKEISHA VILLANUEVA APRN) Radiology/Procedures Radiology/Procedures [] (LAKEISHA VILLANUEVA APRN) Course & Med Decision Making Course & Med Decision Making Pertinent Labs and Imaging studies reviewed. (See chart for details) This is a 53-year-old male patient who presents to the ED today with a corneal abrasion his had since October 2018, he has an appointment with logging equipment operator on February 16, 2019. Present to the ED today asking for pain pills. K-tracs shows patient got a refill for gabapentin mid December. Informed patient he can take the gabapentin for pain and continue following up with logging equipment operator. Informed him he does not have any indication for need stronger pain medicine. Recommended Tylenol/Motrin for the pain as well. He states he cannot take ibuprofen because he has taken many of them they no longer work for him. Encouraged him to take gabapentin. (LAKEISHA VILLANUEVA APRN) Dragon Disclaimer Dragon Disclaimer This electronic medical record was generated, in whole or in part, using a voice recognition dictation system. 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 Please follow-up with the logging equipment operator. Continue taking gabapentin at home as needed for pain. You can also take Tylenol as needed for pain. Problem Qualifiers Primary Impression: Corneal abrasion, left Encounter type: sequela Qualified Codes: S05.02XS - Injury of conjunctiva and corneal abrasion without foreign body, left eye, sequela LAKEISHA VILLANUEVA APRN Jan 20, 2019 00:08 YARI ROWE MD Jan 20, 2019 00:38
[2019-01-20] MEDS ORDERED: HYDROcodone/APAP 5/325MG 1 TAB TABLET PO ONE (00:15)
== END 2019-01-20 00:45 | disposition home or self-care (01) ==
LOC: ER 23:13
DX: S05.02XA Injury of conjunctiva and corneal abrasion without foreign body, left eye, initial encounter (principal); G89.29 Other chronic pain; Z88.5 Allergy status to narcotic agent; I10 Essential (primary) hypertension; Z88.8 Allergy status to other drugs, medicaments and biological substances; X58.XXXA Exposure to other specified factors, initial encounter; Y93.89 Activity, other specified; Y92.89 Other specified places as the place of occurrence of the external cause; Y99.8 Other external cause status
CPT/HCPCS: 99283

== ENCOUNTER 2019-05-10 03:09 | Emergency (ER) | payer MEDICARE, MEDICAID ==
[~2019-05-10] VITALS: Ht 167.6 cm; Wt 102.2 kg
[~2019-05-10 03:09] MED LIST changes: +DICL75TA PO; +EZET10TA48 PO; -OMEP20CA10 PO; +OMEP20CA16 PO
--- NOTE | 2019-05-10 03:34 | PHYS DOC ---
Past Medical History Past Medical History: Hypertension Additional Past Medical Histor: head injury at work 2004, CARPEL TUNNEL; colon ulcer Past Surgical History: Splenectomy Additional Past Surgical Histo: c4-5 sx Smoking Status: Former Smoker Alcohol Use: Rarely Drug Use: None Adult General Chief Complaint Chief Complaint: CHEST PAIN HPI HPI Patient is a 53 year old male with history of hypertension and splenectomy who presents with complaint of chest pain. Patient complaining of constant left sided aching chest pain for the last 7 days and rated his pain 9/10. Patient complaining of shortness of breath, nausea, dizziness with chest pain. Patient denies change of pain with position or eating. Patient states he had the same chest pain previously. Patient does not have history of cardiac events. Patient has language barrier for giving history. Review of Systems Review of Systems Constitutional: Denies fever or chills [] Eyes: Denies change in visual acuity, redness, or eye pain [] HENT: Denies nasal congestion or sore throat [] Respiratory: Denies cough, reports shortness of breath [] Cardiovascular: No additional information not addressed in HPI [] GI: Denies abdominal pain, vomiting, bloody stools or diarrhea ,reports nausea[] : Denies dysuria or hematuria [] Musculoskeletal: Denies back pain or joint pain [] Integument: Denies rash or skin lesions [] Neurologic: Denies headache, focal weakness or sensory changes [] Endocrine: Denies polyuria or polydipsia [] All other systems were reviewed and found to be within normal limits, except as documented in this note. Current Medications Current Medications Current Medications Medications (Trade) Dose Ordered Sig/[facility] Start Time Stop Time Status Last Admin Dose Admin Aspirin (Children'S Aspirin) 324 mg 1X ONCE 05/10/19 03:45 05/10/19 03:46 DC 05/10/19 03:47 324 MG Nitroglycerin (Nitrostat) 0.4 mg PRN Q5MIN PRN 05/10/19 03:45 05/11/19 03:44 05/10/19 03:47 0.4 MG Allergies Allergies Allergies Coded Allergies Type Severity Reaction Last Updated Verified cyclobenzaprine Allergy Intermediate incontinence 02/20/17 Yes naproxen Allergy Intermediate itching 02/20/17 Yes nortriptyline Allergy Intermediate itching 02/20/17 Yes Physical Exam Physical Exam Constitutional: Well developed, well nourished, mild distress, non-toxic appearance, obese. [] HENT: Normocephalic, atraumatic, bilateral external ears normal, oropharynx moist, no oral exudates, nose normal. [] Eyes: PERRLA, EOMI, conjunctiva normal, no discharge. [] Neck: Normal range of motion, no tenderness, supple, no stridor. [] Cardiovascular:Heart rate regular rhythm, no murmur [] Lungs & Thorax: Bilateral breath sounds clear to auscultation [] Abdomen: Bowel sounds normal, soft, no tenderness, no masses, no pulsatile masses. [] Skin: Warm, dry, no erythema, no rash. [] Back: No tenderness, no CVA tenderness. [] Extremities: No tenderness, no cyanosis, no clubbing, ROM intact, no edema. [] Neurologic: Alert and oriented X 3, normal motor function, normal sensory function, no focal deficits noted. [] Psychologic: Affect normal, judgement normal, mood normal. [] Current Patient Data Vital Signs Vital Signs Date Time Temp Pulse Resp B/P (MAP) Pulse Ox O2 Delivery O2 Flow Rate FiO2 05/10/19 03:47 85 155/78 05/10/19 03:10 98.1 21 97 Room Air 98.1 Lab Values Laboratory Tests Test 05/10/19 03:45 White Blood Count 10.9 x10^3/uL (4.0-11.0) Red Blood Count 4.80 x10^6/uL (4.30-5.70) Hemoglobin 13.7 g/dL (13.0-17.5) Hematocrit 40.9 % (39.0-53.0) Mean Corpuscular Volume 85 fL (79-100) Mean Corpuscular Hemoglobin 29 pg (25-35) Mean Corpuscular Hemoglobin Concent 34 g/dL (31-37) Red Cell Distribution Width 14.9 % (11.5-14.5) H Platelet Count 337 x10^3/uL (140-400) Neutrophils (%) (Auto) 54 % (31-73) Lymphocytes (%) (Auto) 29 % (24-48) Monocytes (%) (Auto) 13 % (0-9) H Eosinophils (%) (Auto) 3 % (0-3) Basophils (%) (Auto) 1 % (0-3) Neutrophils # (Auto) 5.9 x10^3/uL (1.8-7.7) Lymphocytes # (Auto) 3.1 x10^3/uL (1.0-4.8) Monocytes # (Auto) 1.4 x10^3/uL (0.0-1.1) H Eosinophils # (Auto) 0.3 x10^3/uL (0.0-0.7) Basophils # (Auto) 0.1 x10^3/uL (0.0-0.2) Sodium Level 139 mmol/L (136-145) Potassium Level 4.0 mmol/L (3.5-5.1) Chloride Level 100 mmol/L (98-107) Carbon Dioxide Level 28 mmol/L (21-32) Anion Gap 11 (6-14) Blood Urea Nitrogen 10 mg/dL (8-26) Creatinine 0.9 mg/dL (0.7-1.3) Estimated GFR (Cockcroft-Gault) 88.3 BUN/Creatinine Ratio 11 (6-20) Glucose Level 215 mg/dL (70-99) H Calcium Level 8.6 mg/dL (8.5-10.1) Magnesium Level 1.9 mg/dL (1.8-2.4) Total Bilirubin 0.3 mg/dL (0.2-1.0) Aspartate Amino Transferase (AST) 26 U/L (15-37) Alanine Aminotransferase (ALT) 41 U/L (16-63) Alkaline Phosphatase 85 U/L (46-116) Creatine Kinase 224 U/L (39-308) Troponin I Quantitative < 0.017 ng/mL (0.000-0.055) HV-Jbv-M-Type Natriuretic Peptide 35 pg/mL (0-124) Total Protein 7.0 g/dL (6.4-8.2) Albumin 3.4 g/dL (3.4-5.0) Albumin/Globulin Ratio 0.9 (1.0-1.7) L Lipase 82 U/L (73-393) Laboratory Tests 05/10/19 03:45 Laboratory Tests 05/10/19 03:45 EKG EKG EKG interpreted by me. EKG at 0213 showed normal sinus rhythm at rate of 83, left kendrick axis, incomplete right bundle-branch block, no acute ST and T-wave elevation. Radiology/Procedures Radiology/Procedures [facility] [address] [place] [address] IMAGING REPORT Signed PATIENT: SELINA LAW V ACCOUNT: [id number] : 1965 LOCATION: ER AGE: 53 SEX: M EXAM STATUS: PRE ER ORD. PHYSICIAN: LOYDA TEE MD REASON: chest pain for 7 days PROCEDURE: PORTABLE CHEST 1V Single view chest dated 05/10/2019: Comparison made to 11/21/2018 Clinical Indication: Chest pain for 7 days. Findings: Single upright portable exam of the chest was performed. Heart size and mediastinal contours are within normal limits given technique. The lungs are clear without evidence of focal consolidation. Vascular interstitium is within normal limits. Impression:: No acute radiographic abnormality. Electronically signed by: Abdoul Douglas MD (05/10/2019 3:50 AM) [id number] DICTATED and SIGNED BY: ABDOUL DOUGLAS MD DATE: 05/10/19 0350 Course & Med Decision Making Course & Med Decision Making Pertinent Labs and Imaging studies reviewed. (See chart for details) discharge: I've spoken with the patient and/or caregivers. I've explained the patient's condition, diagnosis and treatment plan based on information available to me at this time. I've answered the patient's and/or caregivers questions and addressed any concerns. The patient and/or caregivers have a good understanding the patient's diagnosis, condition and treatment plan as can be expected at this point. Vital signs have been stabilized. The patient's condition is stable for discharge from the emergency department. The patient will pursue further outpatient evaluation with her primary care provider or other designated consulting physician as outlined in the discharge instructions. Patient and/or caregivers are agreeable to this plan of care and follow-up instructions have been explained in detail. The patient and/or caregivers have received these instructions in written format and expressed understanding of these discharge instructions. The patient and her caregivers are aware that if any significant change in condition or worsening of symptoms should prompt him to immediately return to this of the closest emergency department. If an emergent department is not readily available I would encourage him to call 911. Florence Disclaimer Florence Disclaimer This electronic medical record was generated, in whole or in part, using a voice recognition dictation system. Departure Departure Impression: Primary Impression: Non-cardiac chest pain Additional Impressions: Anxiety about health Uncontrolled diabetes mellitus Disposition: HOME, SELF-CARE (at 0 425) Condition: IMPROVED Referrals: MORA ARAGON MD (PCP) Patient Instructions: Chest Wall Pain Additional Instructions: Continue current medication Follow-up with your primary care physician in 3-5 days Return to ER if not getting better Thank you for visiting [facility]. We appreciate you trusting us with your care. If any additional problems come up don't hesitate to return to visit us. Please follow up with your primary care provider so they can plan additional care if needed and know about the problem that you had. If symptoms worsen come back to the Emergency Department. Any concerning symptoms that start such as chest pain, shortness of air, weakness or numbness on one side of the body, running high fevers or any other concerning symptoms return to the ER. The HEART Score for CP Pts HEART Score for Chest Pain: HEART Score for Chest Pain Response (Comments) Value History Slighlty/Non-Suspicious 0 ECG Nonspecific Repolarizatio 1 Age >45 - < 65 1 Risk Factors 1 or 2 Risk Factors 1 Troponin < Normal Limit 0 Total 3 Risk Factors: Risk Factors: DM, Current or recent (<one month) smoker, HTN, HLP, family history of CAD, obesity. Risk Scores: Score 0 - 3: 2.5% MACE over next 6 weeks - Discharge Home Score 4 - 6: 20.3% MACE over next 6 weeks - Admit for Clinical Observation Score 7 - 10: 72.7% MACE over next 6 weeks - Early Invasive Strategies Problem Qualifiers LOYDA TEE MD May 10, 2019 03:34
[2019-05-10] MEDS ORDERED: ASPIRIN CHEWABLE 81 MG TABLET. PO ONE (03:45)
[2019-05-10] MEDS ORDERED: NITROGLYCERIN SUBLINGUAL 0.4 MG BOTTLE OF 25. SL PRN (03:45)
--- NOTE | 2019-05-10 03:51 | EKG ---
[facility] [address] [place] [address] Test Date: 2019-05-10 Test Time: 03:13:26 Pat Name: SELINA LAW Department: Room: Gender: M Operations Executive: : 1965 Requested By: LOYDA TEE Order Number: [id number] Reading MD: Measurements Intervals Lilly Rate: 83 P: 37 TX: 160 QRS: -11 QRSD: 102 T: 31 QT: 364 QTc: 433 Interpretive Statements SINUS RHYTHM LEFTWARD AXIS INCOMPLETE RIGHT BUNDLE BRANCH BLOCK OTHERWISE NORMAL ECG RI6.01 No previous ECG available for comparison
--- NOTE | 2019-05-10 03:53 | RAD ---
Single view chest dated 05/10/2019: Comparison made to 11/21/2018 Clinical Indication: Chest pain for 7 days. Findings: Single upright portable exam of the chest was performed. Heart size and mediastinal contours are within normal limits given technique. The lungs are clear without evidence of focal consolidation. Vascular interstitium is within normal limits. Impression:: No acute radiographic abnormality. Electronically signed by: Abdoul Douglas MD (05/10/2019 3:50 AM) [id number]
[2019-05-10 03:58] LABS: BASO # 0.1 x10^3/uL (0.0-0.2); BASO % 1 % (0-3); EOS # 0.3 x10^3/uL (0.0-0.7); EOS % 3 % (0-3); HEMATOCRIT 40.9 % (39.0-53.0); HEMOGLOBIN 13.7 g/dL (13.0-17.5); LYMPH # 3.1 x10^3/uL (1.0-4.8); LYMPH % 29 % (24-48); MEAN CORPUSCULAR HEMOGLOBIN 29 pg (25-35); MEAN CORPUSCULAR HGB CONC 34 g/dL (31-37); MEAN CORPUSCULAR VOLUME 85 fL (79-100); MONO # 1.4 x10^3/uL (0.0-1.1); MONO % 13 % (0-9); NEUT # 5.9 x10^3/uL (1.8-7.7); NEUT % 54 % (31-73); PLATELET COUNT 337 x10^3/uL (140-400); RED CELL DISTRIBUTION WIDTH 14.9 % (11.5-14.5); WHITE BLOOD COUNT 10.9 x10^3/uL (4.0-11.0)
[2019-05-10 04:15] LABS: PROTHROMBIN TIME PATIENT 12.4 SEC (11.7-14.0)
[2019-05-10 04:18] VITALS: BP 138/69
[2019-05-10 04:19] LABS: CALCIUM 8.6 mg/dL (8.5-10.1); CREATININE 0.9 mg/dL (0.7-1.3); GFR 88.3
[2019-05-10 04:23] LABS: ALBUMIN 3.4 g/dL (3.4-5.0); ALBUMIN/GLOBULIN RATIO 0.9 (1.0-1.7); MAGNESIUM 1.9 mg/dL (1.8-2.4); TOTAL BILIRUBIN 0.3 mg/dL (0.2-1.0)
== END 2019-05-10 04:55 | disposition home or self-care (01) ==
LOC: ER 03:09
DX: R07.89 Other chest pain (principal); F41.9 Anxiety disorder, unspecified; E11.9 Type 2 diabetes mellitus without complications; I10 Essential (primary) hypertension; Z87.891 Personal history of nicotine dependence; Z88.5 Allergy status to narcotic agent; Z88.8 Allergy status to other drugs, medicaments and biological substances
CPT/HCPCS: 36415; 71045; 80053; 82550; 83690; 83735; 83880; 84484; 85025; 85610; 93005; 99285-25

== ENCOUNTER 2019-09-15 18:38 | Emergency (ER) | payer MEDICARE, MEDICAID ==
[~2019-09-15] VITALS: Ht 172.7 cm; Wt 105.5 kg
[2019-09-15] MEDS ORDERED: DIPH,PERTUSS(ACELL),TET VAC/PF 0.5 ML SYRINGE. VAX IM ONE (19:00)
[2019-09-15] MEDS ORDERED: RABIES VIRUS VACC PF 2.5 UNIT / 1 ML VIAL. VAX IM ONE (19:00)
[2019-09-15] MEDS ORDERED: RABIES IMMUNE GLOBULIN PF 300 UNIT/ML 5ML VIAL VAX IM ONE (19:00)
[2019-09-15] MEDS ORDERED: AMOX1TAB61 PO (19:33)
--- NOTE | 2019-09-15 19:33 | PHYS DOC ---
Past Medical History Past Medical History: Asthma, Hypertension Additional Past Medical Histor: head injury at work 2003; colon ulcer Past Surgical History: Splenectomy Additional Past Surgical Histo: c4-5 sx, carpal tunnel Smoking Status: Former Smoker Alcohol Use: Rarely Drug Use: None General Adult EDM: Chief Complaint: ANIMAL BITE HPI: HPI: Patient is a 54 year old male who presents with patient states 30 minutes prior to arrival his cat was in a fight with a squirrel outside and he tried to break it up. He states when he tried to break up the fight the squirrel jumped up on him and started scratching and biting him. Patient has a puncture wound to his right hand, his left hand and the back of the left leg with lots a very small superficial scratches on his hands bilaterally and on his left pascual. Patient is given a tetanus vaccine and rabies immunoglobulin and rabies vaccine. Review of Systems: Review of Systems: Constitutional: Denies fever or chills. [] Eyes: Denies change in visual acuity. [] HENT: Denies nasal congestion or sore throat. [] Respiratory: Denies cough or shortness of breath. [] Cardiovascular: Denies chest pain or edema. [] GI: Denies abdominal pain, nausea, vomiting, bloody stools or diarrhea. [] : Denies dysuria. [] Musculoskeletal: Denies back pain or joint pain. [] Integument: Denies rash. Squirrel bite to hands and leg. [] Neurologic: Denies headache, focal weakness or sensory changes. [] Endocrine: Denies polyuria or polydipsia. [] Lymphatic: Denies swollen glands. [] Psychiatric: Denies depression or anxiety. [] Heart Score: Risk Factors: Risk Factors: DM, Current or recent (<one month) smoker, HTN, HLP, family history of CAD, obesity. Risk Scores: Score 0 - 3: 2.5% MACE over next 6 weeks - Discharge Home Score 4 - 6: 20.3% MACE over next 6 weeks - Admit for Clinical Observation Score 7 - 10: 72.7% MACE over next 6 weeks - Early Invasive Strategies Current Medications: Current Medications Medications (Trade) Dose Ordered Sig/Santino Start Time Stop Time Status Last Admin Dose Admin Diphtheria/ Tetanus/Acell Pertussis (ADACEL TDap SYRINGE) 0.5 ml ONCE ONCE 09/15/19 19:00 09/15/19 19:07 DC Rabies Immune Globulin (HyperRAB 300 UNIT/ML 5ML VIAL) 7 ml ONCE ONCE 09/15/19 19:00 09/15/19 19:09 DC Rabies Vaccine Human Diploid Cell (Imovax Rabies 2.5 Unit / ml) 1 ml ONCE ONCE 09/15/19 19:00 09/15/19 19:10 DC Allergies: Allergies: Allergies Coded Allergies Type Severity Reaction Last Updated Verified cyclobenzaprine Allergy Intermediate incontinence 02/20/17 Yes naproxen Allergy Intermediate itching 02/20/17 Yes nortriptyline Allergy Intermediate itching 02/20/17 Yes Physical Exam: PE: Constitutional: Well developed, well nourished, no acute distress, non-toxic mirlande earance. [] HENT: Normocephalic, atraumatic, bilateral external ears normal, oropharynx moist, no oral exudates, nose normal. [] Eyes: PERRLA, EOMI, conjunctiva normal, no discharge. [] Neck: Normal range of motion, no tenderness, supple, no stridor. [] Cardiovascular:Heart rate regular rhythm, no murmur [] Lungs & Thorax: Bilateral breath sounds clear to auscultation [] Abdomen: Bowel sounds normal, soft, no tenderness, no masses, no pulsatile masses. [] Skin: Warm, dry, no erythema, no rash. Right hand puncture wound, left hand puncture wound, back of left leg puncture wound. Many small superficial scratch es to bilateral lower legs and hands. [] Back: No tenderness, no CVA tenderness. [] Extremities: No tenderness, no cyanosis, no clubbing, ROM intact, no edema. [] Neurologic: Alert and oriented X 3, normal motor function, normal sensory function, no focal deficits noted. [] Psychologic: Affect normal, judgement normal, mood normal. [] Current Patient Data: Vital Signs: Vital Signs Date Time Temp Pulse Resp B/P (MAP) Pulse Ox O2 Delivery O2 Flow Rate FiO2 09/15/19 18:40 98.1 98 20 184/92 (122) 18 Room Air 98.1 EKG: EKG: [] Radiology/Procedures: Radiology/Procedures: [] Course & Med Decision Making: Course & Med Decision Making Pertinent Labs and Imaging studies reviewed. (See chart for details) See HPI. Patient to follow-up on day 3, 7, 14 for another vaccine dose. I will give the patient antibiotic to go home. Patient states he takes high cholesterol medication, neuropathy pain gabapentin medication, high blood pressure medication. [] Florence Disclaimer: Florence Disclaimer: This electronic medical record was generated, in whole or in part, using a voice recognition dictation system. Departure Departure Impression: Primary Impression: Animal bite Disposition: HOME, SELF-CARE Condition: STABLE Referrals: MORA ARAGON MD (PCP) Patient Instructions: Animal Bite Additional Instructions: Follow up here for series of rabies vaccines on day 3, 7, and 14. Keep areas clean and covered. Take antibiotic as prescribed with food. Scripts Amoxicillin/Potassium Clav (AUGMENTIN 875-125 TABLET) 1 Each Tablet 1 TAB PO BID for 10 Days, #20 TAB 0 Refills Prov: ABBE PIZARRO APRN 09/15/19 Justicifation of Admission Dx: Justifications for Admission: Justification of Admission Dx: N/A ABBE PIZARRO APRN Sep 15, 2019 19:33
[2019-09-15 20:15] VITALS: BP 164/88
== END 2019-09-15 20:18 ==
LOC: ER 18:38
DX: S61.432A Puncture wound without foreign body of left hand, initial encounter (principal); S61.431A Puncture wound without foreign body of right hand, initial encounter; S81.832A Puncture wound without foreign body, left lower leg, initial encounter; J45.909 Unspecified asthma, uncomplicated; I10 Essential (primary) hypertension; Z98.890 Other specified postprocedural states; Z90.89 Acquired absence of other organs; Z87.891 Personal history of nicotine dependence; Z88.6 Allergy status to analgesic agent; Z88.8 Allergy status to other drugs, medicaments and biological substances; Z20.3 Contact with and (suspected) exposure to rabies; W53.21XA Bitten by squirrel, initial encounter; Y93.89 Activity, other specified; Y92.89 Other specified places as the place of occurrence of the external cause; Y99.8 Other external cause status
CPT/HCPCS: 90375; 90471; 90675; 90715; 99284

== ENCOUNTER 2020-04-29 08:38 | Emergency (ER) | payer OTHER, MEDICAID ==
[~2020-04-29] VITALS: Ht 167.6 cm; Wt 100.0 kg
[2020-04-29 09:05] VITALS: BP 100/64
--- NOTE | 2020-04-29 09:31 | PHYS DOC ---
Past Medical History Past Medical History: Asthma, Hypertension Additional Past Medical Histor: head injury at work 2003; colon ulcer Past Surgical History: Splenectomy Additional Past Surgical Histo: c4-5 sx, carpal tunnel Smoking Status: Former Smoker Alcohol Use: Rarely Drug Use: None General Adult EDM: Chief Complaint: ANKLE PROBLEM HPI: HPI: Patient is a 54 year old male who present to ER due to right ankle injury. Patient said he was walking outside and slipped on ice, rolled his right ankle. Patient denies any other injury, denies any head or neck injury, no pelvic pain, no hip pain, no low back pain. Review of Systems: Review of Systems: Constitutional: Denies fever or chills. [] Eyes: Denies change in visual acuity. [] HENT: Denies nasal congestion or sore throat. [] Respiratory: Denies cough or shortness of breath. [] Cardiovascular: Denies chest pain or edema. [] GI: Denies abdominal pain, nausea, vomiting, bloody stools or diarrhea. [] : Denies dysuria. [] Musculoskeletal: Positive for right ankle pain Integument: Denies rash. [] Neurologic: Denies headache, focal weakness or sensory changes. [] Endocrine: Denies polyuria or polydipsia. [] Lymphatic: Denies swollen glands. [] Psychiatric: Denies depression or anxiety. [] Heart Score: HEART Score for Chest Pain: HEART Score for Chest Pain Response (Comments) Value ECG Significant ST Depression 2 Total 2 Risk Factors: Risk Factors: DM, Current or recent (<one month) smoker, HTN, HLP, family history of CAD, obesity. Risk Scores: Score 0 - 3: 2.5% MACE over next 6 weeks - Discharge Home Score 4 - 6: 20.3% MACE over next 6 weeks - Admit for Clinical Observation Score 7 - 10: 72.7% MACE over next 6 weeks - Early Invasive Strategies Allergies: Allergies: Allergies Coded Allergies Type Severity Reaction Last Updated Verified cyclobenzaprine Allergy Intermediate incontinence 02/20/17 Yes naproxen Allergy Intermediate itching 02/20/17 Yes nortriptyline Allergy Intermediate itching 02/20/17 Yes Physical Exam: PE: Constitutional: Well developed, well nourished, no acute distress, non-toxic appearance. [] HENT: Normocephalic, atraumatic, bilateral external ears normal, oropharynx moist, no oral exudates, nose normal. [] Eyes: PERRLA, EOMI, conjunctiva normal, no discharge. [] Neck: Normal range of motion, no tenderness, supple, no stridor. [] Cardiovascular:Heart rate regular rhythm, no murmur [] Lungs & Thorax: Bilateral breath sounds clear to auscultation [] Abdomen: Bowel sounds normal, soft, no tenderness, no masses, no pulsatile masses. [] Skin: Warm, dry, no erythema, no rash. [] Back: No tenderness, no CVA tenderness. [] Extremities: Right ankle is swelling and tender to palpation on the right lateral malleolus area. Neurologic: Alert and oriented X 3, normal motor function, normal sensory function, no focal deficits noted. [] Psychologic: Affect normal, judgement normal, mood normal. [] EKG: EKG: [] Radiology/Procedures: Radiology/Procedures: [][facility] [address] [place] [address] IMAGING REPORT Signed PATIENT: SELINA LAW V ACCOUNT: [id number] : 1965 LOCATION: ER AGE: 54 SEX: M EXAM STATUS: REG ER ORD. PHYSICIAN: ZAINAB CUELLO DO REASON: right ankle pain after slipped on ice PROCEDURE: ANKLE RIGHT 3V EXAM: Right ankle 3 views. HISTORY: Right ankle pain after injury. COMPARISON: None. FINDINGS: Three views of the right ankle are obtained. No fractures are identified. There is mild soft tissue swelling laterally greater than medially. Joint spaces and alignment of the mortise are maintained. There are changes of chronic ligamentous injuries at the tips of the medial and lateral malleoli. A large posterior calcaneal spur measures 19 x 6 mm. There is a small plantar calcaneal spur. IMPRESSION: 1. Mild soft tissue swelling. No fracture. 2. Large posterior calcaneal spur. Electronically signed by: Mae Taylor MD (04/29/2020 9:34 AM) [facility] DICTATED and SIGNED BY: FAHAD TAYLOR MD DATE: 04/29/20 [id number] 0 Course & Med Decision Making: Course & Med Decision Making Pertinent Labs and Imaging studies reviewed. (See chart for details) A walking boot was applied to right ankle. Patient will be discharged home, follow up with PCP as needed. Florence Disclaimer: Florence Disclaimer: This electronic medical record was generated, in whole or in part, using a voice recognition dictation system. Departure Departure Impression: Primary Impression: Right ankle sprain Disposition: 01 DC HOME SELF CARE/HOMELESS Condition: STABLE Referrals: MORA ARAGON MD (PCP) Follow up with your doctor as needed Patient Instructions: Ankle Sprain, Acute, with Phase I Rehab-SportsMed Additional Instructions: Thank you for visiting our Emergency Department. We appreciate you trusting us with your care. If any additional problems come up don't hesitate to return to visit us. Please follow up with your primary care provider so they can plan additional care if needed and know about the problem that you had. If symptoms worsen come back to the Emergency Department. Any concerning symptoms that start such as chest pain, shortness of air, weakness or numbness on one side of the body, running high fevers or any other concerning symptoms return to the ER. Scripts Hydrocodone/Acetaminophen (Hydrocodone-Acetamin 5-325 mg) 1 Each Tablet 1 EACH PO Q6HRS PRN for PAIN, #15 TAB Prov: ZAINAB CUELLO DO 04/29/20 ZAINAB CUELLO DO Apr 29, 2020 09:31
--- NOTE | 2020-04-29 09:36 | RAD ---
EXAM: Right ankle 3 views. HISTORY: Right ankle pain after injury. COMPARISON: None. FINDINGS: Three views of the right ankle are obtained. No fractures are identified. There is mild soft tissue swelling laterally greater than medially. Joint spaces and alignment of the mortise are maintained. There are changes of chronic ligamentous in juries at the tips of the medial and lateral malleoli. A large posterior calcaneal spur measures 19 x 6 mm. There is a small plantar calcaneal spur. IMPRESSION: 1. Mild soft tissue swelling. No fracture. 2. Large posterior calcaneal spur. Electronically signed by: Mae Taylor MD (04/29/2020 9:34 AM) [facility]
[2020-04-29] MEDS ORDERED: HYDR-2759 PO (10:18)
[2020-04-29] MEDS ORDERED: HYDROcodone/APAP 5/325MG 1 TAB TABLET PO ONE (10:30)
== END 2020-04-29 11:24 | disposition home or self-care (01) ==
LOC: ER 08:38
DX: S93.401A Sprain of unspecified ligament of right ankle, initial encounter (principal); I10 Essential (primary) hypertension; J45.909 Unspecified asthma, uncomplicated; Z87.891 Personal history of nicotine dependence; Z88.5 Allergy status to narcotic agent; Z88.8 Allergy status to other drugs, medicaments and biological substances; W00.2XXA Other fall from one level to another due to ice and snow, initial encounter; Y93.01 Activity, walking, marching and hiking; Y92.89 Other specified places as the place of occurrence of the external cause; Y99.8 Other external cause status
CPT/HCPCS: 73610; 99284

== ENCOUNTER 2020-06-19 22:39 | Emergency (ER) | payer MEDICARE, MEDICAID ==
[~2020-06-19] VITALS: Ht 167.6 cm; Wt 113.6 kg
[~2020-06-19 22:39] MED LIST changes: +HYDR-2759 PO
[2020-06-19 22:59] LABS: BILIRUBIN,URINE NEGATIVE (NEG); CLARITY,URINE CLEAR; COLOR,URINE YELLOW; NITRITE,URINE NEGATIVE (NEG); PH,URINE 5.5 (<5.0-8.0); PROTEIN,URINE NEGATIVE (NEG-TRACE)
[2020-06-19 23:09] LABS: BACTERIA,URINE 0 /HPF (0-FEW); RBC,URINE 0 /HPF (0-2); WBC,URINE 0 /HPF (0-4)
[2020-06-19] MEDS ORDERED: fentaNYL PF VIAL 100 MCG/2 ML VIAL IVP ONE (23:45)
--- NOTE | 2020-06-19 23:50 | PHYS DOC ---
Past Medical History Past Medical History: Asthma, Diabetes-Type II, High Cholesterol, Hypertension Additional Past Medical Histor: head injury at work 2003; colon ulcer Past Surgical History: Splenectomy Additional Past Surgical Histo: c4-5 sx, carpal tunnel Smoking Status: Former Smoker Alcohol Use: Rarely Drug Use: None General Adult EDM: Chief Complaint: ABDOMINAL PAIN HPI: HPI: Patient is a 54 year old male who presents to the emergency department with abdominal pain. Patient states over the last month he has had intermittent right lower quadrant abdominal pain. Says the pain as a 10 out of 10 pain but cannot characterize. He says the pain comes and goes but is worse tonight and is not relieved with bowel movement. He is able to have bowel movements and urinate without any pain or difficulty. He has no nausea, vomiting, or diarrhea. He does not have a rash or any skin lesions over the area. Review of Systems: Review of Systems: Review of systems: Constitutional symptoms- No fever, no chills. Eyes- No Discharge, No Visual Loss Respiratory symptoms- No shortness of breath, No wheezing, No Dyspnea on Exertion Cardiovascular Systems; No chest pain, No Palpitations, No syncope Gastrointestinal symptoms: Positive abdominal pain, no nausea, no vomiting or diarrhea. Genitourinary symptoms: No dysuria. Musculoskeletal symptoms: No back pain No extremity pain. NEUROLOGICAL Symptoms: No headache, no generalized weakness; No focal Weakness Heart Score: C/O Chest Pain: N/A Risk Factors: Risk Factors: DM, Current or recent (<one month) smoker, HTN, HLP, family history of CAD, obesity. Risk Scores: Score 0 - 3: 2.5% MACE over next 6 weeks - Discharge Home Score 4 - 6: 20.3% MACE over next 6 weeks - Admit for Clinical Observation Score 7 - 10: 72.7% MACE over next 6 weeks - Early Invasive Strategies Allergies: Allergies: Allergies Coded Allergies Type Severity Reaction Last Updated Verified cyclobenzaprine Allergy Intermediate incontinence 02/20/17 Yes naproxen Allergy Intermediate itching 02/20/17 Yes nortriptyline Allergy Intermediate itching 02/20/17 Yes Physical Exam: PE: General: alert, no acute distress. Skin: warm, dry and intact. Head:: Normocephalic, atraumatic. Neck: Trachea midline. Eyes: EOMI, Normal conjunctiva, No drainage CARDIOVASCULAR: Regular rate and rhythm RESPIRATORY: No respiratory distress Back: Full range of motion. MUSCULOSKELETAL: Full range of motion of bilateral upper and lower extremities. GASTROINTESTINAL: Abdomen soft with rebound and right lower quadrant tenderness on palpation. NEUROLOGICAL: Alert and noted to person, place and time. No neurological deficits observed Psychiatric: Cooperative. Normal judgment Current Patient Data: Labs: Laboratory Tests Test 06/19/20 22:50 Urine Collection Type Unknown Urine Color Yellow Urine Clarity Clear Urine pH 5.5 (<5.0-8.0) Urine Specific Jasper 1.020 (1.000-1.030) Urine Protein Negative mg/dL (NEG-TRACE) Urine Glucose (UA) Negative mg/dL (NEG) Urine Ketones (Stick) 15 mg/dL (NEG) Urine Blood Negative (NEG) Urine Nitrite Negative (NEG) Urine Bilirubin Negative (NEG) Urine Urobilinogen Dipstick 1.0 mg/dL (0.2 mg/dL) Urine Leukocyte Esterase Negative (NEG) Urine RBC 0 /HPF (0-2) Urine WBC 0 /HPF (0-4) Urine Squamous Epithelial Cells Occ /LPF Urine Bacteria 0 /HPF (0-FEW) Urine Mucus Slight /LPF Vital Signs: Vital Signs Date Time Temp Pulse Resp B/P (MAP) Pulse Ox O2 Delivery O2 Flow Rate FiO2 06/19/20 23:00 98.0 78 18 147/82 (103) 98 Room Air 98.0 EKG: EKG: [] Radiology/Procedures: Radiology/Procedures: [] Impression: Comparison: September 22, 2018 Findings: Lower chest: No consolidation or pleural effusion. Abdomen and pelvis: Right hepatic lobe cyst measures 1.9 x 1.9 cm. Prior cholecystectomy. The spleen is absent. Splenule is within the left upper quadrant. The adrenal glands, and pancreas are unremarkable. Small left mid renal cyst measures 1.1 cm. No hydronephrosis. Decompressed urinary bladder. Normal appendix. No evidence of bowel obstruction. No pathologic lymphadeno kimani. No ascites. Mild atherosclerotic plaque throughout the nonaneurysmal abdominal aorta and branch vessels. Estefanía mesentery with small mesenteric lymph nodes, unchanged. Bones: L1 vertebral body hemangioma. Impression: 1. No acute abdominal or pelvic pathology. 2. 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 Course & Med Decision Making: Course & Med Decision Making Pertinent Labs and Imaging studies reviewed. (See chart for details) [] Patient was evaluated for chief complaint. Work-up consisted of laboratory analysis and radiologic imaging. Results reviewed. Treatment with fentanyl with improvement of pain. Patient discharged home with prescription ultram. Mary[place] Disclaimer: Florence Disclaimer: This electronic medical record was generated, in whole or in part, using a voice recognition dictation system. Departure Departure Impression: Primary Impression: Abdominal pain Disposition: 01 DC HOME SELF CARE/HOMELESS Condition: STABLE Referrals: MORA ARAGON MD (PCP) Patient Instructions: Abdominal Pain Scripts Tramadol Hcl (ULTRAM) 50 Mg Tablet 1 TAB PO PRN Q6HRS PRN for pain MDD 4 Tablet(s) for 7 Days, #28 TAB 0 Refills Prov: GLORIA LINARES DO 06/20/20 GLORIA LINARES DO Jun 19, 2020 23:50
[2020-06-20] LABS: BASO # 0.3 x10^3/uL (0.0-0.2); BASO % 2 % (0-3); EOS # 0.2 x10^3/uL (0.0-0.7); EOS % 1 % (0-3); HEMATOCRIT 43.6 % (39.0-53.0); HEMOGLOBIN 14.1 g/dL (13.0-17.5); LYMPH # 2.9 x10^3/uL (1.0-4.8); LYMPH % 18 % (24-48); MEAN CORPUSCULAR HEMOGLOBIN 29 pg (25-35); MEAN CORPUSCULAR HGB CONC 32 g/dL (31-37); MEAN CORPUSCULAR VOLUME 88 fL (79-100); MONO # 1.5 x10^3/uL (0.0-1.1); MONO % 9 % (0-9); NEUT # 11.6 x10^3/uL (1.8-7.7); NEUT % 71 % (31-73); PLATELET COUNT 401 x10^3/uL (140-400); RED BLOOD COUNT 4.94 x10^6/uL (4.30-5.70); RED CELL DISTRIBUTION WIDTH 15.5 % (11.5-14.5); WHITE BLOOD COUNT 16.4 x10^3/uL (4.0-11.0)
[2020-06-20 00:10] LABS: CALCIUM 8.4 mg/dL (8.5-10.1); CREATININE 0.7 mg/dL (0.7-1.3); GFR 117.5; POTASSIUM 3.8 mmol/L (3.5-5.1)
[2020-06-20] MEDS ORDERED: IOHEXOL 300 MG/ML 100ML VIAL. IV ONE (00:15)
[2020-06-20 00:16] LABS: ALBUMIN 3.8 g/dL (3.4-5.0); ALBUMIN/GLOBULIN RATIO 1.1 (1.0-1.7); TOTAL BILIRUBIN 0.4 mg/dL (0.2-1.0); TOTAL PROTEIN 7.2 g/dL (6.4-8.2)
[2020-06-20] MEDS ORDERED: CONTRAST GIVEN. MC PRN (00:30)
--- NOTE | 2020-06-20 00:58 | RAD ---
CT ABDOMEN+PELVIS W History: Reason: Abdominal pain / Spl. Instructions: / History: Technique: After the administration of intravenous contrast, CT imaging was performed of the abdomen and pelvis. Multiplanar images are reviewed. Exposure: One or more of the following individualized dose reduction techniques were utilized for thi s examination: 1. Automated exposure control 2. Adjustment of the mA and/or kV according to patient size 3. Use of iterative reconstruction technique. Comparison: September 22, 2018 Findings: Lower chest: No consolidation or pleural effusion. Abdomen and pelvis: Right hepatic lobe cyst measures 1.9 x 1.9 cm. Prior cholecystectomy. The spleen is absent. Splenule is within the left upper quadrant. The adrenal glands, and pancreas are unremarka ble. Small left mid renal cyst measures 1.1 cm. No hydronephrosis. Decompressed urinary bladder. Normal appendix. No evidence of bowel obstruction. No pathologic lymphadenopathy. No ascites. Mild at herosclerotic plaque throughout the nonaneurysmal abdominal aorta and branch vessels. Estefanía mesentery with small mesenteric lymph nodes, unchanged. Bones: L1 vertebral body hemangioma. Impression: 1. No acute abdominal or pelvic pathology. 2. 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 Electronically signed by: Wesley Fatima DO (06/20/2020 12:56 AM) [facility]
[2020-06-20] MEDS ORDERED: TRAM-48 PO (01:03)
[2020-06-20 01:08] VITALS: BP 135/77
== END 2020-06-20 01:15 | disposition home or self-care (01) ==
LOC: ER 22:39
DX: R10.31 Right lower quadrant pain (principal); J45.909 Unspecified asthma, uncomplicated; E11.9 Type 2 diabetes mellitus without complications; E78.00 Pure hypercholesterolemia, unspecified; I10 Essential (primary) hypertension; Z87.891 Personal history of nicotine dependence; Z90.89 Acquired absence of other organs; Z98.890 Other specified postprocedural states; Z88.8 Allergy status to other drugs, medicaments and biological substances
CPT/HCPCS: 36415; 74177; 80053; 81001; 85025; 96374; 99285; J3010; Q9967

== ENCOUNTER 2021-05-10 14:35 | Inpatient (IN) | payer MEDICARE, MEDICAID ==
[~2021-05-10] VITALS: Ht 167.6 cm; Wt 102.3 kg
[2021-05-10] VITALS (8 sets, daily range): BP systolic 104–120; BP diastolic 61–77
[~2021-05-10 14:35] MED LIST changes: -OMEP40CA45 PO; +OMEP40CA7 PO; +TRAM-48 PO
[2021-05-10] MEDS ORDERED: fentaNYL PF VIAL 100 MCG/2 ML VIAL IVP ONE (15:30)
[2021-05-10] MEDS ORDERED: ONDANSETRON PF 4 MG/2 ML VIAL. IVP ONE ×2 (15:30→17:15)
[2021-05-10 15:32] LABS: BASO # 2.1 x10^3/uL (0.0-0.2); BASO % 8 % (0-3); EOS # 0.6 x10^3/uL (0.0-0.7); EOS % 2 % (0-3); HEMATOCRIT 43.1 % (39.0-53.0); HEMOGLOBIN 13.7 g/dL (13.0-17.5); LYMPH # 4.1 x10^3/uL (1.0-4.8); LYMPH % 15 % (24-48); MEAN CORPUSCULAR HEMOGLOBIN 29 pg (25-35); MEAN CORPUSCULAR HGB CONC 32 g/dL (31-37); MEAN CORPUSCULAR VOLUME 90 fL (79-100); MONO # 1.5 x10^3/uL (0.0-1.1); MONO % 5 % (0-9); NEUT # 19.5 x10^3/uL (1.8-7.7); NEUT % 70 % (31-73); PLATELET COUNT 441 x10^3/uL (140-400); RED BLOOD COUNT 4.82 x10^6/uL (4.30-5.70); RED CELL DISTRIBUTION WIDTH 16.2 % (11.5-14.5)
[2021-05-10 15:36] LABS: BILIRUBIN,URINE NEGATIVE (NEG); CLARITY,URINE CLEAR; COLOR,URINE YELLOW; NITRITE,URINE NEGATIVE (NEG); PROTEIN,URINE NEGATIVE (NEG-TRACE); UROBILINOGEN,URINE 0.2 mg/dL (0.2 mg/dL)
[2021-05-10 15:50] LABS: CALCIUM 8.7 mg/dL (8.5-10.1); CREATININE 0.8 mg/dL (0.7-1.3); GFR 100.4; POTASSIUM 4.7 mmol/L (3.5-5.1)
[2021-05-10 15:55] LABS: BACTERIA,URINE 0 /HPF (0-FEW); RBC,URINE 0 /HPF (0-2); WBC,URINE 0 /HPF (0-4)
[2021-05-10 15:56] LABS: ALBUMIN 3.6 g/dL (3.4-5.0); TOTAL BILIRUBIN 0.4 mg/dL (0.2-1.0); TOTAL PROTEIN 7.2 g/dL (6.4-8.2)
[2021-05-10] MEDS ORDERED: CONTRAST GIVEN. MC PRN (16:00)
[2021-05-10] MEDS ORDERED: IOHEXOL 350 MG/ML 100 ML VIAL. IV ONE (16:00)
--- NOTE | 2021-05-10 16:19 | RAD ---
Exam: CT abdomen and pelvis with contrast INDICATION: Recurrent right lower quadrant pain TECHNIQUE: Sequential axial images through the abdomen and pelvis obtained following the administrati on 100 mL of Omnipaque 350 IV contrast. Sagittal and coronal reformatted images were reconstructed fr om the axial data and reviewed. 3-D reformatted images were reconstructed from the axial data and rev iewed. Exposure: One or more of the following in the visualized dose reduction techniques were utilized for this examination: 1. Automated exposure control 2. Adjustment of the MA and/or KV according to patient size 3. Use of iterative of reconstructive technique Comparisons: 06/19/2020 FINDINGS: Heart size is normal. No pericardial effusion. Visualized lung bases are clear. No pleural effusion. Mild diffuse hepatic steatosis. There is a hypoattenuating cystic lesion at the anterior right hepati c lobe which measures approximately 2.2 cm. Gallbladder surgically absent. Spleen is not identified. Pancreas and adrenals are unremarkable. No perinephric inflammation or hydronephrosis. There is a partially exophytic simple appearing cyst a t the mid left kidney measuring up to 1.5 cm. No renal or ureteral calculi are identified. Bladder is decompressed not well evaluated. Prostate is not enlarged. Moderate amount of stool is noted in the colon. Appendix is seen with subtle fat stranding adjacent t o the tip of the appendix. Small bowel is unremarkable. No free intra-abdominal air or fluid. There i s stranding of mesenteric fat adjacent to the mesenteric root which is more prominent when compared t o the prior exam. Abdominal aorta has a normal course and caliber. No enlarged abdominal lymph nodes are identified. No suspicious osseous lesions or acute fractures. IMPRESSION: 1. Subtle stranding surrounding the appendiceal tip which is nonspecific. Findings could relate to e arlier mild appendicitis. Repeat imaging if patient's symptoms persist or worsen is recommended. 2. There is fat stranding at the mesenteric root is also nonspecific. Findings could be seen in sett ing of mesenteric panniculitis. Attention on follow-up imaging. Electronically signed by: Ilya Ochoa MD (05/10/2021 4:17 PM) [facility]
--- NOTE | 2021-05-10 16:45 | PHYS DOC ---
Past Medical History Past Medical History: Asthma, Diabetes-Type II, High Cholesterol, Hypertension Additional Past Medical Histor: head injury at work 2003; colon ulcer Past Surgical History: Cholecystectomy, Splenectomy Additional Past Surgical Histo: c4-5 sx, carpal tunnel Smoking Status: Former Smoker Alcohol Use: Rarely Drug Use: None General Adult EDM: Chief Complaint: ABDOMINAL PAIN HPI: HPI: Patient is a 55 year old male who presents with right lower quadrant abdominal pain. Patient states he had similar pain last year. His current episode of right lower quadrant pain began on Friday (3 days ago). Patient reports associated nausea, but has not vomited. He denies fever, chills, weakness, constipation or diarrhea. Review of Systems: Review of Systems: Constitutional: See HPI Eyes: Denies change in visual acuity, visual field deficits or discharge HENT: Denies ear pain, nasal congestion or sore throat Respiratory: Denies cough or shortness of breath Cardiovascular: Denies chest pain, palpitations or edema GI: See HPI : Denies dysuria or hematuria Musculoskeletal: Denies back pain or joint pain Integument: Denies rash or other skin lesion Neurologic: Denies headache, focal weakness or sensory changes Heart Score: C/O Chest Pain: No Current Medications: Current Medications Medications (Trade) Dose Ordered Sig/Santino Start Time Stop Time Status Last Admin Dose Admin Fentanyl Citrate (Fentanyl 2ml Vial) 50 mcg 1X ONCE 05/10/21 15:30 05/10/21 15:31 DC 05/10/21 15:32 50 MCG Info (CONTRAST GIVEN -- Rx MONITORING) 1 each PRN DAILY PRN 05/10/21 16:00 05/12/21 15:59 Iohexol (Omnipaque 350 Mg/ml) 100 ml 1X ONCE 05/10/21 16:00 05/10/21 16:01 DC 05/10/21 15:59 100 ML Ondansetron HCl (Zofran) 4 mg 1X ONCE 05/10/21 15:30 05/10/21 15:31 DC 05/10/21 15:32 4 MG Allergies: Allergies: Allergies Coded Allergies Type Severity Reaction Last Updated Verified cyclobenzaprine Allergy Intermediate incontinence 02/20/17 Yes naproxen Allergy Intermediate itching 02/20/17 Yes nortriptyline Allergy Intermediate itching 02/20/17 Yes Physical Exam: PE: Constitutional: Well developed, well nourished, no acute distress, non-toxic appearance. HENT: Normocephalic, atraumatic, bilateral external ears normal, nose normal. Eyes: EOMI, conjunctiva normal, no discharge. Neck: Normal range of motion, no stridor. Abdomen: Protuberant abdomen, no periumbilical or flank ecchymosis, bowel sounds normal, soft, mild right lower quadrant tenderness without rebound or guarding, negative Rovsing sign, no masses, no pulsatile masses. Skin: Warm, dry, no erythema, no rash. Back: No tenderness, no CVA tenderness. Extremities: No tenderness, no cyanosis, no clubbing, ROM intact, no edema. Neurologic: Alert and oriented x4, no focal deficits noted. Current Patient Data: Labs: Laboratory Tests Test 05/10/21 14:48 05/10/21 14:58 Urine Collection Type Unknown Urine Color Yellow Urine Clarity Clear Urine pH 7.0 (<5.0-8.0) Urine Specific [place] 1.010 (1.000-1.030) Urine Protein Negative mg/dL (NEG-TRACE) Urine Glucose (UA) 100 mg/dL (NEG) Urine Ketones (Stick) Negative mg/dL (NEG) Urine Blood Negative (NEG) Urine Nitrite Negative (NEG) Urine Bilirubin Negative (NEG) Urine Urobilinogen Dipstick 0.2 mg/dL (0.2 mg/dL) Urine Leukocyte Esterase Negative (NEG) Urine RBC 0 /HPF (0-2) Urine WBC 0 /HPF (0-4) Urine Bacteria 0 /HPF (0-FEW) White Blood Count 27.8 x10^3/uL (4.0-11.0) H Red Blood Count 4.82 x10^6/uL (4.30-5.70) Hemoglobin 13.7 g/dL (13.0-17.5) Hematocrit 43.1 % (39.0-53.0) Mean Corpuscular Volume 90 fL (79-100) Mean Corpuscular Hemoglobin 29 pg (25-35) Mean Corpuscular Hemoglobin Concent 32 g/dL (31-37) Red Cell Distribution Width 16.2 % (11.5-14.5) H Platelet Count 441 x10^3/uL (140-400) H Neutrophils (%) (Auto) 70 % (31-73) Lymphocytes (%) (Auto) 15 % (24-48) L Monocytes (%) (Auto) 5 % (0-9) Eosinophils (%) (Auto) 2 % (0-3) Basophils (%) (Auto) 8 % (0-3) H Neutrophils # (Auto) 19.5 x10^3/uL (1.8-7.7) H Lymphocytes # (Auto) 4.1 x10^3/uL (1.0-4.8) Monocytes # (Auto) 1.5 x10^3/uL (0.0-1.1) H Eosinophils # (Auto) 0.6 x10^3/uL (0.0-0.7) Basophils # (Auto) 2.1 x10^3/uL (0.0-0.2) H Platelet Estimate Pending Sodium Level 141 mmol/L (136-145) Potassium Level 4.7 mmol/L (3.5-5.1) Chloride Level 105 mmol/L (98-107) Carbon Dioxide Level 24 mmol/L (21-32) Anion Gap 12 (6-14) Blood Urea Nitrogen 11 mg/dL (8-26) Creatinine 0.8 mg/dL (0.7-1.3) Estimated GFR (Cockcroft-Gault) 100.4 BUN/Creatinine Ratio 14 (6-20) Glucose Level 237 mg/dL (70-99) H Calcium Level 8.7 mg/dL (8.5-10.1) Total Bilirubin 0.4 mg/dL (0.2-1.0) Aspartate Amino Transferase (AST) 19 U/L (15-37) Alanine Aminotransferase (ALT) 27 U/L (16-63) Alkaline Phosphatase 64 U/L (46-116) Total Protein 7.2 g/dL (6.4-8.2) Albumin 3.6 g/dL (3.4-5.0) Albumin/Globulin Ratio 1.0 (1.0-1.7) Lipase 55 U/L (73-393) L Laboratory Tests 05/10/21 14:58 Laboratory Tests 05/10/21 14:58 Vital Signs: Vital Signs Date Time Temp Pulse Resp B/P (MAP) Pulse Ox O2 Delivery O2 Flow Rate FiO2 05/10/21 15:54 98 160/77 (104) 97 Room Air 05/10/21 15:32 16 100 Room Air 05/10/21 15:21 85 152/70 (97) 97 Room Air 05/10/21 14:51 81 146/81 (102) 98 Room Air 05/10/21 14:49 89 147/79 (101) 05/10/21 14:36 98.4 86 24 146/72 (96) 96 Room Air 98.4 Radiology/Procedures: Radiology/Procedures: PROCEDURE: CT ANGIOGRAPHY ABD AND PELVIS Exam: CT abdomen and pelvis with contrast INDICATION: Recurrent right lower quadrant pain TECHNIQUE: Sequential axial images through the abdomen and pelvis obtained following the administration 100 mL of Omnipaque 350 IV contrast. Sagittal and coronal reformatted images were reconstructed from the axial data and reviewed. 3-D reformatted images were reconstructed from the axial data and reviewed. Exposure: One or more of the following in the visualized dose reduction techniques were utilized for this examination: 1. Automated exposure control 2. Adjustment of the MA and/or KV according to patient size 3. Use of iterative of reconstructive technique Comparisons: 06/19/2020 FINDINGS: Heart size is normal. No pericardial effusion. Visualized lung bases are clear. No pleural effusion. Mild diffuse hepatic steatosis. There is a hypoattenuating cystic lesion at the anterior right hepatic lobe which measures approximately 2.2 cm. Gallbladder surgically absent. Spleen is not identified. Pancreas and adrenals are unremarkable. No perinephric inflammation or hydronephrosis. There is a partially exophytic simple appearing cyst at the mid left kidney measuring up to 1.5 cm. No renal or ureteral calculi are identified. Bladder is decompressed not well evaluated. Prostate is not enlarged. Moderate amount of stool is noted in the colon. Appendix is seen with subtle fat stranding adjacent to the tip of the appendix. Small bowel is unremarkable. No free intra-abdominal air or fluid. There is stranding of mesenteric fat adjacent to the mesenteric root which is more prominent when compared to the prior exam. Abdominal aorta has a normal course and caliber. No enlarged abdominal lymph nodes are identified. No suspicious osseous lesions or acute fractures. IMPRESSION: 1. Subtle stranding surrounding the appendiceal tip which is nonspecific. Findings could relate to earlier mild appendicitis. Repeat imaging if patient's symptoms persist or worsen is recommended. 2. There is fat stranding at the mesenteric root is also nonspecific. 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 Attention on follow-up imaging. Electronically signed by: Ilya Ochoa MD (05/10/2021 4:17 PM) [facility] Course & Med Decision Making: Course & Med Decision Making Pertinent Labs and Imaging studies reviewed. (See chart for details) Patient is a 55-year-old male who presents with emergent department with right lower quadrant pain. In reviewing patient's prior visits, he has had a similar complaint last spring. At that time, CT imaging did not have any acute findings, however did suggest mesenteric panniculitis as a possible cause of his pain. In light of this history, CT angio abdomen pelvis was ordered to evaluate for any occlusion. CT imaging reveals possible findings of early appendicitis and/or mesenteric panniculitis. Consult with general surgery pending. Spoke to Dr. Barriga on general surgery service. He request patient be n.p.o. starting immediately and will likely remove appendix. Patient gladly accepted by Dr. Fisher to hospitalist service for inpatient management. Flore[place]ne Disclaimer: [place] Disclaimer: This electronic medical record was generated, in whole or in part, using a voice recognition dictation system. Departure Departure Impression: Primary Impression: Right lower quadrant abdominal pain Additional Impression: Leukocytosis Qualified Codes: D72.829 - Elevated white blood cell count, unspecified Disposition: ADMITTED INPATIENT Admitting Physician: ERICKA (Phillip) Condition: GUARDED Referrals: MORA ARAGON MD (PCP) ELOISA HERRERA May 10, 2021 16:45
[2021-05-10] MEDS ORDERED: BUPIVACAINE-EPI 0.25%-1:200000 MPF 30 ML VIAL. ONE (16:48)
[2021-05-10] MEDS ORDERED: MORPHINE SULFATE 4 MG/ML INJ. IVP ONE (17:15)
[2021-05-10] MEDS ORDERED: ONDANSETRON PF 4 MG/2 ML VIAL. ONE (17:27)
[2021-05-10] MEDS ORDERED: PROPOFOL 10 MG/ML (20ML) VIAL. IV ONE (17:27)
[2021-05-10] MEDS ORDERED: ROCURONIUM 50 MG/5 ML VIAL. ONE (17:27)
[2021-05-10] MEDS ORDERED: LIDOCAINE 2% PF 5 ML VIAL. ONE (17:27)
[2021-05-10] MEDS ORDERED: DEXAMETHASONE SOD PHOS 4 MG/ML VIAL ONE (17:27)
[2021-05-10] MEDS ORDERED: fentaNYL PF VIAL 100 MCG/2 ML VIAL ONE ×2 (17:28→19:42)
[2021-05-10 17:44] LABS: % LYMPHS 16 % (24-48); % SEGS 66 % (35-66)
[2021-05-10 17:45] LABS: % BANDS 3 % (0-9); % BASOS 5 % (0-3); % EOS 2 % (0-5); % METAS 1 % (0-0); % MONOS 2 % (0-10); % MYELOS 5 % (0-0); ANISOCYTOSIS SLIGHT; HOWELL-JOLLY BODIES PRESENT; NUCLEATED RBC 5; PLT ESTIMATE INCREASED (ADEQUATE); POLYCHROMASIA PRESENT
[2021-05-10 17:54] LABS: WHITE BLOOD COUNT 27.8 x10^3/uL (4.0-11.0)
[2021-05-10] MEDS ORDERED: IV RINGERS,LACTATED 1000ML 1,000 ML IV SCH (18:00)
[2021-05-10] MEDS ORDERED: HYDROmorphone 2 MG/ML INJ. IVP PRN (18:00)
[2021-05-10] MEDS ORDERED: MORPHINE SULFATE 2 MG/ML INJ. IVP PRN (18:00)
[2021-05-10] MEDS ORDERED: PIPERACILLIN/TAZOBACTAM 3.375 GM in IV NORMAL SALINE 50ML 50 ML IV ONE (18:00)
[2021-05-10] MEDS ORDERED: INSULIN LISPRO 100 UNIT/ML 3ML VIAL for OP,RR ONLY. SQ PRN (18:00)
[2021-05-10] MEDS ORDERED: PROCHLORPERAZINE 10 MG/2 ML VIAL. IVP PRN (18:00)
[2021-05-10] MEDS ORDERED: fentaNYL PF VIAL 100 MCG/2 ML VIAL IVP PRN ×2 (18:00)
--- NOTE | 2021-05-10 18:00 | PDOC2 ---
CONSULT Date of Consult Date of Consult DATE: 05/10/21 TIME: 17:56 Reason for Consult Reason for Consult: Abdominal pain Referring Physician Referring Physician: Lam Identification/Chief Complaint Chief Complaint Abdominal pain Source Source: Chart review, Patient History of Present Illness Reason for Visit: 55-year-old male with 2-day history of right lower quadrant abdominal pain came to the emergency department further evaluation CT scan was performed which shows some mild inflammation around appendiceal tip as well as some mesenteric adenitis. Elevated white count afebrile. Past Medical History Cardiovascular: HTN, Hyperlipidemia Pulmonary: Asthma CENTRAL NERVOUS SYSTEM: Other GI: GERD Heme/Onc: No pertinent hx Hepatobiliary: No pertinent hx Psych: No pertinent hx Musculoskeletal: Osteoarthritis Rheumatologic: No pertinent hx Infectious disease: No pertinent hx Renal/: No pertinent hx Endocrine: No pertinent hx Past Surgical History Past Surgical History: Cholecystectomy, Other Family History Family History: No Significant, High Cholestrol, Family History Unknown Social History ALCOHOL: none Drugs: None Lives: with Family Current Problem List Problem List Problems Medical Problems: (1) Leukocytosis Status: Acute (2) Right lower quadrant abdominal pain Status: Acute Current Medications Current Medications Current Medications Ondansetron HCl (Zofran) 4 mg 1X ONCE IVP Last administered on 05/10/21at 15:32; Start 05/10/21 at 15:30; Stop 05/10/21 at 15:31; Status DC Fentanyl Citrate (Fentanyl 2ml Vial) 50 mcg 1X ONCE IVP Last administered on 05/10/21at 15:32; Start 05/10/21 at 15:30; Stop 05/10/21 at 15:31; Status DC Iohexol (Omnipaque 350 Mg/ml) 100 ml 1X ONCE IV Last administered on 05/10/21at 15:59; Start 05/10/21 at 16:00; Stop 05/10/21 at 16:01; Status DC Info (CONTRAST GIVEN -- Rx MONITORING) 1 each PRN DAILY PRN MC SEE COMMENTS; Start 05/10/21 at 16:00; Stop 05/12/21 at 15:59 Ondansetron HCl (Zofran) 4 mg 1X ONCE IVP Last administered on 05/10/21at 17:35; Start 05/10/21 at 17:15; Stop 05/10/21 at 17:16; Status DC Morphine Sulfate (Morphine Sulfate) 4 mg 1X ONCE IVP Last administered on 05/10/21at 17:34; Start 05/10/21 at 17:15; Stop 05/10/21 at 17:16; Status DC Bupivacaine HCl/ Epinephrine Bitart (Sensorcaine-Epi 0.25%-1:678190 Mpf) 30 ml STK-MED ONCE .ROUTE Last administered on 05/10/21at 17:32; Start 05/10/21 at 16:48; Stop 05/10/21 at 16:49; Status DC Morphine Sulfate (Morphine Sulfate) 2 mg PRN Q2HR PRN IVP PAIN; Start 05/10/21 at 17:00; Stop 05/11/21 at 16:59 Lidocaine HCl (Lidocaine Pf 2% Vial) 5 ml STK-MED ONCE .ROUTE ; Start 05/10/21 at 17:27; Stop 05/10/21 at 17:27; Status DC Propofol (Diprivan) 200 mg STK-MED ONCE IV ; Start 05/10/21 at 17:27; Stop 05/10/21 at 17:27; Status DC Ondansetron HCl (Zofran) 4 mg STK-MED ONCE .ROUTE ; Start 05/10/21 at 17:27; Stop 05/10/21 at 17:27; Status DC Dexamethasone Sodium Phosphate (Decadron) 4 mg STK-MED ONCE .ROUTE ; Start 05/10/21 at 17:27; Stop 05/10/21 at 17:27; Status DC Rocuronium [place] (Zemuron) 50 mg STK-MED ONCE .ROUTE ; Start 05/10/21 at 17:27; Stop 05/10/21 at 17:28; Status DC Fentanyl Citrate (Fentanyl 2ml Vial) 100 mcg STK-MED ONCE .ROUTE ; Start 05/10/21 at 17:28; Stop 05/10/21 at 17:28; Status DC Fentanyl Citrate (Fentanyl 2ml Vial) 50 mcg PRN Q5MIN PRN IVP MODERATE PAIN 4- 6; Start 05/10/21 at 18:00; Stop 05/11/21 at 17:59; Status UNV Morphine Sulfate (Morphine Sulfate) 1 mg PRN Q10MIN PRN IVP SEVERE PAIN 7-10; Start 05/10/21 at 18:00; Stop 05/11/21 at 17:59; Status UNV Ringer's Solution 1,000 ml @ 30 mls/hr Q24H IV ; Start 05/10/21 at 18:00; Stop 05/11/21 at 05:59; Status UNV Hydromorphone HCl (Dilaudid) 0.5 mg PRN Q10MIN PRN IVP SEVERE PAIN 7-10, 2nd CHOICE; Start 05/10/21 at 18:00; Stop 05/11/21 at 17:59; Status UNV Prochlorperazine Edisylate (Compazine) 5 mg PACU PRN PRN IVP NAUSEA, MRX1; Start 05/10/21 at 18:00; Stop 05/11/21 at 17:59; Status UNV Insulin Human Lispro (HumaLOG VIAL for OP,RR ONLY) 0-10 units PRN Q1HR PRN SQ PER PROTOCOL; Start 05/10/21 at 18:00; Stop 05/11/21 at 17:59; Status UNV Active Scripts Active Ultram (Tramadol Hcl) 50 Mg Tablet 1 Tab PO PRN Q6HRS PRN MDD 4 Tablet(s) 7 Days Hydrocodone-Acetamin 5-325 mg (Hydrocodone/Acetaminophen) 1 Each Tablet 1 Each PO Q6HRS PRN Augmentin 875-125 Tablet (Amoxicillin/Potassium Clav) 1 Each Tablet 1 Tab PO BID 10 Days Naproxen 500 Mg Tablet 1 Tab PO BID PRN Rpjlia-Evszlely-Hxwm 50-325-40 (Butalb/Acetaminophen/Caffeine) 1 Each Tablet 1 Each PO Q6HRS PRN Reported Ezetimibe 10 Mg Tablet 10 Mg PO DAILY Diclofenac Sodium 75 Mg Tablet. 1 Tab PO BID Omeprazole 20 Mg Capsule.dr 20 Mg PO BID Citalopram Hbr (Citalopram Hydrobromide) 20 Mg Tablet 20 Mg PO DAILY for headache prevention Metoprolol Tartrate 50 Mg Tablet 50 Mg PO NOON Loratadine 10 Mg Tablet 10 Mg PO PRN DAILY PRN Gabapentin (Gabapentin) 300 Mg Capsule 300 Mg PO TID Lipitor (Atorvastatin Calcium) 80 Mg Tablet 80 Mg PO HS Losartan-Hctz 50-12.5 Mg Tab (Losartan/Hydrochlorothiazide) 1 Each Tablet 1 Tab PO DAILY Allergies Allergies: Coded Allergies: cyclobenzaprine (Verified Allergy, Intermediate, incontinence, 02/20/17) naproxen (Verified Allergy, Intermediate, itching, 02/20/17) nortriptyline (Verified Allergy, Intermediate, itching, 02/20/17) ROS General: No: Chills, Night Sweats, Fatigue, Malaise, Appetite, Other PSYCHOLOGICAL ROS: No: Anxiety, Behavioral Disorder, Concentration difficultie, Decreased libido, Depression, Disorientation, Hallucinations, Hostility, Irritablity, Memory difficulties, Mood Swings, Obsessive thoughts, Physical abuse, Sexual abuse, Sleep disturbances, Suicidal ideation, Other Eyes: No Blurry vision, No Decreased vision, No Double vision, No Dry eyes, No Excessive tearing, No Eye Pain, No Itchy Eyes, No Loss of vision, No Photophobia, No Scotomata, No Uses contacts, No Uses glasses, No Other HEENT: No: Heacaches, Visual Changes, Hearing change, Nasal congestion, Nasal discharge, Oral lesions, Sinus pain, Sore Throat, Epistaxis, Sneezing, Snoring, Tinnitus, Vertigo, Vocal changes, Other ALLERGY AND IMMUNOLOGY: No: Hives, Insect Bite Sensitivity, Itchy/Watery Eyes, Nasal Congestion, Post Nasal Drip, Seasonal Allergies, Other Hematological and Lymphatic: No: Bleeding Problems, Blood Clots, Blood Transfusions, Brusing, Night Sweats, Pallor, Swollen Lymph Nodes, Other ENDOCRINE: No: Breast Changes, Galactorrhea, Hair Pattern Changes, Hot Flashes, Malaise/lethargy, Mood Swings, Palpitations, Polydipsia/polyuria, Skin Changes, Temperature Intolerance, Unexpected Weight Changes, Other Breast: No New/Changing Breast Lumps, No Nipple changes, No Nipple discharge, No Other Respiratory: No: Cough, Hemoptysis, Orthopnea, Pleuritic Pain, Shortness of breath, SOB with excertion, Sputum Changes, Stridor, Tachypnea, Wheezing, Other Cardiovascular: No Chest Pain, No Palpitations, No Orthopnea, No Paroxysmal Noc. Dyspnea, No Edema, No Lt Headedness, No Other Gastrointestinal: Yes Abdominal Pain Genitourinary: No Dysuria, No Frequency, No Incontinence, No Hematuria, No Retention, No Discharge, No Urgency, No Pain, No Flank Pain, No Other, No , No , No , No , No , No , No Musculoskeletal: No Gait Disturbance, No Joint Pain, No Joint Stiffness, No Joint Swelling, No Muscle Pain, No Muscular Weakness, No Pain In:, No Swelling In:, No Other Neurological: No Behavorial Changes, No Bowel/Bladder ControlChng, No Confusion, No Dizziness, No Gait Disturbance, No Headaches, No Impaired Coord/balance, No Memory Loss, No Numbness/Tingling, No Seizures, No Speech Problems, No Tremors, No Visual Changes, No Weakness, No Other Skin: No Dry Skin, No Eczema, No Hair Changes, No Lumps, No Mole Changes, No Mottling, No Nail Changes, No Pruritus, No Rash, No Skin Lesion Changes, No Other, No Acne Physical Exam General: Alert, Oriented X3, Cooperative, mild distress HEENT: Atraumatic, PERRLA, EOMI Lungs: Clear to auscultation, Normal air movement Heart: Regular rate, No murmurs Abdomen: Normal bowel sounds, Soft, Other (Mildly tender in the right lower quadrant) Extremities: No edema Skin: No significant lesion Neuro: Normal speech Psych/Mental Status: Mental status NL Vitals VITALS Vital Signs Date Time Temp Pulse Resp B/P (MAP) Pulse Ox O2 Delivery O2 Flow Rate FiO2 05/10/21 17:34 16 97 Room Air 05/10/21 15:54 98 160/77 (104) 05/10/21 14:36 98.4 98.4 Labs Labs Laboratory Tests Test 05/10/21 14:48 05/10/21 14:58 05/10/21 16:55 05/10/21 17:51 Urine Collection Type Unknown Urine Color Yellow Urine Clarity Clear Urine pH 7.0 (<5.0-8.0) Urine Specific [place] 1.010 (1.000-1.030) Urine Protein Negative mg/dL (NEG-TRACE) Urine Glucose (UA) 100 mg/dL (NEG) Urine Ketones (Stick) Negative mg/dL (NEG) Urine Blood Negative (NEG) Urine Nitrite Negative (NEG) Urine Bilirubin Negative (NEG) Urine Urobilinogen Dipstick 0.2 mg/dL (0.2 mg/dL) Urine Leukocyte Esterase Negative (NEG) Urine RBC 0 /HPF (0-2) Urine WBC 0 /HPF (0-4) Urine Bacteria 0 /HPF (0-FEW) White Blood Count 27.8 x10^3/uL (4.0-11.0) Red Blood Count 4.82 x10^6/uL (4.30-5.70) Hemoglobin 13.7 g/dL (13.0-17.5) Hematocrit 43.1 % (39.0-53.0) Mean Corpuscular Volume 90 fL (79-100) Mean Corpuscular Hemoglobin 29 pg (25-35) Mean Corpuscular Hemoglobin Concent 32 g/dL (31-37) Red Cell Distribution Width 16.2 % (11.5-14.5) Platelet Count 441 x10^3/uL (140-400) Neutrophils (%) (Auto) 70 % (31-73) Lymphocytes (%) (Auto) 15 % (24-48) Monocytes (%) (Auto) 5 % (0-9) Eosinophils (%) (Auto) 2 % (0-3) Basophils (%) (Auto) 8 % (0-3) Neutrophils # (Auto) 19.5 x10^3/uL (1.8-7.7) Lymphocytes # (Auto) 4.1 x10^3/uL (1.0-4.8) Monocytes # (Auto) 1.5 x10^3/uL (0.0-1.1) Eosinophils # (Auto) 0.6 x10^3/uL (0.0-0.7) Basophils # (Auto) 2.1 x10^3/uL (0.0-0.2) Segmented Neutrophils % 66 % (35-66) Band Neutrophils % 3 % (0-9) Lymphocytes % 16 % (24-48) Monocytes % 2 % (0-10) Eosinophils % 2 % (0-5) Basophils % 5 % (0-3) Metamyelocytes % 1 % (0-0) Myelocytes % 5 % (0-0) Nucleated Red Blood Cells 5 Platelet Estimate Increased (ADEQUATE) Giant Platelets Present Polychromasia Present Anisocytosis Slight Tompkins-Pamplico Bodies Present Sodium Level 141 mmol/L (136-145) Potassium Level 4.7 mmol/L (3.5-5.1) Chloride Level 105 mmol/L (98-107) Carbon Dioxide Level 24 mmol/L (21-32) Anion Gap 12 (6-14) Blood Urea Nitrogen 11 mg/dL (8-26) Creatinine 0.8 mg/dL (0.7-1.3) Estimated GFR (Cockcroft-Gault) 100.4 BUN/Creatinine Ratio 14 (6-20) Glucose Level 237 mg/dL (70-99) Calcium Level 8.7 mg/dL (8.5-10.1) Total Bilirubin 0.4 mg/dL (0.2-1.0) Aspartate Amino Transf (AST/SGOT) 19 U/L (15-37) Alanine Aminotransferase (ALT/SGPT) 27 U/L (16-63) Alkaline Phosphatase 64 U/L (46-116) Total Protein 7.2 g/dL (6.4-8.2) Albumin 3.6 g/dL (3.4-5.0) Albumin/Globulin Ratio 1.0 (1.0-1.7) Lipase 55 U/L (73-393) SARS-CoV-2 Antigen (Rapid) Negative (NEGATIVE) Glucose (Fingerstick) 107 mg/dL (70-99) Laboratory Tests Test 05/10/21 14:48 05/10/21 14:58 05/10/21 16:55 05/10/21 17:51 Urine Collection Type Unknown Urine Color Yellow Urine Clarity Clear Urine pH 7.0 (<5.0-8.0) Urine Specific [place] 1.010 (1.000-1.030) Urine Protein Negative mg/dL (NEG-TRACE) Urine Glucose (UA) 100 mg/dL (NEG) Urine Ketones (Stick) Negative mg/dL (NEG) Urine Blood Negative (NEG) Urine Nitrite Negative (NEG) Urine Bilirubin Negative (NEG) Urine Urobilinogen Dipstick 0.2 mg/dL (0.2 mg/dL) Urine Leukocyte Esterase Negative (NEG) Urine RBC 0 /HPF (0-2) Urine WBC 0 /HPF (0-4) Urine Bacteria 0 /HPF (0-FEW) White Blood Count 27.8 x10^3/uL (4.0-11.0) Red Blood Count 4.82 x10^6/uL (4.30-5.70) Hemoglobin 13.7 g/dL (13.0-17.5) Hematocrit 43.1 % (39.0-53.0) Mean Corpuscular Volume 90 fL (79-100) Mean Corpuscular Hemoglobin 29 pg (25-35) Mean Corpuscular Hemoglobin Concent 32 g/dL (31-37) Red Cell Distribution Width 16.2 % (11.5-14.5) Platelet Count 441 x10^3/uL (140-400) Neutrophils (%) (Auto) 70 % (31-73) Lymphocytes (%) (Auto) 15 % (24-48) Monocytes (%) (Auto) 5 % (0-9) Eosinophils (%) (Auto) 2 % (0-3) Basophils (%) (Auto) 8 % (0-3) Neutrophils # (Auto) 19.5 x10^3/uL (1.8-7.7) Lymphocytes # (Auto) 4.1 x10^3/uL (1.0-4.8) Monocytes # (Auto) 1.5 x10^3/uL (0.0-1.1) Eosinophils # (Auto) 0.6 x10^3/uL (0.0-0.7) Basophils # (Auto) 2.1 x10^3/uL (0.0-0.2) Segmented Neutrophils % 66 % (35-66) Band Neutrophils % 3 % (0-9) Lymphocytes % 16 % (24-48) Monocytes % 2 % (0-10) Eosinophils % 2 % (0-5) Basophils % 5 % (0-3) Metamyelocytes % 1 % (0-0) Myelocytes % 5 % (0-0) Nucleated Red Blood Cells 5 Platelet Estimate Increased (ADEQUATE) Giant Platelets Present Polychromasia Present Anisocytosis Slight Tompkins-Pamplico Bodies Present Sodium Level 141 mmol/L (136-145) Potassium Level 4.7 mmol/L (3.5-5.1) Chloride Level 105 mmol/L (98-107) Carbon Dioxide Level 24 mmol/L (21-32) Anion Gap 12 (6-14) Blood Urea Nitrogen 11 mg/dL (8-26) Creatinine 0.8 mg/dL (0.7-1.3) Estimated GFR (Cockcroft-Gault) 100.4 BUN/Creatinine Ratio 14 (6-20) Glucose Level 237 mg/dL (70-99) Calcium Level 8.7 mg/dL (8.5-10.1) Total Bilirubin 0.4 mg/dL (0.2-1.0) Aspartate Amino Transf (AST/SGOT) 19 U/L (15-37) Alanine Aminotransferase (ALT/SGPT) 27 U/L (16-63) Alkaline Phosphatase 64 U/L (46-116) Total Protein 7.2 g/dL (6.4-8.2) Albumin 3.6 g/dL (3.4-5.0) Albumin/Globulin Ratio 1.0 (1.0-1.7) Lipase 55 U/L (73-393) SARS-CoV-2 Antigen (Rapid) Negative (NEGATIVE) Glucose (Fingerstick) 107 mg/dL (70-99) Assessment/Plan Assessment/Plan Acute appendicitis plan laparoscopic appendectomy possible open appendectomy KRISSY LIZARRAGA MD May 10, 2021 18:00
[2021-05-10] MEDS ORDERED: FAMOTIDINE 20 MG/2 ML VIAL ONE (18:03)
[2021-05-10] MEDS ORDERED: SUCCINYLCHOLINE 200 MG/10 ML VIAL. ONE (18:04)
[2021-05-10] MEDS ORDERED: METF10007 PO (18:13)
[2021-05-10] MEDS ORDERED: ePHEDrine PF IN SALINE 50 MG/10 ML SYRINGE. IV ONE (18:39)
[2021-05-10] MEDS ORDERED: NEOSTIGMINE 10 MG/10 ML VIAL. ONE (18:55)
[2021-05-10] MEDS ORDERED: GLYCOPYRROLATE 1 MG/5 ML VIAL. ONE (18:55)
--- NOTE | 2021-05-10 18:59 | PDOC4 ---
Operative Note Operative Note Date: May 102021 at 1857 Preoperative diagnosis: Acute appendicitis Postoperative diagnosis: Same Procedure: Laparoscopic appendectomy Surgeon: Linus Specimen: None Shake Cutter: None Dictation: Patient is a 55-year-old male was mated to the hospital with right lower quadrant abdominal pain and CT scan showing signs consistent with acute appendicitis as well as an elevated white count. Procedure of laparoscopic appendectomy was explained to the patient detail risk benefits were also discussed including bleeding infection injury to intra-abdominal contents possible necessitating further open operations alternatives to this procedure also discussed with the patient who seemed to understand and gave a verbal written consent to have procedure performed. Patient was taken to the operating room placed in the supine position general anesthesia was initiated once patient was sleeping intubated his abdomen was prepped and draped usual sterile fashion using ChloraPrep. An area just below the umbilicus was injected quarter percent Marcaine with epinephrine incision was made 11 blade scalpel and a varies needle was placed within the abdomen creating pneumoperitoneum once this was achieved a 12 mm port was placed and a 5 mm camera is placed within the abdomen which was inspected no other abnormalities were noted did note that the appendix was inflamed at the very tip of the appendix. A 5 mm port was placed in the right midabdomen and a 5 mm port was placed low in the midline all under direct visualization. The camera is moved to the low port and the appendix was grasped retracted towards the anterior abdominal wall a window was propagated at the base of the appendix through the mesoappendix once this complete Endo CHERELLE stapler was used to staple and transect the base of the appendix a second load was used to staple and transect the mesoappendix. The appendix was placed in Endo Catch bag and roof the umbilicus right lower quadrant was irrigated and suctioned dry hemostasis deemed be appropriate the pneumoperitoneum was reduced all ports were removed the fascial defect at the umbilicus was closed with a [id number] 0 Vicryl suture and the skin was reapproximated all port sites for subcuticular Monocryl Mastisol Steri-Strips and island dressings were applied. Patient was awakened extubated in the operating room taken to recovery in stable condition all sponge instrument needle counts listed as correct estimated blood loss 10 mL KRISSY LIZARRAGA MD May 10, 2021 18:59
[2021-05-10] MEDS ORDERED: PROCHLORPERAZINE 10 MG/2 ML VIAL. ONE (19:29)
[2021-05-10] MEDS ORDERED: ALBUTEROL SULFATE 2.5 MG/3 ML NEBU. ONE (19:29)
--- NOTE | 2021-05-10 19:44 | PDOC1 ---
History and Physical Date of Service: DOS: DATE: 05/10/21 TIME: 19:35 Chief Complaint: Chief Complain: abdominal pain History of Present Illness: HPI: Patient is a 55yo male presenting today with 3d history of abdominal pain. Localized to RLQ. Decreased PO intake and nausea. No vomiting or diarrhea but worsening pain. Patient has a history of HTN, HPLD DM2 In ER workup revealed appendicitis. Surgery consulted and performed laparoscopic appendectomy. Zosyn continued after surgery. Past Medical/Surgical History: PMH/PSH: HTN, HPLD, Diabetes Allergies: Allergies: Coded Allergies: cyclobenzaprine (Verified Allergy, Intermediate, incontinence, 02/20/17) naproxen (Verified Allergy, Intermediate, itching, 02/20/17) nortriptyline (Verified Allergy, Intermediate, itching, 02/20/17) Family History: Family History: Noncontributory Social History: Social History: Former smoker, social alcohol use, no drug use Current Medications: Current Medications Current Medications Ondansetron HCl (Zofran) 4 mg 1X ONCE IVP Last administered on 05/10/21at 15:32; Start 05/10/21 at 15:30; Stop 05/10/21 at 15:31; Status DC Fentanyl Citrate (Fentanyl 2ml Vial) 50 mcg 1X ONCE IVP Last administered on 05/10/21at 15:32; Start 05/10/21 at 15:30; Stop 05/10/21 at 15:31; Status DC Iohexol (Omnipaque 350 Mg/ml) 100 ml 1X ONCE IV Last administered on 05/10/21at 15:59; Start 05/10/21 at 16:00; Stop 05/10/21 at 16:01; Status DC Info (CONTRAST GIVEN -- Rx MONITORING) 1 each PRN DAILY PRN MC SEE COMMENTS; Start 05/10/21 at 16:00; Stop 05/12/21 at 15:59 Ondansetron HCl (Zofran) 4 mg 1X ONCE IVP Last administered on 05/10/21at 17:35; Start 05/10/21 at 17:15; Stop 05/10/21 at 17:16; Status DC Morphine Sulfate (Morphine Sulfate) 4 mg 1X ONCE IVP Last administered on 05/10/21at 17:34; Start 05/10/21 at 17:15; Stop 05/10/21 at 17:16; Status DC Bupivacaine HCl/ Epinephrine Bitart (Sensorcaine-Epi 0.25%-1:259959 Mpf) 30 ml STK-MED ONCE .ROUTE Last administered on 05/10/21at 18:37; Start 05/10/21 at 16:48; Stop 05/10/21 at 16:49; Status DC Morphine Sulfate (Morphine Sulfate) 2 mg PRN Q2HR PRN IVP PAIN; Start 05/10/21 at 17:00; Stop 05/11/21 at 16:59 Lidocaine HCl (Lidocaine Pf 2% Vial) 5 ml STK-MED ONCE .ROUTE ; Start 05/10/21 at 17:27; Stop 05/10/21 at 17:27; Status DC Propofol (Diprivan) 200 mg STK-MED ONCE IV ; Start 05/10/21 at 17:27; Stop 05/10/21 at 17:27; Status DC Ondansetron HCl (Zofran) 4 mg STK-MED ONCE .ROUTE ; Start 05/10/21 at 17:27; Stop 05/10/21 at 17:27; Status DC Dexamethasone Sodium Phosphate (Decadron) 4 mg STK-MED ONCE .ROUTE ; Start 05/10/21 at 17:27; Stop 05/10/21 at 17:27; Status DC Rocuronium [place] (Zemuron) 50 mg STK-MED ONCE .ROUTE ; Start 05/10/21 at 17:27; Stop 05/10/21 at 17:28; Status DC Fentanyl Citrate (Fentanyl 2ml Vial) 100 mcg STK-MED ONCE .ROUTE ; Start 05/10/21 at 17:28; Stop 05/10/21 at 17:28; Status DC Fentanyl Citrate (Fentanyl 2ml Vial) 25 mcg PRN Q5MIN PRN IVP MILD PAIN 1-3; Start 05/10/21 at 18:00; Stop 05/11/21 at 17:59 Fentanyl Citrate (Fentanyl 2ml Vial) 50 mcg PRN Q5MIN PRN IVP MODERATE PAIN 4- 6; Start 05/10/21 at 18:00; Stop 05/11/21 at 17:59 Morphine Sulfate (Morphine Sulfate) 1 mg PRN Q10MIN PRN IVP SEVERE PAIN 7-10; Start 05/10/21 at 18:00; Stop 05/11/21 at 17:59 Ringer's Solution 1,000 ml @ 30 mls/hr Q24H IV ; Start 05/10/21 at 18:00; Stop 05/11/21 at 05:59 Hydromorphone HCl (Dilaudid) 0.5 mg PRN Q10MIN PRN IVP SEVERE PAIN 7-10, 2nd CHOICE; Start 05/10/21 at 18:00; Stop 05/11/21 at 17:59 Prochlorperazine Edisylate (Compazine) 5 mg PACU PRN PRN IVP NAUSEA, MRX1; Start 05/10/21 at 18:00; Stop 05/11/21 at 17:59 Insulin Human Lispro (HumaLOG VIAL for OP,RR ONLY) 0-10 units PRN Q1HR PRN SQ PER PROTOCOL; Start 05/10/21 at 18:00; Stop 05/11/21 at 17:59 Piperacillin Sod/ Tazobactam Sod 3.375 gm/Sodium Chloride 50 ml @ 100 mls/hr 1X ONCE IV Last administered on 05/10/21at 18:00; Start 05/10/21 at 18:00; Stop 05/10/21 at 18:29; Status DC Famotidine (Pepcid Vial) 20 mg STK-MED ONCE .ROUTE ; Start 05/10/21 at 18:03; Stop 05/10/21 at 18:03; Status DC Succinylcholine Chloride (Anectine) 200 mg STK-MED ONCE .ROUTE ; Start 05/10/21 at 18:04; Stop 05/10/21 at 18:04; Status DC EZETIMIBE (Zetia) 10 mg DAILY PO ; Start 05/11/21 at 09:00 Gabapentin (Neurontin) 300 mg TID PO ; Start 05/10/21 at 21:00 Metoprolol Tartrate (Lopressor) 50 mg NOON PO ; Start 05/11/21 at 12:00 Atorvastatin Calcium (Lipitor) 80 mg HS PO ; Start 05/10/21 at 21:00 Losartan Potassium (Cozaar) 50 mg DAILY PO ; Start 05/11/21 at 09:00 Pantoprazole Sodium (Protonix) 40 mg DAILYAC PO ; Start 05/11/21 at 07:30 Hydrochlorothiazide (Microzide) 12.5 mg DAILY PO ; Start 05/11/21 at 09:00 Ephedrine Sulfate (ePHEDrine PF IN SALINE SYRINGE) 50 mg STK-MED ONCE IV ; Start 05/10/21 at 18:39; Stop 05/10/21 at 18:40; Status DC Neostigmine Methylsulfate (Bloxiverz) 10 mg STK-MED ONCE .ROUTE ; Start 05/10/21 at 18:55; Stop 05/10/21 at 18:55; Status DC Glycopyrrolate (Robinul) 1 mg STK-MED ONCE .ROUTE ; Start 05/10/21 at 18:55; Stop 05/10/21 at 18:56; Status DC Oxycodone/ Acetaminophen (Percocet 5/325) 1 tab PRN Q4HRS PRN PO PAIN; Start 05/10/21 at 19:00 Oxycodone/ Acetaminophen (Percocet 5/325) 2 tab PRN Q4HRS PRN PO PAIN; Start 05/10/21 at 19:00 Piperacillin Sod/ Tazobactam Sod 3.375 gm/Sodium Chloride 50 ml @ 100 mls/hr Q6HRS IV ; Start 05/11/21 at 00:00 Albuterol Sulfate (Ventolin Neb Soln) 2.5 mg STK-MED ONCE .ROUTE ; Start 05/10/21 at 19:29; Stop 05/10/21 at 19:29; Status DC Prochlorperazine Edisylate (Compazine) 10 mg STK-MED ONCE .ROUTE ; Start 05/10/21 at 19:29; Stop 05/10/21 at 19:29; Status DC Albuterol Sulfate (Ventolin Neb Soln) 2.5 mg 1X ONCE NEB ; Start 05/10/21 at 19:45; Stop 05/10/21 at 19:46; Status UNV Active Scripts Active Reported Metformin Hcl 1,000 Mg Tablet 1,000 Mg PO BIDWMEALS Ezetimibe 10 Mg Tablet 10 Mg PO DAILY Omeprazole 20 Mg Capsule.dr 20 Mg PO BID Metoprolol Tartrate 50 Mg Tablet 50 Mg PO NOON Loratadine 10 Mg Tablet 10 Mg PO PRN DAILY PRN Gabapentin (Gabapentin) 300 Mg Capsule 300 Mg PO TID Lipitor (Atorvastatin Calcium) 80 Mg Tablet 80 Mg PO HS Losartan-Hctz 50-12.5 Mg Tab (Losartan/Hydrochlorothiazide) 1 Each Tablet 1 Tab PO DAILY ROS: Review of Systems Review of System REVIEW OF SYSTEMS: Unless noted in HPI 14pt ROS was negative Physical Exam: Vital Signs: Vital Signs Date Time Temp Pulse Resp B/P (MAP) Pulse Ox O2 Delivery O2 Flow Rate FiO2 05/10/21 17:55 100.7 89 18 141/62 97 Room Air 100.7 Physcial Exam: GEN: No apparent distress. Lethargic from anesthesia HEENT: Normal cephalic, atraumatic, external auditory canals are patent EYES: grossly normal MUSCULOSKELETAL: Well developed , well nourished, good range of motion ENDOCRINE: No thyromegaly was palpated NECK: Supple, obese LUNGS: decreased s/p intubation HEART: RRR, S!, S2 present. Peripheral pulses intact, no obvious murmurs noted ABDOMEN: abdominal wounds dressed from surgery, not palpated EXTREMITIES: Without clubbing, cyanosis, or edema. Pedal pulses intact. NEUROLOGIC: Normal speech and tone. A&O x 3, moves all extremities, no obvious focal deficits PSYCHIATRIC: Normal affect, normal mood. Stable SKIN: No ulcerations or rashes, good skin turgor, no jaundice VASCULAR: Good capillary refill, neurovascular bundle appears to be intact Labs: Labs: Laboratory Tests Test 05/10/21 14:48 05/10/21 14:58 05/10/21 16:55 05/10/21 17:51 Urine Collection Type Unknown Urine Color Yellow Urine Clarity Clear Urine pH 7.0 (<5.0-8.0) Urine Specific [place] 1.010 (1.000-1.030) Urine Protein Negative mg/dL (NEG-TRACE) Urine Glucose (UA) 100 mg/dL (NEG) Urine Ketones (Stick) Negative mg/dL (NEG) Urine Blood Negative (NEG) Urine Nitrite Negative (NEG) Urine Bilirubin Negative (NEG) Urine Urobilinogen Dipstick 0.2 mg/dL (0.2 mg/dL) Urine Leukocyte Esterase Negative (NEG) Urine RBC 0 /HPF (0-2) Urine WBC 0 /HPF (0-4) Urine Bacteria 0 /HPF (0-FEW) White Blood Count 27.8 x10^3/uL (4.0-11.0) Red Blood Count 4.82 x10^6/uL (4.30-5.70) Hemoglobin 13.7 g/dL (13.0-17.5) Hematocrit 43.1 % (39.0-53.0) Mean Corpuscular Volume 90 fL (79-100) Mean Corpuscular Hemoglobin 29 pg (25-35) Mean Corpuscular Hemoglobin Concent 32 g/dL (31-37) Red Cell Distribution Width 16.2 % (11.5-14.5) Platelet Count 441 x10^3/uL (140-400) Neutrophils (%) (Auto) 70 % (31-73) Lymphocytes (%) (Auto) 15 % (24-48) Monocytes (%) (Auto) 5 % (0-9) Eosinophils (%) (Auto) 2 % (0-3) Basophils (%) (Auto) 8 % (0-3) Neutrophils # (Auto) 19.5 x10^3/uL (1.8-7.7) Lymphocytes # (Auto) 4.1 x10^3/uL (1.0-4.8) Monocytes # (Auto) 1.5 x10^3/uL (0.0-1.1) Eosinophils # (Auto) 0.6 x10^3/uL (0.0-0.7) Basophils # (Auto) 2.1 x10^3/uL (0.0-0.2) Segmented Neutrophils % 66 % (35-66) Band Neutrophils % 3 % (0-9) Lymphocytes % 16 % (24-48) Monocytes % 2 % (0-10) Eosinophils % 2 % (0-5) Basophils % 5 % (0-3) Metamyelocytes % 1 % (0-0) Myelocytes % 5 % (0-0) Nucleated Red Blood Cells 5 Platelet Estimate Increased (ADEQUATE) Giant Platelets Present Polychromasia Present Anisocytosis Slight [place]pkins-Alba Bodies Present Sodium Level 141 mmol/L (136-145) Potassium Level 4.7 mmol/L (3.5-5.1) Chloride Level 105 mmol/L (98-107) Carbon Dioxide Level 24 mmol/L (21-32) Anion Gap 12 (6-14) Blood Urea Nitrogen 11 mg/dL (8-26) Creatinine 0.8 mg/dL (0.7-1.3) Estimated GFR (Cockcroft-Gault) 100.4 BUN/Creatinine Ratio 14 (6-20) Glucose Level 237 mg/dL (70-99) Calcium Level 8.7 mg/dL (8.5-10.1) Total Bilirubin 0.4 mg/dL (0.2-1.0) Aspartate Amino Transf (AST/SGOT) 19 U/L (15-37) Alanine Aminotransferase (ALT/SGPT) 27 U/L (16-63) Alkaline Phosphatase 64 U/L (46-116) Total Protein 7.2 g/dL (6.4-8.2) Albumin 3.6 g/dL (3.4-5.0) Albumin/Globulin Ratio 1.0 (1.0-1.7) Lipase 55 U/L (73-393) SARS-CoV-2 Antigen (Rapid) Negative (NEGATIVE) Glucose (Fingerstick) 107 mg/dL (70-99) Laboratory Tests Test 05/10/21 14:48 05/10/21 14:58 05/10/21 16:55 05/10/21 17:51 Urine Collection Type Unknown Urine Color Yellow Urine Clarity Clear Urine pH 7.0 (<5.0-8.0) Urine Specific [place] 1.010 (1.000-1.030) Urine Protein Negative mg/dL (NEG-TRACE) Urine Glucose (UA) 100 mg/dL (NEG) Urine Ketones (Stick) Negative mg/dL (NEG) Urine Blood Negative (NEG) Urine Nitrite Negative (NEG) Urine Bilirubin Negative (NEG) Urine Urobilinogen Dipstick 0.2 mg/dL (0.2 mg/dL) Urine Leukocyte Esterase Negative (NEG) Urine RBC 0 /HPF (0-2) Urine WBC 0 /HPF (0-4) Urine Bacteria 0 /HPF (0-FEW) White Blood Count 27.8 x10^3/uL (4.0-11.0) Red Blood Count 4.82 x10^6/uL (4.30-5.70) Hemoglobin 13.7 g/dL (13.0-17.5) Hematocrit 43.1 % (39.0-53.0) Mean Corpuscular Volume 90 fL (79-100) Mean Corpuscular Hemoglobin 29 pg (25-35) Mean Corpuscular Hemoglobin Concent 32 g/dL (31-37) Red Cell Distribution Width 16.2 % (11.5-14.5) Platelet Count 441 x10^3/uL (140-400) Neutrophils (%) (Auto) 70 % (31-73) Lymphocytes (%) (Auto) 15 % (24-48) Monocytes (%) (Auto) 5 % (0-9) Eosinophils (%) (Auto) 2 % (0-3) Basophils (%) (Auto) 8 % (0-3) Neutrophils # (Auto) 19.5 x10^3/uL (1.8-7.7) Lymphocytes # (Auto) 4.1 x10^3/uL (1.0-4.8) Monocytes # (Auto) 1.5 x10^3/uL (0.0-1.1) Eosinophils # (Auto) 0.6 x10^3/uL (0.0-0.7) Basophils # (Auto) 2.1 x10^3/uL (0.0-0.2) Segmented Neutrophils % 66 % (35-66) Band Neutrophils % 3 % (0-9) Lymphocytes % 16 % (24-48) Monocytes % 2 % (0-10) Eosinophils % 2 % (0-5) Basophils % 5 % (0-3) Metamyelocytes % 1 % (0-0) Myelocytes % 5 % (0-0) Nucleated Red Blood Cells 5 Platelet Estimate Increased (ADEQUATE) Giant Platelets Present Polychromasia Present Anisocytosis Slight Tompkins-Alba Bodies Present Sodium Level 141 mmol/L (136-145) Potassium Level 4.7 mmol/L (3.5-5.1) Chloride Level 105 mmol/L (98-107) Carbon Dioxide Level 24 mmol/L (21-32) Anion Gap 12 (6-14) Blood Urea Nitrogen 11 mg/dL (8-26) Creatinine 0.8 mg/dL (0.7-1.3) Estimated GFR (Cockcroft-Gault) 100.4 BUN/Creatinine Ratio 14 (6-20) Glucose Level 237 mg/dL (70-99) Calcium Level 8.7 mg/dL (8.5-10.1) Total Bilirubin 0.4 mg/dL (0.2-1.0) Aspartate Amino Transf (AST/SGOT) 19 U/L (15-37) Alanine Aminotransferase (ALT/SGPT) 27 U/L (16-63) Alkaline Phosphatase 64 U/L (46-116) Total Protein 7.2 g/dL (6.4-8.2) Albumin 3.6 g/dL (3.4-5.0) Albumin/Globulin Ratio 1.0 (1.0-1.7) Lipase 55 U/L (73-393) SARS-CoV-2 Antigen (Rapid) Negative (NEGATIVE) Glucose (Fingerstick) 107 mg/dL (70-99) Assessment/Plan Assessment/Plan Appendicitis, Hx HTN, HPLD, DM2 -presenting with RLQ abdominal pain; found to have appendicitis -s/p surgical intervention -Zosyn continued from surgery -ADAT overnight -Home meds resumed as indicated -Pain control overnight -DVT ppx in morning Justifications for Admission Other Justification JOSE SCHOFIELD MD May 10, 2021 19:43
[2021-05-10] MEDS ORDERED: BENZOCAINE/MENTHOL LOZENGE. PO PRN (19:45)
[2021-05-10] MEDS ORDERED: IPRATRPIUM/ALBUTEROL 0.5/2.5MG 3 ML NEBU. NEB PRN (20:00)
[2021-05-10] MEDS ORDERED: ALBUTEROL SULFATE 2.5 MG/3 ML NEBU. NEB ONE (20:00)
[2021-05-10] MEDS: GABAPENTIN 300 MG CAPSULE. PO SCH (21:44)
[2021-05-10] MEDS: ATORVASTATIN CALCIUM 40 MG TABLET. PO SCH (21:45)
[2021-05-10] MEDS: MORPHINE SULFATE 2 MG/ML INJ. IVP PRN (23:03)
[2021-05-11] VITALS (7 sets, daily range): BP systolic 116–125; BP diastolic 56–78
[2021-05-11] MEDS: PIPERACILLIN/TAZOBACTAM 3.375 GM in IV NORMAL SALINE 50ML 50 ML IV SCH ×4 (00:07→18:04)
--- NOTE | 2021-05-11 03:30 | NUR ---
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 Bandage in the pts naval was saturated with blood and had came off; blood ran from naval to groin and around his left hip to the bed linen. Naval bandage replaced with 4x4 gauze and tape. Bandage on LLQ saturated with blood and reenforced with 4x4 gauze and tape.
[2021-05-11] MEDS: MORPHINE SULFATE 2 MG/ML INJ. IVP PRN (04:51)
[2021-05-11 06:13] LABS: BASO # 0.3 x10^3/uL (0.0-0.2); BASO % 1 % (0-3); EOS % 0 % (0-3); HEMATOCRIT 39.8 % (39.0-53.0); HEMOGLOBIN 12.6 g/dL (13.0-17.5); LYMPH # 1.9 x10^3/uL (1.0-4.8); LYMPH % 5 % (24-48); MEAN CORPUSCULAR HEMOGLOBIN 28 pg (25-35); MEAN CORPUSCULAR HGB CONC 32 g/dL (31-37); MEAN CORPUSCULAR VOLUME 90 fL (79-100); MONO # 0.9 x10^3/uL (0.0-1.1); MONO % 2 % (0-9); NEUT % 91 % (31-73); PLATELET COUNT 421 x10^3/uL (140-400); RED BLOOD COUNT 4.44 x10^6/uL (4.30-5.70); RED CELL DISTRIBUTION WIDTH 16.2 % (11.5-14.5); WHITE BLOOD COUNT 35.2 x10^3/uL (4.0-11.0)
[2021-05-11] MEDS: oxyCODONE/APAP 5/325 1 TAB TABLET PO PRN ×4 (08:24→23:05)
[2021-05-11] MEDS: GABAPENTIN 300 MG CAPSULE. PO SCH ×3 (08:25→21:08)
[2021-05-11] MEDS: EZETIMIBE 10 MG TABLET. PO SCH (08:25)
[2021-05-11] MEDS: PANTOPRAZOLE 40 MG TABLET.DR. PO SCH (08:25)
[2021-05-11] MEDS: LOSARTAN POTASSIUM 50 MG TABLET. PO SCH (08:26)
--- NOTE | 2021-05-11 09:53 | PDOC ---
[employer] PROGRESS NOTE Date of Service DOS: DATE: 05/11/21 TIME: 09:51 Chief Complaint Chief Complaint Appendicitis Leukocytosis History of Present Illness History of Present Illness 05/11/21 Patient seen and examined Sitting up, ate his breakfast, and feels his pain is well managed He would like to d/c home today Chart reviewed Discussed w RN Vitals/I&O Vitals/I&O: Vital Signs Date Time Temp Pulse Resp B/P (MAP) Pulse Ox O2 Delivery O2 Flow Rate FiO2 05/11/21 08:26 101 125/56 05/11/21 08:24 Room Air 05/11/21 07:00 97.6 18 98 97.6 05/10/21 19:36 8 I & O 05/10/21 05/10/21 05/11/21 15:00 23:00 07:00 Intake Total 1750 ml 2010 ml Output Total 10 ml 1500 ml Balance 1740 ml 510 ml Physical Exam General: Alert, Oriented X3, Cooperative, mild distress Heart: Regular rate, No murmurs Lungs: Clear Abdomen: Normal bowel sounds, Soft, Other (Mildly tender in the right lower quadrant) Extremities: No clubbing, No edema Skin: No rashes, No significant lesion Labs Labs: Laboratory Tests Test 05/10/21 14:48 05/10/21 14:58 05/10/21 16:55 05/10/21 17:51 Urine Collection Type Unknown Urine Color Yellow Urine Clarity Clear Urine pH 7.0 (<5.0-8.0) Urine Specific [place] 1.010 (1.000-1.030) Urine Protein Negative mg/dL (NEG-TRACE) Urine Glucose (UA) 100 mg/dL (NEG) Urine Ketones (Stick) Negative mg/dL (NEG) Urine Blood Negative (NEG) Urine Nitrite Negative (NEG) Urine Bilirubin Negative (NEG) Urine Urobilinogen Dipstick 0.2 mg/dL (0.2 mg/dL) Urine Leukocyte Esterase Negative (NEG) Urine RBC 0 /HPF (0-2) Urine WBC 0 /HPF (0-4) Urine Bacteria 0 /HPF (0-FEW) White Blood Count 27.8 x10^3/uL (4.0-11.0) Red Blood Count 4.82 x10^6/uL (4.30-5.70) Hemoglobin 13.7 g/dL (13.0-17.5) Hematocrit 43.1 % (39.0-53.0) Mean Corpuscular Volume 90 fL (79-100) Mean Corpuscular Hemoglobin 29 pg (25-35) Mean Corpuscular Hemoglobin Concent 32 g/dL (31-37) Red Cell Distribution Width 16.2 % (11.5-14.5) Platelet Count 441 x10^3/uL (140-400) Neutrophils (%) (Auto) 70 % (31-73) Lymphocytes (%) (Auto) 15 % (24-48) Monocytes (%) (Auto) 5 % (0-9) Eosinophils (%) (Auto) 2 % (0-3) Basophils (%) (Auto) 8 % (0-3) Neutrophils # (Auto) 19.5 x10^3/uL (1.8-7.7) Lymphocytes # (Auto) 4.1 x10^3/uL (1.0-4.8) Monocytes # (Auto) 1.5 x10^3/uL (0.0-1.1) Eosinophils # (Auto) 0.6 x10^3/uL (0.0-0.7) Basophils # (Auto) 2.1 x10^3/uL (0.0-0.2) Segmented Neutrophils % 66 % (35-66) Band Neutrophils % 3 % (0-9) Lymphocytes % 16 % (24-48) Monocytes % 2 % (0-10) Eosinophils % 2 % (0-5) Basophils % 5 % (0-3) Metamyelocytes % 1 % (0-0) Myelocytes % 5 % (0-0) Nucleated Red Blood Cells 5 Platelet Estimate Increased (ADEQUATE) Giant Platelets Present Polychromasia Present Anisocytosis Slight [place] Bodies Present Sodium Level 141 mmol/L (136-145) Potassium Level 4.7 mmol/L (3.5-5.1) Chloride Level 105 mmol/L (98-107) Carbon Dioxide Level 24 mmol/L (21-32) Anion Gap 12 (6-14) Blood Urea Nitrogen 11 mg/dL (8-26) Creatinine 0.8 mg/dL (0.7-1.3) Estimated GFR (Cockcroft-Gault) 100.4 BUN/Creatinine Ratio 14 (6-20) Glucose Level 237 mg/dL (70-99) Calcium Level 8.7 mg/dL (8.5-10.1) Total Bilirubin 0.4 mg/dL (0.2-1.0) Aspartate Amino Transf (AST/SGOT) 19 U/L (15-37) Alanine Aminotransferase (ALT/SGPT) 27 U/L (16-63) Alkaline Phosphatase 64 U/L (46-116) Total Protein 7.2 g/dL (6.4-8.2) Albumin 3.6 g/dL (3.4-5.0) Albumin/Globulin Ratio 1.0 (1.0-1.7) Lipase 55 U/L (73-393) SARS-CoV-2 Antigen (Rapid) Negative (NEGATIVE) Glucose (Fingerstick) 107 mg/dL (70-99) Test 05/11/21 05:20 White Blood Count 35.2 x10^3/uL (4.0-11.0) Red Blood Count 4.44 x10^6/uL (4.30-5.70) Hemoglobin 12.6 g/dL (13.0-17.5) Hematocrit 39.8 % (39.0-53.0) Mean Corpuscular Volume 90 fL (79-100) Mean Corpuscular Hemoglobin 28 pg (25-35) Mean Corpuscular Hemoglobin Concent 32 g/dL (31-37) Red Cell Distribution Width 16.2 % (11.5-14.5) Platelet Count 421 x10^3/uL (140-400) Neutrophils (%) (Auto) 91 % (31-73) Lymphocytes (%) (Auto) 5 % (24-48) Monocytes (%) (Auto) 2 % (0-9) Eosinophils (%) (Auto) 0 % (0-3) Basophils (%) (Auto) 1 % (0-3) Neutrophils # (Auto) 32.0 x10^3/uL (1.8-7.7) Lymphocytes # (Auto) 1.9 x10^3/uL (1.0-4.8) Monocytes # (Auto) 0.9 x10^3/uL (0.0-1.1) Eosinophils # (Auto) 0.0 x10^3/uL (0.0-0.7) Basophils # (Auto) 0.3 x10^3/uL (0.0-0.2) Assessment and Plan Assessmemt and Plan Problems Medical Problems: (1) Leukocytosis Status: Acute (2) Right lower quadrant abdominal pain Status: Acute Assessment Appendicitis, Hx HTN, HPLD, DM2 Plan -s/p surgical intervention -Patient will d/c today if cleared by surgery -Zosyn continued from surgery -Home meds resumed as indicated -Pain control overnight -DVT ppx in morning -Full code Comment Review of Relevant I have reviewed the following items samira (where applicable) has been applied. Medications: Current Medications Medications (Trade) Dose Ordered Sig/Santino Route PRN Reason Start Time Stop Time Status Last Admin Dose Admin Ondansetron HCl (Zofran) 4 mg 1X ONCE IVP 05/10/21 15:30 05/10/21 15:31 DC 05/10/21 15:32 Fentanyl Citrate (Fentanyl 2ml Vial) 50 mcg 1X ONCE IVP 05/10/21 15:30 05/10/21 15:31 DC 05/10/21 15:32 Iohexol (Omnipaque 350 Mg/ml) 100 ml 1X ONCE IV 05/10/21 16:00 05/10/21 16:01 DC 05/10/21 15:59 Ondansetron HCl (Zofran) 4 mg 1X ONCE IVP 05/10/21 17:15 05/10/21 17:16 DC 05/10/21 17:35 Morphine Sulfate (Morphine Sulfate) 4 mg 1X ONCE IVP 05/10/21 17:15 05/10/21 17:16 DC 05/10/21 17:34 Bupivacaine HCl/ Epinephrine Bitart (Sensorcaine-Epi 0.25%-1:601981 Mpf) 30 ml STK-MED ONCE .ROUTE 05/10/21 16:48 05/10/21 16:49 DC 05/10/21 18:37 Morphine Sulfate (Morphine Sulfate) 2 mg PRN Q2HR PRN IVP PAIN 05/10/21 17:00 05/11/21 16:59 05/11/21 04:51 Fentanyl Citrate (Fentanyl 2ml Vial) 50 mcg PRN Q5MIN PRN IVP MODERATE PAIN 4-6 05/10/21 18:00 05/11/21 17:59 05/10/21 19:46 Ringer's Solution 1,000 ml @ 30 mls/hr Q24H IV 05/10/21 18:00 05/11/21 05:59 DC 05/10/21 18:00 Prochlorperazine Edisylate (Compazine) 5 mg PACU PRN PRN IVP NAUSEA, MRX1 05/10/21 18:00 05/11/21 17:59 05/10/21 19:34 Piperacillin Sod/ Tazobactam Sod 3.375 gm/Sodium Chloride 50 ml @ 100 mls/hr 1X ONCE IV 05/10/21 18:00 05/10/21 18:29 DC 05/10/21 18:00 EZETIMIBE (Zetia) 10 mg DAILY PO 05/11/21 09:00 05/11/21 08:25 Gabapentin (Neurontin) 300 mg TID PO 05/10/21 21:00 05/11/21 08:25 Atorvastatin Calcium (Lipitor) 80 mg HS PO 05/10/21 21:00 05/10/21 21:45 Losartan Potassium (Cozaar) 50 mg DAILY PO 05/11/21 09:00 05/11/21 08:26 Pantoprazole Sodium (Protonix) 40 mg DAILYAC PO 05/11/21 07:30 05/11/21 08:25 Oxycodone/ Acetaminophen (Percocet 5/325) 2 tab PRN Q4HRS PRN PO PAIN 05/10/21 19:00 05/11/21 08:24 Piperacillin Sod/ Tazobactam Sod 3.375 gm/Sodium Chloride 50 ml @ 100 mls/hr Q6HRS IV 05/11/21 00:00 05/11/21 05:58 Justifications for Admission Other Justification ABHAY LORENZANA III DO May 11, 2021 09:53
[2021-05-11] MEDS ORDERED: OXYC1TAB15 PO (10:01)
--- NOTE | 2021-05-11 10:27 | NUR ---
SW following. Discussed with RN, pt from home, room air, ada diet. Discharge order for home health - Dr. Christensen notified SW it is actually a self care discharge, home health was accidentally checked. RN notified. Self care discharge home today.
--- NOTE | 2021-05-11 10:29 | DS ---
DATE OF DISCHARGE: 05/11/2021 ADMISSION DIAGNOSIS: Appendicitis. DISCHARGE DIAGNOSIS: Postoperative laparoscopic appendectomy. HOSPITAL COURSE: The patient is a pleasant middle-aged male who presented with acute appendicitis. He was admitted. We consulted General Surgery, Dr. Barriga. He took him to the OR for a laparoscopic appendectomy. Today, I saw and examined him. He is doing well and wants to go home. We plan to discharge. DISPOSITION: Home. ACTIVITY: As tolerated. DIET: Low-sodium. DISCHARGE MEDICATIONS: Hydralazine 12.5 mg a day, oxycodone 5/325 mg one q. 6 hours p.r.n., atorvastatin 80 mg a day, Zetia 10 mg a day, gabapentin 300 mg t.i.d., loratadine 10 mg a day, losartan 50 mg a day, hydrochlorothiazide 12.5 mg a day, metformin 1000 mg b.i.d., metoprolol 50 mg daily and omeprazole 20 mg b.i.d. TOTAL TIME: [address]: Genesis TID: [id number]
--- NOTE | 2021-05-11 10:30 | PDOC ---
SURGICAL PROGRESS NOTE DATE: 05/11/21 TIME: 10:25 Subjective sore RLQ mild nausea Vital Signs Vital Signs Date Time Temp Pulse Resp B/P (MAP) Pulse Ox O2 Delivery O2 Flow Rate FiO2 05/11/21 08:26 101 125/56 05/11/21 08:24 Room Air 05/11/21 07:00 97.6 18 98 97.6 05/10/21 19:36 8 I&O Intake and Output 05/11/21 07:00 Intake Total 3760 ml Output Total 1510 ml Balance 2250 ml Intake Oral 2010 ml IV Total 1750 ml Output Urine Total 1500 ml Estimated Blood Loss 10 ml General: Alert, Cooperative Abdomen: Soft, Other (lap dressings intact) Labs Laboratory Tests Test 05/10/21 14:48 05/10/21 14:58 05/10/21 16:55 05/10/21 17:51 Urine Collection Type Unknown Urine Color Yellow Urine Clarity Clear Urine pH 7.0 (<5.0-8.0) Urine Specific [place] 1.010 (1.000-1.030) Urine Protein Negative mg/dL (NEG-TRACE) Urine Glucose (UA) 100 mg/dL (NEG) Urine Ketones (Stick) Negative mg/dL (NEG) Urine Blood Negative (NEG) Urine Nitrite Negative (NEG) Urine Bilirubin Negative (NEG) Urine Urobilinogen Dipstick 0.2 mg/dL (0.2 mg/dL) Urine Leukocyte Esterase Negative (NEG) Urine RBC 0 /HPF (0-2) Urine WBC 0 /HPF (0-4) Urine Bacteria 0 /HPF (0-FEW) White Blood Count 27.8 x10^3/uL (4.0-11.0) Red Blood Count 4.82 x10^6/uL (4.30-5.70) Hemoglobin 13.7 g/dL (13.0-17.5) Hematocrit 43.1 % (39.0-53.0) Mean Corpuscular Volume 90 fL (79-100) Mean Corpuscular Hemoglobin 29 pg (25-35) Mean Corpuscular Hemoglobin Concent 32 g/dL (31-37) Red Cell Distribution Width 16.2 % (11.5-14.5) Platelet Count 441 x10^3/uL (140-400) Neutrophils (%) (Auto) 70 % (31-73) Lymphocytes (%) (Auto) 15 % (24-48) Monocytes (%) (Auto) 5 % (0-9) Eosinophils (%) (Auto) 2 % (0-3) Basophils (%) (Auto) 8 % (0-3) Neutrophils # (Auto) 19.5 x10^3/uL (1.8-7.7) Lymphocytes # (Auto) 4.1 x10^3/uL (1.0-4.8) Monocytes # (Auto) 1.5 x10^3/uL (0.0-1.1) Eosinophils # (Auto) 0.6 x10^3/uL (0.0-0.7) Basophils # (Auto) 2.1 x10^3/uL (0.0-0.2) Segmented Neutrophils % 66 % (35-66) Band Neutrophils % 3 % (0-9) Lymphocytes % 16 % (24-48) Monocytes % 2 % (0-10) Eosinophils % 2 % (0-5) Basophils % 5 % (0-3) Metamyelocytes % 1 % (0-0) Myelocytes % 5 % (0-0) Nucleated Red Blood Cells 5 Platelet Estimate Increased (ADEQUATE) Giant Platelets Present Polychromasia Present Anisocytosis Slight [place] Bodies Present Sodium Level 141 mmol/L (136-145) Potassium Level 4.7 mmol/L (3.5-5.1) Chloride Level 105 mmol/L (98-107) Carbon Dioxide Level 24 mmol/L (21-32) Anion Gap 12 (6-14) Blood Urea Nitrogen 11 mg/dL (8-26) Creatinine 0.8 mg/dL (0.7-1.3) Estimated GFR (Cockcroft-Gault) 100.4 BUN/Creatinine Ratio 14 (6-20) Glucose Level 237 mg/dL (70-99) Calcium Level 8.7 mg/dL (8.5-10.1) Total Bilirubin 0.4 mg/dL (0.2-1.0) Aspartate Amino Transf (AST/SGOT) 19 U/L (15-37) Alanine Aminotransferase (ALT/SGPT) 27 U/L (16-63) Alkaline Phosphatase 64 U/L (46-116) Total Protein 7.2 g/dL (6.4-8.2) Albumin 3.6 g/dL (3.4-5.0) Albumin/Globulin Ratio 1.0 (1.0-1.7) Lipase 55 U/L (73-393) SARS-CoV-2 Antigen (Rapid) Negative (NEGATIVE) Glucose (Fingerstick) 107 mg/dL (70-99) Test 05/11/21 05:20 White Blood Count 35.2 x10^3/uL (4.0-11.0) Red Blood Count 4.44 x10^6/uL (4.30-5.70) Hemoglobin 12.6 g/dL (13.0-17.5) Hematocrit 39.8 % (39.0-53.0) Mean Corpuscular Volume 90 fL (79-100) Mean Corpuscular Hemoglobin 28 pg (25-35) Mean Corpuscular Hemoglobin Concent 32 g/dL (31-37) Red Cell Distribution Width 16.2 % (11.5-14.5) Platelet Count 421 x10^3/uL (140-400) Neutrophils (%) (Auto) 91 % (31-73) Lymphocytes (%) (Auto) 5 % (24-48) Monocytes (%) (Auto) 2 % (0-9) Eosinophils (%) (Auto) 0 % (0-3) Basophils (%) (Auto) 1 % (0-3) Neutrophils # (Auto) 32.0 x10^3/uL (1.8-7.7) Lymphocytes # (Auto) 1.9 x10^3/uL (1.0-4.8) Monocytes # (Auto) 0.9 x10^3/uL (0.0-1.1) Eosinophils # (Auto) 0.0 x10^3/uL (0.0-0.7) Basophils # (Auto) 0.3 x10^3/uL (0.0-0.2) Laboratory Tests Test 05/10/21 14:48 05/10/21 14:58 05/10/21 16:55 05/10/21 17:51 Urine Collection Type Unknown Urine Color Yellow Urine Clarity Clear Urine pH 7.0 (<5.0-8.0) Urine Specific [place] 1.010 (1.000-1.030) Urine Protein Negative mg/dL (NEG-TRACE) Urine Glucose (UA) 100 mg/dL (NEG) Urine Ketones (Stick) Negative mg/dL (NEG) Urine Blood Negative (NEG) Urine Nitrite Negative (NEG) Urine Bilirubin Negative (NEG) Urine Urobilinogen Dipstick 0.2 mg/dL (0.2 mg/dL) Urine Leukocyte Esterase Negative (NEG) Urine RBC 0 /HPF (0-2) Urine WBC 0 /HPF (0-4) Urine Bacteria 0 /HPF (0-FEW) White Blood Count 27.8 x10^3/uL (4.0-11.0) Red Blood Count 4.82 x10^6/uL (4.30-5.70) Hemoglobin 13.7 g/dL (13.0-17.5) Hematocrit 43.1 % (39.0-53.0) Mean Corpuscular Volume 90 fL (79-100) Mean Corpuscular Hemoglobin 29 pg (25-35) Mean Corpuscular Hemoglobin Concent 32 g/dL (31-37) Red Cell Distribution Width 16.2 % (11.5-14.5) Platelet Count 441 x10^3/uL (140-400) Neutrophils (%) (Auto) 70 % (31-73) Lymphocytes (%) (Auto) 15 % (24-48) Monocytes (%) (Auto) 5 % (0-9) Eosinophils (%) (Auto) 2 % (0-3) Basophils (%) (Auto) 8 % (0-3) Neutrophils # (Auto) 19.5 x10^3/uL (1.8-7.7) Lymphocytes # (Auto) 4.1 x10^3/uL (1.0-4.8) Monocytes # (Auto) 1.5 x10^3/uL (0.0-1.1) Eosinophils # (Auto) 0.6 x10^3/uL (0.0-0.7) Basophils # (Auto) 2.1 x10^3/uL (0.0-0.2) Segmented Neutrophils % 66 % (35-66) Band Neutrophils % 3 % (0-9) Lymphocytes % 16 % (24-48) Monocytes % 2 % (0-10) Eosinophils % 2 % (0-5) Basophils % 5 % (0-3) Metamyelocytes % 1 % (0-0) Myelocytes % 5 % (0-0) Nucleated Red Blood Cells 5 Platelet Estimate Increased (ADEQUATE) Giant Platelets Present Polychromasia Present Anisocytosis Slight [place] Bodies Present Sodium Level 141 mmol/L (136-145) Potassium Level 4.7 mmol/L (3.5-5.1) Chloride Level 105 mmol/L (98-107) Carbon Dioxide Level 24 mmol/L (21-32) Anion Gap 12 (6-14) Blood Urea Nitrogen 11 mg/dL (8-26) Creatinine 0.8 mg/dL (0.7-1.3) Estimated GFR (Cockcroft-Gault) 100.4 BUN/Creatinine Ratio 14 (6-20) Glucose Level 237 mg/dL (70-99) Calcium Level 8.7 mg/dL (8.5-10.1) Total Bilirubin 0.4 mg/dL (0.2-1.0) Aspartate Amino Transf (AST/SGOT) 19 U/L (15-37) Alanine Aminotransferase (ALT/SGPT) 27 U/L (16-63) Alkaline Phosphatase 64 U/L (46-116) Total Protein 7.2 g/dL (6.4-8.2) Albumin 3.6 g/dL (3.4-5.0) Albumin/Globulin Ratio 1.0 (1.0-1.7) Lipase 55 U/L (73-393) SARS-CoV-2 Antigen (Rapid) Negative (NEGATIVE) Glucose (Fingerstick) 107 mg/dL (70-99) Test 05/11/21 05:20 White Blood Count 35.2 x10^3/uL (4.0-11.0) Red Blood Count 4.44 x10^6/uL (4.30-5.70) Hemoglobin 12.6 g/dL (13.0-17.5) Hematocrit 39.8 % (39.0-53.0) Mean Corpuscular Volume 90 fL (79-100) Mean Corpuscular Hemoglobin 28 pg (25-35) Mean Corpuscular Hemoglobin Concent 32 g/dL (31-37) Red Cell Distribution Width 16.2 % (11.5-14.5) Platelet Count 421 x10^3/uL (140-400) Neutrophils (%) (Auto) 91 % (31-73) Lymphocytes (%) (Auto) 5 % (24-48) Monocytes (%) (Auto) 2 % (0-9) Eosinophils (%) (Auto) 0 % (0-3) Basophils (%) (Auto) 1 % (0-3) Neutrophils # (Auto) 32.0 x10^3/uL (1.8-7.7) Lymphocytes # (Auto) 1.9 x10^3/uL (1.0-4.8) Monocytes # (Auto) 0.9 x10^3/uL (0.0-1.1) Eosinophils # (Auto) 0.0 x10^3/uL (0.0-0.7) Basophils # (Auto) 0.3 x10^3/uL (0.0-0.2) Problem List Problems Medical Problems: (1) Leukocytosis Status: Acute (2) Right lower quadrant abdominal pain Status: Acute Assessment/Plan s/p appy concern for other source of leukocytosis(wbc is 35 today), mesenteric lymphadenopathy--appendix was was fairly benign in appearance will ask hemo/onc to eval Justicifation of Admission Dx: Justifications for Admission: Justification of Admission Dx: N/A KATHY LINN APRN May 11, 2021 10:30
[2021-05-11] MEDS: hydroCHLOROthiazide 12.5 MG CAPSULE PO SCH (15:03)
[2021-05-11] MEDS: METOPROLOL TART IMMED RELEASE 50 MG TABLET. PO SCH (15:05)
[2021-05-11] MEDS: ATORVASTATIN CALCIUM 40 MG TABLET. PO SCH (21:08)
[2021-05-12] MEDS: PIPERACILLIN/TAZOBACTAM 3.375 GM in IV NORMAL SALINE 50ML 50 ML IV SCH ×3 (00:07→12:02)
[2021-05-12 03:00] VITALS: BP 131/64
[2021-05-12] MEDS: oxyCODONE/APAP 5/325 1 TAB TABLET PO PRN ×3 (05:08→18:36)
[2021-05-12 07:00] VITALS: BP 102/68
[2021-05-12] MEDS: GABAPENTIN 300 MG CAPSULE. PO SCH ×3 (08:14→21:20)
[2021-05-12] MEDS: EZETIMIBE 10 MG TABLET. PO SCH (08:14)
[2021-05-12] MEDS ORDERED: ONDANSETRON ODT 4 MG TAB.RAPDIS. PO PRN (08:15)
[2021-05-12] MEDS: PANTOPRAZOLE 40 MG TABLET.DR. PO SCH (08:15)
--- NOTE | 2021-05-12 08:15 | NUR ---
Sitting up on edge of bed shoveling breakfast ate 100%. Took am meds. then stated "I'm nauseated can I have something for that" then started dry heaving. Zofran IV given. Pt stated vomited in bathroom while brushing teeth. Cont. monitor.
[2021-05-12] MEDS ORDERED: ONDANSETRON PF 4 MG/2 ML VIAL. IVP PRN (08:30)
[2021-05-12] MEDS: LOSARTAN POTASSIUM 50 MG TABLET. PO SCH (09:00)
[2021-05-12] MEDS: hydroCHLOROthiazide 12.5 MG CAPSULE PO SCH (09:00)
[2021-05-12 10:50] VITALS: BP 113/67
[2021-05-12] MEDS: METOPROLOL TART IMMED RELEASE 50 MG TABLET. PO SCH (11:57)
--- NOTE | 2021-05-12 13:14 | PDOC ---
[facility] [facility] PROGRESS NOTE Date of Service DOS: DATE: 05/12/21 TIME: 13:09 Chief Complaint Chief Complaint Appendicitis - s/p uncomplicated laparascopic appendectomy on 05/10/21 Leukocytosis - he is s/p splenectomy. Will cont to cover for possible encapsulated organisms given his immunocompromised status, change to augmentin. f/u CBC in AM Asthma - prn albuterol Diabetes-Type II - sliding scale, holding metformin given CTA High Cholesterol Hypertension - toprol and losartan HCTZ S/p splenectomy - likely etiology of leukocytosis FEN - ADA diet History of Present Illness History of Present Illness Mr Smith is a 55yo male with PMHx Asthma, Diabetes-Type II, High Cholesterol, Hypertension admitted for 3 day history of abdominal pain, found with early appendicitis. 05/10: S/p laparascopic appendectomy 05/11: Patient seen and examined. Sitting up, ate his breakfast, and feels his pain is well managed. He would like to d/c home today. 05/12: Having some epigastric and suprapubic fullness and gas. WBC noted elevated postoperatively as there is no delay discharge. Notably is status post splenectomy. Vitals/I&O Vitals/I&O: Vital Signs Date Time Temp Pulse Resp B/P (MAP) Pulse Ox O2 Delivery O2 Flow Rate FiO2 05/12/21 12:01 Room Air 05/12/21 11:57 84 113/67 05/12/21 10:50 98.0 18 93 98.0 I & O 05/11/21 05/11/21 05/12/21 15:00 23:00 07:00 Intake Total 300 ml 580 ml 450 ml Output Total 750 ml Balance 300 ml 580 ml -300 ml Physical Exam General: Alert, Cooperative Heart: Regular rate, No murmurs Lungs: Clear Abdomen: Soft, Other (lap dressings intact) Extremities: No clubbing, No edema Skin: No rashes, No significant lesion Labs Labs: Laboratory Tests Test 05/11/21 16:53 05/11/21 20:21 05/12/21 07:58 05/12/21 11:23 Glucose (Fingerstick) 130 mg/dL (70-99) 156 mg/dL (70-99) 115 mg/dL (70-99) 134 mg/dL (70-99) Assessment and Plan Assessmemt and Plan Problems Medical Problems: (1) Leukocytosis Status: Acute (2) Right lower quadrant abdominal pain Status: Acute Comment Review of Relevant I have reviewed the following items samira (where applicable) has been applied. Medications: Current Medications Medications (Trade) Dose Ordered Sig/Santino Route PRN Reason Start Time Stop Time Status Last Admin Dose Admin Ondansetron HCl (Zofran) 4 mg PRN Q6HRS PRN IVP NAUSEA/VOMITING 05/12/21 08:30 05/12/21 08:36 Justifications for Admission Other Justification JOSE MARTINEZ MD May 12, 2021 13:14
[2021-05-12] MEDS ORDERED: IV DEXTROSE 5% 250 ML BAG. IV PRN (13:15)
[2021-05-12] MEDS ORDERED: DEXTROSE 50% 25 GM / 50ML DISP.SYRIN. IV PRN (13:15)
[2021-05-12 14:04] LABS: BASO # 0.6 x10^3/uL (0.0-0.2); BASO % 2 % (0-3); EOS # 0.3 x10^3/uL (0.0-0.7); EOS % 1 % (0-3); HEMATOCRIT 40.6 % (39.0-53.0); HEMOGLOBIN 12.8 g/dL (13.0-17.5); LYMPH # 3.9 x10^3/uL (1.0-4.8); LYMPH % 11 % (24-48); MEAN CORPUSCULAR HEMOGLOBIN 28 pg (25-35); MEAN CORPUSCULAR HGB CONC 32 g/dL (31-37); MEAN CORPUSCULAR VOLUME 89 fL (79-100); MONO # 1.8 x10^3/uL (0.0-1.1); MONO % 5 % (0-9); NEUT # 28.3 x10^3/uL (1.8-7.7); NEUT % 81 % (31-73); PLATELET COUNT 393 x10^3/uL (140-400); RED BLOOD COUNT 4.56 x10^6/uL (4.30-5.70); RED CELL DISTRIBUTION WIDTH 16.1 % (11.5-14.5); WHITE BLOOD COUNT 34.9 x10^3/uL (4.0-11.0)
--- NOTE | 2021-05-12 14:27 | PDOC ---
SURGICAL PROGRESS NOTE DATE: 05/12/21 TIME: 14:26 Subjective Pt with c/o abd pain and N/V Vital Signs Vital Signs Date Time Temp Pulse Resp B/P (MAP) Pulse Ox O2 Delivery O2 Flow Rate FiO2 05/12/21 12:01 Room Air 05/12/21 11:57 84 113/67 05/12/21 10:50 98.0 18 93 98.0 I&O Intake and Output 05/12/21 07:00 Intake Total 1330 ml Output Total 750 ml Balance 580 ml Intake Oral 1330 ml Output Urine Total 750 ml # Voids 2 General: Alert, Oriented X3, Cooperative, No acute distress Abdomen: Soft, No tenderness, Other (dressing intact) Labs Laboratory Tests Test 05/10/21 14:48 05/10/21 14:58 05/10/21 16:55 05/10/21 17:51 Urine Collection Type Unknown Urine Color Yellow Urine Clarity Clear Urine pH 7.0 (<5.0-8.0) Urine Specific [place] 1.010 (1.000-1.030) Urine Protein Negative mg/dL (NEG-TRACE) Urine Glucose (UA) 100 mg/dL (NEG) Urine Ketones (Stick) Negative mg/dL (NEG) Urine Blood Negative (NEG) Urine Nitrite Negative (NEG) Urine Bilirubin Negative (NEG) Urine Urobilinogen Dipstick 0.2 mg/dL (0.2 mg/dL) Urine Leukocyte Esterase Negative (NEG) Urine RBC 0 /HPF (0-2) Urine WBC 0 /HPF (0-4) Urine Bacteria 0 /HPF (0-FEW) White Blood Count 27.8 x10^3/uL (4.0-11.0) Red Blood Count 4.82 x10^6/uL (4.30-5.70) Hemoglobin 13.7 g/dL (13.0-17.5) Hematocrit 43.1 % (39.0-53.0) Mean Corpuscular Volume 90 fL (79-100) Mean Corpuscular Hemoglobin 29 pg (25-35) Mean Corpuscular Hemoglobin Concent 32 g/dL (31-37) Red Cell Distribution Width 16.2 % (11.5-14.5) Platelet Count 441 x10^3/uL (140-400) Neutrophils (%) (Auto) 70 % (31-73) Lymphocytes (%) (Auto) 15 % (24-48) Monocytes (%) (Auto) 5 % (0-9) Eosinophils (%) (Auto) 2 % (0-3) Basophils (%) (Auto) 8 % (0-3) Neutrophils # (Auto) 19.5 x10^3/uL (1.8-7.7) Lymphocytes # (Auto) 4.1 x10^3/uL (1.0-4.8) Monocytes # (Auto) 1.5 x10^3/uL (0.0-1.1) Eosinophils # (Auto) 0.6 x10^3/uL (0.0-0.7) Basophils # (Auto) 2.1 x10^3/uL (0.0-0.2) Segmented Neutrophils % 66 % (35-66) Band Neutrophils % 3 % (0-9) Lymphocytes % 16 % (24-48) Monocytes % 2 % (0-10) Eosinophils % 2 % (0-5) Basophils % 5 % (0-3) Metamyelocytes % 1 % (0-0) Myelocytes % 5 % (0-0) Nucleated Red Blood Cells 5 Platelet Estimate Increased (ADEQUATE) Giant Platelets Present Polychromasia Present Anisocytosis Slight [place] Bodies Present Sodium Level 141 mmol/L (136-145) Potassium Level 4.7 mmol/L (3.5-5.1) Chloride Level 105 mmol/L (98-107) Carbon Dioxide Level 24 mmol/L (21-32) Anion Gap 12 (6-14) Blood Urea Nitrogen 11 mg/dL (8-26) Creatinine 0.8 mg/dL (0.7-1.3) Estimated GFR (Cockcroft-Gault) 100.4 BUN/Creatinine Ratio 14 (6-20) Glucose Level 237 mg/dL (70-99) Calcium Level 8.7 mg/dL (8.5-10.1) Total Bilirubin 0.4 mg/dL (0.2-1.0) Aspartate Amino Transf (AST/SGOT) 19 U/L (15-37) Alanine Aminotransferase (ALT/SGPT) 27 U/L (16-63) Alkaline Phosphatase 64 U/L (46-116) Total Protein 7.2 g/dL (6.4-8.2) Albumin 3.6 g/dL (3.4-5.0) Albumin/Globulin Ratio 1.0 (1.0-1.7) Lipase 55 U/L (73-393) SARS-CoV-2 Antigen (Rapid) Negative (NEGATIVE) Glucose (Fingerstick) 107 mg/dL (70-99) Test 05/11/21 05:20 05/11/21 16:53 05/11/21 20:21 05/12/21 07:58 White Blood Count 35.2 x10^3/uL (4.0-11.0) Red Blood Count 4.44 x10^6/uL (4.30-5.70) Hemoglobin 12.6 g/dL (13.0-17.5) Hematocrit 39.8 % (39.0-53.0) Mean Corpuscular Volume 90 fL (79-100) Mean Corpuscular Hemoglobin 28 pg (25-35) Mean Corpuscular Hemoglobin Concent 32 g/dL (31-37) Red Cell Distribution Width 16.2 % (11.5-14.5) Platelet Count 421 x10^3/uL (140-400) Neutrophils (%) (Auto) 91 % (31-73) Lymphocytes (%) (Auto) 5 % (24-48) Monocytes (%) (Auto) 2 % (0-9) Eosinophils (%) (Auto) 0 % (0-3) Basophils (%) (Auto) 1 % (0-3) Neutrophils # (Auto) 32.0 x10^3/uL (1.8-7.7) Lymphocytes # (Auto) 1.9 x10^3/uL (1.0-4.8) Monocytes # (Auto) 0.9 x10^3/uL (0.0-1.1) Eosinophils # (Auto) 0.0 x10^3/uL (0.0-0.7) Basophils # (Auto) 0.3 x10^3/uL (0.0-0.2) Glucose (Fingerstick) 130 mg/dL (70-99) 156 mg/dL (70-99) 115 mg/dL (70-99) Test 05/12/21 11:23 05/12/21 13:53 Glucose (Fingerstick) 134 mg/dL (70-99) White Blood Count 34.9 x10^3/uL (4.0-11.0) Red Blood Count 4.56 x10^6/uL (4.30-5.70) Hemoglobin 12.8 g/dL (13.0-17.5) Hematocrit 40.6 % (39.0-53.0) Mean Corpuscular Volume 89 fL (79-100) Mean Corpuscular Hemoglobin 28 pg (25-35) Mean Corpuscular Hemoglobin Concent 32 g/dL (31-37) Red Cell Distribution Width 16.1 % (11.5-14.5) Platelet Count 393 x10^3/uL (140-400) Neutrophils (%) (Auto) 81 % (31-73) Lymphocytes (%) (Auto) 11 % (24-48) Monocytes (%) (Auto) 5 % (0-9) Eosinophils (%) (Auto) 1 % (0-3) Basophils (%) (Auto) 2 % (0-3) Neutrophils # (Auto) 28.3 x10^3/uL (1.8-7.7) Lymphocytes # (Auto) 3.9 x10^3/uL (1.0-4.8) Monocytes # (Auto) 1.8 x10^3/uL (0.0-1.1) Eosinophils # (Auto) 0.3 x10^3/uL (0.0-0.7) Basophils # (Auto) 0.6 x10^3/uL (0.0-0.2) Laboratory Tests Test 05/11/21 16:53 05/11/21 20:21 05/12/21 07:58 05/12/21 11:23 Glucose (Fingerstick) 130 mg/dL (70-99) 156 mg/dL (70-99) 115 mg/dL (70-99) 134 mg/dL (70-99) Test 05/12/21 13:53 White Blood Count 34.9 x10^3/uL (4.0-11.0) Red Blood Count 4.56 x10^6/uL (4.30-5.70) Hemoglobin 12.8 g/dL (13.0-17.5) Hematocrit 40.6 % (39.0-53.0) Mean Corpuscular Volume 89 fL (79-100) Mean Corpuscular Hemoglobin 28 pg (25-35) Mean Corpuscular Hemoglobin Concent 32 g/dL (31-37) Red Cell Distribution Width 16.1 % (11.5-14.5) Platelet Count 393 x10^3/uL (140-400) Neutrophils (%) (Auto) 81 % (31-73) Lymphocytes (%) (Auto) 11 % (24-48) Monocytes (%) (Auto) 5 % (0-9) Eosinophils (%) (Auto) 1 % (0-3) Basophils (%) (Auto) 2 % (0-3) Neutrophils # (Auto) 28.3 x10^3/uL (1.8-7.7) Lymphocytes # (Auto) 3.9 x10^3/uL (1.0-4.8) Monocytes # (Auto) 1.8 x10^3/uL (0.0-1.1) Eosinophils # (Auto) 0.3 x10^3/uL (0.0-0.7) Basophils # (Auto) 0.6 x10^3/uL (0.0-0.2) Problem List Problems Medical Problems: (1) Leukocytosis Status: Acute (2) Right lower quadrant abdominal pain Status: Acute Assessment/Plan s/p lap appendectomy await bowel fxn suspect WBC elevated in post splenectomy state (appears trauma related) Justicifation of Admission Dx: Justifications for Admission: Justification of Admission Dx: N/A NI VARGAS MD May 12, 2021 14:27
[2021-05-12 14:40] LABS: ALBUMIN 3.5 g/dL (3.4-5.0); ALBUMIN/GLOBULIN RATIO 0.9 (1.0-1.7); CALCIUM 8.3 mg/dL (8.5-10.1); CREATININE 0.9 mg/dL (0.7-1.3); GFR 87.6; POTASSIUM 3.8 mmol/L (3.5-5.1); TOTAL BILIRUBIN 0.3 mg/dL (0.2-1.0); TOTAL PROTEIN 7.4 g/dL (6.4-8.2)
[2021-05-12 15:00] VITALS: BP 117/67
[2021-05-12] MEDS: INSULIN LISPRO 300 UNITS/3 ML VIAL. SQ SCH (17:00)
[2021-05-12 19:00] VITALS: BP 133/77
[2021-05-12] MEDS: AMOXICILLIN/K CLAV 875/125MG TABLET. PO SCH (21:20)
[2021-05-12] MEDS: ATORVASTATIN CALCIUM 40 MG TABLET. PO SCH (21:20)
[2021-05-12 23:00] VITALS: BP 126/73
[2021-05-13] VITALS (7 sets, daily range): BP systolic 125–145; BP diastolic 76–91
[2021-05-13] MEDS: oxyCODONE/APAP 5/325 1 TAB TABLET PO PRN ×5 (00:11→20:10)
[2021-05-13] MEDS: INSULIN LISPRO 300 UNITS/3 ML VIAL. SQ SCH ×3 (08:00→17:00)
[2021-05-13] MEDS: GABAPENTIN 300 MG CAPSULE. PO SCH ×3 (08:33→20:10)
[2021-05-13] MEDS: AMOXICILLIN/K CLAV 875/125MG TABLET. PO SCH ×2 (08:33→20:10)
[2021-05-13] MEDS: PANTOPRAZOLE 40 MG TABLET.DR. PO SCH (08:33)
[2021-05-13] MEDS: EZETIMIBE 10 MG TABLET. PO SCH (08:34)
[2021-05-13] MEDS: hydroCHLOROthiazide 12.5 MG CAPSULE PO SCH (08:34)
[2021-05-13] MEDS: LOSARTAN POTASSIUM 50 MG TABLET. PO SCH (08:34)
--- NOTE | 2021-05-13 10:55 | PDOC ---
[employer] PROGRESS NOTE Date of Service DOS: DATE: 05/13/21 TIME: 10:53 Chief Complaint Chief Complaint Appendicitis - s/p uncomplicated laparascopic appendectomy on 05/10/21 Leukocytosis - he is s/p splenectomy. Will cont to cover for possible encapsulated organisms given his immunocompromised status, change to augmentin. f/u CBC in AM Asthma - prn albuterol Diabetes-Type II - sliding scale, holding metformin given CTA High Cholesterol Hypertension - toprol and losartan HCTZ S/p splenectomy - likely etiology of leukocytosis FEN - ADA diet History of Present Illness History of Present Illness Mr Smith is a 55yo male with PMHx Asthma, Diabetes-Type II, High Cholesterol, Hypertension admitted for 3 day history of abdominal pain, found with early appendicitis. 05/10: S/p laparascopic appendectomy 05/11: Patient seen and examined. Sitting up, ate his breakfast. 05/12: Having some epigastric and suprapubic fullness and gas. WBC noted elevated postoperatively and vomiting delayed discharge. Notably is status post splenectomy. 05/13: Headache 10/ today. had some further nausea and vomiting and now has some decreased appetite and right lower quadrant pain again. If persists will get KUB in a.m. and back diet off to full liquids. Vitals/I&O Vitals/I&O: Vital Signs Date Time Temp Pulse Resp B/P (MAP) Pulse Ox O2 Delivery O2 Flow Rate FiO2 05/13/21 09:08 Room Air 05/13/21 08:34 102 131/85 05/13/21 07:00 98.4 18 95 98.4 I & O 05/12/21 05/12/21 05/13/21 15:00 23:00 07:00 Intake Total 360 ml Balance 360 ml Physical Exam General: Alert, Oriented X3, Cooperative, No acute distress Heart: Regular rate, No murmurs Lungs: Clear Abdomen: Soft, No tenderness, Other (dressing intact) Extremities: No clubbing, No edema Skin: No rashes, No significant lesion Labs Labs: Laboratory Tests Test 05/12/21 11:23 05/12/21 13:53 05/12/21 16:53 05/12/21 20:14 Glucose (Fingerstick) 134 mg/dL (70-99) 127 mg/dL (70-99) 95 mg/dL (70-99) White Blood Count 34.9 x10^3/uL (4.0-11.0) Red Blood Count 4.56 x10^6/uL (4.30-5.70) Hemoglobin 12.8 g/dL (13.0-17.5) Hematocrit 40.6 % (39.0-53.0) Mean Corpuscular Volume 89 fL (79-100) Mean Corpuscular Hemoglobin 28 pg (25-35) Mean Corpuscular Hemoglobin Concent 32 g/dL (31-37) Red Cell Distribution Width 16.1 % (11.5-14.5) Platelet Count 393 x10^3/uL (140-400) Neutrophils (%) (Auto) 81 % (31-73) Lymphocytes (%) (Auto) 11 % (24-48) Monocytes (%) (Auto) 5 % (0-9) Eosinophils (%) (Auto) 1 % (0-3) Basophils (%) (Auto) 2 % (0-3) Neutrophils # (Auto) 28.3 x10^3/uL (1.8-7.7) Lymphocytes # (Auto) 3.9 x10^3/uL (1.0-4.8) Monocytes # (Auto) 1.8 x10^3/uL (0.0-1.1) Eosinophils # (Auto) 0.3 x10^3/uL (0.0-0.7) Basophils # (Auto) 0.6 x10^3/uL (0.0-0.2) Sodium Level 140 mmol/L (136-145) Potassium Level 3.8 mmol/L (3.5-5.1) Chloride Level 101 mmol/L (98-107) Carbon Dioxide Level 30 mmol/L (21-32) Anion Gap 9 (6-14) Blood Urea Nitrogen 13 mg/dL (8-26) Creatinine 0.9 mg/dL (0.7-1.3) Estimated GFR (Cockcroft-Gault) 87.6 BUN/Creatinine Ratio 14 (6-20) Glucose Level 130 mg/dL (70-99) Calcium Level 8.3 mg/dL (8.5-10.1) Total Bilirubin 0.3 mg/dL (0.2-1.0) Aspartate Amino Transf (AST/SGOT) 15 U/L (15-37) Alanine Aminotransferase (ALT/SGPT) 31 U/L (16-63) Alkaline Phosphatase 54 U/L (46-116) Total Protein 7.4 g/dL (6.4-8.2) Albumin 3.5 g/dL (3.4-5.0) Albumin/Globulin Ratio 0.9 (1.0-1.7) Test 05/13/21 07:58 Glucose (Fingerstick) 107 mg/dL (70-99) Assessment and Plan Assessmemt and Plan Problems Medical Problems: (1) Leukocytosis Status: Acute (2) Right lower quadrant abdominal pain Status: Acute Comment Review of Relevant I have reviewed the following items samira (where applicable) has been applied. Medications: Current Medications Medications (Trade) Dose Ordered Sig/Santino Route PRN Reason Start Time Stop Time Status Last Admin Dose Admin Amoxicillin/ Clavulanate Potassium (Augmentin 875/ 125mg) 1 tab BID PO 05/12/21 21:00 05/13/21 08:33 Justifications for Admission Other Justification JOSE MARTINEZ MD May 13, 2021 10:55
[2021-05-13] MEDS ORDERED: PROCHLORPERAZINE 10 MG/2 ML VIAL. IV PRN (11:00)
[2021-05-13 12:41] LABS: BASO # 0.6 x10^3/uL (0.0-0.2); BASO % 2 % (0-3); EOS # 0.4 x10^3/uL (0.0-0.7); EOS % 1 % (0-3); HEMATOCRIT 41.4 % (39.0-53.0); LYMPH # 3.6 x10^3/uL (1.0-4.8); LYMPH % 9 % (24-48); MEAN CORPUSCULAR HEMOGLOBIN 28 pg (25-35); MEAN CORPUSCULAR HGB CONC 31 g/dL (31-37); MEAN CORPUSCULAR VOLUME 89 fL (79-100); MONO # 2.2 x10^3/uL (0.0-1.1); MONO % 6 % (0-9); NEUT # 31.9 x10^3/uL (1.8-7.7); NEUT % 83 % (31-73); PLATELET COUNT 419 x10^3/uL (140-400); RED BLOOD COUNT 4.66 x10^6/uL (4.30-5.70); RED CELL DISTRIBUTION WIDTH 15.6 % (11.5-14.5); WHITE BLOOD COUNT 38.6 x10^3/uL (4.0-11.0)
[2021-05-13] MEDS: METOPROLOL SUCC 24HR ER 50 MG TAB.ER.24H. PO SCH (13:40)
--- NOTE | 2021-05-13 14:03 | PDOC ---
SURGICAL PROGRESS NOTE DATE: 05/13/21 TIME: 14:01 Subjective Pt with c/o epigastric abd pain and nausea, minimally improved Vital Signs Vital Signs Date Time Temp Pulse Resp B/P (MAP) Pulse Ox O2 Delivery O2 Flow Rate FiO2 05/13/21 13:40 102 131/85 05/13/21 09:38 Room Air 05/13/21 07:00 98.4 18 95 98.4 I&O Intake and Output 05/13/21 07:00 Intake Total 360 ml Balance 360 ml Intake Oral 360 ml # Voids 5 General: Alert, Oriented X3, Cooperative, mild distress Abdomen: Soft, Other (mild TTP epigastric) Labs Laboratory Tests Test 05/11/21 16:53 05/11/21 20:21 05/12/21 07:58 05/12/21 11:23 Glucose (Fingerstick) 130 mg/dL (70-99) 156 mg/dL (70-99) 115 mg/dL (70-99) 134 mg/dL (70-99) Test 05/12/21 13:53 05/12/21 16:53 05/12/21 20:14 05/13/21 07:58 White Blood Count 34.9 x10^3/uL (4.0-11.0) Red Blood Count 4.56 x10^6/uL (4.30-5.70) Hemoglobin 12.8 g/dL (13.0-17.5) Hematocrit 40.6 % (39.0-53.0) Mean Corpuscular Volume 89 fL (79-100) Mean Corpuscular Hemoglobin 28 pg (25-35) Mean Corpuscular Hemoglobin Concent 32 g/dL (31-37) Red Cell Distribution Width 16.1 % (11.5-14.5) Platelet Count 393 x10^3/uL (140-400) Neutrophils (%) (Auto) 81 % (31-73) Lymphocytes (%) (Auto) 11 % (24-48) Monocytes (%) (Auto) 5 % (0-9) Eosinophils (%) (Auto) 1 % (0-3) Basophils (%) (Auto) 2 % (0-3) Neutrophils # (Auto) 28.3 x10^3/uL (1.8-7.7) Lymphocytes # (Auto) 3.9 x10^3/uL (1.0-4.8) Monocytes # (Auto) 1.8 x10^3/uL (0.0-1.1) Eosinophils # (Auto) 0.3 x10^3/uL (0.0-0.7) Basophils # (Auto) 0.6 x10^3/uL (0.0-0.2) Sodium Level 140 mmol/L (136-145) Potassium Level 3.8 mmol/L (3.5-5.1) Chloride Level 101 mmol/L (98-107) Carbon Dioxide Level 30 mmol/L (21-32) Anion Gap 9 (6-14) Blood Urea Nitrogen 13 mg/dL (8-26) Creatinine 0.9 mg/dL (0.7-1.3) Estimated GFR (Cockcroft-Gault) 87.6 BUN/Creatinine Ratio 14 (6-20) Glucose Level 130 mg/dL (70-99) Calcium Level 8.3 mg/dL (8.5-10.1) Total Bilirubin 0.3 mg/dL (0.2-1.0) Aspartate Amino Transf (AST/SGOT) 15 U/L (15-37) Alanine Aminotransferase (ALT/SGPT) 31 U/L (16-63) Alkaline Phosphatase 54 U/L (46-116) Total Protein 7.4 g/dL (6.4-8.2) Albumin 3.5 g/dL (3.4-5.0) Albumin/Globulin Ratio 0.9 (1.0-1.7) Glucose (Fingerstick) 127 mg/dL (70-99) 95 mg/dL (70-99) 107 mg/dL (70-99) Test 05/13/21 11:39 05/13/21 12:22 Glucose (Fingerstick) 132 mg/dL (70-99) White Blood Count 38.6 x10^3/uL (4.0-11.0) Red Blood Count 4.66 x10^6/uL (4.30-5.70) Hemoglobin 13.0 g/dL (13.0-17.5) Hematocrit 41.4 % (39.0-53.0) Mean Corpuscular Volume 89 fL (79-100) Mean Corpuscular Hemoglobin 28 pg (25-35) Mean Corpuscular Hemoglobin Concent 31 g/dL (31-37) Red Cell Distribution Width 15.6 % (11.5-14.5) Platelet Count 419 x10^3/uL (140-400) Neutrophils (%) (Auto) 83 % (31-73) Lymphocytes (%) (Auto) 9 % (24-48) Monocytes (%) (Auto) 6 % (0-9) Eosinophils (%) (Auto) 1 % (0-3) Basophils (%) (Auto) 2 % (0-3) Neutrophils # (Auto) 31.9 x10^3/uL (1.8-7.7) Lymphocytes # (Auto) 3.6 x10^3/uL (1.0-4.8) Monocytes # (Auto) 2.2 x10^3/uL (0.0-1.1) Eosinophils # (Auto) 0.4 x10^3/uL (0.0-0.7) Basophils # (Auto) 0.6 x10^3/uL (0.0-0.2) Laboratory Tests Test 05/12/21 16:53 05/12/21 20:14 05/13/21 07:58 05/13/21 11:39 Glucose (Fingerstick) 127 mg/dL (70-99) 95 mg/dL (70-99) 107 mg/dL (70-99) 132 mg/dL (70-99) Test 05/13/21 12:22 White Blood Count 38.6 x10^3/uL (4.0-11.0) Red Blood Count 4.66 x10^6/uL (4.30-5.70) Hemoglobin 13.0 g/dL (13.0-17.5) Hematocrit 41.4 % (39.0-53.0) Mean Corpuscular Volume 89 fL (79-100) Mean Corpuscular Hemoglobin 28 pg (25-35) Mean Corpuscular Hemoglobin Concent 31 g/dL (31-37) Red Cell Distribution Width 15.6 % (11.5-14.5) Platelet Count 419 x10^3/uL (140-400) Neutrophils (%) (Auto) 83 % (31-73) Lymphocytes (%) (Auto) 9 % (24-48) Monocytes (%) (Auto) 6 % (0-9) Eosinophils (%) (Auto) 1 % (0-3) Basophils (%) (Auto) 2 % (0-3) Neutrophils # (Auto) 31.9 x10^3/uL (1.8-7.7) Lymphocytes # (Auto) 3.6 x10^3/uL (1.0-4.8) Monocytes # (Auto) 2.2 x10^3/uL (0.0-1.1) Eosinophils # (Auto) 0.4 x10^3/uL (0.0-0.7) Basophils # (Auto) 0.6 x10^3/uL (0.0-0.2) Problem List Problems Medical Problems: (1) Leukocytosis Status: Acute (2) Right lower quadrant abdominal pain Status: Acute Assessment/Plan cont supportive care if not improved in AM consider CT will ask hematology to comment on elevated WBC. Justicifation of Admission Dx: Justifications for Admission: Justification of Admission Dx: N/A NI VARGAS MD May 13, 2021 14:03
[2021-05-13] MEDS: ATORVASTATIN CALCIUM 40 MG TABLET. PO SCH (20:10)
[2021-05-14] MEDS: oxyCODONE/APAP 5/325 1 TAB TABLET PO PRN ×3 (00:36→12:51)
[2021-05-14 03:00] VITALS: BP 146/87
[2021-05-14 07:15] VITALS: BP 135/84
[2021-05-14] MEDS: INSULIN LISPRO 300 UNITS/3 ML VIAL. SQ SCH ×3 (08:00→17:00)
[2021-05-14] MEDS: GABAPENTIN 300 MG CAPSULE. PO SCH ×2 (08:10→14:00)
[2021-05-14] MEDS: PANTOPRAZOLE 40 MG TABLET.DR. PO SCH (08:10)
[2021-05-14] MEDS: AMOXICILLIN/K CLAV 875/125MG TABLET. PO SCH (08:10)
[2021-05-14] MEDS: LOSARTAN POTASSIUM 50 MG TABLET. PO SCH (08:10)
[2021-05-14] MEDS: hydroCHLOROthiazide 12.5 MG CAPSULE PO SCH (08:10)
[2021-05-14] MEDS: EZETIMIBE 10 MG TABLET. PO SCH (08:10)
[2021-05-14 08:42] LABS: BASO # 0.9 x10^3/uL (0.0-0.2); BASO % 2 % (0-3); EOS # 0.3 x10^3/uL (0.0-0.7); EOS % 1 % (0-3); HEMATOCRIT 41.5 % (39.0-53.0); HEMOGLOBIN 13.1 g/dL (13.0-17.5); LYMPH # 4.2 x10^3/uL (1.0-4.8); LYMPH % 10 % (24-48); MEAN CORPUSCULAR HEMOGLOBIN 28 pg (25-35); MEAN CORPUSCULAR HGB CONC 32 g/dL (31-37); MEAN CORPUSCULAR VOLUME 90 fL (79-100); MONO # 2.4 x10^3/uL (0.0-1.1); MONO % 6 % (0-9); NEUT # 34.6 x10^3/uL (1.8-7.7); NEUT % 82 % (31-73); PLATELET COUNT 447 x10^3/uL (140-400); RED BLOOD COUNT 4.62 x10^6/uL (4.30-5.70); RED CELL DISTRIBUTION WIDTH 15.8 % (11.5-14.5)
[2021-05-14 08:58] LABS: WHITE BLOOD COUNT 42.4 x10^3/uL (4.0-11.0)
--- NOTE | 2021-05-14 08:59 | RAD ---
XR ABDOMEN 1V History: Postop ileus Comparison: CT abdomen and pelvis 05/10/2021 Technique: AP portable supine radiograph of the abdomen. Findings: Bowel gas pattern: There are multiple mildly dilated gas-filled small bowel loops throughout the abdo men. Free air: No supine evidence. Abnormal calcifications: None. Bones: Mild degenerative changes in the spine. Other: Right upper quadrant cholecystectomy clips. Impression: 1. Mild distention of multiple small bowel loops may represent postop ileus or obstruction. Electronically signed by: Damon Thacker MD (05/14/2021 8:57 AM) [id number]
--- NOTE | 2021-05-14 09:13 | PDOC ---
SURGICAL PROGRESS NOTE DATE: 05/14/21 TIME: 09:11 Subjective he says his pain is better, RLQ but does need medication no nausea or emesis, did eat some breakfast + flatus Vital Signs Vital Signs Date Time Temp Pulse Resp B/P (MAP) Pulse Ox O2 Delivery O2 Flow Rate FiO2 05/14/21 08:11 Room Air 05/14/21 08:10 94 146/87 05/14/21 07:15 98.4 18 92 98.4 I&O Intake and Output 05/14/21 07:00 # Voids 3 General: Alert, Oriented X3, Cooperative Abdomen: Soft, Other (dressings dry, mildly distended ) Labs Laboratory Tests Test 05/12/21 11:23 05/12/21 13:53 05/12/21 16:53 05/12/21 20:14 Glucose (Fingerstick) 134 mg/dL (70-99) 127 mg/dL (70-99) 95 mg/dL (70-99) White Blood Count 34.9 x10^3/uL (4.0-11.0) Red Blood Count 4.56 x10^6/uL (4.30-5.70) Hemoglobin 12.8 g/dL (13.0-17.5) Hematocrit 40.6 % (39.0-53.0) Mean Corpuscular Volume 89 fL (79-100) Mean Corpuscular Hemoglobin 28 pg (25-35) Mean Corpuscular Hemoglobin Concent 32 g/dL (31-37) Red Cell Distribution Width 16.1 % (11.5-14.5) Platelet Count 393 x10^3/uL (140-400) Neutrophils (%) (Auto) 81 % (31-73) Lymphocytes (%) (Auto) 11 % (24-48) Monocytes (%) (Auto) 5 % (0-9) Eosinophils (%) (Auto) 1 % (0-3) Basophils (%) (Auto) 2 % (0-3) Neutrophils # (Auto) 28.3 x10^3/uL (1.8-7.7) Lymphocytes # (Auto) 3.9 x10^3/uL (1.0-4.8) Monocytes # (Auto) 1.8 x10^3/uL (0.0-1.1) Eosinophils # (Auto) 0.3 x10^3/uL (0.0-0.7) Basophils # (Auto) 0.6 x10^3/uL (0.0-0.2) Sodium Level 140 mmol/L (136-145) Potassium Level 3.8 mmol/L (3.5-5.1) Chloride Level 101 mmol/L (98-107) Carbon Dioxide Level 30 mmol/L (21-32) Anion Gap 9 (6-14) Blood Urea Nitrogen 13 mg/dL (8-26) Creatinine 0.9 mg/dL (0.7-1.3) Estimated GFR (Cockcroft-Gault) 87.6 BUN/Creatinine Ratio 14 (6-20) Glucose Level 130 mg/dL (70-99) Calcium Level 8.3 mg/dL (8.5-10.1) Total Bilirubin 0.3 mg/dL (0.2-1.0) Aspartate Amino Transf (AST/SGOT) 15 U/L (15-37) Alanine Aminotransferase (ALT/SGPT) 31 U/L (16-63) Alkaline Phosphatase 54 U/L (46-116) Total Protein 7.4 g/dL (6.4-8.2) Albumin 3.5 g/dL (3.4-5.0) Albumin/Globulin Ratio 0.9 (1.0-1.7) Test 05/13/21 07:58 05/13/21 11:39 05/13/21 12:22 05/14/21 07:11 Glucose (Fingerstick) 107 mg/dL (70-99) 132 mg/dL (70-99) 99 mg/dL (70-99) White Blood Count 38.6 x10^3/uL (4.0-11.0) Red Blood Count 4.66 x10^6/uL (4.30-5.70) Hemoglobin 13.0 g/dL (13.0-17.5) Hematocrit 41.4 % (39.0-53.0) Mean Corpuscular Volume 89 fL (79-100) Mean Corpuscular Hemoglobin 28 pg (25-35) Mean Corpuscular Hemoglobin Concent 31 g/dL (31-37) Red Cell Distribution Width 15.6 % (11.5-14.5) Platelet Count 419 x10^3/uL (140-400) Neutrophils (%) (Auto) 83 % (31-73) Lymphocytes (%) (Auto) 9 % (24-48) Monocytes (%) (Auto) 6 % (0-9) Eosinophils (%) (Auto) 1 % (0-3) Basophils (%) (Auto) 2 % (0-3) Neutrophils # (Auto) 31.9 x10^3/uL (1.8-7.7) Lymphocytes # (Auto) 3.6 x10^3/uL (1.0-4.8) Monocytes # (Auto) 2.2 x10^3/uL (0.0-1.1) Eosinophils # (Auto) 0.4 x10^3/uL (0.0-0.7) Basophils # (Auto) 0.6 x10^3/uL (0.0-0.2) Test 05/14/21 07:15 White Blood Count 42.4 x10^3/uL (4.0-11.0) Red Blood Count 4.62 x10^6/uL (4.30-5.70) Hemoglobin 13.1 g/dL (13.0-17.5) Hematocrit 41.5 % (39.0-53.0) Mean Corpuscular Volume 90 fL (79-100) Mean Corpuscular Hemoglobin 28 pg (25-35) Mean Corpuscular Hemoglobin Concent 32 g/dL (31-37) Red Cell Distribution Width 15.8 % (11.5-14.5) Platelet Count 447 x10^3/uL (140-400) Neutrophils (%) (Auto) 82 % (31-73) Lymphocytes (%) (Auto) 10 % (24-48) Monocytes (%) (Auto) 6 % (0-9) Eosinophils (%) (Auto) 1 % (0-3) Basophils (%) (Auto) 2 % (0-3) Neutrophils # (Auto) 34.6 x10^3/uL (1.8-7.7) Lymphocytes # (Auto) 4.2 x10^3/uL (1.0-4.8) Monocytes # (Auto) 2.4 x10^3/uL (0.0-1.1) Eosinophils # (Auto) 0.3 x10^3/uL (0.0-0.7) Basophils # (Auto) 0.9 x10^3/uL (0.0-0.2) Laboratory Tests Test 05/13/21 11:39 05/13/21 12:22 05/14/21 07:11 05/14/21 07:15 Glucose (Fingerstick) 132 mg/dL (70-99) 99 mg/dL (70-99) White Blood Count 38.6 x10^3/uL (4.0-11.0) 42.4 x10^3/uL (4.0-11.0) Red Blood Count 4.66 x10^6/uL (4.30-5.70) 4.62 x10^6/uL (4.30-5.70) Hemoglobin 13.0 g/dL (13.0-17.5) 13.1 g/dL (13.0-17.5) Hematocrit 41.4 % (39.0-53.0) 41.5 % (39.0-53.0) Mean Corpuscular Volume 89 fL (79-100) 90 fL (79-100) Mean Corpuscular Hemoglobin 28 pg (25-35) 28 pg (25-35) Mean Corpuscular Hemoglobin Concent 31 g/dL (31-37) 32 g/dL (31-37) Red Cell Distribution Width 15.6 % (11.5-14.5) 15.8 % (11.5-14.5) Platelet Count 419 x10^3/uL (140-400) 447 x10^3/uL (140-400) Neutrophils (%) (Auto) 83 % (31-73) 82 % (31-73) Lymphocytes (%) (Auto) 9 % (24-48) 10 % (24-48) Monocytes (%) (Auto) 6 % (0-9) 6 % (0-9) Eosinophils (%) (Auto) 1 % (0-3) 1 % (0-3) Basophils (%) (Auto) 2 % (0-3) 2 % (0-3) Neutrophils # (Auto) 31.9 x10^3/uL (1.8-7.7) 34.6 x10^3/uL (1.8-7.7) Lymphocytes # (Auto) 3.6 x10^3/uL (1.0-4.8) 4.2 x10^3/uL (1.0-4.8) Monocytes # (Auto) 2.2 x10^3/uL (0.0-1.1) 2.4 x10^3/uL (0.0-1.1) Eosinophils # (Auto) 0.4 x10^3/uL (0.0-0.7) 0.3 x10^3/uL (0.0-0.7) Basophils # (Auto) 0.6 x10^3/uL (0.0-0.2) 0.9 x10^3/uL (0.0-0.2) Problem List Problems Medical Problems: (1) Leukocytosis Status: Acute (2) Right lower quadrant abdominal pain Status: Acute Assessment/Plan gradual improvement in symptoms Justicifation of Admission Dx: Justifications for Admission: Justification of Admission Dx: N/A KATHY LINN APRN May 14, 2021 09:13
--- NOTE | 2021-05-14 10:40 | NUR ---
SW following. Discussed with RN, pt from home, room air, full liquid diet, rapid COVID-19 negative. Surgery on 05/10/21. WBC increased - awaiting heme follow up. RN advised no SW needs at this time. SW will continue to follow.
--- NOTE | 2021-05-14 11:07 | PDOC ---
[employer] PROGRESS NOTE Date of Service DOS: DATE: 05/14/21 TIME: 11:06 Chief Complaint Chief Complaint Appendicitis - s/p uncomplicated laparascopic appendectomy on 05/10/21 Leukocytosis - he is s/p splenectomy. Will cont to cover for possible encapsulated organisms given his immunocompromised status, change to augmentin. f/u CBC in AM Asthma - prn albuterol Diabetes-Type II - sliding scale, holding metformin given CTA High Cholesterol Hypertension - toprol and losartan HCTZ S/p splenectomy - likely etiology of leukocytosis FEN - ADA diet History of Present Illness History of Present Illness Mr Smith is a 55yo male with PMHx Asthma, Diabetes-Type II, High Cholesterol, Hypertension admitted for 3 day history of abdominal pain, found with early appendicitis. 05/10: S/p laparascopic appendectomy 05/11: Patient seen and examined. Sitting up, ate his breakfast. 05/12: Having some epigastric and suprapubic fullness and gas. WBC noted elevated postoperatively and vomiting delayed discharge. Notably is status post splenectomy. 05/13: Headache 10/ today. had some further nausea and vomiting and now has some decreased appetite and right lower quadrant pain again. 05/14: Still with nausea. WBC over 40 today. KUB concerning for possible ileus, still passing flatus. Discussed with hematology oncology likely leukocytosis is postsplenectomy and related appendicitis. Discussed with surgery will get repeat CT abdomen pelvis if no signs of intra-abdominal process he may be able to go home with pain medication and continue antibiotics for total of 7 days. Vitals/I&O Vitals/I&O: Vital Signs Date Time Temp Pulse Resp B/P (MAP) Pulse Ox O2 Delivery O2 Flow Rate FiO2 05/14/21 08:41 Room Air 05/14/21 08:10 94 146/87 05/14/21 07:15 98.4 18 92 98.4 Physical Exam General: Alert, Oriented X3, Cooperative Heart: Regular rate, No murmurs Lungs: Clear Abdomen: Soft, Other (dressings dry, mildly distended ) Extremities: No clubbing, No edema Skin: No rashes, No significant lesion Labs Labs: Laboratory Tests Test 05/13/21 11:39 05/13/21 12:22 05/14/21 07:11 05/14/21 07:15 Glucose (Fingerstick) 132 mg/dL (70-99) 99 mg/dL (70-99) White Blood Count 38.6 x10^3/uL (4.0-11.0) 42.4 x10^3/uL (4.0-11.0) Red Blood Count 4.66 x10^6/uL (4.30-5.70) 4.62 x10^6/uL (4.30-5.70) Hemoglobin 13.0 g/dL (13.0-17.5) 13.1 g/dL (13.0-17.5) Hematocrit 41.4 % (39.0-53.0) 41.5 % (39.0-53.0) Mean Corpuscular Volume 89 fL (79-100) 90 fL (79-100) Mean Corpuscular Hemoglobin 28 pg (25-35) 28 pg (25-35) Mean Corpuscular Hemoglobin Concent 31 g/dL (31-37) 32 g/dL (31-37) Red Cell Distribution Width 15.6 % (11.5-14.5) 15.8 % (11.5-14.5) Platelet Count 419 x10^3/uL (140-400) 447 x10^3/uL (140-400) Neutrophils (%) (Auto) 83 % (31-73) 82 % (31-73) Lymphocytes (%) (Auto) 9 % (24-48) 10 % (24-48) Monocytes (%) (Auto) 6 % (0-9) 6 % (0-9) Eosinophils (%) (Auto) 1 % (0-3) 1 % (0-3) Basophils (%) (Auto) 2 % (0-3) 2 % (0-3) Neutrophils # (Auto) 31.9 x10^3/uL (1.8-7.7) 34.6 x10^3/uL (1.8-7.7) Lymphocytes # (Auto) 3.6 x10^3/uL (1.0-4.8) 4.2 x10^3/uL (1.0-4.8) Monocytes # (Auto) 2.2 x10^3/uL (0.0-1.1) 2.4 x10^3/uL (0.0-1.1) Eosinophils # (Auto) 0.4 x10^3/uL (0.0-0.7) 0.3 x10^3/uL (0.0-0.7) Basophils # (Auto) 0.6 x10^3/uL (0.0-0.2) 0.9 x10^3/uL (0.0-0.2) Test 05/14/21 10:51 Glucose (Fingerstick) 129 mg/dL (70-99) Assessment and Plan Assessmemt and Plan Problems Medical Problems: (1) Leukocytosis Status: Acute (2) Right lower quadrant abdominal pain Status: Acute Comment Review of Relevant I have reviewed the following items samira (where applicable) has been applied. Medications: Current Medications Medications (Trade) Dose Ordered Sig/Santino Route PRN Reason Start Time Stop Time Status Last Admin Dose Admin Metoprolol Succinate (Toprol Xl) 50 mg NOON PO 05/13/21 13:30 05/13/21 13:40 Justifications for Admission Other Justification JOSE MARTINEZ MD May 14, 2021 11:07
[2021-05-14 11:08] VITALS: BP 142/92
[2021-05-14] MEDS: METOPROLOL SUCC 24HR ER 50 MG TAB.ER.24H. PO SCH (12:51)
--- NOTE | 2021-05-14 14:19 | PDOC2 ---
CONSULT Date of Consult Date of Consult DATE: 05/14/21 TIME: 14:12 Reason for Consult Reason for Consult: Leukocytosis Referring Physician Referring Physician: Dr. Gill Identification/Chief Complaint Chief Complaint Abdominal pain Source Source: Chart review, Patient History of Present Illness Reason for Visit: Bernie Smith is a 55-year-old male with history of asthma, Diabetes-Type II, High Cholesterol, Hypertension who presented to the hospital with abdominal pain. CT AP obtained for further evaluation showed subtle stranding surrounding the appendiceal tip which is nonspecific. He was admitted for further evaluation and management. He was started on antibiotics. CBC on admission showed neutrophilic leukocytosis with WBC count of 27. Left shift was also noted. He received laparoscopic appendectomy on 05/10/2020 with persistent leukocytosis postoperatively. KUB postop showed possible ileus. He has been passing flatus. WBC count has continued to increase over the past 4 days and measured at 42.4 with ANC of 34.6. Hematology consultation has been requested for further evaluation of leukocytosis. The patient does have a history of splenectomy. Past Medical History Cardiovascular: HTN, Hyperlipidemia Pulmonary: Asthma CENTRAL NERVOUS SYSTEM: Other GI: GERD Heme/Onc: No pertinent hx Hepatobiliary: No pertinent hx Psych: No pertinent hx Musculoskeletal: Osteoarthritis Rheumatologic: No pertinent hx Infectious disease: No pertinent hx Renal/: No pertinent hx Endocrine: No pertinent hx Past Surgical History Past Surgical History: Cholecystectomy, Other Family History Family History: No Significant, High Cholestrol, Family History Unknown Social History ALCOHOL: none Drugs: None Lives: with Family Current Problem List Problem List Problems Medical Problems: (1) Leukocytosis Status: Acute (2) Right lower quadrant abdominal pain Status: Acute Current Medications Current Medications Current Medications Ondansetron HCl (Zofran) 4 mg 1X ONCE IVP Last administered on 05/10/21at 15:32; Start 05/10/21 at 15:30; Stop 05/10/21 at 15:31; Status DC Fentanyl Citrate (Fentanyl 2ml Vial) 50 mcg 1X ONCE IVP Last administered on 05/10/21at 15:32; Start 05/10/21 at 15:30; Stop 05/10/21 at 15:31; Status DC Iohexol (Omnipaque 350 Mg/ml) 100 ml 1X ONCE IV Last administered on 05/10/21at 15:59; Start 05/10/21 at 16:00; Stop 05/10/21 at 16:01; Status DC Info (CONTRAST GIVEN -- Rx MONITORING) 1 each PRN DAILY PRN MC SEE COMMENTS; Start 05/10/21 at 16:00; Stop 05/12/21 at 15:59; Status DC Ondansetron HCl (Zofran) 4 mg 1X ONCE IVP Last administered on 05/10/21at 17:35; Start 05/10/21 at 17:15; Stop 05/10/21 at 17:16; Status DC Morphine Sulfate (Morphine Sulfate) 4 mg 1X ONCE IVP Last administered on 05/10/21at 17:34; Start 05/10/21 at 17:15; Stop 05/10/21 at 17:16; Status DC Bupivacaine HCl/ Epinephrine Bitart (Sensorcaine-Epi 0.25%-1:832792 Mpf) 30 ml STK-MED ONCE .ROUTE Last administered on 05/10/21at 18:37; Start 05/10/21 at 16:48; Stop 05/10/21 at 16:49; Status DC Morphine Sulfate (Morphine Sulfate) 2 mg PRN Q2HR PRN IVP PAIN Last administered on 05/11/21at 04:51; Start 05/10/21 at 17:00; Stop 05/11/21 at 16:59; Status DC Lidocaine HCl (Lidocaine Pf 2% Vial) 5 ml STK-MED ONCE .ROUTE ; Start 05/10/21 at 17:27; Stop 05/10/21 at 17:27; Status DC Propofol (Diprivan) 200 mg STK-MED ONCE IV ; Start 05/10/21 at 17:27; Stop 05/10/21 at 17:27; Status DC Ondansetron HCl (Zofran) 4 mg STK-MED ONCE .ROUTE ; Start 05/10/21 at 17:27; Stop 05/10/21 at 17:27; Status DC Dexamethasone Sodium Phosphate (Decadron) 4 mg STK-MED ONCE .ROUTE ; Start 05/10/21 at 17:27; Stop 05/10/21 at 17:27; Status DC Rocuronium Coulter (Zemuron) 50 mg STK-MED ONCE .ROUTE ; Start 05/10/21 at 17:27; Stop 05/10/21 at 17:28; Status DC Fentanyl Citrate (Fentanyl 2ml Vial) 100 mcg STK-MED ONCE .ROUTE ; Start 05/10/21 at 17:28; Stop 05/10/21 at 17:28; Status DC Fentanyl Citrate (Fentanyl 2ml Vial) 25 mcg PRN Q5MIN PRN IVP MILD PAIN 1-3; Start 05/10/21 at 18:00; Stop 05/11/21 at 17:59; Status DC Fentanyl Citrate (Fentanyl 2ml Vial) 50 mcg PRN Q5MIN PRN IVP MODERATE PAIN 4-6 Last administered on 05/10/21at 19:46; Start 05/10/21 at 18:00; Stop 05/11/21 at 17:59; Status DC Morphine Sulfate (Morphine Sulfate) 1 mg PRN Q10MIN PRN IVP SEVERE PAIN 7-10; Start 05/10/21 at 18:00; Stop 05/11/21 at 17:59; Status DC Ringer's Solution 1,000 ml @ 30 mls/hr Q24H IV Last administered on 05/10/21at 18:00; Start 05/10/21 at 18:00; Stop 05/11/21 at 05:59; Status DC Hydromorphone HCl (Dilaudid) 0.5 mg PRN Q10MIN PRN IVP SEVERE PAIN 7-10, 2nd CHOICE; Start 05/10/21 at 18:00; Stop 05/11/21 at 17:59; Status DC Prochlorperazine Edisylate (Compazine) 5 mg PACU PRN PRN IVP NAUSEA, MRX1 Last administered on 05/10/21at 19:34; Start 05/10/21 at 18:00; Stop 05/11/21 at 17:59; Status DC Insulin Human Lispro (HumaLOG VIAL for OP,RR ONLY) 0-10 units PRN Q1HR PRN SQ PER PROTOCOL; Start 05/10/21 at 18:00; Stop 05/11/21 at 17:59; Status DC Piperacillin Sod/ Tazobactam Sod 3.375 gm/Sodium Chloride 50 ml @ 100 mls/hr 1X ONCE IV Last administered on 05/10/21at 18:00; Start 05/10/21 at 18:00; Stop 05/10/21 at 18:29; Status DC Famotidine (Pepcid Vial) 20 mg STK-MED ONCE .ROUTE ; Start 05/10/21 at 18:03; Stop 05/10/21 at 18:03; Status DC Succinylcholine Chloride (Anectine) 200 mg STK-MED ONCE .ROUTE ; Start 05/10/21 at 18:04; Stop 05/10/21 at 18:04; Status DC EZETIMIBE (Zetia) 10 mg DAILY PO Last administered on 05/14/21at 08:10; Start 05/11/21 at 09:00 Gabapentin (Neurontin) 300 mg TID PO Last administered on 05/14/21at 08:10; Sta rt 05/10/21 at 21:00 Metoprolol Tartrate (Lopressor) 50 mg NOON PO Last administered on 05/11/21at 15:05; Start 05/11/21 at 12:00; Stop 05/12/21 at 13:10; Status DC Atorvastatin Calcium (Lipitor) 80 mg HS PO Last administered on 05/13/21at 20:10; Start 05/10/21 at 21:00 Losartan Potassium (Cozaar) 50 mg DAILY PO Last administered on 05/14/21at 08:10; Start 05/11/21 at 09:00 Pantoprazole Sodium (Protonix) 40 mg DAILYAC PO Last administered on 05/14/21at 08:10; Start 05/11/21 at 07:30 Hydrochlorothiazide (Microzide) 12.5 mg DAILY PO Last administered on 05/14/21at 08:10; Start 05/11/21 at 09:00 Ephedrine Sulfate (ePHEDrine PF IN SALINE SYRINGE) 50 mg STK-MED ONCE IV ; Start 05/10/21 at 18:39; Stop 05/10/21 at 18:40; Status DC Neostigmine Methylsulfate (Bloxiverz) 10 mg STK-MED ONCE .ROUTE ; Start 05/10/21 at 18:55; Stop 05/10/21 at 18:55; Status DC Glycopyrrolate (Robinul) 1 mg STK-MED ONCE .ROUTE ; Start 05/10/21 at 18:55; Stop 05/10/21 at 18:56; Status DC Oxycodone/ Acetaminophen (Percocet 5/325) 1 tab PRN Q4HRS PRN PO PAIN Last administered on 05/12/21at 12:01; Start 05/10/21 at 19:00 Oxycodone/ Acetaminophen (Percocet 5/325) 2 tab PRN Q4HRS PRN PO PAIN Last administered on 05/14/21at 12:51; Start 05/10/21 at 19:00 Piperacillin Sod/ Tazobactam Sod 3.375 gm/Sodium Chloride 50 ml @ 100 mls/hr Q6HRS IV Last administered on 05/12/21at 12:02; Start 05/11/21 at 00:00; Stop 05/12/21 at 13:07; Status DC Albuterol Sulfate (Ventolin Neb Soln) 2.5 mg STK-MED ONCE .ROUTE ; Start 05/10/21 at 19:29; Stop 05/10/21 at 19:29; Status DC Prochlorperazine Edisylate (Compazine) 10 mg STK-MED ONCE .ROUTE ; Start 05/10/21 at 19:29; Stop 05/10/21 at 19:29; Status DC Albuterol Sulfate (Ventolin Neb Soln) 2.5 mg 1X ONCE NEB ; Start 05/10/21 at 20:00; Stop 05/10/21 at 20:01; Status DC Fentanyl Citrate (Fentanyl 2ml Vial) 100 mcg STK-MED ONCE .ROUTE ; Start 05/10/21 at 19:42; Stop 05/10/21 at 19:43; Status DC Throat Lozenges (Cepacol Sore Throat Lozenge) 1 jassi PRN Q2HRS PRN PO SORE THROAT; Start 05/10/21 at 19:45 Albuterol/ Ipratropium (Duoneb) 3 ml PRN QID PRN NEB sob, wheezing; Start 05/10/21 at 20:00 Ondansetron HCl (Zofran Odt) 4 mg PRN Q6HRS PRN PO NAUSEA/VOMITING; Start 05/12/21 at 08:15 Ondansetron HCl (Zofran) 4 mg PRN Q6HRS PRN IVP NAUSEA/VOMITING Last administered on 05/12/21at 08:36; Start 05/12/21 at 08:30 Amoxicillin/ Clavulanate Potassium (Augmentin 875/ 125mg) 1 tab BID PO Last administered on 05/14/21at 08:10; Start 05/12/21 at 21:00 Insulin Human Lispro (HumaLOG) 0-9 UNITS TIDWMEALS SQ ; Start 05/12/21 at 17:00 Dextrose (Dextrose 50%-Water Syringe) 12.5 gm PRN Q15MIN PRN IV SEE COMMENTS; Start 05/12/21 at 13:15 Dextrose (Iv Dextrose 5%) 250 ml PRN Q15MIN PRN IV SEE COMMENTS; Start 05/12/21 at 13:15 Metoprolol Succinate (Toprol Xl) 50 mg NOON PO Last administered on 05/14/21at 12:51; Start 05/13/21 at 13:30 Prochlorperazine Edisylate (Compazine) 10 mg PRN Q6HRS PRN IV HEADACHE/NAUSEA/VOMITING Last administered on 05/13/21at 11:04; Start 05/13/21 at 11:00 Active Scripts Active Percocet 5-325 Mg Tablet (Oxycodone/Acetaminophen) 1 Each Tablet 1 Tab PO PRN Q4HRS PRN 7 Days Reported Metformin Hcl 1,000 Mg Tablet 1,000 Mg PO BIDWMEALS Ezetimibe 10 Mg Tablet 10 Mg PO DAILY Omeprazole 20 Mg Capsule.dr 20 Mg PO BID Metoprolol Tartrate 50 Mg Tablet 50 Mg PO NOON Loratadine 10 Mg Tablet 10 Mg PO PRN DAILY PRN Gabapentin (Gabapentin) 300 Mg Capsule 300 Mg PO TID Lipitor (Atorvastatin Calcium) 80 Mg Tablet 80 Mg PO HS Losartan-Hctz 50-12.5 Mg Tab (Losartan/Hydrochlorothiazide) 1 Each Tablet 1 Tab PO DAILY Allergies Allergies: Coded Allergies: cyclobenzaprine (Verified Allergy, Intermediate, incontinence, 02/20/17) naproxen (Verified Allergy, Intermediate, itching, 02/20/17) nortriptyline (Verified Allergy, Intermediate, itching, 02/20/17) ROS Review of System Negative unless stated otherwise interval history Physical Exam General: Alert, Oriented X3 HEENT: Atraumatic Lungs: Clear to auscultation Heart: Regular rate Abdomen: Soft Skin: No breakdown Neuro: Normal speech MUSCULOSKELETAL: No swelling Vitals VITALS Vital Signs Date Time Temp Pulse Resp B/P (MAP) Pulse Ox O2 Delivery O2 Flow Rate FiO2 05/14/21 13:21 Room Air 05/14/21 12:51 122 142/92 05/14/21 11:08 98.0 16 95 98.0 Labs Labs Laboratory Tests Test 05/12/21 16:53 05/12/21 20:14 05/13/21 07:58 05/13/21 11:39 Glucose (Fingerstick) 127 mg/dL (70-99) 95 mg/dL (70-99) 107 mg/dL (70-99) 132 mg/dL (70-99) Test 05/13/21 12:22 05/14/21 07:11 05/14/21 07:15 05/14/21 10:51 White Blood Count 38.6 x10^3/uL (4.0-11.0) 42.4 x10^3/uL (4.0-11.0) Red Blood Count 4.66 x10^6/uL (4.30-5.70) 4.62 x10^6/uL (4.30-5.70) Hemoglobin 13.0 g/dL (13.0-17.5) 13.1 g/dL (13.0-17.5) Hematocrit 41.4 % (39.0-53.0) 41.5 % (39.0-53.0) Mean Corpuscular Volume 89 fL (79-100) 90 fL (79-100) Mean Corpuscular Hemoglobin 28 pg (25-35) 28 pg (25-35) Mean Corpuscular Hemoglobin Concent 31 g/dL (31-37) 32 g/dL (31-37) Red Cell Distribution Width 15.6 % (11.5-14.5) 15.8 % (11.5-14.5) Platelet Count 419 x10^3/uL (140-400) 447 x10^3/uL (140-400) Neutrophils (%) (Auto) 83 % (31-73) 82 % (31-73) Lymphocytes (%) (Auto) 9 % (24-48) 10 % (24-48) Monocytes (%) (Auto) 6 % (0-9) 6 % (0-9) Eosinophils (%) (Auto) 1 % (0-3) 1 % (0-3) Basophils (%) (Auto) 2 % (0-3) 2 % (0-3) Neutrophils # (Auto) 31.9 x10^3/uL (1.8-7.7) 34.6 x10^3/uL (1.8-7.7) Lymphocytes # (Auto) 3.6 x10^3/uL (1.0-4.8) 4.2 x10^3/uL (1.0-4.8) Monocytes # (Auto) 2.2 x10^3/uL (0.0-1.1) 2.4 x10^3/uL (0.0-1.1) Eosinophils # (Auto) 0.4 x10^3/uL (0.0-0.7) 0.3 x10^3/uL (0.0-0.7) Basophils # (Auto) 0.6 x10^3/uL (0.0-0.2) 0.9 x10^3/uL (0.0-0.2) Glucose (Fingerstick) 99 mg/dL (70-99) 129 mg/dL (70-99) Laboratory Tests Test 05/14/21 07:11 05/14/21 07:15 05/14/21 10:51 Glucose (Fingerstick) 99 mg/dL (70-99) 129 mg/dL (70-99) White Blood Count 42.4 x10^3/uL (4.0-11.0) Red Blood Count 4.62 x10^6/uL (4.30-5.70) Hemoglobin 13.1 g/dL (13.0-17.5) Hematocrit 41.5 % (39.0-53.0) Mean Corpuscular Volume 90 fL (79-100) Mean Corpuscular Hemoglobin 28 pg (25-35) Mean Corpuscular Hemoglobin Concent 32 g/dL (31-37) Red Cell Distribution Width 15.8 % (11.5-14.5) Platelet Count 447 x10^3/uL (140-400) Neutrophils (%) (Auto) 82 % (31-73) Lymphocytes (%) (Auto) 10 % (24-48) Monocytes (%) (Auto) 6 % (0-9) Eosinophils (%) (Auto) 1 % (0-3) Basophils (%) (Auto) 2 % (0-3) Neutrophils # (Auto) 34.6 x10^3/uL (1.8-7.7) Lymphocytes # (Auto) 4.2 x10^3/uL (1.0-4.8) Monocytes # (Auto) 2.4 x10^3/uL (0.0-1.1) Eosinophils # (Auto) 0.3 x10^3/uL (0.0-0.7) Basophils # (Auto) 0.9 x10^3/uL (0.0-0.2) Assessment/Plan Assessment/Plan Assessment: Acute appendicitis Neutrophilic leukocytosis, likely reactive and secondary to asplenia Thrombocytosis, 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 Prior CBCs showed mild neutrophilic leukocytosis -Suspected current acute neutrophilic leukocytosis with left shift is secondary to acute appendicitis. This is likely exacerbated by asplenia. -Recommend continued postoperative supportive care per general surgery service -Consider repeating CT abdomen pelvis if clinical status does not improve appro priately postoperatively and leukocytosis is persistent -No additional hematology evaluation would be recommended at this time for this acute neutrophilic leukocytosis -Check CBC daily during hospital stay. We will follow peripherally and consider additional work-up based on clinical course and CBCs Rajeev James MD Medical Oncology/Hematology Ph: [phone] EVELIN JAMES MD May 14, 2021 14:18
[2021-05-14] MEDS ORDERED: IOHEXOL 300 MG/ML 100ML VIAL. IV ONE (15:00)
[2021-05-14] MEDS ORDERED: CONTRAST GIVEN. MC PRN (15:00)
[2021-05-14 15:11] VITALS: BP 133/81
--- NOTE | 2021-05-14 17:23 | RAD ---
CT ABDOMEN+PELVIS W History: Postoperative appendectomy pain, ileus, leukocytosis. Rule out abscess. Comparison: CT abdomen and pelvis 05/10/2021, 09/11/2017 Technique: CT abdomen and pelvis with intravenous contrast. Findings: The lung bases are clear. There is anterior hepatic 2 cm fluid density and additional approximately 1 cm hypodensity near the g allbladder fossa which is unchanged from 2018 comparison consistent with benign process such as heman gioma. Status post cholecystectomy. The pancreas, and adrenal glands are unremarkable. Left renal cys t. Postsurgical changes from splenectomy with a few residual splenules. The stomach is decompressed. The proximal small bowel is decompressed. There is mild wall thickening of the distal ileum adjacent to a right lower quadrant collection at the appendectomy bed abutting th e cecum which measures approximately 6.5 x 4.2 x 5.0 cm. This collection measures approximately 38 Ho unsfield units attenuation, likely containing hemorrhagic contents. There is appears to partially com municate with similar increased density fluid tracking along the right inferior paracolic gutter towa rds the right pelvis. No free air in or adjacent to this collection. There is small residual pneumope ritoneum. The colon contains mild stool burden. Otherwise unremarkable. The vasculature is within normal limits. No adenopathy. A few foci of subcutaneous air adjacent to th e umbilicus likely represent site of prior surgical trocar. Small fat-containing umbilical hernia. L1 vertebral body hemangioma. Mild degenerative changes in the lumbar spine. Flowing osteophytes in the thoracic spine. Impression: 1. Status post appendectomy with dense collection in the surgical bed measuring approximately 6.5 x 4.2 x 5.0 cm which is favored to represent postoperative hematoma. Superimposed infection cannot be e xcluded. ------ Exposure: One or more of the following individualized dose reduction techniques were utilized for thi s examination: 1. Automated exposure control 2. Adjustment of the mA and/or kV according to patient size 3. Use of iterative reconstruction technique. Electronically signed by: Damon Thacker MD (05/14/2021 5:20 PM) [id number]
[2021-05-14] MEDS ORDERED: AMOX1TAB11 PO (17:51)
--- NOTE | 2021-05-14 17:55 | PDOC3 ---
Discharge Summary Visit Information Date of Admission: May 10, 2021 Date of Discharge: May 14, 2021 Admitting Diagnosis: Acute appendicitis Final Diagnosis Problems Medical Problems: (1) Leukocytosis Status: Acute (2) Right lower quadrant abdominal pain Status: Acute Brief Hospital Course Allergies Allergies Coded Allergies Type Severity Reaction Last Updated Verified cyclobenzaprine Allergy Intermediate incontinence 02/20/17 Yes naproxen Allergy Intermediate itching 02/20/17 Yes nortriptyline Allergy Intermediate itching 02/20/17 Yes Vital Signs Vital Signs Date Time Temp Pulse Resp B/P (MAP) Pulse Ox O2 Delivery O2 Flow Rate FiO2 05/14/21 15:11 98.5 113 18 133/81 (98) 93 Room Air 98.5 Lab Results Laboratory Tests Test 05/12/21 20:14 05/13/21 07:58 05/13/21 11:39 05/13/21 12:22 Glucose (Fingerstick) 95 mg/dL (70-99) 107 mg/dL (70-99) 132 mg/dL (70-99) White Blood Count 38.6 x10^3/uL (4.0-11.0) Red Blood Count 4.66 x10^6/uL (4.30-5.70) Hemoglobin 13.0 g/dL (13.0-17.5) Hematocrit 41.4 % (39.0-53.0) Mean Corpuscular Volume 89 fL (79-100) Mean Corpuscular Hemoglobin 28 pg (25-35) Mean Corpuscular Hemoglobin Concent 31 g/dL (31-37) Red Cell Distribution Width 15.6 % (11.5-14.5) Platelet Count 419 x10^3/uL (140-400) Neutrophils (%) (Auto) 83 % (31-73) Lymphocytes (%) (Auto) 9 % (24-48) Monocytes (%) (Auto) 6 % (0-9) Eosinophils (%) (Auto) 1 % (0-3) Basophils (%) (Auto) 2 % (0-3) Neutrophils # (Auto) 31.9 x10^3/uL (1.8-7.7) Lymphocytes # (Auto) 3.6 x10^3/uL (1.0-4.8) Monocytes # (Auto) 2.2 x10^3/uL (0.0-1.1) Eosinophils # (Auto) 0.4 x10^3/uL (0.0-0.7) Basophils # (Auto) 0.6 x10^3/uL (0.0-0.2) Test 05/14/21 07:11 05/14/21 07:15 05/14/21 10:51 05/14/21 16:43 Glucose (Fingerstick) 99 mg/dL (70-99) 129 mg/dL (70-99) 107 mg/dL (70-99) White Blood Count 42.4 x10^3/uL (4.0-11.0) Red Blood Count 4.62 x10^6/uL (4.30-5.70) Hemoglobin 13.1 g/dL (13.0-17.5) Hematocrit 41.5 % (39.0-53.0) Mean Corpuscular Volume 90 fL (79-100) Mean Corpuscular Hemoglobin 28 pg (25-35) Mean Corpuscular Hemoglobin Concent 32 g/dL (31-37) Red Cell Distribution Width 15.8 % (11.5-14.5) Platelet Count 447 x10^3/uL (140-400) Neutrophils (%) (Auto) 82 % (31-73) Lymphocytes (%) (Auto) 10 % (24-48) Monocytes (%) (Auto) 6 % (0-9) Eosinophils (%) (Auto) 1 % (0-3) Basophils (%) (Auto) 2 % (0-3) Neutrophils # (Auto) 34.6 x10^3/uL (1.8-7.7) Lymphocytes # (Auto) 4.2 x10^3/uL (1.0-4.8) Monocytes # (Auto) 2.4 x10^3/uL (0.0-1.1) Eosinophils # (Auto) 0.3 x10^3/uL (0.0-0.7) Basophils # (Auto) 0.9 x10^3/uL (0.0-0.2) Laboratory Tests Test 05/14/21 07:11 05/14/21 07:15 05/14/21 10:51 05/14/21 16:43 Glucose (Fingerstick) 99 mg/dL (70-99) 129 mg/dL (70-99) 107 mg/dL (70-99) White Blood Count 42.4 x10^3/uL (4.0-11.0) Red Blood Count 4.62 x10^6/uL (4.30-5.70) Hemoglobin 13.1 g/dL (13.0-17.5) Hematocrit 41.5 % (39.0-53.0) Mean Corpuscular Volume 90 fL (79-100) Mean Corpuscular Hemoglobin 28 pg (25-35) Mean Corpuscular Hemoglobin Concent 32 g/dL (31-37) Red Cell Distribution Width 15.8 % (11.5-14.5) Platelet Count 447 x10^3/uL (140-400) Neutrophils (%) (Auto) 82 % (31-73) Lymphocytes (%) (Auto) 10 % (24-48) Monocytes (%) (Auto) 6 % (0-9) Eosinophils (%) (Auto) 1 % (0-3) Basophils (%) (Auto) 2 % (0-3) Neutrophils # (Auto) 34.6 x10^3/uL (1.8-7.7) Lymphocytes # (Auto) 4.2 x10^3/uL (1.0-4.8) Monocytes # (Auto) 2.4 x10^3/uL (0.0-1.1) Eosinophils # (Auto) 0.3 x10^3/uL (0.0-0.7) Basophils # (Auto) 0.9 x10^3/uL (0.0-0.2) Brief Hospital Course Mr Smith is a 55yo male with PMHx Asthma, Diabetes-Type II, High Cholesterol, Hypertension admitted for 3 day history of abdominal pain, found with early appendicitis. 05/10: S/p laparascopic appendectomy 05/11: Patient seen and examined. Sitting up, ate his breakfast. 05/12: Having some epigastric and suprapubic fullness and gas. WBC noted elevated postoperatively and vomiting delayed discharge. Notably is status post splenectomy. 05/13: Headache / today. had some further nausea and vomiting and now has some decreased appetite and right lower quadrant pain again. 05/14: Still with nausea. WBC over 40 today. KUB concerning for possible ileus, still passing flatus. Discussed with hematology oncology likely leukocytosis is postsplenectomy and related appendicitis. Discussed with surgery will get repeat CT abdomen pelvis if no signs of intra-abdominal process he may be able to go home with pain medication and continue antibiotics for total of 7 days. Consults: General surgery, hematology/oncology CT abdomen pelvis prior to discharge status post appendectomy with some surgical bed fluid likely postoperative collection 6.5 x 4.2 x 5 less likely infection discussed with surgery, will have outpatient follow-up with surgery 2 weeks postop. Will send home on additional week of Augmentin given these findings and leukocytosis. Can have as needed outpatient follow-up with hematology oncology Problem list: Appendicitis - s/p uncomplicated laparascopic appendectomy on 05/10/21 Leukocytosis - he is s/p splenectomy. Will cont to cover for possible encapsulated organisms given his immunocompromised status, change to augmentin. f/u CBC in AM Asthma - prn albuterol Diabetes-Type II - sliding scale, holding metformin given CTA High Cholesterol Hypertension - toprol and losartan HCTZ S/p splenectomy - likely etiology of leukocytosis Greater than 30 minutes spent on d/c home with self care. Discharge Information Condition at Discharge: Improved Follow Up: Weeks (1) Disposition/Orders: D/C to Home Scheduled Amoxicillin/Potassium Clav (Amox Tr-K Clv 875-125 Mg Tab) 1 Each Tablet, 1 TAB PO BID for Colitis for 7 Days, #14 Prescribed by: JOSE MARTINEZ MD on 05/14/21 1751 Atorvastatin Calcium (Lipitor) 80 Mg Tablet, 80 MG PO HS for FOR CHOLESTEROL, #30 Ref 0 (Reported) Entered as Reported by: RENITA HUBER on 11/07/162030 Last Action: Converted on 05/10/211815 by JOSE SCHOFIELD MD Ezetimibe (Ezetimibe) 10 Mg Tablet, 10 MG PO DAILY for cholesterol, (Reported) Entered as Reported by: SOLOMON BARNES on 02/24/19 1116 Last Action: Continued on 05/10/211815 by JOSE SCHOFIELD MD Gabapentin (Gabapentin ) 300 Mg Capsule, 300 MG PO TID for numbness in arms, (Reported) Entered as Reported by: RENITA HUBER on 11/07/162030 Last Action: Continued on 05/10/211815 by JOSE SCHOFIELD MD Losartan/Hydrochlorothiazide (Losartan-Hctz 50-12.5 Mg Tab) 1 Each Tablet, 1 TAB PO DAILY for htn, #30 Ref 5 (Reported) Entered as Reported by: RENITA HUBER on 11/07/162030 Last Action: Converted on 05/10/211815 by JOSE SCHOFIELD MD Metformin Hcl (Metformin Hcl) 1,000 Mg Tablet, 1,000 MG PO BIDWMEALS for diabetes, (Reported) Entered as Reported by: Deborah Jordan on 05/10/211812 Last Action: HELD on 05/10/211815 by JOSE SCHOFIELD MD Metoprolol Tartrate (Metoprolol Tartrate) 50 Mg Tablet, 50 MG PO NOON for htn, #30 (Reported) Entered as Reported by: RENITA HUBER on 11/07/162030 Last Action: Continued on 05/10/211815 by JOSE SCHOFIELD MD Omeprazole (Omeprazole) 20 Mg Capsule.dr, 20 MG PO BID for gerd, (Reported) Entered as Reported by: Edgardo Webb on 11/22/18 0337 Last Action: Converted on 05/10/211815 by JOSE SCHOFIELD MD Scheduled PRN Loratadine (Loratadine) 10 Mg Tablet, 10 MG PO PRN DAILY PRN for ALLERGIES, #30 (Reported) Entered as Reported by: RENITA HUBER on 11/07/162030 Last Action: HELD on 05/10/211815 by JOSE SCHOFIELD MD Oxycodone/Apap 5-325 (Percocet 5-325 Mg Tablet ) 1 Each Tablet, 1 TAB PO PRN Q4HRS PRN for PAIN for 7 Days, #14 Prescribed by: ABHAY LORENZANA on 05/11/21 1001 Justicifation of Admission Dx: Justifications for Admission: Justification of Admission Dx: N/A JOSE MARTINEZ MD May 14, 2021 17:55
--- NOTE | 2021-05-14 18:35 | NUR ---
patient discharged home with self care. patient verbalized understanding of discharge instructions and follow up. Patient stated he had a ride waiting on him. patient stated he wanted to ambulate by himself.
--- NOTE | 2021-05-15 12:08 | PATHOLOGY ---
[facility] Accession Number: [id number] . 01 Material submitted: . appendix - APPENDIX . 01 Clinical history: . APPENDICITIS L/S APPENDECTOMY . 02 Diagnosis: Appendix, laparoscopic appendectomy: - Mild acute and chronic inflammation and reactive fibrosis of distal appendiceal serosa and periappendiceal soft tissues. (JPM:calender tender; 05/14/2021) MBR 05/14/2021 1347 Local . 02 Comment: The appendiceal mucosa appears intact and shows no evidence of ulceration or acute inflammation. There is focal reactive lymphoid hyperplasia of mucosal associated lymphoid tissue. There is mild acute and chronic inflammation with reactive fibrosis of the distal appendiceal serosa and adjacent periappendiceal soft tissues. There is patchy mild chronic inflammation within the fibromuscular wall of the distal appendix. No acute inflammatory cell infiltrate is identified within the fibromuscular wall of the distal appendix. The inflammatory process appears centered in the serosa and periappendiceal soft tissues, and may be the result of prior microscopic perforation of the distal appendiceal tip. There is no evidence of malignancy. (JPM:calender tender/yahaira; 05/14/2021) . 02 Electronically signed: . Francisco Watson MD, Pathologist NPI- [id number] . 01 Gross description: . Fixative: Formalin Labeled: Appendix Appendix length: 8.4 cm Appendix diameter: 0.7 cm Mesoappendix: 8.2 x 2.4 x 1.3 cm Proximal margin: Stapled Serosa: Smooth, fisher brown glistening with possible exudate located at the tip measuring 2.1 x 0.9 cm and located 7.6 cm from the resection margin Cut surface: Fisher-white with a lumen filled with fecal material Luminal diameter: 0.4 cm Perforation: Possible perforation located at the tip adjacent possible exudate Lesions/abnormalities: Described above A1 Proximal margin (inked black) and distal tip, bisected A2 Mid appendix ([facility]; 05/12/2021) GZA/GZA 05/14/2021 1348 Local . 02 Pathologist provided ICD-10: K35.80 . 02 CPT . 346097 Specimen Comment: A courtesy copy of this report has been sent to [phone], [phone] Specimen Comment: [id number], Specimen Comment: Report sent to , DR ARAGON / DR SCHOFIELD Specimen Comment: A duplicate report has been generated due to demographic updates. Performed at: [address] [facility] [address] [facility] [address], [place] [id number] MD Cortes Mendoza MD Phone: [phone] Performed at: 02 [facility] [address] [place], [place] [id number] MD Francisco Watson MD Phone: [phone]
== END 2021-05-14 18:20 | disposition home or self-care (01) | DRG 342 ==
LOC: ER 14:35 → 4 NORTH 16:48
PROVIDERS: ADMIT Student in an Organized Health Care Education/Training Program; ATTEND Student in an Organized Health Care Education/Training Program
PROC: 0DTJ4ZZ Resection of Appendix, Percutaneous Endoscopic Approach (ICD-10-PCS; principal; 2021-05-10 17:45)
DX: K35.80 Unspecified acute appendicitis (principal); D84.9 Immunodeficiency, unspecified; R65.10 Systemic inflammatory response syndrome (SIRS) of non-infectious origin without acute organ dysfunction; D75.839 Thrombocytosis, unspecified; E11.9 Type 2 diabetes mellitus without complications; E78.00 Pure hypercholesterolemia, unspecified; E78.5 Hyperlipidemia, unspecified; I10 Essential (primary) hypertension; I88.0 Nonspecific mesenteric lymphadenitis; J45.909 Unspecified asthma, uncomplicated; Z87.891 Personal history of nicotine dependence; Z90.81 Acquired absence of spleen; K21.9 Gastro-esophageal reflux disease without esophagitis; M19.90 Unspecified osteoarthritis, unspecified site; Z20.822 Contact with and (suspected) exposure to COVID-19
CPT/HCPCS: 36415; 74018; 74174; 74177; 80053; 81001; 82962; 83690; 85007; 85025; 87426; 96374; 96375; 96376; A4223; A4314; A4930; J0330; J0780; J1100; J1815; J2270; J2405; J2543; J2704; J2710; J3010; J3490; J7120; Q9967; 99285-25; G0378

== ENCOUNTER 2021-05-22 16:14 | Inpatient (IN) | payer MEDICARE, MEDICAID ==
[~2021-05-22] VITALS: Ht 167.6 cm; Wt 100.5 kg
[~2021-05-22 16:14] MED LIST changes: +AMOX1TAB11 PO; +METF10007 PO; +OXYC1TAB15 PO
[2021-05-22 16:43] LABS: BASO # 0.9 x10^3/uL (0.0-0.2); BASO % 3 % (0-3); EOS # 0.5 x10^3/uL (0.0-0.7); EOS % 2 % (0-3); HEMATOCRIT 35.8 % (39.0-53.0); HEMOGLOBIN 11.3 g/dL (13.0-17.5); LYMPH # 4.2 x10^3/uL (1.0-4.8); LYMPH % 12 % (24-48); MEAN CORPUSCULAR HEMOGLOBIN 28 pg (25-35); MEAN CORPUSCULAR HGB CONC 32 g/dL (31-37); MEAN CORPUSCULAR VOLUME 88 fL (79-100); MONO # 1.4 x10^3/uL (0.0-1.1); MONO % 4 % (0-9); NEUT # 28.9 x10^3/uL (1.8-7.7); NEUT % 80 % (31-73); PLATELET COUNT 579 x10^3/uL (140-400); RED BLOOD COUNT 4.08 x10^6/uL (4.30-5.70); RED CELL DISTRIBUTION WIDTH 15.5 % (11.5-14.5); WHITE BLOOD COUNT 35.9 x10^3/uL (4.0-11.0)
[2021-05-22] MEDS ORDERED: ONDANSETRON PF 4 MG/2 ML VIAL. IVP ONE (16:45)
[2021-05-22] MEDS ORDERED: fentaNYL PF VIAL 100 MCG/2 ML VIAL IVP ONE (16:45)
[2021-05-22 16:54] LABS: CALCIUM 8.2 mg/dL (8.5-10.1); CREATININE 0.8 mg/dL (0.7-1.3); GFR 100.4; POTASSIUM 3.8 mmol/L (3.5-5.1)
[2021-05-22 17:00] LABS: ALBUMIN/GLOBULIN RATIO 0.7 (1.0-1.7); MAGNESIUM 2.1 mg/dL (1.8-2.4); TOTAL BILIRUBIN 0.2 mg/dL (0.2-1.0); TOTAL PROTEIN 7.1 g/dL (6.4-8.2)
[2021-05-22] MEDS ORDERED: IOHEXOL 300 MG/ML 100ML VIAL. IV ONE (17:00)
--- NOTE | 2021-05-22 17:35 | RAD ---
INDICATION: Reason: left lower back pain, abd bloating recent appendectomy / Spl. Instructions: OMNI 300 75ML [phone] / History: COMPARISON: 05/14/2021 TECHNIQUE: Axial CT images were obtained through the abdomen and pelvis with intravenous contrast. Additionally reformatted images were processed of the lumbar spine One or more of the following individualized dose reduction techniques were utilized for this examinat ion: 1. Automated exposure control; 2. Adjustment of the mA and/or kV according to patient size; 3 . Use of iterative reconstruction technique. FINDINGS: Abdomen and pelvis: Vascular: Atherosclerotic disease throughout. Hepatobiliary: Liver is mildly low density which can be seen with fatty infiltration. Suspected cyst again seen within. Postcholecystectomy changes. Pancreas: No peripancreatic edema. Spleen: Spleen is not visualized. There are couple of nodular densities within the region which could be from a splenule. Renal/Bladder: Exophytic low-density lesion of the left kidney measuring 15 mm which is likely cystic in nature. No hydronephrosis. Minimal urine within bladder. Gastrointestinal: Repeat demonstration of some free air including a left lower quadrant but overall v olume appears decreased in this postoperative patient. High-density fluid collection is again seen at the right lower quadrant at the appendectomy site. Current axial dimension is 61 x 32 mm. Was previo usly 84 x 46 mm. Appears somewhat loculated. Small amount of edema within mesentery again seen. Osseous findings: Degenerative changes of the hips. Lucent lesion at the L1 vertebral body measuring up to 18 mm. Most common cause would be vertebral maurice dy hemangioma. No acute fracture or dislocation of the lumbar spine. Multilevel degenerative changes of the lumbar spine with osteophyte formation at the vertebral body e ndplates as well as disc protrusions with facet and ligamentum flavum hypertrophy. This causes mild c entral canal and neural foraminal stenosis at multiple levels without any high-grade stenosis seen wi thin the lumbar spine IMPRESSION: * Redemonstration of a high density fluid collection in the right lower quadrant of the abdomen but this does appear slightly decreased in size compared to prior and has a loculated appearance. The mo st likely cause is postoperative hematoma but continued follow-up could be obtained to ensure that th is appropriately resolves. * Intraperitoneal free air is again seen but appears decreased from prior examination and could be r elated to the patient's surgery. * Degenerative changes of the lumbar spine without acute fracture or dislocation. Electronically signed by: Murali Garcia MD (05/22/2021 5:33 PM) [id number]
[2021-05-22 17:40] LABS: % BANDS 4 % (0-9); % BASOS 6 % (0-3); % EOS 6 % (0-5); % LYMPHS 15 % (24-48); % METAS 2 % (0-0); % MYELOS 3 % (0-0); % SEGS 64 % (35-66); ANISOCYTOSIS SLIGHT; BURR CELLS PRESENT; NUCLEATED RBC 2; PLT ESTIMATE INCREASED (ADEQUATE)
[2021-05-22 17:49] LABS: BILIRUBIN,URINE NEGATIVE (NEG); CLARITY,URINE CLEAR; COLOR,URINE YELLOW; NITRITE,URINE NEGATIVE (NEG); PH,URINE 6.5 (<5.0-8.0); PROTEIN,URINE NEGATIVE (NEG-TRACE); UROBILINOGEN,URINE 0.2 mg/dL (0.2 mg/dL)
[2021-05-22 17:50] LABS: BACTERIA,URINE 0 /HPF (0-FEW); RBC,URINE 0 /HPF (0-2); WBC,URINE 0 /HPF (0-4)
--- NOTE | 2021-05-22 18:02 | RAD ---
The CT lumbar spine is included with the CT abdomen and pelvis report. Electronically signed by: Murali Garcia MD (05/22/2021 5:59 PM) [id number]
[2021-05-22] MEDS ORDERED: HYDROmorphone 2 MG/ML INJ. IVP ONE (19:30)
[2021-05-22] MEDS ORDERED: ONDANSETRON PF 4 MG/2 ML VIAL. IVP PRN (20:45)
[2021-05-22] MEDS ORDERED: IV NORMAL SALINE 1000ML BAG 1,000 ML IV ONE (20:45)
[2021-05-22] MEDS ORDERED: ACETAMINOPHEN 325 MG TABLET. PO PRN (20:45)
[2021-05-22 21:15] VITALS: BP 134/72
--- NOTE | 2021-05-22 21:45 | PHYS DOC ---
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) Past Surgical History: Appendectomy, Cholecystectomy, Splenectomy Additional Past Surgical Histo: c4-5 sx, carpal tunnel ([employer] TECHNICIAN) Smoking Status: Never Smoker Alcohol Use: Rarely Drug Use: None ([employer] TECHNICIAN) General Adult EDM: Chief Complaint: ABDOMINAL PAIN HPI: HPI: Patient is a 55 year old male with history of diabetes type 2, hypertension, high cholesterol, splenectomy, presenting today complaining of 9 out of 10 left generalized abdominal pain with bloating, low back pain, symptoms began after his surgery, he states he had an appendectomy done on May 11, 2021 and since then he has had abdominal pain and back pain. Patient denies any trauma. Denies any nausea, vomiting. He states he is not able to ambulate due to the back pain. Denies any pain radiating to bilateral lower extremities, denies any loss of bowel/bladder function. Denies any chance he is constipated. ([employer] TECHNICIAN) Review of Systems: Review of Systems: Constitutional: Denies fever or chills. [] Eyes: Denies change in visual acuity. [] HENT: Denies nasal congestion or sore throat. [] Respiratory: Denies cough or shortness of breath. [] Cardiovascular: Denies chest pain or edema. [] GI: Reports abdominal pain, denies nausea, vomiting, bloody stools or diarrhea. [] : Denies dysuria. [] Musculoskeletal: Reports low back pain Integument: Denies rash. [] Neurologic: Denies headache, focal weakness or sensory changes. ] Psychiatric: Denies depression or anxiety. [] ([employer] TECHNICIAN) Heart Score: C/O Chest Pain: N/A Risk Factors: Risk Factors: DM, Current or recent (<one month) smoker, HTN, HLP, family history of CAD, obesity. Risk Scores: Score 0 - 3: 2.5% MACE over next 6 weeks - Discharge Home Score 4 - 6: 20.3% MACE over next 6 weeks - Admit for Clinical Observation Score 7 - 10: 72.7% MACE over next 6 weeks - Early Invasive Strategies (LAKEISHA VILLANUEVA M [employer] TECHNICIAN) Current Medications: Current Medications Medications (Trade) Dose Ordered Sig/Santino Start Time Stop Time Status Last Admin Dose Admin Fentanyl Citrate (Fentanyl 2ml Vial) 50 mcg 1X ONCE 05/22/21 16:45 05/22/21 16:46 DC 05/22/21 17:14 50 MCG Hydromorphone HCl (Dilaudid) 1 mg 1X ONCE 05/22/21 19:30 05/22/21 19:31 DC Iohexol (Omnipaque 300 Mg/ml) 75 ml 1X ONCE 05/22/21 17:00 05/22/21 17:01 DC 05/22/21 17:00 75 ML Ondansetron HCl (Zofran) 4 mg 1X ONCE 05/22/21 16:45 05/22/21 16:46 DC 05/22/21 17:13 4 MG (JESSICAUNGA,LAKEISHA M [employer] E[employer] TECHNICIAN) Allergies: Allergies: Allergies Coded Allergies Type Severity Reaction Last Updated Verified cyclobenzaprine Allergy Intermediate incontinence 05/22/21 Yes naproxen Allergy Intermediate itching 05/22/21 Yes nortriptyline Allergy Intermediate itching 05/22/21 Yes (MUTUNGA,LAKEISHA M [employer] TECHNICIAN) Physical Exam: PE: Constitutional: Well developed, well nourished, no acute distress, non-toxic appearance. [] HENT: Normocephalic, atraumatic, bilateral external ears normal, oropharynx moist, no oral exudates, nose normal. [] Eyes: PERRLA, EOMI, conjunctiva normal, no discharge. [] Neck: Normal range of motion, no tenderness, supple, no stridor. [] Cardiovascular:Heart rate regular rhythm, no murmur [] Lungs & Thorax: Bilateral breath sounds clear to auscultation [] Abdomen: Rounded abdomen, patient states this is chronic, laparoscopic surgical incisions noted on the abdomen consistent with appendectomy, no signs of infection, bowel sounds normal, soft, diffuse tenderness throughout the abdomen, no masses, no pulsatile masses. [] Skin: Warm, dry, no erythema, no rash. [] Back: No tenderness, no CVA tenderness. [] Extremities: No tenderness, no cyanosis, no clubbing, ROM intact, no edema. [] Neurologic: Alert and oriented X 3, normal motor function, normal sensory function, no focal deficits noted. [] Psychologic: Flat affect (MUTUNGA,LAKEISHA M [employer] EQUIP[employer] TECHNICIAN) Current Patient Data: Labs: Laboratory Tests Test 05/22/21 16:26 05/22/21 17:10 White Blood Count 35.9 x10^3/uL (4.0-11.0) H Red Blood Count 4.08 x10^6/uL (4.30-5.70) L Hemoglobin 11.3 g/dL (13.0-17.5) L Hematocrit 35.8 % (39.0-53.0) L Mean Corpuscular Volume 88 fL (79-100) Mean Corpuscular Hemoglobin 28 pg (25-35) Mean Corpuscular Hemoglobin Concent 32 g/dL (31-37) Red Cell Distribution Width 15.5 % (11.5-14.5) H Platelet Count 579 x10^3/uL (140-400) H Neutrophils (%) (Auto) 80 % (31-73) H Lymphocytes (%) (Auto) 12 % (24-48) L Monocytes (%) (Auto) 4 % (0-9) Eosinophils (%) (Auto) 2 % (0-3) Basophils (%) (Auto) 3 % (0-3) Neutrophils # (Auto) 28.9 x10^3/uL (1.8-7.7) H Lymphocytes # (Auto) 4.2 x10^3/uL (1.0-4.8) Monocytes # (Auto) 1.4 x10^3/uL (0.0-1.1) H Eosinophils # (Auto) 0.5 x10^3/uL (0.0-0.7) Basophils # (Auto) 0.9 x10^3/uL (0.0-0.2) H Segmented Neutrophils % 64 % (35-66) Band Neutrophils % 4 % (0-9) Lymphocytes % 15 % (24-48) L Eosinophils % 6 % (0-5) H Basophils % 6 % (0-3) H Metamyelocytes % 2 % (0-0) H Myelocytes % 3 % (0-0) H Nucleated Red Blood Cells 2 Platelet Estimate Increased (ADEQUATE) Large Platelets Present Anisocytosis Slight Arvind Cells Present Sodium Level 140 mmol/L (136-145) Potassium Level 3.8 mmol/L (3.5-5.1) Chloride Level 105 mmol/L (98-107) Carbon Dioxide Level 25 mmol/L (21-32) Anion Gap 10 (6-14) Blood Urea Nitrogen 16 mg/dL (8-26) Creatinine 0.8 mg/dL (0.7-1.3) Estimated GFR (Cockcroft-Gault) 100.4 BUN/Creatinine Ratio 20 (6-20) Glucose Level 111 mg/dL (70-99) H Calcium Level 8.2 mg/dL (8.5-10.1) L Magnesium Level 2.1 mg/dL (1.8-2.4) Total Bilirubin 0.2 mg/dL (0.2-1.0) Aspartate Amino Transferase (AST) 17 U/L (15-37) Alanine Aminotransferase (ALT) 17 U/L (16-63) Alkaline Phosphatase 55 U/L (46-116) Total Protein 7.1 g/dL (6.4-8.2) Albumin 3.0 g/dL (3.4-5.0) L Albumin/Globulin Ratio 0.7 (1.0-1.7) L Lipase 88 U/L (73-393) Urine Collection Type Unknown Urine Color Yellow Urine Clarity Clear Urine pH 6.5 (<5.0-8.0) Urine Specific [place] 1.025 (1.000-1.030) Urine Protein Negative mg/dL (NEG-TRACE) Urine Glucose (UA) Negative mg/dL (NEG) Urine Ketones (Stick) Negative mg/dL (NEG) Urine Blood Negative (NEG) Urine Nitrite Negative (NEG) Urine Bilirubin Negative (NEG) Urine Urobilinogen Dipstick 0.2 mg/dL (0.2 mg/dL) Urine Leukocyte Esterase Negative (NEG) Urine RBC 0 /HPF (0-2) Urine WBC 0 /HPF (0-4) Urine Squamous Epithelial Cells Occ /LPF Urine Bacteria 0 /HPF (0-FEW) Urine Mucus Mod /LPF Laboratory Tests 05/22/21 16:26 Laboratory Tests 05/22/21 16:26 Vital Signs: Vital Signs Date Time Temp Pulse Resp B/P (MAP) Pulse Ox O2 Delivery O2 Flow Rate FiO2 05/22/21 20:45 80 22 127/74 (91) 96 Room Air 05/22/21 16:16 97.4 97.4 (MUTUNGA,LAKEISHA Sheryl [employer] EQUIPMENT TECHNICIAN) EKG: EKG: [] (RICHLAKEISHA APRN) Radiology/Procedures: Radiology/Procedures: []PROCEDURE: CT ABD PELV W/ IV CONTRST ONLY INDICATION: Reason: left lower back pain, abd bloating recent appendectomy / Spl. Instructions: [id number] 75ML [phone] / History: COMPARISON: 05/14/2021 TECHNIQUE: Axial CT images were obtained through the abdomen and pelvis with intravenous contrast. Additionally reformatted images were processed of the lumbar spine One or more of the following individualized dose reduction techniques were utilized for this examination: 1. Automated exposure control; 2. Adjustment of the mA and/or kV according to patient size; 3. Use of iterative reconstruction technique. FINDINGS: Abdomen and pelvis: Vascular: Atherosclerotic disease throughout. Hepatobiliary: Liver is mildly low density which can be seen with fatty infiltration. Suspected cyst again seen within. Postcholecystectomy changes. Pancreas: No peripancreatic edema. Spleen: Spleen is not visualized. There are couple of nodular densities within the region which could be from a splenule. Renal/Bladder: Exophytic low-density lesion of the left kidney measuring 15 mm which is likely cystic in nature. No hydronephrosis. Minimal urine within bladder. Gastrointestinal: Repeat demonstration of some free air including a left lower quadrant but overall volume appears decreased in this postoperative patient. High-density fluid collection is again seen at the right lower quadrant at the appendectomy site. Current axial dimension is 61 x 32 mm. Was previously 84 x 46 mm. Appears somewhat loculated. Small amount of edema within mesentery again seen. Osseous findings: Degenerative changes of the hips. Lucent lesion at the L1 vertebral body measuring up to 18 mm. Most common cause would be vertebral body hemangioma. No acute fracture or dislocation of the lumbar spine. Multilevel degenerative changes of the lumbar spine with osteophyte formation at the vertebral body endplates as well as disc protrusions with facet and ligamentum flavum hypertrophy. This causes mild central canal and neural foraminal stenosis at multiple levels without any high-grade stenosis seen within the lumbar spine IMPRESSION: * Redemonstration of a high density fluid collection in the right lower qu adrant of the abdomen but this does appear slightly decreased in size compared to prior and has a loculated appearance. The most likely cause is postoperative hematoma but continued follow-up could be obtained to ensure that this appropriately resolves. * Intraperitoneal free air is again seen but appears decreased from prior examination and could be related to the patient's surgery. * Degenerative changes of the lumbar spine without acute fracture or dislocation. Electronically signed by: Christiano Valdes MD (05/22/2021 5:33 PM) [id number] DICTATED and SIGNED BY: CHRISTIANO VALDES MD DATE: 05/22/21 [id number] (LAKEISHA VILLANUEVA APRN) Course & Med Decision Making: Course & Med Decision Making Pertinent Labs and Imaging studies reviewed. (See chart for details) This is a 55-year-old male patient presented to the ED today complaining of left low back pain and abdominal pain that has been going on since his appendectomy on May 11, 2021. Patient arrives in the ED with temperature of 97.4, heart rate 73, respiration 22, blood pressure 133/81, O2 sats 99% on room air. CBC with a WBC of 35.9, patient has splenectomy and has been running high white count since his appendectomy. His numbers are actually slightly lower than his previous admission. UA with no infection. CMP with no acute findings. CT of the abdomen and pelvis CT of the abdomen and pelvis redemonstration of a high density fluid collection in the right lower quadrant of the abdomen but this does appear slightly decr eased in size compared to prior and has a loculated appearance. The most likely cause is postoperative hematoma but continued follow-up could be obtained to ensure that this appropriately resolves. Intraperitoneal free air is again seen but appears decreased from prior examination and could be related to the patient's surgery. Degenerative changes of the lumbar spine without acute fracture or dislocation. Spoke to Dr. Rios who requested we admit patient Spoke to Dr. Christensen who accepted patient for admission While patient was waiting for a bed upstairs he became mean to the nurses, he was yelling at them stating he is going to leave this hospital and call 911 to take him to . I went to talk to patient, he tried yelling at me. Informed patient he cannot talk to people the way he is talking to the staff in this ED. Informed him I will call her called Isaias on him. The came in I spoke to the , the states this patient is very mean to the and son and talks down onto the . states she is even tired of how patient is treating her and is looking at her options. talked to patient for a while, they had argument patient calmed down. He was admitted upstairs (LAKEISHA VILLANUEVA APRN) Course & Med Decision Making Patients Care and treatment plan provided by ER Nurse Practitioner. I was available for consult. Patient's chart reviewed. (GLORIA LINARES DO) Dragon Disclaimer: Dragjustina Disclaimer: This electronic medical record was generated, in whole or in part, using a voice recognition dictation system. (LAKEISHA VILLANUEVA APRN) Departure Departure Impression: Primary Impression: Intractable abdominal pain Additional Impression: Intractable low back pain Disposition: ADMITTED INPATIENT Condition: STABLE Referrals: BETTY GILL MD (PCP) LAKEISHA VILLANUEVA APRN May 22, 2021 21:45 GLORIA LINARES DO May 23, 2021 03:44
[2021-05-22] MEDS: MORPHINE SULFATE 4 MG/ML INJ. IVP PRN (22:50)
[2021-05-22 23:00] VITALS: BP 131/68
[2021-05-23 03:00] VITALS: BP 114/65
[2021-05-23] MEDS: MORPHINE SULFATE 4 MG/ML INJ. IVP PRN ×6 (05:27→23:31)
[2021-05-23 07:00] VITALS: BP 118/71
[2021-05-23 07:31] LABS: BASO % 4 % (0-3); EOS # 0.6 x10^3/uL (0.0-0.7); EOS % 2 % (0-3); HEMATOCRIT 35.9 % (39.0-53.0); HEMOGLOBIN 11.3 g/dL (13.0-17.5); LYMPH # 2.9 x10^3/uL (1.0-4.8); LYMPH % 12 % (24-48); MEAN CORPUSCULAR HEMOGLOBIN 28 pg (25-35); MEAN CORPUSCULAR HGB CONC 32 g/dL (31-37); MEAN CORPUSCULAR VOLUME 89 fL (79-100); MONO % 4 % (0-9); NEUT # 19.8 x10^3/uL (1.8-7.7); NEUT % 78 % (31-73); PLATELET COUNT 605 x10^3/uL (140-400); RED BLOOD COUNT 4.03 x10^6/uL (4.30-5.70); RED CELL DISTRIBUTION WIDTH 15.6 % (11.5-14.5); WHITE BLOOD COUNT 25.4 x10^3/uL (4.0-11.0)
[2021-05-23 08:04] LABS: ALBUMIN 2.8 g/dL (3.4-5.0); ALBUMIN/GLOBULIN RATIO 0.7 (1.0-1.7); CALCIUM 8.1 mg/dL (8.5-10.1); CREATININE 0.7 mg/dL (0.7-1.3); GFR 117.1; POTASSIUM 3.9 mmol/L (3.5-5.1); TOTAL BILIRUBIN 0.2 mg/dL (0.2-1.0); TOTAL PROTEIN 6.7 g/dL (6.4-8.2)
--- NOTE | 2021-05-23 10:06 | PDOC1 ---
History and Physical Date of Admission Date of Admission DATE: 05/23/21 TIME: 10:03 Identification/Chief Complaint Chief Complaint Abdominal pain, back pain Source Source: Patient History of Present Illness History of Present Illness Patient is a 55-year-old male with past medical history HTN, DM2, HLD, splenectomy, who presents to the ER with complaints of generalized abdominal pain, lower back pain, and left hip pain since his appendectomy recently performed in late April. His recent hospital course with appendectomy was complicated by persistent leukocytosis in the setting of asplenia. Consult placed to hematology/oncology and his persistent leukocytosis and thrombocytosis was deemed secondary to acute appendicitis likely exacerbated by asplenia. He was recommended to continue postoperative supportive care per general surgery service. Repeat CT abdomen/pelvis showed postoperative hematoma measuring 6.5 x 4.2 x 5.0 cm. He was discharged home on 7-day course of Augmentin. At the time of discharge his WBC was 42.4 and his platelets were 447. Patient returns again to the hospital with complaints of abdominal pain and back pain. CT abdomen/pelvis showed redemonstration of a high density fluid collection in the right lower quadrant of the abdomen, but appears slightly decreased in size compared to prior with a loculated appearance. Labs on admission showed WBC 35.9, platelets 579, albumin 3.0. We will admit patient with general surgery consult for further medical management. Past Medical History Cardiovascular: HTN, Hyperlipidemia Pulmonary: Asthma CENTRAL NERVOUS SYSTEM: Other GI: GERD Heme/Onc: No pertinent hx Hepatobiliary: No pertinent hx Psych: No pertinent hx Musculoskeletal: Osteoarthritis Rheumatologic: No pertinent hx Infectious disease: No pertinent hx Renal/: No pertinent hx Endocrine: No pertinent hx Past Surgical History Past Surgical History: Appendectomy, Cholecystectomy, Other (Splenectomy) Family History Family History: High Cholestrol, Family History Unknown Social History Smoke: No ALCOHOL: rare Drugs: None Current Medications Current Medications Current Medications Fentanyl Citrate (Fentanyl 2ml Vial) 50 mcg 1X ONCE IVP Last administered on 05/22/21at 17:14; Start 05/22/21 at 16:45; Stop 05/22/21 at 16:46; Status DC Ondansetron HCl (Zofran) 4 mg 1X ONCE IVP Last administered on 05/22/21at 17:13; Start 05/22/21 at 16:45; Stop 05/22/21 at 16:46; Status DC Iohexol (Omnipaque 300 Mg/ml) 75 ml 1X ONCE IV Last administered on 05/22/21at 17:00; Start 05/22/21 at 17:00; Stop 05/22/21 at 17:01; Status DC Hydromorphone HCl (Dilaudid) 1 mg 1X ONCE IVP ; Start 05/22/21 at 19:30; Stop 05/22/21 at 19:31; Status DC Ondansetron HCl (Zofran) 4 mg PRN Q8HRS PRN IVP NAUSEA/VOMITING; Start 05/22/21 at 20:45; Stop 05/23/21 at 20:44 Morphine Sulfate (Morphine Sulfate) 4 mg PRN Q2HR PRN IVP PAIN Last administered on 05/23/21at 08:58; Start 05/22/21 at 20:45; Stop 05/23/21 at 20:44 Acetaminophen (Tylenol) 650 mg PRN Q4HRS PRN PO FEVER > 100.3'F; Start 05/22/21 at 20:45; Stop 05/23/21 at 20:44 Sodium Chloride 1,000 ml @ 125 mls/hr 1X ONCE IV Last administered on 05/22/21at 22:50; Start 05/22/21 at 20:45; Stop 05/23/21 at 04:44; Status DC Active Scripts Active Amox Tr-K Clv 875-125 Mg Tab (Amoxicillin/Potassium Clav) 1 Each Tablet 1 Tab PO BID 7 Days Percocet 5-325 Mg Tablet (Oxycodone/Acetaminophen) 1 Each Tablet 1 Tab PO PRN Q4HRS PRN 7 Days Reported Metformin Hcl 1,000 Mg Tablet 1,000 Mg PO BIDWMEALS Ezetimibe 10 Mg Tablet 10 Mg PO DAILY Omeprazole 20 Mg Capsule.dr 20 Mg PO BID Metoprolol Tartrate 50 Mg Tablet 50 Mg PO NOON Loratadine 10 Mg Tablet 10 Mg PO PRN DAILY PRN Gabapentin (Gabapentin) 300 Mg Capsule 300 Mg PO TID Lipitor (Atorvastatin Calcium) 80 Mg Tablet 80 Mg PO HS Losartan-Hctz 50-12.5 Mg Tab (Losartan/Hydrochlorothiazide) 1 Each Tablet 1 Tab PO DAILY Allergies Allergies: Coded Allergies: naproxen (Verified Allergy, Intermediate, itching, 05/22/21) nortriptyline (Verified Allergy, Intermediate, itching, 05/22/21) cyclobenzaprine (Verified Adverse Reaction, Intermediate, incontinence, 05/23/21) ROS Review of System GENERAL: No history of weight change, weakness or fevers. SKIN: No bruising, hair changes or rashes. EYES: No blurred, double or loss of vision. NOSE AND THROAT: No history of nosebleeds, hoarseness or sore throat. HEART: Denies chest pain, denies palpitations. LUNGS: Denies cough, hemoptysis, wheezing or shortness of breath. GASTROINTESTINAL: Right lower quadrant abdominal pain. Denies vomiting, abdominal pain. GENITOURINARY: Denies dysuria, frequency, urgency, hematuria. NEUROLOGIC: Denies history of numbness, tingling, tremor or weakness. PSYCHIATRIC: Denies anxiety, denies depression. ENDOCRINE: No history of heat or cold intolerance, polyuria or polydipsia. Musculoskeletal: Back pain. EXTREMITIES: Left hip pain. Denies muscle weakness or stiffness. Physical Exam Physical Exam General: Alert, Oriented X3, Cooperative, No acute distress HEENT: PERRLA, EOMI Lungs: Clear to auscultation, Normal air movement Heart: RRR, no murmurs Cardiovascular: S1, S2 Abdomen: Abdomen distended, with well-healed post-appendectomy scars. Normal bowel sounds, Soft, No tenderness Extremities: No clubbing, No cyanosis Skin: No rashes, No significant lesion Neuro: Normal speech, Normal tone, Sensation intact Psych/Mental Status: Mental status NL, Mood NL Vitals Vitals Vital Signs Date Time Temp Pulse Resp B/P (MAP) Pulse Ox O2 Delivery O2 Flow Rate FiO2 05/23/21 09:30 95 Room Air 05/23/21 07:00 98.0 81 18 118/71 (87) 98.0 Labs Labs Laboratory Tests Test 05/22/21 16:26 05/22/21 17:10 05/23/21 06:51 White Blood Count 35.9 x10^3/uL (4.0-11.0) 25.4 x10^3/uL (4.0-11.0) Red Blood Count 4.08 x10^6/uL (4.30-5.70) 4.03 x10^6/uL (4.30-5.70) Hemoglobin 11.3 g/dL (13.0-17.5) 11.3 g/dL (13.0-17.5) Hematocrit 35.8 % (39.0-53.0) 35.9 % (39.0-53.0) Mean Corpuscular Volume 88 fL (79-100) 89 fL (79-100) Mean Corpuscular Hemoglobin 28 pg (25-35) 28 pg (25-35) Mean Corpuscular Hemoglobin Concent 32 g/dL (31-37) 32 g/dL (31-37) Red Cell Distribution Width 15.5 % (11.5-14.5) 15.6 % (11.5-14.5) Platelet Count 579 x10^3/uL (140-400) 605 x10^3/uL (140-400) Neutrophils (%) (Auto) 80 % (31-73) 78 % (31-73) Lymphocytes (%) (Auto) 12 % (24-48) 12 % (24-48) Monocytes (%) (Auto) 4 % (0-9) 4 % (0-9) Eosinophils (%) (Auto) 2 % (0-3) 2 % (0-3) Basophils (%) (Auto) 3 % (0-3) 4 % (0-3) Neutrophils # (Auto) 28.9 x10^3/uL (1.8-7.7) 19.8 x10^3/uL (1.8-7.7) Lymphocytes # (Auto) 4.2 x10^3/uL (1.0-4.8) 2.9 x10^3/uL (1.0-4.8) Monocytes # (Auto) 1.4 x10^3/uL (0.0-1.1) 1.0 x10^3/uL (0.0-1.1) Eosinophils # (Auto) 0.5 x10^3/uL (0.0-0.7) 0.6 x10^3/uL (0.0-0.7) Basophils # (Auto) 0.9 x10^3/uL (0.0-0.2) 1.0 x10^3/uL (0.0-0.2) Segmented Neutrophils % 64 % (35-66) Band Neutrophils % 4 % (0-9) Lymphocytes % 15 % (24-48) Eosinophils % 6 % (0-5) Basophils % 6 % (0-3) Metamyelocytes % 2 % (0-0) Myelocytes % 3 % (0-0) Nucleated Red Blood Cells 2 Platelet Estimate Increased (ADEQUATE) Large Platelets Present Anisocytosis Slight Arvind Cells Present Sodium Level 140 mmol/L (136-145) 143 mmol/L (136-145) Potassium Level 3.8 mmol/L (3.5-5.1) 3.9 mmol/L (3.5-5.1) Chloride Level 105 mmol/L (98-107) 109 mmol/L (98-107) Carbon Dioxide Level 25 mmol/L (21-32) 25 mmol/L (21-32) Anion Gap 10 (6-14) 9 (6-14) Blood Urea Nitrogen 16 mg/dL (8-26) 16 mg/dL (8-26) Creatinine 0.8 mg/dL (0.7-1.3) 0.7 mg/dL (0.7-1.3) Estimated GFR (Cockcroft-Gault) 100.4 117.1 BUN/Creatinine Ratio 20 (6-20) 23 (6-20) Glucose Level 111 mg/dL (70-99) 88 mg/dL (70-99) Calcium Level 8.2 mg/dL (8.5-10.1) 8.1 mg/dL (8.5-10.1) Magnesium Level 2.1 mg/dL (1.8-2.4) Total Bilirubin 0.2 mg/dL (0.2-1.0) 0.2 mg/dL (0.2-1.0) Aspartate Amino Transf (AST/SGOT) 17 U/L (15-37) 19 U/L (15-37) Alanine Aminotransferase (ALT/SGPT) 17 U/L (16-63) 18 U/L (16-63) Alkaline Phosphatase 55 U/L (46-116) 54 U/L (46-116) Total Protein 7.1 g/dL (6.4-8.2) 6.7 g/dL (6.4-8.2) Albumin 3.0 g/dL (3.4-5.0) 2.8 g/dL (3.4-5.0) Albumin/Globulin Ratio 0.7 (1.0-1.7) 0.7 (1.0-1.7) Lipase 88 U/L (73-393) Urine Collection Type Unknown Urine Color Yellow Urine Clarity Clear Urine pH 6.5 (<5.0-8.0) Urine Specific [place] 1.025 (1.000-1.030) Urine Protein Negative mg/dL (NEG-TRACE) Urine Glucose (UA) Negative mg/dL (NEG) Urine Ketones (Stick) Negative mg/dL (NEG) Urine Blood Negative (NEG) Urine Nitrite Negative (NEG) Urine Bilirubin Negative (NEG) Urine Urobilinogen Dipstick 0.2 mg/dL (0.2 mg/dL) Urine Leukocyte Esterase Negative (NEG) Urine RBC 0 /HPF (0-2) Urine WBC 0 /HPF (0-4) Urine Squamous Epithelial Cells Occ /LPF Urine Bacteria 0 /HPF (0-FEW) Urine Mucus Mod /LPF Laboratory Tests Test 05/22/21 16:26 05/22/21 17:10 05/23/21 06:51 White Blood Count 35.9 x10^3/uL (4.0-11.0) 25.4 x10^3/uL (4.0-11.0) Red Blood Count 4.08 x10^6/uL (4.30-5.70) 4.03 x10^6/uL (4.30-5.70) Hemoglobin 11.3 g/dL (13.0-17.5) 11.3 g/dL (13.0-17.5) Hematocrit 35.8 % (39.0-53.0) 35.9 % (39.0-53.0) Mean Corpuscular Volume 88 fL (79-100) 89 fL (79-100) Mean Corpuscular Hemoglobin 28 pg (25-35) 28 pg (25-35) Mean Corpuscular Hemoglobin Concent 32 g/dL (31-37) 32 g/dL (31-37) Red Cell Distribution Width 15.5 % (11.5-14.5) 15.6 % (11.5-14.5) Platelet Count 579 x10^3/uL (140-400) 605 x10^3/uL (140-400) Neutrophils (%) (Auto) 80 % (31-73) 78 % (31-73) Lymphocytes (%) (Auto) 12 % (24-48) 12 % (24-48) Monocytes (%) (Auto) 4 % (0-9) 4 % (0-9) Eosinophils (%) (Auto) 2 % (0-3) 2 % (0-3) Basophils (%) (Auto) 3 % (0-3) 4 % (0-3) Neutrophils # (Auto) 28.9 x10^3/uL (1.8-7.7) 19.8 x10^3/uL (1.8-7.7) Lymphocytes # (Auto) 4.2 x10^3/uL (1.0-4.8) 2.9 x10^3/uL (1.0-4.8) Monocytes # (Auto) 1.4 x10^3/uL (0.0-1.1) 1.0 x10^3/uL (0.0-1.1) Eosinophils # (Auto) 0.5 x10^3/uL (0.0-0.7) 0.6 x10^3/uL (0.0-0.7) Basophils # (Auto) 0.9 x10^3/uL (0.0-0.2) 1.0 x10^3/uL (0.0-0.2) Segmented Neutrophils % 64 % (35-66) Band Neutrophils % 4 % (0-9) Lymphocytes % 15 % (24-48) Eosinophils % 6 % (0-5) Basophils % 6 % (0-3) Metamyelocytes % 2 % (0-0) Myelocytes % 3 % (0-0) Nucleated Red Blood Cells 2 Platelet Estimate Increased (ADEQUATE) Large Platelets Present Anisocytosis Slight Kennedy Cells Present Sodium Level 140 mmol/L (136-145) 143 mmol/L (136-145) Potassium Level 3.8 mmol/L (3.5-5.1) 3.9 mmol/L (3.5-5.1) Chloride Level 105 mmol/L (98-107) 109 mmol/L (98-107) Carbon Dioxide Level 25 mmol/L (21-32) 25 mmol/L (21-32) Anion Gap 10 (6-14) 9 (6-14) Blood Urea Nitrogen 16 mg/dL (8-26) 16 mg/dL (8-26) Creatinine 0.8 mg/dL (0.7-1.3) 0.7 mg/dL (0.7-1.3) Estimated GFR (Cockcroft-Gault) 100.4 117.1 BUN/Creatinine Ratio 20 (6-20) 23 (6-20) Glucose Level 111 mg/dL (70-99) 88 mg/dL (70-99) Calcium Level 8.2 mg/dL (8.5-10.1) 8.1 mg/dL (8.5-10.1) Magnesium Level 2.1 mg/dL (1.8-2.4) Total Bilirubin 0.2 mg/dL (0.2-1.0) 0.2 mg/dL (0.2-1.0) Aspartate Amino Transf (AST/SGOT) 17 U/L (15-37) 19 U/L (15-37) Alanine Aminotransferase (ALT/SGPT) 17 U/L (16-63) 18 U/L (16-63) Alkaline Phosphatase 55 U/L (46-116) 54 U/L (46-116) Total Protein 7.1 g/dL (6.4-8.2) 6.7 g/dL (6.4-8.2) Albumin 3.0 g/dL (3.4-5.0) 2.8 g/dL (3.4-5.0) Albumin/Globulin Ratio 0.7 (1.0-1.7) 0.7 (1.0-1.7) Lipase 88 U/L (73-393) Urine Collection Type Unknown Urine Color Yellow Urine Clarity Clear Urine pH 6.5 (<5.0-8.0) Urine Specific [place] 1.025 (1.000-1.030) Urine Protein Negative mg/dL (NEG-TRACE) Urine Glucose (UA) Negative mg/dL (NEG) Urine Ketones (Stick) Negative mg/dL (NEG) Urine Blood Negative (NEG) Urine Nitrite Negative (NEG) Urine Bilirubin Negative (NEG) Urine Urobilinogen Dipstick 0.2 mg/dL (0.2 mg/dL) Urine Leukocyte Esterase Negative (NEG) Urine RBC 0 /HPF (0-2) Urine WBC 0 /HPF (0-4) Urine Squamous Epithelial Cells Occ /LPF Urine Bacteria 0 /HPF (0-FEW) Urine Mucus Mod /LPF Images Images PATIENT: SELINA LAW V ACCOUNT: [id number] : 1965 LOCATION: ER AGE: 55 SEX: M EXAM STATUS: REG ER ORD. PHYSICIAN: LAKEISHA VILLANUEVA APRN REASON: left lower back pain, abd bloating recent appendectomy PROCEDURE: CT ABD PELV W/ IV CONTRST ONLY INDICATION: Reason: left lower back pain, abd bloating recent appendectomy / Spl. Instructions: [id number] [phone] / History: COMPARISON: 05/14/2021 TECHNIQUE: Axial CT images were obtained through the abdomen and pelvis with intravenous contrast. Additionally reformatted images were processed of the lumbar spine One or more of the following individualized dose reduction techniques were uti lized for this examination: 1. Automated exposure control; 2. Adjustment of the mA and/or kV according to patient size; 3. Use of iterative reconstruction technique. FINDINGS: Abdomen and pelvis: Vascular: Atherosclerotic disease throughout. Hepatobiliary: Liver is mildly low density which can be seen with fatty infiltration. Suspected cyst again seen within. Postcholecystectomy changes. Pancreas: No peripancreatic edema. Spleen: Spleen is not visualized. There are couple of nodular densities within the region which could be from a splenule. Renal/Bladder: Exophytic low-density lesion of the left kidney measuring 15 mm which is likely cystic in nature. No hydronephrosis. Minimal urine within bladder. Gastrointestinal: Repeat demonstration of some free air including a left lower quadrant but overall volume appears decreased in this postoperative patient. High-density fluid collection is again seen at the right lower quadrant at the appendectomy site. Current axial dimension is 61 x 32 mm. Was previously 84 x 46 mm. Appears somewhat loculated. Small amount of edema within mesentery again seen. Osseous findings: Degenerative changes of the hips. Lucent lesion at the L1 vertebral body measuring up to 18 mm. Most common cause would be vertebral body hemangioma. No acute fracture or dislocation of the lumbar spine. Multilevel degenerative changes of the lumbar spine with osteophyte formation at the vertebral body endplates as well as disc protrusions with facet and ligamentum flavum hypertrophy. This causes mild central canal and neural foraminal stenosis at multiple levels without any high-grade stenosis seen within the lumbar spine IMPRESSION: * Redemonstration of a high density fluid collection in the right lower quadrant of the abdomen but this does appear slightly decreased in size compared to prior and has a loculated appearance. The most likely cause is postoperative hematoma but continued follow-up could be obtained to ensure that this appropriately resolves. * Intraperitoneal free air is again seen but appears decreased from prior examination and could be related to the patient's surgery. * Degenerative changes of the lumbar spine without acute fracture or dislocation. VTE Prophylaxis Ordered VTE Prophylaxis Devices: No VTE Pharmacological Prophylaxi: Yes Assessment/Plan Assessment/Plan Postoperative hematoma Abdominal pain Leukocytosis Thrombocytosis DDD DJD HTN DM2 Plan: Consult was placed to general surgery. Patient's WBC has decreased spontaneously to 25.4, and he has improvement in his abdominal pain. His main complaint this morning is his back pain, which we did discuss was most likely secondary to his degenerative disc and degenerative joint disease. We will continue antibiotic coverage with Zosyn at this time, and monitor daily WBCs. We will provide pain management. Continue to monitor platelets Keep patient n.p.o. until evaluated by general surgery for any urgent surgical plans Resume what home medications we can at this time FEN - NPO, then cardiac diet PPX - Heparin FULL CODE Dispo - inpatient for above Justifications for Admission Other Justification SLADE CASTRO MD May 23, 2021 10:06
[2021-05-23 10:52] VITALS: BP 128/67
[2021-05-23] MEDS ORDERED: CALCIUM CARBONATE 500 MG TAB.CHEW PO PRN (11:00)
[2021-05-23] MEDS ORDERED: LACTULOSE 20 GM/30 ML SOLUTION. PO PRN (11:00)
[2021-05-23] MEDS ORDERED: MAGNESIUM HYDROXIDE 2,400 MG/30 ML ORAL.SUSP. PO PRN (11:00)
[2021-05-23] MEDS ORDERED: ZOLPIDEM 5 MG TABLET. PO PRN (11:00)
[2021-05-23] MEDS ORDERED: MAG HYDROX/ALUMINUM HYD/SIMETH 30 ML ORAL.SUSP PO PRN (11:00)
[2021-05-23] MEDS ORDERED: ACETAMINOPHEN 325 MG TABLET. PO PRN (11:00)
[2021-05-23] MEDS ORDERED: PIP/TAZO PER PHARMACY MC PRN (11:15)
[2021-05-23] MEDS: PIPERACILLIN/TAZOBACTAM 3.375 GM in IV NORMAL SALINE 50ML 50 ML IV SCH ×3 (12:09→23:31)
[2021-05-23 15:00] VITALS: BP 125/69
--- NOTE | 2021-05-23 16:25 | PDOC2 ---
CONSULT Date of Consult Date of Consult DATE: 05/23/21 TIME: 16:21 Reason for Consult Reason for Consult: Abnormal CT scan Referring Physician Referring Physician: Amparo Identification/Chief Complaint Chief Complaint Lower back pain Source Source: Chart review, Patient History of Present Illness Reason for Visit: 55-year-old male recently underwent laparoscopic appendectomy postoperatively had a right lower quadrant hematoma. Was discharged home in stable condition returns now with complaints of lower back pain and abdominal pain CT scan was done which showed a fluid collection in the right lower quadrant consistent with the previous hematoma although it smaller now than previously imaged. Patient describes the reason for coming into the hospital was lower back pain Past Medical History Cardiovascular: HTN, Hyperlipidemia Pulmonary: Asthma CENTRAL NERVOUS SYSTEM: Other GI: GERD Heme/Onc: No pertinent hx Hepatobiliary: No pertinent hx Psych: No pertinent hx Musculoskeletal: Osteoarthritis Rheumatologic: No pertinent hx Infectious disease: No pertinent hx Renal/: No pertinent hx Endocrine: No pertinent hx Past Surgical History Past Surgical History: Appendectomy, Cholecystectomy, Other (Splenectomy) Family History Family History: High Cholestrol, Family History Unknown Social History No ALCOHOL: rare Drugs: None Lives: with Family Current Medications Current Medications Current Medications Fentanyl Citrate (Fentanyl 2ml Vial) 50 mcg 1X ONCE IVP Last administered on 05/22/21at 17:14; Start 05/22/21 at 16:45; Stop 05/22/21 at 16:46; Status DC Ondansetron HCl (Zofran) 4 mg 1X ONCE IVP Last administered on 05/22/21at 17:13; Start 05/22/21 at 16:45; Stop 05/22/21 at 16:46; Status DC Iohexol (Omnipaque 300 Mg/ml) 75 ml 1X ONCE IV Last administered on 05/22/21at 17:00; Start 05/22/21 at 17:00; Stop 05/22/21 at 17:01; Status DC Hydromorphone HCl (Dilaudid) 1 mg 1X ONCE IVP ; Start 05/22/21 at 19:30; Stop 05/22/21 at 19:31; Status DC Ondansetron HCl (Zofran) 4 mg PRN Q8HRS PRN IVP NAUSEA/VOMITING; Start 05/22/21 at 20:45; Stop 05/23/21 at 20:44 Morphine Sulfate (Morphine Sulfate) 4 mg PRN Q2HR PRN IVP PAIN Last administered on 05/23/21at 16:18; Start 05/22/21 at 20:45; Stop 05/23/21 at 20:44 Acetaminophen (Tylenol) 650 mg PRN Q4HRS PRN PO FEVER > 100.3'F; Start 05/22/21 at 20:45; Stop 05/23/21 at 20:44 Sodium Chloride 1,000 ml @ 125 mls/hr 1X ONCE IV Last administered on 05/22/21at 22:50; Start 05/22/21 at 20:45; Stop 05/23/21 at 04:44; Status DC Al Hydroxide/Mg Hydroxide (Mylanta Plus Xs) 30 ml PRN Q3HRS PRN PO HEARTBURN / GAS; Start 05/23/21 at 11:00 Calcium Carbonate/ Glycine (Tums) 500 mg PRN Q3HRS PRN PO UPSET STOMACH; Start 05/23/21 at 11:00 Zolpidem Tartrate (Ambien) 5 mg PRN QHS PRN PO INSOMNIA, MAY REPEAT IN 1HR; Start 05/23/21 at 11:00 Acetaminophen (Tylenol) 650 mg PRN Q6HRS PRN PO Headaches, Temp > 101.5F; Start 05/23/21 at 11:00 Magnesium Hydroxide (Milk Of Magnesia) 2,400 mg PRN Q12HR PRN PO CONSTIPATION; Start 05/23/21 at 11:00 Lactulose (Lactulose) 20 gm PRN Q12HR PRN PO CONSTIPATION; Start 05/23/21 at 11:00 Piperacillin Sod/ Tazobactam Sod (Zosyn Per Pharmacy) 1 each PRN DAILY PRN MC SEE COMMENTS; Start 05/23/21 at 11:15 Morphine Sulfate (Morphine Sulfate) 4 mg PRN Q2HRS PRN IVP MODERATE TO SEVERE PAIN; Start 05/23/21 at 11:15 Piperacillin Sod/ Tazobactam Sod 3.375 gm/Sodium Chloride 50 ml @ 100 mls/hr Q6HRS IV Last administered on 05/23/21at 12:09; Start 05/23/21 at 12:00 Active Scripts Active Amox Tr-K Clv 875-125 Mg Tab (Amoxicillin/Potassium Clav) 1 Each Tablet 1 Tab PO BID 7 Days Percocet 5-325 Mg Tablet (Oxycodone/Acetaminophen) 1 Each Tablet 1 Tab PO PRN Q4HRS PRN 7 Days Reported Metformin Hcl 1,000 Mg Tablet 1,000 Mg PO BIDWMEALS Ezetimibe 10 Mg Tablet 10 Mg PO DAILY Omeprazole 20 Mg Capsule.dr 20 Mg PO BID Metoprolol Tartrate 50 Mg Tablet 50 Mg PO NOON Loratadine 10 Mg Tablet 10 Mg PO PRN DAILY PRN Gabapentin (Gabapentin) 300 Mg Capsule 300 Mg PO TID Lipitor (Atorvastatin Calcium) 80 Mg Tablet 80 Mg PO HS Losartan-Hctz 50-12.5 Mg Tab (Losartan/Hydrochlorothiazide) 1 Each Tablet 1 Tab PO DAILY Allergies Allergies: Coded Allergies: naproxen (Verified Allergy, Intermediate, itching, 05/22/21) nortriptyline (Verified Allergy, Intermediate, itching, 05/22/21) cyclobenzaprine (Verified Adverse Reaction, Intermediate, incontinence, 05/23/21) ROS General: No: Chills, Night Sweats, Fatigue, Malaise, Appetite, Other PSYCHOLOGICAL ROS: No: Anxiety, Behavioral Disorder, Concentration difficultie, Decreased libido, Depression, Disorientation, Hallucinations, Hostility, Irritablity, Memory difficulties, Mood Swings, Obsessive thoughts, Physical abuse, Sexual abuse, Sleep disturbances, Suicidal ideation, Other Eyes: No Blurry vision, No Decreased vision, No Double vision, No Dry eyes, No Excessive tearing, No Eye Pain, No Itchy Eyes, No Loss of vision, No Photophobia, No Scotomata, No Uses contacts, No Uses glasses, No Other HEENT: No: Heacaches, Visual Changes, Hearing change, Nasal congestion, Nasal discharge, Oral lesions, Sinus pain, Sore Throat, Epistaxis, Sneezing, Snoring, Tinnitus, Vertigo, Vocal changes, Other ALLERGY AND IMMUNOLOGY: No: Hives, Insect Bite Sensitivity, Itchy/Watery Eyes, Nasal Congestion, Post Nasal Drip, Seasonal Allergies, Other Hematological and Lymphatic: No: Bleeding Problems, Blood Clots, Blood Transfusions, Brusing, Night Sweats, Pallor, Swollen Lymph Nodes, Other ENDOCRINE: No: Breast Changes, Galactorrhea, Hair Pattern Changes, Hot Flashes, Malaise/lethargy, Mood Swings, Palpitations, Polydipsia/polyuria, Skin Changes, Temperature Intolerance, Unexpected Weight Changes, Other Breast: No New/Changing Breast Lumps, No Nipple changes, No Nipple discharge, No Other Respiratory: No: Cough, Hemoptysis, Orthopnea, Pleuritic Pain, Shortness of breath, SOB with excertion, Sputum Changes, Stridor, Tachypnea, Wheezing, Other Cardiovascular: No Chest Pain, No Palpitations, No Orthopnea, No Paroxysmal Noc. Dyspnea, No Edema, No Lt Headedness, No Other Gastrointestinal: Yes Abdominal Pain Musculoskeletal: Yes Other (Lower back pain) Neurological: No Behavorial Changes, No Bowel/Bladder ControlChng, No Confusion, No Dizziness, No Gait Disturbance, No Headaches, No Impaired Coord/balance, No Memory Loss, No Numbness/Tingling, No Seizures, No Speech Problems, No Tremors, No Visual Changes, No Weakness, No Other Skin: No Dry Skin, No Eczema, No Hair Changes, No Lumps, No Mole Changes, No Mottling, No Nail Changes, No Pruritus, No Rash, No Skin Lesion Changes, No Other, No Acne Physical Exam General: Alert, Oriented X3, Cooperative, No acute distress HEENT: Atraumatic, PERRLA, EOMI Lungs: Clear to auscultation, Normal air movement Heart: Regular rate, No murmurs Abdomen: Normal bowel sounds, Soft, No tenderness Extremities: No edema Skin: No significant lesion Neuro: Normal speech MUSCULOSKELETAL: Other (Tenderness along the lower back) Vitals VITALS Vital Signs Date Time Temp Pulse Resp B/P (MAP) Pulse Ox O2 Delivery O2 Flow Rate FiO2 05/23/21 16:18 96 Room Air 05/23/21 15:00 97.7 72 18 125/69 (87) 97.7 Labs Labs Laboratory Tests Test 05/22/21 16:26 05/22/21 17:10 05/23/21 06:51 White Blood Count 35.9 x10^3/uL (4.0-11.0) 25.4 x10^3/uL (4.0-11.0) Red Blood Count 4.08 x10^6/uL (4.30-5.70) 4.03 x10^6/uL (4.30-5.70) Hemoglobin 11.3 g/dL (13.0-17.5) 11.3 g/dL (13.0-17.5) Hematocrit 35.8 % (39.0-53.0) 35.9 % (39.0-53.0) Mean Corpuscular Volume 88 fL (79-100) 89 fL (79-100) Mean Corpuscular Hemoglobin 28 pg (25-35) 28 pg (25-35) Mean Corpuscular Hemoglobin Concent 32 g/dL (31-37) 32 g/dL (31-37) Red Cell Distribution Width 15.5 % (11.5-14.5) 15.6 % (11.5-14.5) Platelet Count 579 x10^3/uL (140-400) 605 x10^3/uL (140-400) Neutrophils (%) (Auto) 80 % (31-73) 78 % (31-73) Lymphocytes (%) (Auto) 12 % (24-48) 12 % (24-48) Monocytes (%) (Auto) 4 % (0-9) 4 % (0-9) Eosinophils (%) (Auto) 2 % (0-3) 2 % (0-3) Basophils (%) (Auto) 3 % (0-3) 4 % (0-3) Neutrophils # (Auto) 28.9 x10^3/uL (1.8-7.7) 19.8 x10^3/uL (1.8-7.7) Lymphocytes # (Auto) 4.2 x10^3/uL (1.0-4.8) 2.9 x10^3/uL (1.0-4.8) Monocytes # (Auto) 1.4 x10^3/uL (0.0-1.1) 1.0 x10^3/uL (0.0-1.1) Eosinophils # (Auto) 0.5 x10^3/uL (0.0-0.7) 0.6 x10^3/uL (0.0-0.7) Basophils # (Auto) 0.9 x10^3/uL (0.0-0.2) 1.0 x10^3/uL (0.0-0.2) Segmented Neutrophils % 64 % (35-66) Band Neutrophils % 4 % (0-9) Lymphocytes % 15 % (24-48) Eosinophils % 6 % (0-5) Basophils % 6 % (0-3) Metamyelocytes % 2 % (0-0) Myelocytes % 3 % (0-0) Nucleated Red Blood Cells 2 Platelet Estimate Increased (ADEQUATE) Large Platelets Present Anisocytosis Slight [place] Cells Present Sodium Level 140 mmol/L (136-145) 143 mmol/L (136-145) Potassium Level 3.8 mmol/L (3.5-5.1) 3.9 mmol/L (3.5-5.1) Chloride Level 105 mmol/L (98-107) 109 mmol/L (98-107) Carbon Dioxide Level 25 mmol/L (21-32) 25 mmol/L (21-32) Anion Gap 10 (6-14) 9 (6-14) Blood Urea Nitrogen 16 mg/dL (8-26) 16 mg/dL (8-26) Creatinine 0.8 mg/dL (0.7-1.3) 0.7 mg/dL (0.7-1.3) Estimated GFR (Cockcroft-Gault) 100.4 117.1 BUN/Creatinine Ratio 20 (6-20) 23 (6-20) Glucose Level 111 mg/dL (70-99) 88 mg/dL (70-99) Calcium Level 8.2 mg/dL (8.5-10.1) 8.1 mg/dL (8.5-10.1) Magnesium Level 2.1 mg/dL (1.8-2.4) Total Bilirubin 0.2 mg/dL (0.2-1.0) 0.2 mg/dL (0.2-1.0) Aspartate Amino Transf (AST/SGOT) 17 U/L (15-37) 19 U/L (15-37) Alanine Aminotransferase (ALT/SGPT) 17 U/L (16-63) 18 U/L (16-63) Alkaline Phosphatase 55 U/L (46-116) 54 U/L (46-116) Total Protein 7.1 g/dL (6.4-8.2) 6.7 g/dL (6.4-8.2) Albumin 3.0 g/dL (3.4-5.0) 2.8 g/dL (3.4-5.0) Albumin/Globulin Ratio 0.7 (1.0-1.7) 0.7 (1.0-1.7) Lipase 88 U/L (73-393) Urine Collection Type Unknown Urine Color Yellow Urine Clarity Clear Urine pH 6.5 (<5.0-8.0) Urine Specific [place] 1.025 (1.000-1.030) Urine Protein Negative mg/dL (NEG-TRACE) Urine Glucose (UA) Negative mg/dL (NEG) Urine Ketones (Stick) Negative mg/dL (NEG) Urine Blood Negative (NEG) Urine Nitrite Negative (NEG) Urine Bilirubin Negative (NEG) Urine Urobilinogen Dipstick 0.2 mg/dL (0.2 mg/dL) Urine Leukocyte Esterase Negative (NEG) Urine RBC 0 /HPF (0-2) Urine WBC 0 /HPF (0-4) Urine Squamous Epithelial Cells Occ /LPF Urine Bacteria 0 /HPF (0-FEW) Urine Mucus Mod /LPF Laboratory Tests Test 05/22/21 16:26 05/22/21 17:10 05/23/21 06:51 White Blood Count 35.9 x10^3/uL (4.0-11.0) 25.4 x10^3/uL (4.0-11.0) Red Blood Count 4.08 x10^6/uL (4.30-5.70) 4.03 x10^6/uL (4.30-5.70) Hemoglobin 11.3 g/dL (13.0-17.5) 11.3 g/dL (13.0-17.5) Hematocrit 35.8 % (39.0-53.0) 35.9 % (39.0-53.0) Mean Corpuscular Volume 88 fL (79-100) 89 fL (79-100) Mean Corpuscular Hemoglobin 28 pg (25-35) 28 pg (25-35) Mean Corpuscular Hemoglobin Concent 32 g/dL (31-37) 32 g/dL (31-37) Red Cell Distribution Width 15.5 % (11.5-14.5) 15.6 % (11.5-14.5) Platelet Count 579 x10^3/uL (140-400) 605 x10^3/uL (140-400) Neutrophils (%) (Auto) 80 % (31-73) 78 % (31-73) Lymphocytes (%) (Auto) 12 % (24-48) 12 % (24-48) Monocytes (%) (Auto) 4 % (0-9) 4 % (0-9) Eosinophils (%) (Auto) 2 % (0-3) 2 % (0-3) Basophils (%) (Auto) 3 % (0-3) 4 % (0-3) Neutrophils # (Auto) 28.9 x10^3/uL (1.8-7.7) 19.8 x10^3/uL (1.8-7.7) Lymphocytes # (Auto) 4.2 x10^3/uL (1.0-4.8) 2.9 x10^3/uL (1.0-4.8) Monocytes # (Auto) 1.4 x10^3/uL (0.0-1.1) 1.0 x10^3/uL (0.0-1.1) Eosinophils # (Auto) 0.5 x10^3/uL (0.0-0.7) 0.6 x10^3/uL (0.0-0.7) Basophils # (Auto) 0.9 x10^3/uL (0.0-0.2) 1.0 x10^3/uL (0.0-0.2) Segmented Neutrophils % 64 % (35-66) Band Neutrophils % 4 % (0-9) Lymphocytes % 15 % (24-48) Eosinophils % 6 % (0-5) Basophils % 6 % (0-3) Metamyelocytes % 2 % (0-0) Myelocytes % 3 % (0-0) Nucleated Red Blood Cells 2 Platelet Estimate Increased (ADEQUATE) Large Platelets Present Anisocytosis Slight [place] Cells Present Sodium Level 140 mmol/L (136-145) 143 mmol/L (136-145) Potassium Level 3.8 mmol/L (3.5-5.1) 3.9 mmol/L (3.5-5.1) Chloride Level 105 mmol/L (98-107) 109 mmol/L (98-107) Carbon Dioxide Level 25 mmol/L (21-32) 25 mmol/L (21-32) Anion Gap 10 (6-14) 9 (6-14) Blood Urea Nitrogen 16 mg/dL (8-26) 16 mg/dL (8-26) Creatinine 0.8 mg/dL (0.7-1.3) 0.7 mg/dL (0.7-1.3) Estimated GFR (Cockcroft-Gault) 100.4 117.1 BUN/Creatinine Ratio 20 (6-20) 23 (6-20) Glucose Level 111 mg/dL (70-99) 88 mg/dL (70-99) Calcium Level 8.2 mg/dL (8.5-10.1) 8.1 mg/dL (8.5-10.1) Magnesium Level 2.1 mg/dL (1.8-2.4) Total Bilirubin 0.2 mg/dL (0.2-1.0) 0.2 mg/dL (0.2-1.0) Aspartate Amino Transf (AST/SGOT) 17 U/L (15-37) 19 U/L (15-37) Alanine Aminotransferase (ALT/SGPT) 17 U/L (16-63) 18 U/L (16-63) Alkaline Phosphatase 55 U/L (46-116) 54 U/L (46-116) Total Protein 7.1 g/dL (6.4-8.2) 6.7 g/dL (6.4-8.2) Albumin 3.0 g/dL (3.4-5.0) 2.8 g/dL (3.4-5.0) Albumin/Globulin Ratio 0.7 (1.0-1.7) 0.7 (1.0-1.7) Lipase 88 U/L (73-393) Urine Collection Type Unknown Urine Color Yellow Urine Clarity Clear Urine pH 6.5 (<5.0-8.0) Urine Specific [place] 1.025 (1.000-1.030) Urine Protein Negative mg/dL (NEG-TRACE) Urine Glucose (UA) Negative mg/dL (NEG) Urine Ketones (Stick) Negative mg/dL (NEG) Urine Blood Negative (NEG) Urine Nitrite Negative (NEG) Urine Bilirubin Negative (NEG) Urine Urobilinogen Dipstick 0.2 mg/dL (0.2 mg/dL) Urine Leukocyte Esterase Negative (NEG) Urine RBC 0 /HPF (0-2) Urine WBC 0 /HPF (0-4) Urine Squamous Epithelial Cells Occ /LPF Urine Bacteria 0 /HPF (0-FEW) Urine Mucus Mod /LPF Assessment/Plan Assessment/Plan Improving hematoma right lower quadrant status post laparoscopic appendectomy would treat expectantly monitor KRISSY LIZARRAGA MD May 23, 2021 16:25
[2021-05-23] MEDS ORDERED: hydrALAZINE 20 MG/ML VIAL. IVP PRN (18:15)
[2021-05-23 19:00] VITALS: BP 138/74
--- NOTE | 2021-05-23 19:55 | NUR ---
Patient complaining that he asked to take a shower at 3 pm and no one came to help him. It is now 1954. I offered to help him with taking a shower and patient stated that it was too late in the day to shower. Patient still upset that he didn't get a shower at 3 pm. Explained to patient that the night staff didn't come on shift until 7pm and that the current staff was not here at 3pm. Again offered to assist patient with shower and he refused.
--- NOTE | 2021-05-23 21:30 | NUR ---
Patient called acute care certified nursing assistant into room and told her he wanted to shower. Lore(acute care certified nursing assistant) set up bathroom for shower and patient started yelling at her and being disrespectful. Patient still complaining that he didn't get a shower at 3pm. Lore then explained that she was not on shift at 3pm and that she would help him now. He then refused a shower.
[2021-05-23 23:00] VITALS: BP 154/81
[2021-05-24 03:00] VITALS: BP 147/71
[2021-05-24] MEDS: MORPHINE SULFATE 4 MG/ML INJ. IVP PRN (03:36)
[2021-05-24] MEDS: PIPERACILLIN/TAZOBACTAM 3.375 GM in IV NORMAL SALINE 50ML 50 ML IV SCH (06:05)
[2021-05-24 07:00] VITALS: BP 134/67
--- NOTE | 2021-05-24 09:33 | NUR ---
This nurse called to patient's room at 0910AM patient had called requesting pain medication. Morphine taken to provide to patient by pain. After entering room, patients present. Patient immediately stated that he needed to leave because the hospital was not doing anything for him and that he asked for a shower yesterday at 3PM and did not get help with that until 7PM. This nurse informed patient that the doctor needed to see him to discharge him and patient stated that he was not going to wait for the doctor and needed to leave this minute. Explained to patient about leaving AMA and patient agreed. IV removed, Dr. Fisher notified, [facility] sewer system supervisor notified, security notified. Patient got dressed and was escorted to vehicle by JOLLY Mcdonald and security compliance specialist. Risks of leaving AMA explained to patient and patient verbalized understanding. Left facility at 0920.
--- NOTE | 2021-05-24 09:38 | NUR ---
Patient refused all assessments.
--- NOTE | 2021-05-24 11:11 | PDOC3 ---
[facility]-Discharge Summary Date of Admission: Date of Admission: May 23, 2021 Date of Discharge: Date of Discharge: May 24, 2021 Hospital Course: Hospital Course: Patient is a 55-year-old male with past medical history HTN, DM2, HLD, splenectomy, who presents to the ER with complaints of generalized abdominal pain, lower back pain, and left hip pain since his appendectomy recently performed in late April. His recent hospital course with appendectomy was complicated by persistent leukocytosis in the setting of asplenia. Consult placed to hematology/oncology and his persistent leukocytosis and thrombocytosis was deemed secondary to acute appendicitis likely exacerbated by asplenia. He was recommended to continue postoperative supportive care per general surgery service. Repeat CT abdomen/pelvis showed postoperative hematoma measuring 6.5 x 4.2 x 5.0 cm. He was discharged home on 7-day course of Augmentin. At the time of discharge his WBC was 42.4 and his platelets were 447. Patient returns again to the hospital with complaints of abdominal pain and back pain. CT abdomen/pelvis showed redemonstration of a high density fluid collection in the right lower quadrant of the abdomen, but appears slightly decreased in size compared to prior with a loculated appearance. Labs on admission showed WBC 35.9, platelets 579, albumin 3.0. We will admit patient with general surgery consult for further medical management. 05/24 Patient left the hospital AGAINST MEDICAL ADVICE before I was able to evaluate him on this day Disposition: Disposition/Orders: Other (AMA) Activity: Activity: Resume previous activity Medications: Home Meds Active Scripts Oxycodone/Apap 5-325 (PERCOCET 5-325 MG TABLET ) 1 Each Tablet, 1 TAB PO PRN Q4HRS PRN for PAIN for 7 Days, #14 TAB Prov:CASTLE,NIAL K III DO 05/11/21 Reported Medications Metformin Hcl (METFORMIN HCL) 1,000 Mg Tablet, 1000 MG PO BIDWMEALS for diabetes, TAB 05/10/21 Ezetimibe (Ezetimibe) 10 Mg Tablet, 10 MG PO DAILY for cholesterol, TAB 02/24/19 Omeprazole (OMEPRAZOLE) 20 Mg Capsule.dr, 20 MG PO BID for gerd 11/22/18 Metoprolol Tartrate (METOPROLOL TARTRATE) 50 Mg Tablet, 50 MG PO NOON for htn, #30 11/07/16 Loratadine (LORATADINE) 10 Mg Tablet, 10 MG PO PRN DAILY PRN for ALLERGIES, #30 11/07/16 Gabapentin (GABAPENTIN ) 300 Mg Capsule, 300 MG PO TID for numbness in arms, CAP 11/07/16 Atorvastatin Calcium (LIPITOR) 80 Mg Tablet, 80 MG PO HS for FOR CHOLESTEROL, #30 TAB 0 Refills 11/07/16 Losartan/Hydrochlorothiazide (LOSARTAN-HCTZ 50-12.5 MG TAB) 1 Each Tablet, 1 TAB PO DAILY for htn, #30 TAB 5 Refills 11/07/16 Discontinued Scripts Amoxicillin/Potassium Clav (AMOX TR-K CLV 875-125 MG TAB) 1 Each Tablet, 1 TAB PO BID for Colitis for 7 Days, #14 TAB Prov:JOSE MARTINEZ MD 05/14/21 Scheduled Atorvastatin Calcium (Lipitor), 80 MG PO HS, (Reported) Ezetimibe (Ezetimibe), 10 MG PO DAILY, (Reported) Gabapentin (Gabapentin ), 300 MG PO TID, (Reported) Losartan/Hydrochlorothiazide (Losartan-Hctz 50-12.5 Mg Tab), 1 TAB PO DAILY, (Reported) Metformin Hcl (Metformin Hcl), 1,000 MG PO BIDWMEALS, (Reported) Metoprolol Tartrate (Metoprolol Tartrate), 50 MG PO NOON, (Reported) Omeprazole (Omeprazole), 20 MG PO BID, (Reported) Scheduled PRN Loratadine (Loratadine), 10 MG PO PRN DAILY PRN for ALLERGIES, (Reported) Oxycodone/Apap 5-325 (Percocet 5-325 Mg Tablet ), 1 TAB PO PRN Q4HRS PRN for PAIN Discontinued Medications Amoxicillin/Potassium Clav (Amox Tr-K Clv 875-125 Mg Tab), 1 TAB PO BID Justicifation of Admission Dx: Justifications for Admission: Justification of Admission Dx: N/A JOSE SCHOFIELD MD May 24, 2021 11:11
== END 2021-05-24 09:20 | disposition left against medical advice (07) | DRG 921 ==
LOC: ER 16:14 → 4 NORTH 19:43
PROVIDERS: ADMIT Internal Medicine; ATTEND Internal Medicine
DX: K91.870 Postprocedural hematoma of a digestive system organ or structure following a digestive system procedure (principal); D75.839 Thrombocytosis, unspecified; E11.9 Type 2 diabetes mellitus without complications; E78.00 Pure hypercholesterolemia, unspecified; E78.5 Hyperlipidemia, unspecified; I10 Essential (primary) hypertension; J45.909 Unspecified asthma, uncomplicated; M47.816 Spondylosis without myelopathy or radiculopathy, lumbar region; Z90.49 Acquired absence of other specified parts of digestive tract; Z90.81 Acquired absence of spleen; K21.9 Gastro-esophageal reflux disease without esophagitis; Z20.822 Contact with and (suspected) exposure to COVID-19; Z88.8 Allergy status to other drugs, medicaments and biological substances
CPT/HCPCS: 36415; 74177; 80053; 81001; 83690; 83735; 85007; 85025; 96374; 96375; J2270; J2405; J2543; J3010; J7030; Q9967; 99285-25; G0378